=== PATIENT | male | born 1960 | race Caucasian/White ===

== ENCOUNTER 2017-10-14 20:00 | Inpatient (IN) | payer MEDICAID, SELFPAY ==
[2017-10-14 20:02] VITALS: BP 173/109; PULSE 94; RESP 18; TEMP 36.9; O2SAT 98; BMI 39.9
--- NOTE | 2017-10-14 20:57 | ED.DCSUM_ITS ---
- ER Visit Summary Date of Service: 10/14/17 Chief Complaint: Left groin abscess History of Present Illness: The patient is a 57 M history of non-insulin- dependent diabetes and hypertension. Patient states that since Wednesday about 6 days ago he developed redness in his left upper leg then moved to his groin and I believe he has an abscess. Denies fever. No prior history. Denies any bleeding or drainage. Physical Examination: Well-appearing middle-age male. Vital signs are stable. He is afebrile. He does not look septic or toxic. He is in no acute distress. HEENT exam unremarkable. Neck nontender lungs clear to auscultation bilaterally. Heart regular rate and rhythm no murmur. Abdomen obese but soft nontender nondistended no giving or masses normal bowel sounds. Moving all 4 extremities. Neurovascular intact. Neurologically is awake and alert with no focal motor deficits. In the proximal left thigh groin area is red and warm consistent with an abscess also in the lower abdomen with indurated tissue and tenderness. There is no necrotic tissue. This does not involve the external genitalia. Test Results: CBC showed a white count of 14,400. Normal H&H. No bands. Electrolytes sodium is 126. Gap is 6. Blood sugars 263. Normal creatinine. Emergency Department Course and Treatment: Patient be started on IV Zosyn. Screening labs to be obtained. Treatment Plan: Repeat exam patient is doing well. The left groin abscess spontaneously ruptured on its own. It has a very foul smell. It is openly draining pus. There is no bleeding. Patient said actually feels better now the pressures off of it. Currently there is nothing I&D since it spontaneously ruptured and is actively draining. There was a large amount of pus. I will speak to the hospitalist about admission. Disposition: Admission Impression: Acute left groin abscess with cellulitis Acute hyponatremia History of diabetes This note was generated with [email or web address] dictation software. It may contain incorrect words, spelling, and punctuation that were not noted in review of the chart prior to signing <Jorge Alvarez - Last Filed: 10/14/17 23:16> - ER Visit Summary Date of Service: 10/14/17 Chief Complaint: [] History of Present Illness: The patient is a 57 M [] Physical Examination: [] Test Results: [] Emergency Department Course and Treatment: [] Treatment Plan: [] Disposition: [] Impression: [] This note was generated with [email or web address] dictation software. It may contain incorrect words, spelling, and punctuation that were not noted in review of the chart prior to signing <Kyrie Marion - Last Filed: 10/14/17 23:55> ED Disposition <Jorge Alvarez - Last Filed: 10/14/17 23:16> <Kyrie Marion - Last Filed: 10/14/17 23:55> - Plan for ED Patient: Chief Complaint: Abscess Referrals: Onofre Augustine MD [Primary Care Provider] -
[2017-10-14] MEDS: morphine 8 MG/ML Syringe 6 MG IV (21:15)
[2017-10-14 21:21] VITALS: BP 145/87; PULSE 92; RESP 22; O2SAT 100
[2017-10-14 21:31] LABS: Bedside Glucose 251 mg/dL (70-110)
[2017-10-14 21:38] LABS: Absolute Lymphocyte Count 1.29 X10^3/ul (0.83-4.51); Basophil# 0.03 X10^3/uL; Basophil% 0.2 % (0-1); Eosinophil# 0.13 X10^3/uL; Eosinophils% 0.9 % (0-5); Hematocrit 36.6 % (40-54); Hemoglobin 12.5 g/dl (13.0-16.5); Lymphocyte # 1.29 X10^3/ul (4.0); Lymphocyte % 8.9 % (19-41); Mean Corp Hgb Conc 34.2 g/gl (32-36); Mean Corpuscular Hgb 29.6 pg (27.0-32.0); Mean Corpuscular Volume 86.7 fL (80-94); Mean Platelet Vol. 10.9 fl (6.2-12.0); Monocyte# 0.94 X10^3/uL; Monocyte% 6.5 % (0-10); Neutrophil # 11.97 X10^3/uL (2.7-7.7); Neutrophil % 83.1 % (47-70); Platelet Count 228 K/mm3 (150-450); RBC Distribution Width CV 12.9 % (11.6-14.6); RBC Distribution Width SD 40.5 fl (35.1-43.9); Red Blood Count 4.22 M/mm3 (4.6-6.2); White Blood Count 14.4 K/mm3 (4.4-11.0)
[2017-10-14 21:39] LABS: POSITIVE COUNT NO; POSITIVE DIFFERENTIAL NO; POSITIVE MORPHOLOGY NO
[2017-10-14 22:06] LABS: Anion Gap 6 (5-15); BUN 12 mg/dL (7-18); Calcium,Total 8.9 mg/dL (8.5-10.1); Chloride 97 mmol/L (98-107); Creatinine, Serum 0.92 mg/dL (0.70-1.30); EST Glomerular Filtration Rate 90 mL/min (>60); Est Glom Filt Rate - Afr Amer 109 mL/min (>60); Estimated Creatinine Clearance 90.72 ml/min; Glucose 263 mg/dL (74-106); Sodium Level 126 mmol/L (136-145)
--- NOTE | 2017-10-14 23:13 | PCM.HP.STD ---
Problem List (1) Abscess of groin, left Status: Acute (2) Cellulitis of groin, left Status: Acute (3) Hypertension Status: Chronic (4) Diabetes Status: Acute Qualifiers: Diabetes mellitus type: type 2 (5) Hyponatremia Status: Acute History of Present Illness Date of Admission: 10/14/17 Chief Complaint: swelling and pain at left groin x 5 days The patient is a 57 year old M with a significant history of tobacco abuse, diabetes mellitus type 2 and hypertension who presents with redness, swelling and pain at left groin x 5 days. Patient reports that the area under consideration started as a small rash and it progressively worsened. At emergency department the patient received Zosyn. The ED doctor was getting ready to incise the swelling at his left groin when it spontaneously ruptured. Of note the patient was noted to have significant hyponatremia on ED labs but with no baseline labs to compare with. He reports hydrating himself with a considerable amount of tea each day. He is supposed to be on Metformin and Lisinopril but because of financial difficulties he is not taking any of his medications. Past Medical History Past Medical History (Chronic Problems): Chronic Problems Hypertension (Chronic) Medical History: Medical History (Last Updated 10/15/17 @ 01:13 by Kyrie Marion MD) Diabetes type 2, uncontrolled E11.65 Allergies No Known Allergies Allergy (Verified 10/14/17 20:03) Home Medications: Ambulatory Orders Medication Instructions Recorded Ibuprofen [Motrin] 400 mg PO Q4H PRN PRN 10/15/17 Smoking Status: Current every day smoker Alcohol: None Drugs: None - *Family History Paternal History Items: Diabetes Maternal History Items: No pertinent history Review of Systems Constitutional: Denies: Chills, Fever, Weight Change Eyes: Denies: Blurred vision, Pain HEENT: Denies: Head Aches, Sinus Congestion, Sinus Drainage Cardiovascular: Denies: Chest Pain, Palpitations Respiratory: Denies: Cough, Shortness of breath at rest, Sputum production Gastrointestinal: Denies: Abdominal Pain, Nausea, Vomiting Genitourinary: Denies: Dysuria Musculoskeletal: Reports: - - Left Groin pain Skin: Reports: - - Swelling and redness of left groin Neurological: Denies: Numbness, Tingling, Focal weakness Psychiatric: Denies: Anxiety, Depression, Homicidal Ideations, Suicidal Ideations Hematologic/ Lymphatic: Denies: Easy Bruising, Easy Bleeding VTE Information - Inpt Only VTE Present on Admission: No VTE Mechan Device Prophylaxis: None VTE Pharm Prophylaxis ordered?: Yes Patient Problems: Active and Suspected Problems Abscess of groin, left (Acute) Cellulitis of groin, left (Acute) Diabetes (Acute) Hyponatremia (Acute) - Physical Exam General: Alert, Oriented x3, Cooperative HEENT: Atraumatic, PERRLA, EOMI, Normocephalic Neck: Supple, No JVD, Negative Carotid Bruits Lungs: Clear to auscultation, Normal air movement Cardiovascular: Regular rate, No murmurs Abdomen: Bowel Sounds Present, Soft, Non Tender Extremities: - - Left groin redness and induration present. Foul odor pus from left groin. Musculoskeletal: No Tenderness to Palpation of Joints or Extremities Neurological: Cranial nerves II-XII grossly intact Psych/Mental Status: Normal Affect, Appropriate Vital Signs Temp Pulse Resp BP Pulse Ox 98.4 F 92 22 H 145/87 H 100 10/14/17 20:02 10/14/17 21:21 10/14/17 21:21 10/14/17 21:21 10/14/17 21:21 Oxygen Delivery Method Room Air Weight: 122.47 kg Body Mass Index (BMI) 39.9 Finger Stick Blood Glucose 251 Laboratory Tests Past 24 Hrs 10/14/17 10/14/17 21:15 21:15 WBC 14.4 H RBC 4.22 L Hgb 12.5 L Hct 36.6 L MCV 86.7 MCH 29.6 MCHC 34.2 RDW 12.9 RDW Differential 40.5 Plt Count 228 MPV 10.9 Immature Gran % (Auto) 0.400 Neut % (Auto) 83.1 H Lymph % (Auto) 8.9 L [place] % (Auto) 6.5 Eos % (Auto) 0.9 Baso % (Auto) 0.2 Absolute Neuts (auto) 12.0 H Absolute Lymphs (auto) 1.29 Total Counted Not Reportable Sodium 126 L Potassium TNP Chloride 97 L Carbon Dioxide 23.0 Anion Gap 6 BUN 12 Creatinine 0.92 Estim Creat Clear Calc 90.72 Est GFR (MDRD) Af Amer 109 Est GFR (MDRD) Non-Af 90 BUN/Creatinine Ratio 13.0 Glucose 263 H Calcium 8.9 POC Glucose 10/14/17 21:26 POC Glucose 251 H Assessment/Plan All Active Problems Abscess of groin, left (Acute) Cellulitis of groin, left (Acute) Diabetes (Acute) Hyponatremia (Acute) The patient is a 57 year old M with a significant history of tobacco abuse; diabetes mellitus type 2; and hypertension who presents with pain, redness, swelling and foul-smelling discharge from his left groin. Left groin abscess with cellulitis White blood count of 14.4 with neutrophilic predominance. Received Zosyn on 10/14/2017 We will cover for MRSA, strep and enteric bacteria with vancomycin and Zosyn. Surgery consult for evaluation for further incision and drainage Blood cultures ordered. Hyponatremia Sodium of 126 No clear etiology at this time. Suspect ingestion of hypotonic fluids. Serum osmolality, urine osmolality and urine sodium ordered. TSH ordered. Diabetes mellitus Basal and correction scale insulin ordered Metformin not reordered Hypertension Lisinopril 20 mg ordered. Tobacco abuse Counselled Inpatient consult for tobacco cessation DVT prophylaxis Subcutaneous Lovenox Code Visit Inpatient E&M: 74345 Init Hosp L2
[2017-10-14 23:22] VITALS: BP 135/72; PULSE 95; RESP 18; O2SAT 97
--- NOTE | 2017-10-14 23:22 | ED.RN ---
pt's abscess drained on own. large amount of liquid brown drainage. cleaned up with bath wipes. MD assessed. pt feels less pressure to abscess.
[2017-10-15] VITALS (14 sets, daily range): BP systolic 96–180; BP diastolic 66–95; PULSE 78–97; RESP 16–20; TEMP 36.6–37.6; O2SAT 94–100; BMI 38.9; BMI 39.9
[2017-10-15] MEDS: Insulin Lispro 100 UNIT/ML INSULN.PEN SQ ×4 (00:45→22:07)
[2017-10-15 00:50] LABS: Bedside Glucose 321 mg/dL (70-110)
[2017-10-15 01:23] LABS: Thyroid Stim Hormone (TSH) 1.94 uIU/mL (0.358-3.74)
[2017-10-15] MEDS: oxyCODONE 5 MG Tablet PO ×3 (01:33→16:04)
[2017-10-15] MEDS: 0.9% NaCl IVPB Med Flush (250 mL) 15 ML IV (01:35)
--- NOTE | 2017-10-15 01:38 | PCM.RX.CS ---
Consult Pharmacy has been consulted to manage selected antiobiotic: Vancomycin Type of Consult: New start Suspected Infection: Skin/Soft tissue Labs: Sodium 126 mmol/L (136-145) L 10/14/17 21:15 Potassium TNP 10/14/17 21:15 Chloride 97 mmol/L (98-107) L 10/14/17 21:15 Carbon Dioxide 23.0 mmol/L (21.0-32.0) 10/14/17 21:15 Anion Gap 6 (5-15) 10/14/17 21:15 BUN 12 mg/dL (7-18) 10/14/17 21:15 Creatinine 0.92 mg/dL (0.70-1.30) 10/14/17 21:15 Est GFR (MDRD) Af Amer 109 mL/min (>60) 10/14/17 21:15 Est GFR (MDRD) Non-Af 90 mL/min (>60) 10/14/17 21:15 BUN/Creatinine Ratio 13.0 RATIO (10-20) 10/14/17 21:15 Glucose 263 mg/dL (74-106) H 10/14/17 21:15 Weight used for dosin.47 kg Estimated Creatinine Clearance: 90.72 Goal Trough: 10-15 mcg/mL Pharmacy Plan for Drug Dosing: Pharmacy Service will continue to monitor and adjust dosing as required. Medications Piperacillin Sod/Tazobactam Sod (Zosyn) 3.375 gm in 50 mls @ 12.5 mls/hr IV Q8 [facility] Vancomycin HCl 1,750 mg/ (Sodium Chloride) 535 mls @ 260 mls/hr IV X1 ONE Stop: 10/15/17 02:33 Last Admin: 10/15/17 01:31 Dose: 260 mls/hr Vancomycin HCl 1,500 mg/ (Dextrose) 280 mls @ 250 mls/hr IV RX TO DOSE ANA Follow-Up Labs: Trough Vancomycin Labs to be done on [date and time ordered]: 10/16 @ 1330
[2017-10-15 02:03] LABS: Urine Sodium 25 mmol/L (Not Establ.)
[2017-10-15 02:38] LABS: Osmolality, Urine 963 mOsm/KG
[2017-10-15] MEDS: Piperacil/Tazobactam 3.375 GM/50 ML ML IV ×3 (06:36→22:05)
[2017-10-15 07:21] LABS: Absolute Lymphocyte Count 0.81 X10^3/ul (0.83-4.51); Absolute Neutrophil Count 10.6 X10^3/uL (2.0-7.7); Basophil# 0.04 X10^3/uL; Basophil% 0.3 % (0-1); Eosinophil# 0.15 X10^3/uL; Eosinophils% 1.2 % (0-5); Hematocrit 34.8 % (40-54); Lymphocyte # 0.81 X10^3/ul (4.0); Lymphocyte % 6.5 % (19-41); Mean Corp Hgb Conc 34.5 g/gl (32-36); Mean Corpuscular Hgb 29.9 pg (27.0-32.0); Mean Corpuscular Volume 86.6 fL (80-94); Mean Platelet Vol. 10.2 fl (6.2-12.0); Monocyte# 0.88 X10^3/uL; Neutrophil # 10.56 X10^3/uL (2.7-7.7); Neutrophil % 84.1 % (47-70); Platelet Count 261 K/mm3 (150-450); RBC Distribution Width CV 12.4 % (11.6-14.6); RBC Distribution Width SD 38.8 fl (35.1-43.9); Red Blood Count 4.02 M/mm3 (4.6-6.2); White Blood Count 12.6 K/mm3 (4.4-11.0)
[2017-10-15 07:22] LABS: POSITIVE COUNT NO; POSITIVE DIFFERENTIAL NO; POSITIVE MORPHOLOGY NO
[2017-10-15 07:41] LABS: Anion Gap 10 (5-15); BUN 13 mg/dL (7-18); BUN/Creat Ratio 12.6 RATIO (10-20); Calcium,Total 8.1 mg/dL (8.5-10.1); Chloride 94 mmol/L (98-107); Creatinine, Serum 1.03 mg/dL (0.70-1.30); EST Glomerular Filtration Rate 80 mL/min (>60); Est Glom Filt Rate - Afr Amer 96 mL/min (>60); Estimated Creatinine Clearance 81.03 ml/min; Glucose 292 mg/dL (74-106); Potassium 3.8 mmol/L (3.5-5.1); Sodium Level 130 mmol/L (136-145)
[2017-10-15 07:45] LABS: Osmolality, Serum 283 mOsm/KG (275-295)
--- NOTE | 2017-10-15 08:29 | NURSING ---
Nursing and Dr Redd asked this nurse to assess the redness and drainage to the left upper medial thigh. patient states he has had redness for a little over a week and has worsened since Wednesday. patient is a diabetic. there is a very small darkened area approx the size of a pencil eraser to the upper inner thigh that is draining copious amounts of blair very malodorous drainage. there is some induration noted to the suprapubic region as well. the induration does not extend to the right side at this time. there is redness that extends to the left thigh, left flank, and around to the left posterior thigh. the scrotum is red as well. there is so firmness noted to the scrotum at this time. redness marked at this time. Discussed with Dr Redd. Dr Duran is on consult as well. pt will most likely need surgical intervention today especially if this continues to worsen. A CT scan had not been ordered yet, but Dr Redd did mention ordering one. will closely monitor. with patient being diabetic, this could rapidly progress. Emma's gangrene is not ruled out. cultures obtained and sent per RENE Sanon.
--- NOTE | 2017-10-15 08:30 | NURSING ---
cultures obtained from left groin draining area and sent to lab
[2017-10-15 09:55] LABS: Bedside Glucose 350 mg/dL (70-110)
--- NOTE | 2017-10-15 10:01 | CON.PCM_ITS ---
Problem List (1) Abscess of groin, left Status: Acute Reason for Consult Date of Consultation: 10/15/17 History of Present Illness: The patient is a 57 year old M with a significant history of tobacco abuse, diabetes mellitus type 2 and hypertension who presents with redness, swelling and pain at left groin x 5 days. Patient reports that the area under consideration started as a small rash and it progressively worsened. At emergency department the patient received Zosyn. The ED doctor was getting ready to incise the swelling at his left groin when it spontaneously ruptured. Of note the patient was noted to have significant hyponatremia on ED labs but with no baseline labs to compare with. He reports hydrating himself with a considerable amount of tea each day. He is supposed to be on Metformin and Lisinopril but because of financial difficulties he is not taking any of his medications. I was notified today about this consultation. Past Medical History Past Medical History (Chronic Problems): Chronic Problems (Last Updated 10/15/17 @ 01:13 by Kyrie Marion MD) Hypertension (Chronic) Medical History: Medical History (Last Reviewed 10/15/17 @ 09:59 by Hamilton Duran MD) Diabetes type 2, uncontrolled E11.65 Allergies No Known Allergies Allergy (Verified 10/14/17 20:03) Home Medications: Ambulatory Orders Medication Instructions Recorded Ibuprofen [Motrin] 400 mg PO Q4H PRN PRN 10/15/17 Smoking Status: Current every day smoker Alcohol: None Drugs: None - *Family History Paternal History Items: Diabetes Maternal History Items: No pertinent history Review of Systems Cardiovascular: Denies: Chest Pain, Chest Pressure, Chest Tightness, Palpitations Respiratory: Denies: Cough, Hemoptysis, Shortness of breath at rest, Shortness of breath upon exertion, Wheezing Gastrointestinal: Denies: Abdominal Pain, Constipation, Diarrhea, Hematemesis, Nausea, Melena, Vomiting Patient Problems: Active and Suspected Problems (Last Updated 10/15/17 @ 01:13 by Kyrie Marion MD) Abscess of groin, left (Acute) Cellulitis of groin, left (Acute) Diabetes (Acute) Hyponatremia (Acute) - Physical Exam General: Alert, Oriented x3 Lungs: Clear to auscultation Cardiovascular: Regular rate, Regular Rhythm, No murmurs Extremities: - Vital Signs Temp Pulse Resp BP Pulse Ox 98.6 F 90 18 159/84 H 97 10/15/17 09:43 10/15/17 09:43 10/15/17 09:43 10/15/17 09:43 10/15/17 09:43 Oxygen Delivery Method Room Air Weight: 263 lb 10.766 oz Body Mass Index (BMI) 38.9 Intake and Output for Last 24 Hours 10/13/17 10/14/17 10/15/17 23:59 23:59 23:59 Intake Total 1010 / 1010 Balance 1010 / 1010 Laboratory Tests Past 24 Hrs 10/15/17 10/15/17 10/15/17 01:30 01:30 07:08 WBC RBC Hgb Hct MCV MCH MCHC RDW RDW Differential Plt Count MPV Immature Gran % (Auto) Neut % (Auto) Lymph % (Auto) [place] % (Auto) Eos % (Auto) Baso % (Auto) Absolute Neuts (auto) Absolute Lymphs (auto) Total Counted Sodium Potassium Chloride Carbon Dioxide Anion Gap BUN Creatinine Estim Creat Clear Calc Est GFR (MDRD) Af Amer Est GFR (MDRD) Non-Af BUN/Creatinine Ratio Glucose Serum Osmolality 283 Calcium Urine Osmolality 963 Ur Random Sodium 25 S.aureus Protein A PCR MRSA (PCR) 10/15/17 10/15/17 10/15/17 07:08 07:08 08:10 WBC 12.6 H RBC 4.02 L Hgb 12.0 L Hct 34.8 L MCV 86.6 MCH 29.9 MCHC 34.5 RDW 12.4 RDW Differential 38.8 Plt Count 261 MPV 10.2 Immature Gran % (Auto) 0.900 Neut % (Auto) 84.1 H Lymph % (Auto) 6.5 L [place] % (Auto) 7.0 Eos % (Auto) 1.2 Baso % (Auto) 0.3 Absolute Neuts (auto) 10.6 H Absolute Lymphs (auto) 0.81 L Total Counted Not Reportable Sodium 130 L Potassium 3.8 Chloride 94 L Carbon Dioxide 26.0 Anion Gap 10 BUN 13 Creatinine 1.03 Estim Creat Clear Calc 81.03 Est GFR (MDRD) Af Amer 96 Est GFR (MDRD) Non-Af 80 BUN/Creatinine Ratio 12.6 Glucose 292 H Serum Osmolality Calcium 8.1 L Urine Osmolality Ur Random Sodium S.aureus Protein A PCR Pending MRSA (PCR) Pending POC Glucose 10/15/17 10/15/17 09:50 00:24 POC Glucose 350 H 321 H Assessment/Plan All Active Problems (Last Updated 10/15/17 @ 01:13 by Kyrie Marion MD) Abscess of groin, left (Acute) Cellulitis of groin, left (Acute) Diabetes (Acute) Hyponatremia (Acute) My plan is to perform an I&D of this abscess in his left groin. This may be a component of necrotizing fasciitis I have instructed him that there is a chance that he could lose his testicle on that side as well. Until I get him in the OR I really do not know how extensive my dissection is going to have to be. Risk benefits to include bleeding up to and including have been discussed with this gentleman. This is an extremely serious situation
--- NOTE | 2017-10-15 10:19 | NURSING ---
report called to Jessica Mathis in [facility]
[2017-10-15 10:34] LABS: M R Staph aureus DNA By PCR Negative (Negative); Probe Check PASS; Specimen Processing Control PASS; Staph aureus DNA By PCR NEGATIVE (Negative)
--- NOTE | 2017-10-15 10:43 | EKG12_ITS ---
Test Reason : PRE-OP Blood Pressure : / mmHG Vent. Rate : 090 BPM Atrial Rate : 090 BPM P-R Int : 152 ms QRS Dur : 086 ms QT Int : 358 ms P-R-T Axes : 025 004 032 degrees QTc Int : 437 ms Normal sinus rhythm Normal ECG No previous ECGs available Confirmed by YANNICK URIAS ([id number]), manager editorial RAMIREZ HOUSER ([id number] on 10/19/2017 2:09:44 PM Referred By: ARETHA Confirmed By:YANNICK URIAS
--- NOTE | 2017-10-15 11:25 | PCM.PN.HOSP ---
Patient Problems: Active and Suspected Problems (Last Reviewed 10/15/17 @ 09:59 by Hamilton Duran MD) Abscess of groin, left (Acute) Cellulitis of groin, left (Acute) Diabetes (Acute) Hyponatremia (Acute) Subjective: The patient is a 57 y/o M w/ PMHx: Obesity, Diabetes mellitus type II, HTN, Tobacco use who presents to the [facility] ED on 10/24/17 with history of ongoing primarily L groin pain, initially thought a rash that progressed into erythema, edema, fullness and severe pain. Acute Left Groin, Medial Thigh Cellulitis, Abscess, Concerning for Emma's Gangrene/Early Necrotizing Fascitis: Admission CBC w/ WBC 14.4 with L shift, was afebrile upon admission-->repeat CBC w/ WBC 12.6 with improving shift. Admitted to [place], treated w/ IV vanc and zosyn, obtained Wound Cx and MRSA wound this AM (negative) w/ de-escalation to Zosyn, immediately contact with Dr. Duran this AM for OR obvious needs, NPO status, IVFs, PPI, continue to monitor erythema outline with VS checks. PRN pain regimen, antiemetics. Wound RN following. Hyponatremia, Acute: Suspected secondary to hypovolemia, poor intake with acute presentation, #1, admission Na 126, continued on hydration, 10/15/17 Na 130, improving, trend. Diabetes mellitus type II w/ need to confirm home regimen, maintained on Lantus increased unit and now BID given notable hyperglycemia secondary to #1, HgBA1c requested, ADA diet once NPO status discontinued, accu checks w/ ISS. Nutrition consultation for education and teaching. Initiated on lisinopril, improved, pain also component, hold on further now until post-op and re-evaluation, if needed may increase ACEI versus additional regimen, PRN hydralazine. Patient since admission with ongoing discomfort to the groin region primarily left-sided with swelling, induration, now open draining region with purulent material. Evaluated patient and remarked that he would immediately need operative intervention and spoke with general surgeon who evaluated patient is for progression to OR. Evaluated patient with wound RN and RN with wound culture both aerobic and anaerobic as well as MRSA PCR obtained with negative MRSA PCR with discontinuation of vancomycin and continuation of Zosyn therapy. Discussed elevated blood sugar secondary to acute presentation with patient and noted intention for increase of his long-acting insulin and addition of twice daily. Patient denies nausea, emesis, abdominal pain, chest pain or dyspnea. Objective: Physical Examination: General: awake, alert, oriented x 3 and cooperative, seated upright in bed, notably uncomfortable especially given current examination of the groin region with wound cultures being obtained. Skin: normal color, turgor, no icterus, cyanosis except notable diffuse erythema to the groin region primarily left-sided extending into the suprapubic and lateral groin regions, indurated, firm, suspicious for fluctuance with abscess, open draining small abscess to the medial inner thigh region with brown foul-smelling purulent material, mild edema to the scrotal region. HEENT: AT/NC, EOMI, PERRLA, mild dry MM. Lungs: Diminished BS BL, > bases, decreased effort w/ ongoing acute pain, no rales, ronchi or wheezing. Heart: Mildly tachycardic with regular rhythm; no gallop, rub audible. Abdomen: soft, obese, NTTP, ND, decreased BS. Extremities: no cyanosis, clubbing, see skin. Neurological: patient awake, alert, oriented x 3; cognitive function intact; pupils equally reactive to light and accomodation; cranial nerves II-XII grossly normal, moving all 4 extremities, no focal deficits, strength severely globally decreased secondary to acute presentation. Psychiatric: affect appears strained, fatigued, in pain, no acute evidence of depressive or anxiety feelings. Vitals/I&O's: Vital Signs Temp Pulse Resp BP Pulse Ox 98.6 F 90 18 159/84 H 97 10/15/17 09:43 10/15/17 09:43 10/15/17 09:43 10/15/17 09:43 10/15/17 09:43 Oxygen Delivery Method Room Air Weight: 263 lb 10.766 oz Body Mass Index (BMI) 38.9 Intake and Output for Last 24 Hours 10/13/17 10/14/17 10/15/17 23:59 23:59 23:59 Intake Total 1010 / 1010 Balance 1010 / 1010 Laboratory Results 10/15/17 00:24: POC Glucose 321 H 10/15/17 01:30: Urine Osmolality 963 10/15/17 01:30: Ur Random Sodium 25 10/15/17 07:08: Serum Osmolality 283 10/15/17 07:08: WBC 12.6 H, RBC 4.02 L, Hgb 12.0 L, Hct 34.8 L, MCV 86.6, MCH 29.9, MCHC 34.5, RDW 12.4, RDW Differential 38.8, Plt Count 261, MPV 10.2, Immature Gran % (Auto) 0.900, Neut % (Auto) 84.1 H, Lymph % (Auto) 6.5 L, [place] % (Auto) 7.0, Eos % (Auto) 1.2, Baso % (Auto) 0.3, Absolute Neuts (auto) 10.6 H, Absolute Lymphs (auto) 0.81 L, Total Counted Not Reportable 10/15/17 07:08: Sodium 130 L, Potassium 3.8, Chloride 94 L, Carbon Dioxide 26.0, Anion Gap 10, BUN 13, Creatinine 1.03, Estim Creat Clear Calc 81.03, Est GFR (MDRD) Af Amer 96, Est GFR (MDRD) Non-Af 80, BUN/Creatinine Ratio 12.6, Glucose 292 H, Calcium 8.1 L 10/15/17 08:10: S.aureus Protein A PCR NEGATIVE, MRSA (PCR) Negative 10/15/17 09:50: POC Glucose 350 H Current Medications Bisacodyl (Dulcolax) 5 mg PO DAILY PRN PRN PRN Reason: Constipation Dextrose (D50w Syringe) 0 gm IV X1 PRN; Protocol PRN Reason: Hypoglycemia Enoxaparin Sodium (Lovenox) 40 mg SC DAILY@1000 ANA Last Admin: 10/15/17 08:29 Dose: Not Given Glucagon () 1 mg IM .X1 PRN PRN Reason: Hypoglycemia Piperacillin Sod/Tazobactam Sod (Zosyn) 3.375 gm in 50 mls @ 12.5 mls/hr IV Q8 ANA Last Admin: 10/15/17 06:36 Dose: 12.5 mls/hr Sodium Chloride () 250 mls @ 15 mls/hr IV .[id number] PRN PRN Reason: SALINE FLUSH Last Admin: 10/15/17 01:35 Dose: 15 mls/hr Sodium Chloride () 1,000 mls @ 100 mls/hr IV .Q10H ANA Insulin Glargine (Lantus (Bkc)) 20 units SC BID ANA Insulin Human Lispro (Humalog Kwikpen (Bkc)) 0 unit SQ ACHS ANA PRN Reason: Protocol Last Admin: 10/15/17 00:45 Dose: 5 units Lisinopril (Zestril) 20 mg PO DAILY NAA Magnesium Hydroxide (Milk Of Magnesia) 30 ml PO DAILY PRN PRN PRN Reason: Constipation Ondansetron HCl (Zofran) 4 mg IV Q8H PRN PRN PRN Reason: Nausea Oxycodone HCl (Oxyir) 5 mg PO Q4H PRN PRN PRN Reason: Moderate Pain (pain scale 4-5) Last Admin: 10/15/17 06:44 Dose: 5 mg Sodium Chloride () 5 - 30 ml IV UD PRN PRN Reason: SALINE FLUSH Zolpidem Tartrate (Ambien (Generic)) 5 mg PO QHS PRN PRN PRN Reason: INSOMNIA Medical Necessity - Tobacco Use Smoking Status: Current every day smoker Assessment/Plan All Active Problems (Last Reviewed 10/15/17 @ 09:59 by Hamilton Duran MD) Abscess of groin, left (Acute) Cellulitis of groin, left (Acute) Diabetes (Acute) Hyponatremia (Acute) The patient is a 57 y/o M w/ PMHx: Obesity, Diabetes mellitus type II, HTN, Tobacco use who presents to the [facility] ED on 10/24/17 with history of ongoing primarily L groin pain, initially thought a rash that progressed into erythema, edema, fullness and severe pain. (1) Acute Left Groin, Medial Thigh Cellulitis, Abscess, Concerning for Emma's Gangrene/Early Necrotizing Fascitis: Admission CBC w/ WBC 14.4 with L shift, was afebrile upon admission-->repeat CBC w/ WBC 12.6 with improving shift. Admitted to [place], treated w/ IV vanc and zosyn, obtained Wound Cx and MRSA wound this AM (negative) w/ de-escalation to Zosyn, immediately contact with Dr. Duran this AM for OR obvious needs, NPO status, IVFs, PPI, continue to monitor erythema outline with VS checks. PRN pain regimen, antiemetics. Wound RN following. (2) Hyponatremia, Acute: Suspected secondary to hypovolemia, poor intake with acute presentation, #1, admission Na 126, continued on hydration, 10/15/17 Na 130, improving, trend. (3) Diabetes mellitus type II: Need to confirm home regimen, maintained on Lantus increased unit and now BID given notable hyperglycemia secondary to #1, HgBA1c requested, ADA diet once NPO status discontinued, accu checks w/ ISS. Nutrition consultation for education and teaching. (4) Hypertension: Initiated on lisinopril, improved, pain also component, hold on further now until post-op and re-evaluation, if needed may increase ACEI versus additional regimen, PRN hydralazine. (5) Obesity: Weight loss and lifestyle changes encouraged, nutrition consulted for education and teaching especially given concurrent diabetes and hypertension. (6) Tobacco Abuse: Encouraged cessation, inpatient consultation per RT, NR if desired. (7) DVT prophylaxis: SCDs, lovenox w/ hold currently with deferral following OR to Surgery given operative intervention plan. Code Visit Inpatient E&M: 43699 Subs Hosp L3
--- NOTE | 2017-10-15 11:53 | PCM.OPRPT ---
Problem List (1) Abscess of groin, left Status: Acute Report of Operation Date of Procedure: 10/15/17 Pre-Operative Diagnosis: Abscess to left groin Post-Operative Diagnosis: Same with necrotizing fasciitis Surgery/Procedure Performed:: Incision and drainage of abscess to left groin and debridement Type of Anesthesia:: Spinal/Supplemental Anesthesiologist: Ta Reyez Description of Procedure: Patient was brought into the operating room and under excellent spinal anesthetic his legs were placed up in stirrups perineal and groin area on both the left and right were sterilely prepped and draped in usual fashion patient had a pinpoint hole in his lower inner thigh I opened this and then tracked a deep abscess all the way up into the groin and onto the perineal area. I lengthen this incision total of about 15-[address] down through the subcutaneous tissues using electrocautery to obtain good hemostasis. Debrided the area and irrigated the area out. Once I had the area cleaned a Betadine soaked Kerlix was placed into the wound. Sterile dressings were applied. We will have to get him to the clinical appeals specialist so that a wound VAC can be placed. - Admit VTE Documentation VTE Present on Admission: No VTE Mechan Device Prophylaxis: None VTE Pharm Prophylaxis ordered?: No Reason prophylaxis not ordered:: Treatment Not Indicated
[2017-10-15 12:36] LABS: Magnesium 1.9 mg/dL (1.6-2.6)
[2017-10-15 12:40] LABS: Hemoglobin A1c 10.4 % (4.2-6.3)
[2017-10-15] MEDS: 0.9% Normal Saline 1,000 ML 100 ML IV ×2 (13:11→15:44)
[2017-10-15 13:15] LABS: Bedside Glucose 317 mg/dL (70-110)
[2017-10-15] MEDS: Lisinopril 20 MG Tablet PO (13:40)
--- NOTE | 2017-10-15 14:47 | NURSING ---
wound photo: left groin
[2017-10-15 16:01] LABS: Bedside Glucose 282 mg/dL (70-110)
[2017-10-15] MEDS: HYDROmorphone 0.5 MG/0.5 ML SYRINGE IV ×2 (19:01→22:01)
[2017-10-15] MEDS: 0.9% NaCl Peripheral Flush Adult/Peds IV (19:01)
[2017-10-15] MEDS: Pantoprazole Sodium 20 MG Tablet PO (22:05)
[2017-10-15 22:35] LABS: Bedside Glucose 349 mg/dL (70-110)
[2017-10-16] MEDS: Ondansetron 4 MG/2 ML Vial IV (01:31)
[2017-10-16] MEDS: 0.9% Normal Saline 1,000 ML 100 ML IV ×2 (01:32→11:55)
[2017-10-16 02:00] VITALS: BP 169/83; PULSE 90; RESP 20; TEMP 36.7; O2SAT 97
[2017-10-16] MEDS: Metoclopramide 10 MG/2 ML Vial IV ×2 (04:12→10:00)
[2017-10-16] MEDS: Piperacil/Tazobactam 3.375 GM/50 ML ML IV ×3 (05:30→22:41)
[2017-10-16] MEDS: Insulin Lispro 100 UNIT/ML INSULN.PEN SQ ×4 (06:52→22:41)
[2017-10-16 07:11] LABS: Bedside Glucose 279 mg/dL (70-110)
[2017-10-16 07:36] LABS: Absolute Lymphocyte Count 0.82 X10^3/ul (0.83-4.51); Absolute Neutrophil Count 8.9 X10^3/uL (2.0-7.7); Basophil# 0.04 X10^3/uL; Basophil% 0.4 % (0-1); Eosinophil# 0.07 X10^3/uL; Eosinophils% 0.6 % (0-5); Hematocrit 34.5 % (40-54); Hemoglobin 11.8 g/dl (13.0-16.5); Lymphocyte # 0.82 X10^3/ul (4.0); Lymphocyte % 7.6 % (19-41); Mean Corp Hgb Conc 34.2 g/gl (32-36); Mean Corpuscular Hgb 29.7 pg (27.0-32.0); Mean Corpuscular Volume 86.9 fL (80-94); Mean Platelet Vol. 10.5 fl (6.2-12.0); Monocyte# 0.83 X10^3/uL; Monocyte% 7.7 % (0-10); Neutrophil # 8.93 X10^3/uL (2.7-7.7); Neutrophil % 82.4 % (47-70); Platelet Count 285 K/mm3 (150-450); RBC Distribution Width CV 12.5 % (11.6-14.6); RBC Distribution Width SD 39.1 fl (35.1-43.9); Red Blood Count 3.97 M/mm3 (4.6-6.2); White Blood Count 10.8 K/mm3 (4.4-11.0)
[2017-10-16 07:40] LABS: POSITIVE COUNT NO; POSITIVE DIFFERENTIAL NO; POSITIVE MORPHOLOGY NO
[2017-10-16 07:45] LABS: Anion Gap 10 (5-15); BUN 13 mg/dL (7-18); BUN/Creat Ratio 14.5 RATIO (10-20); Calcium,Total 8.3 mg/dL (8.5-10.1); Chloride 97 mmol/L (98-107); EST Glomerular Filtration Rate 93 mL/min (>60); Est Glom Filt Rate - Afr Amer 113 mL/min (>60); Estimated Creatinine Clearance 92.74 ml/min; Glucose 275 mg/dL (74-106); Potassium 3.9 mmol/L (3.5-5.1); Sodium Level 131 mmol/L (136-145)
--- NOTE | 2017-10-16 08:44 | CASEMGMT ---
AIDA met with patient, introduced self and role at [facility]. 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 He has access to equipment, but it is actually his mom's so it may not be appropriate size. He said he currently does not have VA benefits, but the [place] [facility] is working to see if they can get him benefits for his Tinnitus. He was having problems affording his medication, but now he is on Medicaid. AIDA told him AIDA and RENE GONZALEZ will follow and assist with any d/c planning needs. Asmita DANIEL [employer]
[2017-10-16] MEDS: HYDROmorphone 0.5 MG/0.5 ML SYRINGE IV ×4 (09:21→22:10)
[2017-10-16 09:25] VITALS: BP 141/73; PULSE 83; RESP 18; TEMP 37.3; O2SAT 100
--- NOTE | 2017-10-16 09:37 | PN_ITS ---
Patient Problems: Active and Suspected Problems (Last Reviewed 10/15/17 @ 09:59 by Hamilton Duran MD) Abscess of groin, left (Acute) Cellulitis of groin, left (Acute) Diabetes (Acute) Hyponatremia (Acute) Subjective: Patient was seen and examined. He complains of pain on movement, 8 out of 10. Pain is 2 out of 10 when no movement. Denies any fever or chills. Dressing change was yet to be done in the morning. Vitals/I&O's: Vital Signs Temp Pulse Resp BP Pulse Ox 99.1 F 83 18 141/73 H 100 10/16/17 09:25 10/16/17 09:25 10/16/17 09:25 10/16/17 09:25 10/16/17 09:25 Oxygen Delivery Method Room Air Weight: 119.6 kg Body Mass Index (BMI) 38.9 Finger Stick Blood Glucose 251 Intake and Output for Last 24 Hours 10/14/17 10/15/17 10/16/17 23:59 23:59 23:59 Intake Total 2453 / 2453 1964 / 1964 Output Total 500 / 500 1400 / 1400 Balance 1952 / 1952 565 / 565 General: Alert, Oriented x3, Cooperative, No apparent distress, - - Obese HEENT: Atraumatic, PERRLA, EOMI, Normocephalic Oral: Moist Mucosa Neck: Supple Lungs: Clear to auscultation, Normal air movement Cardiovascular: Regular rate, Regular Rhythm, Normal S1, Normal S2, No murmurs Abdomen: Bowel Sounds Present, Soft, Non Tender, Non-Distended, No Hepato- splenomegaly Extremities: No edema Skin: No rashes, No breakdown Musculoskeletal: No Tenderness to Palpation of Joints or Extremities Lymphatic: No Cervical, Supraclavicular, or Inguinal Adenopathy Neurological: Cranial nerves II-XII grossly intact, Neuro grossly intact Psych/Mental Status: Normal Affect, Appropriate Microbiology Past 72 Hours 10/15/17 08:10 Wound exudate - Groin Gram Stain - Final 10/15/17 08:10 Wound exudate - Groin Wound Culture - Preliminary Laboratory Results 10/15/17 07:08: Magnesium 1.9 10/15/17 07:08: Hemoglobin A1c 10.4 H 10/15/17 08:10: S.aureus Protein A PCR NEGATIVE, MRSA (PCR) Negative 10/15/17 09:50: POC Glucose 350 H 10/15/17 13:07: POC Glucose 317 H 10/15/17 15:56: POC Glucose 282 H 10/15/17 22:04: POC Glucose 349 H 10/16/17 06:49: POC Glucose 279 H 10/16/17 06:56: WBC 10.8, RBC 3.97 L, Hgb 11.8 L, Hct 34.5 L, MCV 86.9, MCH 29.7 , MCHC 34.2, RDW 12.5, RDW Differential 39.1, Plt Count 285, MPV 10.5, Immature Gran % (Auto) 1.300 H, Neut % (Auto) 82.4 H, Lymph % (Auto) 7.6 L, [place] % (Auto ) 7.7, Eos % (Auto) 0.6, Baso % (Auto) 0.4, Absolute Neuts (auto) 8.9 H, Absolute Lymphs (auto) 0.82 L, Total Counted Not Reportable 10/16/17 06:56: Sodium 131 L, Potassium 3.9, Chloride 97 L, Carbon Dioxide 24.0 , Anion Gap 10, BUN 13, Creatinine 0.90, Estim Creat Clear Calc 92.74, Est GFR ( MDRD) Af Amer 113, Est GFR (MDRD) Non-Af 93, BUN/Creatinine Ratio 14.5, Glucose 275 H, Calcium 8.3 L Current Medications Bisacodyl (Dulcolax) 5 mg PO DAILY PRN PRN PRN Reason: Constipation Dextrose (D50w Syringe) 0 gm IV X1 PRN; Protocol PRN Reason: Hypoglycemia Enoxaparin Sodium (Lovenox) 40 mg SC DAILY@1000 ANA Last Admin: 10/15/17 08:29 Dose: Not Given Glucagon () 1 mg IM .X1 PRN PRN Reason: Hypoglycemia Hydromorphone HCl (Dilaudid Inj) 0.5 - 1 mg IV Q3H PRN PRN PRN Reason: SEVERE PAIN (6-10/10) Last Admin: 10/16/17 09:21 Dose: 0.5 mg Piperacillin Sod/Tazobactam Sod (Zosyn) 3.375 gm in 50 mls @ 12.5 mls/hr IV Q8 ANA Last Admin: 10/16/17 05:30 Dose: 12.5 mls/hr Sodium Chloride () 250 mls @ 15 mls/hr IV .[id number] PRN PRN Reason: SALINE FLUSH Last Admin: 10/15/17 01:35 Dose: 15 mls/hr Sodium Chloride () 1,000 mls @ 100 mls/hr IV .Q10H [facility] Last Admin: 10/16/17 01:32 Dose: 100 mls/hr Insulin Glargine (Lantus (Bkc)) 20 units SC BID [facility] Last Admin: 10/15/17 22:06 Dose: 20 u Insulin Human Lispro (Humalog Kwikpen (Bkc)) 0 unit SQ ACHS [facility] PRN Reason: Protocol Last Admin: 10/16/17 06:52 Dose: 4 units Lisinopril (Zestril) 20 mg PO DAILY [facility] Last Admin: 10/15/17 13:40 Dose: 20 mg Magnesium Hydroxide (Milk Of Magnesia) 30 ml PO DAILY PRN PRN PRN Reason: Constipation Metoclopramide HCl (Reglan) 10 mg IV Q6H PRN PRN PRN Reason: NAUSEA Last Admin: 10/16/17 04:12 Dose: 10 mg Ondansetron HCl (Zofran) 4 mg IV Q8H PRN PRN PRN Reason: Nausea Last Admin: 10/16/17 01:31 Dose: 4 mg Oxycodone HCl (Oxyir) 5 - 10 mg PO Q4H PRN PRN PRN Reason: Moderate Pain (pain scale 4-5) Last Admin: 10/15/17 16:04 Dose: 5 mg Pantoprazole Sodium (Protonix) 20 mg PO BID [facility] Last Admin: 10/15/17 22:05 Dose: 20 mg Sodium Chloride () 5 - 30 ml IV UD PRN PRN Reason: SALINE FLUSH Last Admin: 10/15/17 19:01 Dose: 10 ml Zolpidem Tartrate (Ambien (Generic)) 5 mg PO QHS PRN PRN PRN Reason: INSOMNIA Medical Necessity - Tobacco Use Smoking Status: Current every day smoker Assessment/Plan All Active Problems (Last Reviewed 10/15/17 @ 09:59 by Hamilton Duran MD) Abscess of groin, left (Acute) Cellulitis of groin, left (Acute) Diabetes (Acute) Hyponatremia (Acute) 57-year-old male with past medical history of type II DM, hypertension, obesity , nicotine dependence was admitted on 10/14/17 with left groin pain which initially started as a rash progressed into erythema as well as edema and severe pain. Patient was diagnosed as left groin/medial thigh cellulitis with abscess. He underwent I& D of the left groin abscess. Postoperative findings noted. Appreciate general surgery consult. 1. Acute left groin/perineal abscess/cellulitis, status post I&D, preliminary wound cultures growing gram-positive cocci with beta-hemolytic strep No fever, leucocytosis, remains on IV Zosyn, will continue same antibiotics, follow-up on cultures, follow-up on labs, ID consult. 2. Hyponatremia, acute, remains slightly improved, will continue to monitor with repeat BMP. 3. Hyperglycemia and type II DM, blood sugars are uncontrolled because of current infection, increase Lantus to 22 units twice daily, continue with Accu- Cheks and insulin sliding scale 4. Hypertension, blood pressures are fairly controlled, continue on lisinopril 5. Obesity, BMI 38.9, diet and exercise recommended 6. Nicotine dependence, advised to quit 7. DVT prophylaxis with Lovenox subcu Code Visit Inpatient E&M: 98373 Subs Hosp L2
[2017-10-16] MEDS: Lisinopril 20 MG Tablet PO (09:40)
[2017-10-16] MEDS: Pantoprazole Sodium 20 MG Tablet PO ×2 (09:40→22:41)
[2017-10-16] MEDS: Enoxaparin 40 MG/0.4 ML Syringe SC (12:26)
[2017-10-16 12:35] LABS: Bedside Glucose 256 mg/dL (70-110)
[2017-10-16 17:20] LABS: Bedside Glucose 250 mg/dL (70-110)
[2017-10-16 18:05] VITALS: BP 157/81; PULSE 89; RESP 18; TEMP 37.4; O2SAT 97
[2017-10-16] MEDS: Bisacodyl 5 MG Tablet PO (19:34)
[2017-10-16] MEDS: 0.9% NaCl Peripheral Flush Adult/Peds IV (22:11)
[2017-10-16 22:15] VITALS: BP 168/95; PULSE 81; RESP 18; TEMP 37.2; O2SAT 97
[2017-10-16 22:50] LABS: Bedside Glucose 305 mg/dL (70-110)
[2017-10-16] MEDS: 0.9% Normal Saline 1,000 ML 75 ML IV (23:50)
[2017-10-17 03:04] VITALS: BP 162/92; PULSE 84; RESP 16; TEMP 36.9; O2SAT 98
[2017-10-17] MEDS: HYDROmorphone 0.5 MG/0.5 ML SYRINGE IV ×3 (03:06→22:42)
[2017-10-17] MEDS: 0.9% NaCl Peripheral Flush Adult/Peds IV ×3 (03:07→22:43)
[2017-10-17 06:23] LABS: Absolute Lymphocyte Count 1.48 X10^3/ul (0.83-4.51); Anion Gap 10 (5-15); BUN 12 mg/dL (7-18); BUN/Creat Ratio 13.4 RATIO (10-20); Basophil# 0.05 X10^3/uL; Basophil% 0.5 % (0-1); Calcium,Total 8.4 mg/dL (8.5-10.1); Chloride 97 mmol/L (98-107); EST Glomerular Filtration Rate 93 mL/min (>60); Eosinophil# 0.18 X10^3/uL; Eosinophils% 1.8 % (0-5); Est Glom Filt Rate - Afr Amer 113 mL/min (>60); Estimated Creatinine Clearance 92.74 ml/min; Glucose 258 mg/dL (74-106); Hematocrit 33.3 % (40-54); Hemoglobin 11.4 g/dl (13.0-16.5); Lymphocyte # 1.48 X10^3/ul (4.0); Lymphocyte % 15.1 % (19-41); Mean Corp Hgb Conc 34.2 g/gl (32-36); Mean Corpuscular Hgb 29.4 pg (27.0-32.0); Mean Corpuscular Volume 85.8 fL (80-94); Mean Platelet Vol. 10.2 fl (6.2-12.0); Monocyte# 0.92 X10^3/uL; Monocyte% 9.4 % (0-10); Neutrophil # 6.98 X10^3/uL (2.7-7.7); Neutrophil % 71.1 % (47-70); Platelet Count 287 K/mm3 (150-450); Potassium 3.7 mmol/L (3.5-5.1); RBC Distribution Width CV 12.5 % (11.6-14.6); RBC Distribution Width SD 38.7 fl (35.1-43.9); Red Blood Count 3.88 M/mm3 (4.6-6.2); Sodium Level 133 mmol/L (136-145); White Blood Count 9.8 K/mm3 (4.4-11.0)
[2017-10-17 06:27] LABS: Differential Indicated SCAN CRITERIA MET; POSITIVE COUNT YES; POSITIVE DIFFERENTIAL NO; POSITIVE MORPHOLOGY YES
[2017-10-17] MEDS: Insulin Lispro 100 UNIT/ML INSULN.PEN SQ ×6 (07:52→22:43)
[2017-10-17] MEDS: Magnesium Hydroxide 30 ML UDC PO (07:53)
[2017-10-17 08:01] LABS: Bedside Glucose 227 mg/dL (70-110)
[2017-10-17 08:10] VITALS: O2SAT 95
[2017-10-17 08:53] VITALS: BP 158/89; PULSE 83; RESP 18; TEMP 37.3; O2SAT 99
[2017-10-17] MEDS: oxyCODONE 5 MG Tablet PO ×2 (09:00→15:06)
[2017-10-17] MEDS: Piperacil/Tazobactam 3.375 GM/50 ML ML IV ×3 (09:06→22:43)
--- NOTE | 2017-10-17 10:17 | PN.SURG_ITS ---
Patient Problems: Active and Suspected Problems (Last Reviewed 10/15/17 @ 09:59 by Hamilton Duran MD) Abscess of groin, left (Acute) Cellulitis of groin, left (Acute) Diabetes (Acute) Hyponatremia (Acute) Subjective: Patient complaining of some pain in the upper groin area. Also complaining of some swelling in his scrotum. Objective: There is a fruity smell coming from the wound. Is clearly going to need to change this to a Dakin solution. The redness that was noted all around his thigh groin suprapubic area and scrotum is far less. He has dependent edema in his scrotum. There is some slight few necrotic areas in the wound but I think these are to be taken care of with just wet-to-dry dressing changes they seem all superficial. It does not appear that I need to take this patient back to surgery. - Physical Exam Vital Signs Temp Pulse Resp BP Pulse Ox 99.2 F H 83 18 158/89 H 99 10/17/17 08:53 10/17/17 08:53 10/17/17 08:53 10/17/17 08:53 10/17/17 08:53 Oxygen Delivery Method Room Air Weight: 263 lb 10.766 oz Body Mass Index (BMI) 38.9 Finger Stick Blood Glucose 251 Intake and Output for Last 24 Hours 10/15/17 10/16/17 10/17/17 23:59 23:59 23:59 Intake Total 2453 / 2453 5735 / 5735 651 / 651 Output Total 500 / 500 2650 / 2650 Balance 1953 / 1953 3085 / 3085 651 / 651 Microbiology Past 72 Hours 10/15/17 01:10 Blood Culture - Preliminary Blood Culture (Wb) - Right Hand No growth in 48 hours. 10/15/17 08:10 Gram Stain - Final Wound exudate - Groin Wound Culture - Preliminary Laboratory Tests Past 24 Hrs 10/17/17 10/17/17 05:24 05:24 WBC 9.8 RBC 3.88 L Hgb 11.4 L Hct 33.3 L MCV 85.8 MCH 29.4 MCHC 34.2 RDW 12.5 RDW Differential 38.7 Plt Count 287 MPV 10.2 Immature Gran % (Auto) 2.100 H Neut % (Auto) 71.1 H Lymph % (Auto) 15.1 L [place] % (Auto) 9.4 Eos % (Auto) 1.8 Baso % (Auto) 0.5 Absolute Neuts (auto) 7.0 Absolute Lymphs (auto) 1.48 Total Counted Not Reportable Diff Path Review May foll Sodium 133 L Potassium 3.7 Chloride 97 L Carbon Dioxide 26.0 Anion Gap 10 BUN 12 Creatinine 0.90 Estim Creat Clear Calc 92.74 Est GFR (MDRD) Af Amer 113 Est GFR (MDRD) Non-Af 93 BUN/Creatinine Ratio 13.4 Glucose 258 H Calcium 8.4 L POC Glucose 10/17/17 10/16/17 10/16/17 07:44 22:18 17:00 POC Glucose 227 H 305 H 250 H 10/16/17 12:25 POC Glucose 256 H Medical Necessity - Tobacco Use Smoking Status: Current every day smoker Assessment/Plan All Active Problems (Last Reviewed 10/15/17 @ 09:59 by Hamilton Duran MD) Abscess of groin, left (Acute) Cellulitis of groin, left (Acute) Diabetes (Acute) Hyponatremia (Acute) Slow progress need to change the dressings to Dakin's solution. Blood sugars need to be tighter controlled. Unlikely we will get the wound VAC on in the next several days.
[2017-10-17 10:45] VITALS: PULSE 84
[2017-10-17] MEDS: Lisinopril 20 MG Tablet PO (10:45)
[2017-10-17] MEDS: Pantoprazole Sodium 20 MG Tablet PO ×2 (10:45→22:56)
[2017-10-17] MEDS: Enoxaparin 40 MG/0.4 ML Syringe SC (10:45)
[2017-10-17 11:16] LABS: Bedside Glucose 297 mg/dL (70-110)
[2017-10-17 15:09] VITALS: BP 153/75; PULSE 82; RESP 18; TEMP 37.4; O2SAT 100
--- NOTE | 2017-10-17 15:22 | PCM.PN.HOSP ---
Patient Problems: Active and Suspected Problems (Last Reviewed 10/15/17 @ 09:59 by Hamilton Duran MD) Abscess of groin, left (Acute) Cellulitis of groin, left (Acute) Diabetes (Acute) Hyponatremia (Acute) Subjective: Patient was seen and examined. Denies any fever or chills. Complains of swelling around the left hip and scrotum. Objective: Physical exam: General: Alert, Oriented x3, Cooperative, No apparent distress, - - Obese HEENT: Atraumatic, PERRLA, EOMI, Normocephalic Oral: Moist Mucosa Neck: Supple Lungs: Clear to auscultation, Normal air movement Cardiovascular: Regular rate, Regular Rhythm, Normal S1, Normal S2, No murmurs Abdomen: Bowel Sounds Present, Soft, Non Tender, Non-Distended, No Hepato-splenomegaly, edema of the left hip and gluteal region with some mild erythema, +4 scrotal edema, dressing and packing, in the left groin region Extremities: No edema Skin: No rashes, No breakdown Musculoskeletal: No Tenderness to Palpation of Joints or Extremities Lymphatic: No Cervical, Supraclavicular, or Inguinal Adenopathy Neurological: Cranial nerves II-XII grossly intact, Neuro grossly intact Psych/Mental Status: Normal Affect, Appropriate Vitals/I&O's: Vital Signs Temp Pulse Resp BP Pulse Ox 99.4 F H 82 18 153/75 H 100 10/17/17 15:09 10/17/17 15:09 10/17/17 15:09 10/17/17 15:09 10/17/17 15:09 Oxygen Delivery Method Room Air Weight: 119.6 kg Body Mass Index (BMI) 38.9 Finger Stick Blood Glucose 251 Intake and Output for Last 24 Hours 10/15/17 10/16/17 10/17/17 23:59 23:59 23:59 Intake Total 2453 / 2453 5735 / 5735 1311 / 1311 Output Total 500 / 500 2650 / 2650 Balance 195 / 1952 3085 / 3085 1311 / 1311 Microbiology Past 72 Hours 10/15/17 08:10 Wound exudate - Groin Gram Stain - Final 10/15/17 08:10 Wound exudate - Groin Wound Culture - Preliminary Gram Positive Cocci Streptococcus group B Gram Positive Cocci#2 10/15/17 01:10 Blood Culture (Wb) - Right Hand Blood Culture - Preliminary No growth in 48 hours. Laboratory Results 10/16/17 17:00: POC Glucose 250 H 10/16/17 22:18: POC Glucose 305 H 10/17/17 05:24: WBC 9.8, RBC 3.88 L, Hgb 11.4 L, Hct 33.3 L, MCV 85.8, MCH 29.4, MCHC 34.2, RDW 12.5, RDW Differential 38.7, Plt Count 287, MPV 10.2, Immature Gran % (Auto) 2.100 H, Neut % (Auto) 71.1 H, Lymph % (Auto) 15.1 L, Nance % (Auto) 9.4, Eos % (Auto) 1.8, Baso % (Auto) 0.5, Absolute Neuts (auto) 7.0, Absolute Lymphs (auto) 1.48, Total Counted Not Reportable, Diff Path Review July10/17/17 05:24: Sodium 133 L, Potassium 3.7, Chloride 97 L, Carbon Dioxide 26.0, Anion Gap 10, BUN 12, Creatinine 0.90, Estim Creat Clear Calc 92.74, Est GFR (MDRD) Af Amer 113, Est GFR (MDRD) Non-Af 93, BUN/Creatinine Ratio 13.4, Glucose 258 H, Calcium 8.4 L 10/17/17 07:44: POC Glucose 227 H 10/17/17 11:07: POC Glucose 297 H Current Medications Bisacodyl (Dulcolax) 5 mg PO DAILY PRN PRN PRN Reason: Constipation Last Admin: 10/16/17 19:34 Dose: 5 mg Dextrose (D50w Syringe) 0 gm IV X1 PRN; Protocol PRN Reason: Hypoglycemia Enoxaparin Sodium (Lovenox) 40 mg SC DAILY@1000 ANA Last Admin: 10/17/17 10:45 Dose: 40 mg Glucagon () 1 mg IM .X1 PRN PRN Reason: Hypoglycemia Hydromorphone HCl (Dilaudid Inj) 0.5 - 1 mg IV Q3H PRN PRN PRN Reason: SEVERE PAIN (6-10/10) Last Admin: 10/17/17 03:06 Dose: 0.5 mg Piperacillin Sod/Tazobactam Sod (Zosyn) 3.375 gm in 50 mls @ 12.5 mls/hr IV Q8 [facility] Last Admin: 10/17/17 15:06 Dose: 12.5 mls/hr Insulin Glargine (Lantus (Bkc)) 24 units SC BID [facility] Insulin Human Lispro (Humalog Kwikpen (Bkc)) 0 unit SQ ACHS ANA PRN Reason: Protocol Last Admin: 10/17/17 11:48 Dose: 4 units Insulin Human Lispro (Humalog Kwikpen (Bkc)) 4 unit SQ BREAKFAST [facility] Insulin Human Lispro (Humalog Kwikpen (Bkc)) 4 unit SQ DINNER [facility] Insulin Human Lispro (Humalog Kwikpen (Bkc)) 4 unit SQ LUNCH [facility] Last Admin: 10/17/17 11:49 Dose: 4 u Lisinopril (Zestril) 20 mg PO DAILY [facility] Last Admin: 10/17/17 10:45 Dose: 20 mg Magnesium Hydroxide (Milk Of Magnesia) 30 ml PO DAILY PRN PRN PRN Reason: Constipation Last Admin: 10/17/17 07:53 Dose: 30 ml Metoclopramide HCl (Reglan) 10 mg IV Q6H PRN PRN PRN Reason: NAUSEA Last Admin: 10/16/17 10:00 Dose: 10 mg Ondansetron HCl (Zofran) 4 mg IV Q8H PRN PRN PRN Reason: Nausea Last Admin: 10/16/17 01:31 Dose: 4 mg Oxycodone HCl (Oxyir) 5 - 10 mg PO Q4H PRN PRN PRN Reason: Moderate Pain (pain scale 4-5) Last Admin: 10/17/17 15:06 Dose: 10 mg Pantoprazole Sodium (Protonix) 20 mg PO BID [facility] Last Admin: 10/17/17 10:45 Dose: 20 mg Sodium Chloride () 5 - 30 ml IV UD PRN PRN Reason: SALINE FLUSH Last Admin: 10/17/17 03:07 Dose: 10 ml Sodium Hypochlorite (Dakins Solution 0.25% (1/2 Strength)) 1 applic TOPICAL BID ANA PRN Reason: Protocol Last Admin: 10/17/17 10:42 Dose: 1 applicatio Zolpidem Tartrate (Ambien (Generic)) 5 mg PO QHS PRN PRN PRN Reason: INSOMNIA Medical Necessity - Tobacco Use Smoking Status: Current every day smoker Assessment/Plan All Active Problems (Last Reviewed 10/15/17 @ 09:59 by Hamilton Duran MD) Abscess of groin, left (Acute) Cellulitis of groin, left (Acute) Diabetes (Acute) Hyponatremia (Acute) 57-year-old male with past medical history of type II DM, hypertension, obesity, nicotine dependence was admitted on 10/14/17 with left groin pain which initially started as a rash progressed into erythema as well as edema and severe pain. Patient was diagnosed as left groin/medial thigh cellulitis with abscess. He underwent I& D of the left groin abscess. Postoperative findings noted. Appreciate general surgery consult. 1. Acute left groin/perineal abscess/cellulitis, status post I&D, preliminary wound cultures growing gram-positive cocci with beta-hemolytic strep No fever, leucocytosis, remains on IV Zosyn, will continue same antibiotics, follow-up on cultures, follow-up on labs, ID consult. 2. Hyponatremia, acute, on IV fluids, will continue to monitor 3. Hyperglycemia and type II DM, blood sugars remain uncontrolled because of current infection, increase Lantus to 24 units twice daily, add pre-meal insulin 4 units, continue with Accu-Cheks and insulin sliding scale 4. Hypertension, blood pressures are fairly controlled, continue on lisinopril 5. Obesity, BMI 38.9, diet and exercise recommended 6. Nicotine dependence, advised to quit 7. DVT prophylaxis with Lovenox subcu Code Visit Inpatient E&M: 25532 Subs Hosp L2
[2017-10-17 17:20] LABS: Bedside Glucose 242 mg/dL (70-110)
[2017-10-17 21:00] VITALS: BP 149/89; PULSE 81; RESP 18; TEMP 37.1; O2SAT 98
[2017-10-17] MEDS: Bisacodyl 5 MG Tablet PO (22:42)
[2017-10-17 23:05] LABS: Bedside Glucose 219 mg/dL (70-110)
[2017-10-18 03:15] VITALS: BP 151/103; PULSE 75; RESP 18; TEMP 36.8; O2SAT 99
[2017-10-18 06:22] LABS: Anion Gap 9 (5-15); BUN 9 mg/dL (7-18); BUN/Creat Ratio 11.3 RATIO (10-20); Calcium,Total 8.5 mg/dL (8.5-10.1); Chloride 98 mmol/L (98-107); EST Glomerular Filtration Rate 107 mL/min (>60); Est Glom Filt Rate - Afr Amer 129 mL/min (>60); Estimated Creatinine Clearance 104.33 ml/min; Glucose 231 mg/dL (74-106); Potassium 3.7 mmol/L (3.5-5.1); Sodium Level 134 mmol/L (136-145)
[2017-10-18] MEDS: Piperacil/Tazobactam 3.375 GM/50 ML ML IV ×3 (06:40→21:43)
[2017-10-18 06:43] LABS: Differential Indicated MANUAL DIFF; Hematocrit 34.1 % (40-54); Hemoglobin 11.7 g/dl (13.0-16.5); Mean Corp Hgb Conc 34.3 g/gl (32-36); Mean Corpuscular Hgb 29.3 pg (27.0-32.0); Mean Corpuscular Volume 85.5 fL (80-94); Mean Platelet Vol. 10.2 fl (6.2-12.0); POSITIVE COUNT YES; POSITIVE DIFFERENTIAL NO; POSITIVE MORPHOLOGY YES; Platelet Count 306 K/mm3 (150-450); RBC Distribution Width CV 12.3 % (11.6-14.6); RBC Distribution Width SD 37.7 fl (35.1-43.9); Red Blood Count 3.99 M/mm3 (4.6-6.2); White Blood Count 8.5 K/mm3 (4.4-11.0)
[2017-10-18] MEDS: oxyCODONE 5 MG Tablet PO ×3 (06:44→23:31)
[2017-10-18 06:45] LABS: Bedside Glucose 249 mg/dL (70-110)
[2017-10-18 07:28] LABS: Basophil 1 % (0-1); Eosinophil 2 % (0-5); Lymphocyte 21 % (19-41); Monocyte 8 % (0-10); Neutrophil-Band 2 % (0-5); Neutrophil-Segmented 64 % (47-70); Plasma Cell 2 %; Total Cells Counted 100 (MANUAL DIFF)
[2017-10-18 07:29] LABS: Absolute Lymphocyte Count 1.79 X10^3/ul (0.83-4.51); Absolute Neutrophil Count 5.6 X10^3/uL (2.0-7.7); Lymphocyte # 1.79 X10^3/ul (4.0); Neutrophil # 5.62 X10^3/uL (2.7-7.7)
[2017-10-18 08:40] VITALS: BP 158/94; PULSE 75; RESP 18; TEMP 36.9; O2SAT 97
[2017-10-18] MEDS: Insulin Lispro 100 UNIT/ML INSULN.PEN SQ ×5 (08:43→21:36)
[2017-10-18] MEDS: Enoxaparin 40 MG/0.4 ML Syringe SC (08:44)
[2017-10-18] MEDS: Lisinopril 20 MG Tablet PO (08:49)
[2017-10-18] MEDS: Pantoprazole Sodium 20 MG Tablet PO ×2 (08:49→21:43)
[2017-10-18] MEDS: Magnesium Hydroxide 30 ML UDC PO (08:49)
[2017-10-18 09:01] LABS: Bedside Glucose 251 mg/dL (70-110)
[2017-10-18] MEDS: HYDROmorphone 0.5 MG/0.5 ML SYRINGE IV ×2 (09:44→21:29)
[2017-10-18] MEDS: Bisacodyl 5 MG Tablet PO (09:50)
--- NOTE | 2017-10-18 10:38 | VDLE_ITS ---
Reason For Study: PAIN RIGHT LEFT GSV is normal. GSV is normal. CFV is compressible, spontaneous, phasic, FV is compressible, spontaneous, phasic, competent and demonstrates normal competent and demonstrates normal augmentation. augmentation. FV is compressible, spontaneous, phasic, POP V is compressible, spontaneous, phasic, competent and demonstrates normal competent and demonstrates normal augmentation. augmentation. POP V is compressible, spontaneous, phasic, T/P Trunk is compressible. competent and demonstrates normal PTV is compressible. augmentation. LT PerV is compressible. T/P Trunk is compressible. S/P debridement of abcess in left groin w/ PTV is compressible. dressing on wound- unable to image Left CFV RT PerV is compressible. and SFJ. Procedure Exam performed portable in patient room. A preliminary report was called and/or faxed to [facility]. Interpretation Summary Deep veins of the lower extremities are bilaterally patent and compressible segmentally. There is no evidence of deep vein thrombosis on either side. Valvular competence appears intact within the proximal deep venous systems bilaterally. The greater saphenous veins appear bilaterally patent and compressible segmentally. The left common femoral vein and left sapheno-femoral junction could not be visualized due to the presence of a surgical dressing. Ordering Physician: Jacqui Mann Referring Physician: GENE VU Performed By: Lorrie Magaña, PILY, RVT
--- NOTE | 2017-10-18 10:38 | PCM.PN.SRG ---
Patient Problems: Active and Suspected Problems (Last Reviewed 10/15/17 @ 09:59 by Hamilton Duran MD) Abscess of groin, left (Acute) Cellulitis of groin, left (Acute) Diabetes (Acute) Hyponatremia (Acute) Subjective: Patient is resting comfortably in bed. He notes minimal amount of discomfort just laying there. He notes back pain. He denies nausea, vomiting, fever. Labs reviewed. Wet to dry dressing changes with Dakins are being completed twice daily. - Physical Exam General: Alert, Oriented x3, Cooperative Skin: Ulcer/ Wound - Left groin wound with some granulation tissue and necrotic tissue also. Some yellowish material noted as well. Wound extends from the lateral left groin into the left inner thigh. Patient was seen with Yaneth. Measurements per her note. Wet to dry dressing was applied. Vital Signs Temp Pulse Resp BP Pulse Ox 98.5 F 75 18 158/94 H 97 10/18/17 08:40 10/18/17 08:40 10/18/17 08:40 10/18/17 08:40 10/18/17 08:40 Oxygen Delivery Method Room Air Weight: 263 lb 10.766 oz Body Mass Index (BMI) 38.9 Finger Stick Blood Glucose 251 Intake and Output for Last 24 Hours 10/16/17 10/17/17 10/18/17 23:59 23:59 23:59 Intake Total 5735 / 5735 1743 / 1743 1144 / 1144 Output Total 2650 / 2650 800 / 800 Balance 3085 / 3085 1743 / 1743 344 / 344 Microbiology Past 72 Hours 10/15/17 08:10 Gram Stain - Final Wound exudate - Groin Wound Culture - Preliminary Gram Positive Cocci Streptococcus agalactiae (B) Staphylococcus hominis hominis 10/15/17 01:10 Blood Culture - Preliminary Blood Culture (Wb) - Right Hand No growth in 48 hours. Laboratory Tests Past 24 Hrs 10/18/17 10/18/17 05:36 05:36 WBC 8.5 RBC 3.99 L Hgb 11.7 L Hct 34.1 L MCV 85.5 MCH 29.3 MCHC 34.3 RDW 12.3 RDW Differential 37.7 Plt Count 306 MPV 10.2 Neut % (Auto) Not Reportable Absolute Neuts (auto) 5.6 Absolute Lymphs (auto) 1.79 Total Counted 100 Neutrophils % (Manual) 64 Band Neutrophils % 2 Lymphocytes % (Manual) 21 Monocytes % (Manual) 8 Eosinophils % (Manual) 2 Basophils % (Manual) 1 Plasma Cell % (Manual) 2 Diff Path Review May foll Sodium 134 L Potassium 3.7 Chloride 98 Carbon Dioxide 27.0 Anion Gap 9 BUN 9 Creatinine 0.80 Estim Creat Clear Calc 104.33 Est GFR (MDRD) Af Amer 129 Est GFR (MDRD) Non-Af 107 BUN/Creatinine Ratio 11.3 Glucose 231 H Calcium 8.5 POC Glucose 10/18/17 10/18/17 10/17/17 08:37 06:38 22:40 POC Glucose 251 H 249 H 219 H 10/17/17 10/17/17 17:13 11:07 POC Glucose 242 H 297 H Medical Necessity - Tobacco Use Smoking Status: Current every day smoker Assessment/Plan All Active Problems (Last Reviewed 10/15/17 @ 09:59 by Hamilton Duran MD) Abscess of groin, left (Acute) Cellulitis of groin, left (Acute) Diabetes (Acute) Hyponatremia (Acute) I am following this patient in conjunction with Dr. Duran S/p Incision and debridement of left groin abscess Continue wet to dry twice daily dressing changes with Dakins today Microbiology growing out multiple bacteria Patient on Zosyn Spoke with hospitalist. Considering LTAC with IV antibiotics and wound vac placement or dressing changes We will continue to monitor this patient Code Visit Inpatient E&M: 80436 Subs Hosp L1 - Post-op; no charge
--- NOTE | 2017-10-18 10:55 | NURSING ---
wound photo: left groin
[2017-10-18] MEDS: Insulin Lispro 100 UNIT/ML INSULN.PEN 8 UNIT SQ ×2 (11:58→16:23)
--- NOTE | 2017-10-18 12:00 | CASEMGMT ---
Addendum entered by Cecilia Garza 10/18/17 12:22: AIDA faxed PT/OT Evaluations to Cat at [facility] Original Note: Social Work Note Dr. Mann updated this worker that pt may benefit from short term SNF at discharge for wound care. Yaneth, call center analyst nurse, updated this worker that pt would like to see about going to [facility] at discharge. SW in to meet with pt. AIDA introduced self and role at [facility]. Pt is alert and orientated x4. Pt confirms that he would like a referral sent to [facility] with his second choice being [facility]. AIDA explained to pt that this worker is unsure of pt's insurance is in network with [facility] but that [facility] can confirm insurance and see about a one time contract if they are not in network with pt's insurance. Pt states understanding. AIDA placed a call to Cat at [facility]. Cat states that she is unsure if they are in network with pt's insurance but will check and will see about a one time contract if they are not in network. AIDA informed Cat on referral and that PT/OT have been ordered and this worker will fax PT/OT evaluations when available. Cat states understanding. AIDA faxed clinicals to Cat at [facility]. AIDA will fax PT/OT evaluations when available. AIDA placed a call to [facility] and got the voicemail for Marcelino López, ext. [phone]. Per the voicemail for Marcelino she is on vacation this week and provided the extension for Henrik Real who is covering for Marcelino. Ext. [phone]. AIDA placed a call to Henrik Real and left her a voicemail inquiring about VA benefits for pt. Per previous notes, pt is not currently linked with any VA benefits. 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
[2017-10-18 12:06] LABS: Bedside Glucose 279 mg/dL (70-110)
--- NOTE | 2017-10-18 12:49 | CASEMGMT ---
Social Work Note SW received message from Cat at [facility] stating that [facility] not willing to provide one time contract with [facility]. Per previous conversation pt's second choice is [facility]. SW faxed referral to Mariella at [facility]. 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
[2017-10-18 13:54] LABS: Pathologist Review Reviewed
[2017-10-18 14:16] LABS: Pathologist Review Reviewed
[2017-10-18 14:26] VITALS: BP 162/92; PULSE 83; RESP 18; TEMP 36.9; O2SAT 97
--- NOTE | 2017-10-18 14:45 | PCM.PN.HOSP ---
Patient Problems: Active and Suspected Problems (Last Reviewed 10/15/17 @ 09:59 by Hamilton Duran MD) Abscess of groin, left (Acute) Cellulitis of groin, left (Acute) Diabetes (Acute) Hyponatremia (Acute) Subjective: Patient was seen and examined. Pain is fairly controlled. Denies any fever or chills. Complains of constipation ongoing for about 6 days. Examined patient's wound with general surgery next practitioner as well as wound nurse; wound looks improved, some seropurulent discharge from the inferior aspect of the wound. Objective: Physical exam: General: Alert, Oriented x3, Cooperative, No apparent distress, - - Obese HEENT: Atraumatic, PERRLA, EOMI, Normocephalic Oral: Moist Mucosa Neck: Supple Lungs: Clear to auscultation, Normal air movement Cardiovascular: Regular rate, Regular Rhythm, Normal S1, Normal S2, No murmurs Abdomen: Bowel Sounds Present, Soft, Non Tender, Non-Distended, No Hepato-splenomegaly, edema of the left hip and gluteal region with some mild erythema, +4 scrotal edema, dressing and packing, in the left groin region Extremities: No edema Skin: No rashes, No breakdown Musculoskeletal: No Tenderness to Palpation of Joints or Extremities Lymphatic: No Cervical, Supraclavicular, or Inguinal Adenopathy Neurological: Cranial nerves II-XII grossly intact, Neuro grossly intact Psych/Mental Status: Normal Affect, Appropriate Vitals/I&O's: Vital Signs Temp Pulse Resp BP Pulse Ox 98.5 F 83 18 162/92 H 97 10/18/17 14:26 10/18/17 14:26 10/18/17 14:26 10/18/17 14:26 10/18/17 14:26 Oxygen Delivery Method Room Air Weight: 119.6 kg Body Mass Index (BMI) 38.9 Finger Stick Blood Glucose 251 Intake and Output for Last 24 Hours 10/16/17 10/17/17 10/18/17 23:59 23:59 23:59 Intake Total 5735 / 5735 1743 / 1743 1566 / 1566 Output Total 2650 / 2650 800 / 800 Balance 3085 / 3085 1743 / 1743 766 / 766 Microbiology Past 72 Hours 10/15/17 08:10 Wound exudate - Groin Gram Stain - Final 10/15/17 08:10 Wound exudate - Groin Wound Culture - Preliminary Gram Positive Cocci Streptococcus agalactiae (B) Staphylococcus hominis hominis 10/15/17 08:10 Wound exudate - Groin Anaerobic Culture - Preliminary Checking for anaerobes, further studies to follow. 10/15/17 01:10 Blood Culture (Wb) - Right Hand Blood Culture - Preliminary No growth in 48 hours. Laboratory Results 10/17/17 05:24: Diff Path Review Reviewed 10/17/17 17:13: POC Glucose 242 H 10/17/17 22:40: POC Glucose 219 H 10/18/17 05:36: WBC 8.5, RBC 3.99 L, Hgb 11.7 L, Hct 34.1 L, MCV 85.5, MCH 29.3, MCHC 34.3, RDW 12.3, RDW Differential 37.7, Plt Count 306, MPV 10.2, Neut % (Auto) Not Reportable, Absolute Neuts (auto) 5.6, Absolute Lymphs (auto) 1.79, Total Counted 100, Neutrophils % (Manual) 64, Band Neutrophils % 2, Lymphocytes % (Manual) 21, Monocytes % (Manual) 8, Eosinophils % (Manual) 2, Basophils % (Manual) 1, Plasma Cell % (Manual) 2, Diff Path Review Reviewed 10/18/17 05:36: Sodium 134 L, Potassium 3.7, Chloride 98, Carbon Dioxide 27.0, Anion Gap 9, BUN 9, Creatinine 0.80, Estim Creat Clear Calc 104.33, Est GFR (MDRD) Af Amer 129, Est GFR (MDRD) Non-Af 107, BUN/Creatinine Ratio 11.3, Glucose 231 H, Calcium 8.5 10/18/17 06:38: POC Glucose 249 H 10/18/17 08:37: POC Glucose 251 H 10/18/17 11:56: POC Glucose 279 H Current Medications Bisacodyl (Dulcolax) 5 mg PO DAILY PRN PRN PRN Reason: Constipation Last Admin: 10/18/17 09:50 Dose: 5 mg Dextrose (D50w Syringe) 0 gm IV X1 PRN; Protocol PRN Reason: Hypoglycemia Enoxaparin Sodium (Lovenox) 40 mg SC DAILY@1000 ANA Last Admin: 10/18/17 08:44 Dose: 40 mg Glucagon () 1 mg IM .X1 PRN PRN Reason: Hypoglycemia Hydromorphone HCl (Dilaudid Inj) 0.5 - 1 mg IV Q3H PRN PRN PRN Reason: SEVERE PAIN (6-10/10) Last Admin: 10/18/17 09:44 Dose: 0.5 mg Piperacillin Sod/Tazobactam Sod (Zosyn) 3.375 gm in 50 mls @ 12.5 mls/hr IV Q8 ANA Last Admin: 10/18/17 06:40 Dose: 12.5 mls/hr Insulin Glargine (Lantus (Bkc)) 28 units SC BID ANA Insulin Human Lispro (Humalog Kwikpen (Bkc)) 0 unit SQ ACHS ANA PRN Reason: Protocol Last Admin: 10/18/17 11:58 Dose: 4 units Insulin Human Lispro (Humalog Kwikpen (Bkc)) 8 unit SQ BREAKFAST [facility] Insulin Human Lispro (Humalog Kwikpen (Bkc)) 8 unit SQ DINNER [facility] Insulin Human Lispro (Humalog Kwikpen (Bkc)) 8 unit SQ LUNCH [facility] Last Admin: 10/18/17 11:58 Dose: 8 u Lisinopril (Zestril) 20 mg PO DAILY [facility] Last Admin: 10/18/17 08:49 Dose: 20 mg Magnesium Hydroxide (Milk Of Magnesia) 30 ml PO DAILY PRN PRN PRN Reason: Constipation Last Admin: 10/18/17 08:49 Dose: 30 ml Metoclopramide HCl (Reglan) 10 mg IV Q6H PRN PRN PRN Reason: NAUSEA Last Admin: 10/16/17 10:00 Dose: 10 mg Ondansetron HCl (Zofran) 4 mg IV Q8H PRN PRN PRN Reason: Nausea Last Admin: 10/16/17 01:31 Dose: 4 mg Oxycodone HCl (Oxyir) 5 - 10 mg PO Q4H PRN PRN PRN Reason: Moderate Pain (pain scale 4-5) Last Admin: 10/18/17 06:44 Dose: 10 mg Pantoprazole Sodium (Protonix) 20 mg PO BID [facility] Last Admin: 10/18/17 08:49 Dose: 20 mg Sodium Chloride () 5 - 30 ml IV UD PRN PRN Reason: SALINE FLUSH Last Admin: 10/17/17 22:43 Dose: 10 ml Sodium Hypochlorite (Dakins Solution 0.25% (1/2 Strength)) 1 applic TOPICAL BID ANA PRN Reason: Protocol Last Admin: 10/18/17 08:44 Dose: 1 applicatio Zolpidem Tartrate (Ambien (Generic)) 5 mg PO QHS PRN PRN PRN Reason: INSOMNIA Medical Necessity - Tobacco Use Smoking Status: Current every day smoker Assessment/Plan All Active Problems (Last Reviewed 10/15/17 @ 09:59 by Hamilton Duran MD) Abscess of groin, left (Acute) Cellulitis of groin, left (Acute) Diabetes (Acute) Hyponatremia (Acute) 57-year-old male with past medical history of type II DM, hypertension, obesity, nicotine dependence was admitted on 10/14/17 with left groin pain which initially started as a rash progressed into erythema as well as edema and severe pain. Patient was diagnosed as left groin/medial thigh cellulitis with abscess. He underwent I& D of the left groin abscess. Postoperative findings noted. Appreciate general surgery consult. 1. Acute left groin/perineal mixed organisms(Streptococcus, Staphylococcus )abscess/cellulitis, status post I&D, No fever, leucocytosis, remains on IV Zosyn, will continue same antibiotics, follow-up on cultures, follow-up on labs, ID consulted. 2. Hyponatremia, acute, improved, continue to monitor 3. Hyperglycemia and type II DM, blood sugars remain uncontrolled because of current infection, will increase Lantus, pre-meal insulin as well as insulin sliding scale with Accu-Cheks. 4. Hypertension, blood pressures are fairly controlled, continue on lisinopril 5. Obesity, BMI 38.9, diet and exercise recommended 6. Nicotine dependence, advised to quit 7. DVT prophylaxis with Lovenox subcu Code Visit Inpatient E&M: 20131 Subs Hosp L2
--- NOTE | 2017-10-18 14:49 | PN_ITS ---
Patient Problems: Active and Suspected Problems (Last Reviewed 10/15/17 @ 09:59 by Hamilton Duran MD) Abscess of groin, left (Acute) Cellulitis of groin, left (Acute) Diabetes (Acute) Hyponatremia (Acute) Subjective: Patient was seen and examined. Pain is fairly controlled. Denies any fever or chills. Complains of constipation ongoing for about 6 days. Examined patient's wound with general surgery next practitioner as well as wound nurse; wound looks improved, some seropurulent discharge from the inferior aspect of the wound. Objective: Physical exam: General: Alert, Oriented x3, Cooperative, No apparent distress, - - Obese HEENT: Atraumatic, PERRLA, EOMI, Normocephalic Oral: Moist Mucosa Neck: Supple Lungs: Clear to auscultation, Normal air movement Cardiovascular: Regular rate, Regular Rhythm, Normal S1, Normal S2, No murmurs Abdomen: Bowel Sounds Present, Soft, Non Tender, Non-Distended, No Hepato- splenomegaly, edema of the left hip and gluteal region with some mild erythema, +4 scrotal edema, dressing and packing, in the left groin region Extremities: No edema Skin: No rashes, No breakdown Musculoskeletal: No Tenderness to Palpation of Joints or Extremities Lymphatic: No Cervical, Supraclavicular, or Inguinal Adenopathy Neurological: Cranial nerves II-XII grossly intact, Neuro grossly intact Psych/Mental Status: Normal Affect, Appropriate Vitals/I&O's: Vital Signs Temp Pulse Resp BP Pulse Ox 98.5 F 83 18 162/92 H 97 10/18/17 14:26 10/18/17 14:26 10/18/17 14:26 10/18/17 14:26 10/18/17 14:26 Oxygen Delivery Method Room Air Weight: 119.6 kg Body Mass Index (BMI) 38.9 Finger Stick Blood Glucose 251 Intake and Output for Last 24 Hours 10/16/17 10/17/17 10/18/17 23:59 23:59 23:59 Intake Total 5735 / 5735 1743 / 1743 1566 / 1566 Output Total 2650 / 2650 800 / 800 Balance 3085 / 3085 1743 / 1743 766 / 766 Microbiology Past 72 Hours 10/15/17 08:10 Wound exudate - Groin Gram Stain - Final 10/15/17 08:10 Wound exudate - Groin Wound Culture - Preliminary Gram Positive Cocci Streptococcus agalactiae (B) Staphylococcus hominis hominis 10/15/17 08:10 Wound exudate - Groin Anaerobic Culture - Preliminary Checking for anaerobes, further studies to follow. 10/15/17 01:10 Blood Culture (Wb) - Right Hand Blood Culture - Preliminary No growth in 48 hours. Laboratory Results 10/17/17 05:24: Diff Path Review Reviewed 10/17/17 17:13: POC Glucose 242 H 10/17/17 22:40: POC Glucose 219 H 10/18/17 05:36: WBC 8.5, RBC 3.99 L, Hgb 11.7 L, Hct 34.1 L, MCV 85.5, MCH 29.3 , MCHC 34.3, RDW 12.3, RDW Differential 37.7, Plt Count 306, MPV 10.2, Neut % ( Auto) Not Reportable, Absolute Neuts (auto) 5.6, Absolute Lymphs (auto) 1.79, Total Counted 100, Neutrophils % (Manual) 64, Band Neutrophils % 2, Lymphocytes % (Manual) 21, Monocytes % (Manual) 8, Eosinophils % (Manual) 2, Basophils % ( Manual) 1, Plasma Cell % (Manual) 2, Diff Path Review Reviewed 10/18/17 05:36: Sodium 134 L, Potassium 3.7, Chloride 98, Carbon Dioxide 27.0, Anion Gap 9, BUN 9, Creatinine 0.80, Estim Creat Clear Calc 104.33, Est GFR ( MDRD) Af Amer 129, Est GFR (MDRD) Non-Af 107, BUN/Creatinine Ratio 11.3, Glucose 231 H, Calcium 8.5 10/18/17 06:38: POC Glucose 249 H 10/18/17 08:37: POC Glucose 251 H 10/18/17 11:56: POC Glucose 279 H Current Medications Bisacodyl (Dulcolax) 5 mg PO DAILY PRN PRN PRN Reason: Constipation Last Admin: 10/18/17 09:50 Dose: 5 mg Dextrose (D50w Syringe) 0 gm IV X1 PRN; Protocol PRN Reason: Hypoglycemia Enoxaparin Sodium (Lovenox) 40 mg SC DAILY@1000 ANA Last Admin: 10/18/17 08:44 Dose: 40 mg Glucagon () 1 mg IM .X1 PRN PRN Reason: Hypoglycemia Hydromorphone HCl (Dilaudid Inj) 0.5 - 1 mg IV Q3H PRN PRN PRN Reason: SEVERE PAIN (6-10/10) Last Admin: 10/18/17 09:44 Dose: 0.5 mg Piperacillin Sod/Tazobactam Sod (Zosyn) 3.375 gm in 50 mls @ 12.5 mls/hr IV Q8 ANA Last Admin: 10/18/17 06:40 Dose: 12.5 mls/hr Insulin Glargine (Lantus (Bkc)) 28 units SC BID ANA Insulin Human Lispro (Humalog Kwikpen (Bkc)) 0 unit SQ ACHS ANA PRN Reason: Protocol Last Admin: 10/18/17 11:58 Dose: 4 units Insulin Human Lispro (Humalog Kwikpen (Bkc)) 8 unit SQ BREAKFAST ANA Insulin Human Lispro (Humalog Kwikpen (Bkc)) 8 unit SQ DINNER ANA Insulin Human Lispro (Humalog Kwikpen (Bkc)) 8 unit SQ LUNCH [facility] Last Admin: 10/18/17 11:58 Dose: 8 u Lisinopril (Zestril) 20 mg PO DAILY [facility] Last Admin: 10/18/17 08:49 Dose: 20 mg Magnesium Hydroxide (Milk Of Magnesia) 30 ml PO DAILY PRN PRN PRN Reason: Constipation Last Admin: 10/18/17 08:49 Dose: 30 ml Metoclopramide HCl (Reglan) 10 mg IV Q6H PRN PRN PRN Reason: NAUSEA Last Admin: 10/16/17 10:00 Dose: 10 mg Ondansetron HCl (Zofran) 4 mg IV Q8H PRN PRN PRN Reason: Nausea Last Admin: 10/16/17 01:31 Dose: 4 mg Oxycodone HCl (Oxyir) 5 - 10 mg PO Q4H PRN PRN PRN Reason: Moderate Pain (pain scale 4-5) Last Admin: 10/18/17 06:44 Dose: 10 mg Pantoprazole Sodium (Protonix) 20 mg PO BID [facility] Last Admin: 10/18/17 08:49 Dose: 20 mg Sodium Chloride () 5 - 30 ml IV UD PRN PRN Reason: SALINE FLUSH Last Admin: 10/17/17 22:43 Dose: 10 ml Sodium Hypochlorite (Dakins Solution 0.25% (1/2 Strength)) 1 applic TOPICAL BID ANA PRN Reason: Protocol Last Admin: 10/18/17 08:44 Dose: 1 applicatio Zolpidem Tartrate (Ambien (Generic)) 5 mg PO QHS PRN PRN PRN Reason: INSOMNIA Medical Necessity - Tobacco Use Smoking Status: Current every day smoker Assessment/Plan All Active Problems (Last Reviewed 10/15/17 @ 09:59 by Hamilton Duran MD) Abscess of groin, left (Acute) Cellulitis of groin, left (Acute) Diabetes (Acute) Hyponatremia (Acute) 57-year-old male with past medical history of type II DM, hypertension, obesity , nicotine dependence was admitted on 10/14/17 with left groin pain which initially started as a rash progressed into erythema as well as edema and severe pain. Patient was diagnosed as left groin/medial thigh cellulitis with abscess. He underwent I& D of the left groin abscess. Postoperative findings noted. Appreciate general surgery consult. 1. Acute left groin/perineal mixed organisms(Streptococcus, Staphylococcus ) abscess/cellulitis, status post I&D, No fever, leucocytosis, remains on IV Zosyn, will continue same antibiotics, follow-up on cultures, follow-up on labs, ID consulted. 2. Hyponatremia, acute, improved, continue to monitor 3. Hyperglycemia and type II DM, blood sugars remain uncontrolled because of current infection, will increase Lantus, pre-meal insulin as well as insulin sliding scale with Accu-Cheks. 4. Hypertension, blood pressures are fairly controlled, continue on lisinopril 5. Obesity, BMI 38.9, diet and exercise recommended 6. Nicotine dependence, advised to quit 7. DVT prophylaxis with Lovenox subcu Code Visit Inpatient E&M: 92424 Subs Hosp L2
--- NOTE | 2017-10-18 15:37 | CASEMGMT ---
Addendum entered by Cecilia Garza 10/18/17 15:40: Matilde provided direct extension [phone] Original Note: Social Work Note SW received message from Matilde Hawkins at [place] stating that she has pt's name in their system but he has never been to their facility before. SW received message from Mariella at [facility] stating that she is checking on pt's VA benefits as well and is checking to see if she is able to bill pt's secondary insurance. Mariella states that medically and clinically she is able to accept pt and will need to hear back from her administrators in regards to billing pt's secondary insurance. Plan: [facility] pending insurance confirmation Cecilia Garza MUD ANALYSIS SUPERVISOR, DOWEL MAKER
[2017-10-18] MEDS: 0.9% NaCl Peripheral Flush Adult/Peds IV (16:05)
[2017-10-18 16:36] LABS: Bedside Glucose 258 mg/dL (70-110)
--- NOTE | 2017-10-18 21:22 | PCM.HP.ID ---
Problem List (1) Abscess of groin, left Status: Acute Reason for Consult: abscess Consulted by: Dr. Mann History of Present Illness: The patient is a 57 year old M with DM who presented with 5 days of progressive L groin swelling, pain, redness. No inciting event. Pain was severe. Associated with fever and chills. No drainage until he came to ED, had bloody/purulent/brown fluid come out. Admitted, on zosyn, taken to OR by Dr. Duran for debridement. Feeling better, no further fever. No h/o MRSA or skin boils. Full ROS performed and neg except as noted above. - Medical History Past Medical History (Chronic Problems): Chronic Problems (Last Reviewed 10/15/17 @ 09:59 by Hamilton Duran MD) Hypertension (Chronic) Allergies/Adverse Reactions: Allergies No Known Allergies Allergy (Verified 10/14/17 20:03) Home Medications: Ambulatory Orders Medication Instructions Recorded Ibuprofen [Motrin] 400 mg PO Q4H PRN PRN 10/15/17 - Social History Tobacco Use: cigarettes Vital Signs Temp Pulse Resp BP Pulse Ox 98.5 F 83 18 162/92 H 97 10/18/17 14:26 10/18/17 14:26 10/18/17 14:26 10/18/17 14:26 10/18/17 14:26 Oxygen Delivery Method Room Air Weight: 119.6 kg Body Mass Index (BMI) 38.9 Finger Stick Blood Glucose 251 Microbiology Past 72 Hours 10/15/17 08:10 Gram Stain - Final Wound exudate - Groin Wound Culture - Preliminary Gram Positive Cocci Streptococcus agalactiae (B) Staphylococcus hominis hominis Anaerobic Culture - Preliminary Checking for anaerobes, further studies to follow. 10/15/17 01:10 Blood Culture - Preliminary Blood Culture (Wb) - Right Hand No growth in 48 hours. Laboratory Tests Past 24 Hrs 10/17/17 10/18/17 10/18/17 05:24 05:36 05:36 WBC 8.5 RBC 3.99 L Hgb 11.7 L Hct 34.1 L MCV 85.5 MCH 29.3 MCHC 34.3 RDW 12.3 RDW Differential 37.7 Plt Count 306 MPV 10.2 Neut % (Auto) Not Reportable Absolute Neuts (auto) 5.6 Absolute Lymphs (auto) 1.79 Total Counted 100 Neutrophils % (Manual) 64 Band Neutrophils % 2 Lymphocytes % (Manual) 21 Monocytes % (Manual) 8 Eosinophils % (Manual) 2 Basophils % (Manual) 1 Plasma Cell % (Manual) 2 Diff Path Review Reviewed Reviewed Sodium 134 L Potassium 3.7 Chloride 98 Carbon Dioxide 27.0 Anion Gap 9 BUN 9 Creatinine 0.80 Estim Creat Clear Calc 104.33 Est GFR (MDRD) Af Amer 129 Est GFR (MDRD) Non-Af 107 BUN/Creatinine Ratio 11.3 Glucose 231 H Calcium 8.5 - Other Studies Radiology: [] reviewed Other Studies: [] Route of nutrition/ use of supplements: [] Nutritional Intake: [] IV Site: [] Mayberry Catheter: [] - Physical Exam General: Alert, Oriented x3, Cooperative, No apparent distress HEENT: Atraumatic, PERRLA, EOMI Neck: Supple, No Nodes Lungs: Clear to auscultation, Normal air movement Cardiovascular: Regular rate, Regular Rhythm Abdomen: Bowel Sounds Present, Soft, Non Tender, Non-Distended Extremities: Peripheral Pulses Normal Skin: Ulcer/ Wound - Reviewed photos of L groin incision IV Site: Peripheral, without redness Musculoskeletal: No Tenderness to Palpation of Joints or Extremities Neurological: Cranial nerves II-XII grossly intact - Assessment/Plan Antibiotics: [] Assessment/Plan: [] Active and Suspected Problems (Last Reviewed 10/15/17 @ 09:59 by Hamilton Duran MD) Abscess of groin, left (Acute) Cellulitis of groin, left (Acute) Diabetes (Acute) Hyponatremia (Acute) L groin abscess s/p I&D by Dr. Duran 10/15. Surg cx with GBS, staph hominis, and GPC. On zosyn. May be candidate for po abx at discharge. Thank you, will follow, d/w rn case manager hospice.
[2017-10-18 21:50] VITALS: BP 162/96; PULSE 82; RESP 18; TEMP 37.5; O2SAT 98
[2017-10-18 22:46] LABS: Bedside Glucose 274 mg/dL (70-110)
[2017-10-19 03:00] VITALS: BP 153/88; PULSE 78; RESP 18; TEMP 37; O2SAT 99
[2017-10-19] MEDS: Piperacil/Tazobactam 3.375 GM/50 ML ML IV (06:20)
[2017-10-19 08:21] VITALS: BP 156/85; PULSE 83; RESP 20; TEMP 36.7; O2SAT 99
[2017-10-19] MEDS: Pantoprazole Sodium 20 MG Tablet PO ×2 (08:25→22:16)
[2017-10-19] MEDS: Enoxaparin 40 MG/0.4 ML Syringe SC (08:25)
[2017-10-19] MEDS: Lisinopril 20 MG Tablet PO (08:25)
[2017-10-19] MEDS: Insulin Lispro 100 UNIT/ML INSULN.PEN 8 UNIT SQ ×3 (08:26→16:43)
[2017-10-19] MEDS: Insulin Lispro 100 UNIT/ML INSULN.PEN SQ ×4 (08:26→22:19)
[2017-10-19 08:36] LABS: Bedside Glucose 202 mg/dL (70-110)
--- NOTE | 2017-10-19 09:00 | CASEMGMT ---
Addendum entered by Cecilia Garza 10/19/17 09:46: AIDA received message from Mariella at [facility] stating that pt is not currently linked with VA benefits and she will try to get pre-cert through pt's secondary insurance. AIDA faxed updated clinicals to [facility] and called Mariella and left her a message to start pre-cert. Dr. Philippe informed this worker that pt should be able to discharge on PO antibiotics at discharge. Original Note: Social Work Note AIDA placed a call to Mariella at [facility] and left her a message asking if she knew if she was able to bill pt's secondary as pt is not currently linked with VA benefits. AIDA waiting for call back from Mariella at [facility]. Plan: [facility] pending acceptance and pre-cert Cecilia Garza MOLECULAR BIOLOGY PROFESSOR, LEVEL VIAL CURVATURE GAUGER
--- NOTE | 2017-10-19 09:56 | PN.ID_ITS ---
Patient Problems: Active and Suspected Problems (Last Reviewed 10/15/17 @ 09:59 by Hamilton Duran MD) Abscess of groin, left (Acute) Cellulitis of groin, left (Acute) Diabetes (Acute) Hyponatremia (Acute) Subjective: Feeling better, no fever, no n/v/d with iv abx. - Physical Exam General: Alert, Cooperative, No apparent distress Lungs: Clear to auscultation, Normal air movement Cardiovascular: Regular rate, Regular Rhythm Abdomen: Soft, Non Tender, Non-Distended Skin: Incision - bandaged Vital Signs Temp Pulse Resp BP Pulse Ox 98.1 F 83 20 H 156/85 H 99 10/19/17 08:21 10/19/17 08:21 10/19/17 08:21 10/19/17 08:21 10/19/17 08:21 Oxygen Delivery Method Room Air Weight: 119.6 kg Body Mass Index (BMI) 38.9 Finger Stick Blood Glucose 251 Intake and Output for Last 24 Hours 10/17/17 10/18/17 10/19/17 23:59 23:59 23:59 Intake Total 1743 / 1743 1955 / 1955 1526 / 1526 Output Total 800 / 800 450 / 450 Balance 1743 / 1743 1155 / 1155 1076 / 1076 Microbiology Past 72 Hours 10/15/17 08:10 Gram Stain - Final Wound exudate - Groin Wound Culture - Preliminary Gram Positive Cocci Streptococcus agalactiae (B) Staphylococcus hominis hominis Anaerobic Culture - Preliminary Checking for anaerobes, further studies to follow. 10/15/17 01:10 Blood Culture - Preliminary Blood Culture (Wb) - Right Hand No growth in 48 hours. Laboratory Tests Past 24 Hrs 10/17/17 10/18/17 05:24 05:36 Diff Path Review Reviewed Reviewed POC Glucose 10/19/17 10/18/17 10/18/17 08:20 21:35 16:21 POC Glucose 202 H 274 H 258 H 10/18/17 11:56 POC Glucose 279 H Medical Necessity - Tobacco Use Smoking Status: Current every day smoker Route of nutrition/ use of supplements: [] Nutritional Intake: [] IV Site: [] Mayberry Catheter: [] - Assessment/Plan Antibiotics: [] Assessment/Plan: [] Active and Suspected Problems (Last Reviewed 10/15/17 @ 09:59 by Hamilton Duran MD) Abscess of groin, left (Acute) Cellulitis of groin, left (Acute) Diabetes (Acute) Hyponatremia (Acute) L groin abscess s/p I&D by Dr. Duran 10/15. Surg cx with GBS, staph hominis, and GPC. On zosyn, will narrow to unasyn. Likely candidate for po abx at discharge (augmentin). will follow, d/w case management director.
[2017-10-19 11:56] LABS: Bedside Glucose 233 mg/dL (70-110)
[2017-10-19] MEDS: HYDROmorphone 0.5 MG/0.5 ML SYRINGE IV ×2 (12:36→22:17)
--- NOTE | 2017-10-19 12:36 | PN.SURG_ITS ---
Patient Problems: Active and Suspected Problems (Last Reviewed 10/15/17 @ 09:59 by Hamilton Duran MD) Abscess of groin, left (Acute) Cellulitis of groin, left (Acute) Diabetes (Acute) Hyponatremia (Acute) Subjective: Patient evaluated resting comfortably in bed. He denies nausea, vomiting, fever. He notes minimal discomfort at rest. He was able to ambulate in the hallway with moderate amount of discomfort. - Physical Exam General: Alert, Oriented x3, Cooperative Abdomen: - - Left groin- large open wound with moderate amount of clear/ yellowish drainge. No erythema noted. Vital Signs Temp Pulse Resp BP Pulse Ox 98.1 F 83 20 H 156/85 H 99 10/19/17 08:21 10/19/17 08:21 10/19/17 08:21 10/19/17 08:21 10/19/17 08:21 Oxygen Delivery Method Room Air Weight: 263 lb 10.766 oz Body Mass Index (BMI) 38.9 Finger Stick Blood Glucose 251 Intake and Output for Last 24 Hours 10/17/17 10/18/17 10/19/17 23:59 23:59 23:59 Intake Total 1743 / 1743 1955 / 1955 1955 / 1955 Output Total 800 / 800 950 / 950 Balance 1743 / 1743 1155 / 1155 1005 / 1005 Microbiology Past 72 Hours 10/15/17 08:10 Gram Stain - Final Wound exudate - Groin Wound Culture - Preliminary Gram Positive Cocci Streptococcus agalactiae (B) Staphylococcus hominis hominis Anaerobic Culture - Preliminary Checking for anaerobes, further studies to follow. 10/15/17 01:10 Blood Culture - Preliminary Blood Culture (Wb) - Right Hand No growth in 48 hours. Laboratory Tests Past 24 Hrs 10/17/17 10/18/17 05:24 05:36 Diff Path Review Reviewed Reviewed POC Glucose 10/19/17 10/19/17 10/18/17 11:40 08:20 21:35 POC Glucose 233 H 202 H 274 H 10/18/17 16:21 POC Glucose 258 H Medical Necessity - Tobacco Use Smoking Status: Current every day smoker Assessment/Plan All Active Problems (Last Reviewed 10/15/17 @ 09:59 by Hamilton Duran MD) Abscess of groin, left (Acute) Cellulitis of groin, left (Acute) Diabetes (Acute) Hyponatremia (Acute) I am following this patient in conjunction with Dr. Duran S/p Incision and debridement of left groin abscess Continue wet to dry twice daily dressing changes with Prabha Microbiology growing out multiple bacteria Infectious disease evaluated patient. He was placed on Unasyn. Per ID may be discharged on oral Augmentin. Considering LTAC to assist with dressing changes. We will continue to monitor this patient Code Visit Inpatient E&M: 87015 Subs Hosp L1 - Post-op
[2017-10-19 14:15] VITALS: BP 157/83; PULSE 85; RESP 20; TEMP 36.6; O2SAT 98
[2017-10-19] MEDS: oxyCODONE 5 MG Tablet PO ×2 (14:28→20:53)
--- NOTE | 2017-10-19 16:46 | PCM.PN.HOSP ---
Patient Problems: Active and Suspected Problems (Last Reviewed 10/15/17 @ 09:59 by Hamilton Duran MD) Abscess of groin, left (Acute) Cellulitis of groin, left (Acute) Diabetes (Acute) Hyponatremia (Acute) Subjective: Patient seen and examined. No new complains. He denies fever or chills. Has been ambulating the hallways. Awaiting [facility]ert[facility] Objective: Physical exam: General: Alert, Oriented x3, Cooperative, No apparent distress, - - Obese HEENT: Atraumatic, PERRLA, EOMI, Normocephalic Oral: Moist Mucosa Neck: Supple Lungs: Clear to auscultation, Normal air movement Cardiovascular: Regular rate, Regular Rhythm, Normal S1, Normal S2, No murmurs Abdomen: Bowel Sounds Present, Soft, Non Tender, Non-Distended, No Hepato-splenomegaly, edema of the left hip and gluteal region with some mild erythema, +4 scrotal edema, dressing and packing, in the left groin region Extremities: No edema Skin: No rashes, No breakdown Musculoskeletal: No Tenderness to Palpation of Joints or Extremities Lymphatic: No Cervical, Supraclavicular, or Inguinal Adenopathy Neurological: Cranial nerves II-XII grossly intact, Neuro grossly intact Psych/Mental Status: Normal Affect, Appropriate Vitals/I&O's: Vital Signs Temp Pulse Resp BP Pulse Ox 97.9 F 85 20 H 157/83 H 98 10/19/17 14:15 10/19/17 14:15 10/19/17 14:15 10/19/17 14:15 10/19/17 14:15 Oxygen Delivery Method Room Air Weight: 119.6 kg Body Mass Index (BMI) 38.9 Finger Stick Blood Glucose 251 Intake and Output for Last 24 Hours 10/17/17 10/18/17 10/19/17 23:59 23:59 23:59 Intake Total 1743 / 1743 1954 Output Total 800 / 800 950 / 950 Balance 1743 / 1743 1155 / 1155 1005 / 1005 Microbiology Past 72 Hours 10/15/17 08:10 Wound exudate - Groin Gram Stain - Final 10/15/17 08:10 Wound exudate - Groin Wound Culture - Preliminary Gram Positive Cocci Streptococcus agalactiae (B) Staphylococcus hominis hominis 10/15/17 08:10 Wound exudate - Groin Anaerobic Culture - Preliminary Checking for anaerobes, further studies to follow. 10/15/17 01:10 Blood Culture (Wb) - Right Hand Blood Culture - Preliminary No growth in 48 hours. Laboratory Results 10/18/17 21:35: POC Glucose 274 H 10/19/17 08:20: POC Glucose 202 H 10/19/17 11:40: POC Glucose 233 H Current Medications Bisacodyl (Dulcolax) 5 mg PO DAILY PRN PRN PRN Reason: Constipation Last Admin: 10/18/17 09:50 Dose: 5 mg Dextrose (D50w Syringe) 0 gm IV X1 PRN; Protocol PRN Reason: Hypoglycemia Enoxaparin Sodium (Lovenox) 40 mg SC DAILY@1000 ANA Last Admin: 10/19/17 08:25 Dose: 40 mg Glucagon () 1 mg IM .X1 PRN PRN Reason: Hypoglycemia Hydromorphone HCl (Dilaudid Inj) 0.5 - 1 mg IV Q3H PRN PRN PRN Reason: SEVERE PAIN (6-10/10) Last Admin: 10/19/17 12:36 Dose: 0.5 mg Ampicillin Sodium/Sulbactam (Sodium 3 gm/ Sodium Chloride) 112 mls @ 150 mls/hr IV Q8 [facility] Last Admin: 10/19/17 13:08 Dose: 150 mls/hr Insulin Glargine (Lantus (Bkc)) 28 units SC BID [facility] Last Admin: 10/19/17 08:26 Dose: 28 units Insulin Human Lispro (Humalog Kwikpen (Bkc)) 0 unit SQ ACHS [facility] PRN Reason: Protocol Last Admin: 10/19/17 16:43 Dose: 2 units Insulin Human Lispro (Humalog Kwikpen (Bkc)) 8 unit SQ BREAKFAST [facility] Last Admin: 10/19/17 08:26 Dose: 8 u Insulin Human Lispro (Humalog Kwikpen (Bkc)) 8 unit SQ DINNER [facility] Last Admin: 10/19/17 16:43 Dose: 8 units Insulin Human Lispro (Humalog Kwikpen (Bkc)) 8 unit SQ LUNCH [facility] Last Admin: 10/19/17 11:42 Dose: 8 u Lisinopril (Zestril) 20 mg PO DAILY [facility] Last Admin: 10/19/17 08:25 Dose: 20 mg Magnesium Hydroxide (Milk Of Magnesia) 30 ml PO DAILY PRN PRN PRN Reason: Constipation Last Admin: 10/18/17 08:49 Dose: 30 ml Metoclopramide HCl (Reglan) 10 mg IV Q6H PRN PRN PRN Reason: NAUSEA Last Admin: 10/16/17 10:00 Dose: 10 mg Ondansetron HCl (Zofran) 4 mg IV Q8H PRN PRN PRN Reason: Nausea Last Admin: 10/16/17 01:31 Dose: 4 mg Oxycodone HCl (Oxyir) 5 - 10 mg PO Q4H PRN PRN PRN Reason: Moderate Pain (pain scale 4-5) Last Admin: 10/19/17 14:28 Dose: 10 mg Pantoprazole Sodium (Protonix) 20 mg PO BID ANA Last Admin: 10/19/17 08:25 Dose: 20 mg Sodium Chloride () 5 - 30 ml IV UD PRN PRN Reason: SALINE FLUSH Last Admin: 10/18/17 16:05 Dose: 10 ml Sodium Hypochlorite (Dakins Solution 0.25% (1/2 Strength)) 1 applic TOPICAL BID ANA PRN Reason: Protocol Last Admin: 10/19/17 08:27 Dose: 1 applicatio Zolpidem Tartrate (Ambien (Generic)) 5 mg PO QHS PRN PRN PRN Reason: INSOMNIA Medical Necessity - Tobacco Use Smoking Status: Current every day smoker Assessment/Plan All Active Problems (Last Reviewed 10/15/17 @ 09:59 by Hamilton Duran MD) Abscess of groin, left (Acute) Cellulitis of groin, left (Acute) Diabetes (Acute) Hyponatremia (Acute) 57-year-old male with past medical history of type II DM, hypertension, obesity, nicotine dependence was admitted on 10/14/17 with left groin pain which initially started as a rash progressed into erythema as well as edema and severe pain. Patient was diagnosed as left groin/medial thigh cellulitis with abscess. He underwent I& D of the left groin abscess. Postoperative findings noted. Appreciate general surgery consult. 1. Acute left groin/perineal mixed organisms(Streptococcus, Staphylococcus )abscess/cellulitis, status post I&D, D consulted, antibiotics switched to Unasyn, will continue to monitor 2. Hyponatremia, acute, improved, continue to monitor 3. Hyperglycemia and type II DM, blood sugars remain uncontrolled because of current infection, will increase Lantus, pre-meal insulin as well as insulin sliding scale with Accu-Cheks. 4. Hypertension, blood pressures are fairly controlled, continue on lisinopril 5. Obesity, BMI 38.9, diet and exercise recommended 6. Nicotine dependence, advised to quit 7. DVT prophylaxis with Lovenox subcu Code Visit Inpatient E&M: 67058 Subs Hosp L2
--- NOTE | 2017-10-19 16:50 | PN_ITS ---
Patient Problems: Active and Suspected Problems (Last Reviewed 10/15/17 @ 09:59 by Hamilton Duran MD) Abscess of groin, left (Acute) Cellulitis of groin, left (Acute) Diabetes (Acute) Hyponatremia (Acute) Subjective: Patient seen and examined. No new complains. He denies fever or chills. Has been ambulating the hallways. Awaiting insurance precertification for discharge to half-way facility. Objective: Physical exam: General: Alert, Oriented x3, Cooperative, No apparent distress, - - Obese HEENT: Atraumatic, PERRLA, EOMI, Normocephalic Oral: Moist Mucosa Neck: Supple Lungs: Clear to auscultation, Normal air movement Cardiovascular: Regular rate, Regular Rhythm, Normal S1, Normal S2, No murmurs Abdomen: Bowel Sounds Present, Soft, Non Tender, Non-Distended, No Hepato- splenomegaly, edema of the left hip and gluteal region with some mild erythema, +4 scrotal edema, dressing and packing, in the left groin region Extremities: No edema Skin: No rashes, No breakdown Musculoskeletal: No Tenderness to Palpation of Joints or Extremities Lymphatic: No Cervical, Supraclavicular, or Inguinal Adenopathy Neurological: Cranial nerves II-XII grossly intact, Neuro grossly intact Psych/Mental Status: Normal Affect, Appropriate Vitals/I&O's: Vital Signs Temp Pulse Resp BP Pulse Ox 97.9 F 85 20 H 157/83 H 98 10/19/17 14:15 10/19/17 14:15 10/19/17 14:15 10/19/17 14:15 10/19/17 14:15 Oxygen Delivery Method Room Air Weight: 119.6 kg Body Mass Index (BMI) 38.9 Finger Stick Blood Glucose 251 Intake and Output for Last 24 Hours 10/17/17 10/18/17 10/19/17 23:59 23:59 23:59 Intake Total 1743 / 1743 1954 Output Total 800 / 800 950 / 950 Balance 1743 / 1743 1155 / 1155 1005 / 1005 Microbiology Past 72 Hours 10/15/17 08:10 Wound exudate - Groin Gram Stain - Final 10/15/17 08:10 Wound exudate - Groin Wound Culture - Preliminary Gram Positive Cocci Streptococcus agalactiae (B) Staphylococcus hominis hominis 10/15/17 08:10 Wound exudate - Groin Anaerobic Culture - Preliminary Checking for anaerobes, further studies to follow. 10/15/17 01:10 Blood Culture (Wb) - Right Hand Blood Culture - Preliminary No growth in 48 hours. Laboratory Results 10/18/17 21:35: POC Glucose 274 H 10/19/17 08:20: POC Glucose 202 H 10/19/17 11:40: POC Glucose 233 H Current Medications Bisacodyl (Dulcolax) 5 mg PO DAILY PRN PRN PRN Reason: Constipation Last Admin: 10/18/17 09:50 Dose: 5 mg Dextrose (D50w Syringe) 0 gm IV X1 PRN; Protocol PRN Reason: Hypoglycemia Enoxaparin Sodium (Lovenox) 40 mg SC DAILY@1000 ANA Last Admin: 10/19/17 08:25 Dose: 40 mg Glucagon () 1 mg IM .X1 PRN PRN Reason: Hypoglycemia Hydromorphone HCl (Dilaudid Inj) 0.5 - 1 mg IV Q3H PRN PRN PRN Reason: SEVERE PAIN (6-10/10) Last Admin: 10/19/17 12:36 Dose: 0.5 mg Ampicillin Sodium/Sulbactam (Sodium 3 gm/ Sodium Chloride) 112 mls @ 150 mls/ hr IV Q8 [facility] Last Admin: 10/19/17 13:08 Dose: 150 mls/hr Insulin Glargine (Lantus (Bkc)) 28 units SC BID [facility] Last Admin: 10/19/17 08:26 Dose: 28 units Insulin Human Lispro (Humalog Kwikpen (Bkc)) 0 unit SQ ACHS [facility] PRN Reason: Protocol Last Admin: 10/19/17 16:43 Dose: 2 units Insulin Human Lispro (Humalog Kwikpen (Bkc)) 8 unit SQ BREAKFAST [facility] Last Admin: 10/19/17 08:26 Dose: 8 u Insulin Human Lispro (Humalog Kwikpen (Bkc)) 8 unit SQ DINNER [facility] Last Admin: 10/19/17 16:43 Dose: 8 units Insulin Human Lispro (Humalog Kwikpen (Bkc)) 8 unit SQ LUNCH [facility] Last Admin: 10/19/17 11:42 Dose: 8 u Lisinopril (Zestril) 20 mg PO DAILY [facility] Last Admin: 10/19/17 08:25 Dose: 20 mg Magnesium Hydroxide (Milk Of Magnesia) 30 ml PO DAILY PRN PRN PRN Reason: Constipation Last Admin: 10/18/17 08:49 Dose: 30 ml Metoclopramide HCl (Reglan) 10 mg IV Q6H PRN PRN PRN Reason: NAUSEA Last Admin: 10/16/17 10:00 Dose: 10 mg Ondansetron HCl (Zofran) 4 mg IV Q8H PRN PRN PRN Reason: Nausea Last Admin: 10/16/17 01:31 Dose: 4 mg Oxycodone HCl (Oxyir) 5 - 10 mg PO Q4H PRN PRN PRN Reason: Moderate Pain (pain scale 4-5) Last Admin: 10/19/17 14:28 Dose: 10 mg Pantoprazole Sodium (Protonix) 20 mg PO BID ANA Last Admin: 10/19/17 08:25 Dose: 20 mg Sodium Chloride () 5 - 30 ml IV UD PRN PRN Reason: SALINE FLUSH Last Admin: 10/18/17 16:05 Dose: 10 ml Sodium Hypochlorite (Dakins Solution 0.25% (1/2 Strength)) 1 applic TOPICAL BID ANA PRN Reason: Protocol Last Admin: 10/19/17 08:27 Dose: 1 applicatio Zolpidem Tartrate (Ambien (Generic)) 5 mg PO QHS PRN PRN PRN Reason: INSOMNIA Medical Necessity - Tobacco Use Smoking Status: Current every day smoker Assessment/Plan All Active Problems (Last Reviewed 10/15/17 @ 09:59 by Hamilton Duran MD) Abscess of groin, left (Acute) Cellulitis of groin, left (Acute) Diabetes (Acute) Hyponatremia (Acute) 57-year-old male with past medical history of type II DM, hypertension, obesity , nicotine dependence was admitted on 10/14/17 with left groin pain which initially started as a rash progressed into erythema as well as edema and severe pain. Patient was diagnosed as left groin/medial thigh cellulitis with abscess. He underwent I& D of the left groin abscess. Postoperative findings noted. Appreciate general surgery consult. 1. Acute left groin/perineal mixed organisms(Streptococcus, Staphylococcus ) abscess/cellulitis, status post I&D, D consulted, antibiotics switched to Unasyn , will continue to monitor 2. Hyponatremia, acute, improved, continue to monitor 3. Hyperglycemia and type II DM, blood sugars remain uncontrolled because of current infection, will increase Lantus, pre-meal insulin as well as insulin sliding scale with Accu-Cheks. 4. Hypertension, blood pressures are fairly controlled, continue on lisinopril 5. Obesity, BMI 38.9, diet and exercise recommended 6. Nicotine dependence, advised to quit 7. DVT prophylaxis with Lovenox subcu Code Visit Inpatient E&M: 52324 Subs Hosp L2
[2017-10-19 16:51] LABS: Bedside Glucose 211 mg/dL (70-110)
[2017-10-19 20:35] VITALS: BP 167/81; PULSE 86; RESP 18; TEMP 37; O2SAT 99
[2017-10-19] MEDS: Bisacodyl 5 MG Tablet PO (20:53)
[2017-10-19 22:51] LABS: Bedside Glucose 278 mg/dL (70-110)
[2017-10-20 02:35] VITALS: BP 168/82; PULSE 77; RESP 18; TEMP 36.9; O2SAT 100
[2017-10-20 02:40] VITALS: BP 156/85
--- NOTE | 2017-10-20 08:11 | PN_ITS ---
Patient Problems: Active and Suspected Problems (Last Reviewed 10/15/17 @ 09:59 by Hamilton Duran MD) Abscess of groin, left (Acute) Cellulitis of groin, left (Acute) Diabetes (Acute) Hyponatremia (Acute) Subjective: Patient was seen and examined. He feels much better. Denies fever or chills or chest pain. Objective: Physical exam: General: Alert, Oriented x3, Cooperative, No apparent distress, - - Obese HEENT: Atraumatic, PERRLA, EOMI, Normocephalic Oral: Moist Mucosa Neck: Supple Lungs: Clear to auscultation, Normal air movement Cardiovascular: Regular rate, Regular Rhythm, Normal S1, Normal S2, No murmurs Abdomen: Bowel Sounds Present, Soft, Non Tender, Non-Distended, No Hepato- splenomegaly, edema of the left hip and gluteal region with some mild erythema, +4 scrotal edema, dressing and packing, in the left groin region Extremities: No edema Skin: No rashes, No breakdown Musculoskeletal: No Tenderness to Palpation of Joints or Extremities Lymphatic: No Cervical, Supraclavicular, or Inguinal Adenopathy Neurological: Cranial nerves II-XII grossly intact, Neuro grossly intact Psych/Mental Status: Normal Affect, Appropriate Vitals/I&O's: Vital Signs Temp Pulse Resp BP Pulse Ox 98.4 F 77 18 156/85 H 100 10/20/17 02:35 10/20/17 02:35 10/20/17 02:35 10/20/17 02:40 10/20/17 02:35 Oxygen Delivery Method Room Air Weight: 119.6 kg Body Mass Index (BMI) 38.9 Finger Stick Blood Glucose 251 Intake and Output for Last 24 Hours 10/18/17 10/19/17 10/20/17 23:59 23:59 23:59 Intake Total 1955 / 5 2532 / 2532 788 / 788 Output Total 800 / 800 1500 / 1500 1325 / 1325 Balance 1155 / 1155 1032 / 1032 -537 / -537 Microbiology Past 72 Hours 10/15/17 08:10 Wound exudate - Groin Gram Stain - Final 10/15/17 08:10 Wound exudate - Groin Wound Culture - Final Strep anginosus Streptococcus agalactiae (B) Staphylococcus hominis hominis 10/15/17 08:10 Wound exudate - Groin Anaerobic Culture - Preliminary Checking for anaerobes, further studies to follow. 10/15/17 01:10 Blood Culture (Wb) - Right Hand Blood Culture - Final No growth in 5 days. Laboratory Results 10/19/17 08:20: POC Glucose 202 H 10/19/17 11:40: POC Glucose 233 H 10/19/17 16:41: POC Glucose 211 H 10/19/17 22:16: POC Glucose 278 H Current Medications Bisacodyl (Dulcolax) 5 mg PO DAILY PRN PRN PRN Reason: Constipation Last Admin: 10/19/17 20:53 Dose: 5 mg Dextrose (D50w Syringe) 0 gm IV X1 PRN; Protocol PRN Reason: Hypoglycemia Enoxaparin Sodium (Lovenox) 40 mg SC DAILY@1000 ANA Last Admin: 10/19/17 08:25 Dose: 40 mg Glucagon () 1 mg IM .X1 PRN PRN Reason: Hypoglycemia Hydromorphone HCl (Dilaudid Inj) 0.5 - 1 mg IV Q3H PRN PRN PRN Reason: SEVERE PAIN (6-1010) Last Admin: 10/19/17 22:17 Dose: 0.5 mg Ampicillin Sodium/Sulbactam (Sodium 3 gm/ Sodium Chloride) 112 mls @ 150 mls/ hr IV Q8 [facility] Last Admin: 10/20/17 05:41 Dose: 150 mls/hr Insulin Glargine (Lantus (Bkc)) 28 units SC BID [facility] Last Admin: 10/19/17 22:18 Dose: 28 units Insulin Human Lispro (Humalog Kwikpen (Bkc)) 0 unit SQ ACHS ANA PRN Reason: Protocol Last Admin: 10/19/17 22:19 Dose: 4 units Insulin Human Lispro (Humalog Kwikpen (Bkc)) 10 unit SQ BREAKFAST ANA Insulin Human Lispro (Humalog Kwikpen (Bkc)) 10 unit SQ DINNER ANA Insulin Human Lispro (Humalog Kwikpen (Bkc)) 10 unit SQ LUNCH ANA Lisinopril (Zestril) 20 mg PO DAILY [facility] Last Admin: 10/19/17 08:25 Dose: 20 mg Magnesium Hydroxide (Milk Of Magnesia) 30 ml PO DAILY PRN PRN PRN Reason: Constipation Last Admin: 10/18/17 08:49 Dose: 30 ml Metoclopramide HCl (Reglan) 10 mg IV Q6H PRN PRN PRN Reason: NAUSEA Last Admin: 10/16/17 10:00 Dose: 10 mg Ondansetron HCl (Zofran) 4 mg IV Q8H PRN PRN PRN Reason: Nausea Last Admin: 10/16/17 01:31 Dose: 4 mg Oxycodone HCl (Oxyir) 5 - 10 mg PO Q4H PRN PRN PRN Reason: Moderate Pain (pain scale 4-5) Last Admin: 10/19/17 20:53 Dose: 10 mg Pantoprazole Sodium (Protonix) 20 mg PO BID ANA Last Admin: 10/19/17 22:16 Dose: 20 mg Sodium Chloride () 5 - 30 ml IV UD PRN PRN Reason: SALINE FLUSH Last Admin: 10/18/17 16:05 Dose: 10 ml Sodium Hypochlorite (Dakins Solution 0.25% (1/2 Strength)) 1 applic TOPICAL BID ANA PRN Reason: Protocol Last Admin: 10/19/17 22:17 Dose: 1 applicatio Zolpidem Tartrate (Ambien (Generic)) 5 mg PO QHS PRN PRN PRN Reason: INSOMNIA Medical Necessity - Tobacco Use Smoking Status: Current every day smoker Assessment/Plan All Active Problems (Last Reviewed 10/15/17 @ 09:59 by Hamilton Duran MD) Abscess of groin, left (Acute) Cellulitis of groin, left (Acute) Diabetes (Acute) Hyponatremia (Acute) 57-year-old male with past medical history of type II DM, hypertension, obesity , nicotine dependence was admitted on 10/14/17 with left groin pain which initially started as a rash progressed into erythema as well as edema and severe pain. Patient was diagnosed as left groin/medial thigh cellulitis with abscess. He underwent I& D of the left groin abscess. Postoperative findings noted. Appreciate general surgery consult. 1. Acute left groin/perineal mixed organisms(Streptococcus, Staphylococcus) abscess/cellulitis, status post I&D, D consulted, antibiotics switched to Unasyn , will continue to monitor. 2. Hyponatremia, acute, improved, continue to monitor 3. Hyperglycemia and type II DM, blood sugars remain uncontrolled because of current infection, will make changes to Lantus, 30mg BID, pre-meal insulin as well as insulin sliding scale with Accu-Cheks. 4. Hypertension, blood pressures are fairly controlled, continue on lisinopril 5. Obesity, BMI 38.9, diet and exercise recommended 6. Nicotine dependence, advised to quit 7. DVT prophylaxis with Lovenox subcu Code Visit Inpatient E&M: 65375 Subs Hosp L2
[2017-10-20 08:15] VITALS: BP 151/78; PULSE 83; RESP 18; TEMP 37.6; O2SAT 98
[2017-10-20] MEDS: HYDROmorphone 0.5 MG/0.5 ML SYRINGE IV (08:27)
[2017-10-20] MEDS: Insulin Lispro 100 UNIT/ML INSULN.PEN SQ ×4 (09:26→22:11)
[2017-10-20] MEDS: Insulin Lispro 100 UNIT/ML INSULN.PEN 10 UNIT SQ ×3 (09:27→18:12)
[2017-10-20] MEDS: Lisinopril 20 MG Tablet PO (09:28)
[2017-10-20] MEDS: Enoxaparin 40 MG/0.4 ML Syringe SC (09:28)
[2017-10-20] MEDS: Pantoprazole Sodium 20 MG Tablet PO ×2 (09:28→22:11)
[2017-10-20] MEDS: HYDROCHLOROTHIAZIDE 12.5 MG CAPSULE PO (10:17)
--- NOTE | 2017-10-20 10:41 | PCM.PN.SRG ---
Patient Problems: Active and Suspected Problems (Last Reviewed 10/15/17 @ 09:59 by Hamilton Duran MD) Abscess of groin, left (Acute) Cellulitis of groin, left (Acute) Diabetes (Acute) Hyponatremia (Acute) Subjective: Patient evaluated resting comfortably in bed. He notes minimal amount of left groin discomfort. He denies fever, nausea. - Physical Exam General: Alert, Oriented x3, Cooperative Abdomen: Bowel Sounds Present, Soft, Non Tender, - - Left groin wound- large open wound with minimal granulation tissue. Still purulent fluid noted. Wound was repacked with wet to dry dressing with Dakin's solution. Vital Signs Temp Pulse Resp BP Pulse Ox 99.6 F H 83 18 151/78 H 98 10/20/17 08:15 10/20/17 08:15 10/20/17 08:15 10/20/17 08:15 10/20/17 08:15 Oxygen Delivery Method Room Air Weight: 263 lb 10.766 oz Body Mass Index (BMI) 38.9 Finger Stick Blood Glucose 251 Intake and Output for Last 24 Hours 10/18/17 10/19/17 10/20/17 23:59 23:59 23:59 Intake Total 1955 / 1955 2532 / 2532 788 / 788 Output Total 800 / 800 1500 / 1500 1325 / 1325 Balance 1155 / 1155 1032 / 1032 -537 / -537 Microbiology Past 72 Hours 10/15/17 08:10 Gram Stain - Final Wound exudate - Groin Wound Culture - Final Strep anginosus Streptococcus agalactiae (B) Staphylococcus hominis hominis Anaerobic Culture - Preliminary Checking for anaerobes, further studies to follow. 10/15/17 01:10 Blood Culture - Final Blood Culture (Wb) - Right Hand No growth in 5 days. POC Glucose 10/19/17 10/19/17 10/19/17 22:16 16:41 11:40 POC Glucose 278 H 211 H 233 H Medical Necessity - Tobacco Use Smoking Status: Current every day smoker Assessment/Plan All Active Problems (Last Reviewed 10/15/17 @ 09:59 by Hamilton Duran MD) Abscess of groin, left (Acute) Cellulitis of groin, left (Acute) Diabetes (Acute) Hyponatremia (Acute) I am following this patient in conjunction with Dr. Duran S/p Incision and debridement of left groin abscess Continue wet to dry twice daily dressing changes with Dakins Microbiology growing out multiple bacteria Infectious disease evaluated patient. He was placed on Unasyn. Per ID, may be discharged on oral Augmentin. Considering LTAC to assist with dressing changes. We will continue to monitor this patient Code Visit Inpatient E&M: 11446 Subs Hosp L1 - No charge; post-op
--- NOTE | 2017-10-20 10:46 | CASEMGMT ---
Addendum entered by Cecilia Garza 10/20/17 11:29: AIDA attempted to update pt. Pt not currently in room. SW will update pt as time allows. Original Note: Social Work Note AIDA faxed updated clinicals to Mariella at [facility]. Plan: [facility] pending pre-cert Cecilia Garza HOSPICE COORDINATOR, HAMMER DRIVER
[2017-10-20 12:16] LABS: Bedside Glucose 300 mg/dL (70-110)
--- NOTE | 2017-10-20 13:34 | PN.ID_ITS ---
Patient Problems: Active and Suspected Problems (Last Reviewed 10/15/17 @ 09:59 by Hamilton Duran MD) Abscess of groin, left (Acute) Cellulitis of groin, left (Acute) Diabetes (Acute) Hyponatremia (Acute) Subjective: Feeling better, no fever, no n/v/d. - Physical Exam General: Alert, Cooperative, No apparent distress Lungs: Clear to auscultation, Normal air movement Cardiovascular: Regular rate, Regular Rhythm Abdomen: Soft, Non Tender, Non-Distended Skin: Incision - bandaged over L groin Vital Signs Temp Pulse Resp BP Pulse Ox 99.6 F H 83 18 151/78 H 98 10/20/17 08:15 10/20/17 08:15 10/20/17 08:15 10/20/17 08:15 10/20/17 08:15 Oxygen Delivery Method Room Air Weight: 119.6 kg Body Mass Index (BMI) 38.9 Finger Stick Blood Glucose 251 Intake and Output for Last 24 Hours 10/18/17 10/19/17 10/20/17 23:59 23:59 23:59 Intake Total 1955 / 1955 2532 / 2532 788 / 788 Output Total 800 / 800 1500 / 1500 1325 / 1325 Balance 1155 / 1155 1032 / 1032 -537 / -537 Microbiology Past 72 Hours 10/15/17 08:10 Gram Stain - Final Wound exudate - Groin Wound Culture - Final Strep anginosus Streptococcus agalactiae (B) Staphylococcus hominis hominis Anaerobic Culture - Preliminary Checking for anaerobes, further studies to follow. 10/15/17 01:10 Blood Culture - Final Blood Culture (Wb) - Right Hand No growth in 5 days. POC Glucose 10/20/17 10/19/17 10/19/17 11:49 22:16 16:41 POC Glucose 300 H 278 H 211 H Medical Necessity - Tobacco Use Smoking Status: Current every day smoker Route of nutrition/ use of supplements: [] Nutritional Intake: [] IV Site: [] [place] Catheter: [] - Assessment/Plan Antibiotics: [] Assessment/Plan: [] Active and Suspected Problems (Last Reviewed 10/15/17 @ 09:59 by Hamilton Duran MD) Abscess of groin, left (Acute) Cellulitis of groin, left (Acute) Diabetes (Acute) Hyponatremia (Acute) L groin abscess s/p I&D by Dr. Duran 10/15. Surg cx with GBS, staph hominis, and strep anginosus. On unasyn. Likely candidate for po abx at discharge ( augmentin). will follow
[2017-10-20 14:40] VITALS: BP 142/77; PULSE 82; RESP 18; TEMP 37.1; O2SAT 99
--- NOTE | 2017-10-20 14:56 | CASEMGMT ---
Addendum entered by Cecilia Garza 10/20/17 15:08: SW received message from Mariella at [facility] stating that she hasn't heard anything from pt's insurance and will let this worker know as soon as she does. Original Note: Addendum entered by Cecilia Garza 10/20/17 15:03: SW updated pt that [facility] are not in network and they were unable to get one time contract. SW informed pt that [facility] has accepted pt and this worker is waiting for pre-cert from pt's insurance. Pt states understanding. Original Note: Social Work Note SW placed a call to Mariella at [facility] asking if she has any updates from pt's insurance. SW waiting for call back. Plan: [facility] pending pre-cert Cecilia Garza GRAPHOTYPE OPERATOR, [employer]CHARD [employer]
[2017-10-20] MEDS: oxyCODONE 5 MG Tablet PO ×2 (15:45→22:13)
[2017-10-20 16:01] LABS: Bedside Glucose 239 mg/dL (70-110)
--- NOTE | 2017-10-20 16:19 | PCA ---
Ambulated pt. around unit. Pt. tolerated well, x1 with walker.
[2017-10-20 22:00] VITALS: BP 157/87; PULSE 78; RESP 18; TEMP 37.1; O2SAT 100
[2017-10-20 22:41] LABS: Bedside Glucose 198 mg/dL (70-110)
[2017-10-21] MEDS: oxyCODONE 5 MG Tablet PO ×2 (03:08→08:28)
[2017-10-21 03:10] VITALS: BP 167/94; PULSE 77; RESP 18; TEMP 36.7; O2SAT 99
[2017-10-21 06:08] LABS: Hematocrit 35.5 % (40-54); Hemoglobin 12.1 g/dl (13.0-16.5); Mean Corp Hgb Conc 34.1 g/gl (32-36); Mean Corpuscular Hgb 29.2 pg (27.0-32.0); Mean Corpuscular Volume 85.7 fL (80-94); Mean Platelet Vol. 9.6 fl (6.2-12.0); Platelet Count 353 K/mm3 (150-450); RBC Distribution Width CV 12.9 % (11.6-14.6); RBC Distribution Width SD 39.5 fl (35.1-43.9); Red Blood Count 4.14 M/mm3 (4.6-6.2); White Blood Count 9.9 K/mm3 (4.4-11.0)
[2017-10-21 06:11] LABS: Differential Indicated MANUAL DIFF; POSITIVE COUNT YES; POSITIVE DIFFERENTIAL NO; POSITIVE MORPHOLOGY YES
[2017-10-21 06:12] LABS: Anion Gap 7 (5-15); BUN 12 mg/dL (7-18); BUN/Creat Ratio 12.1 RATIO (10-20); Calcium,Total 8.7 mg/dL (8.5-10.1); Chloride 97 mmol/L (98-107); Creatinine, Serum 0.99 mg/dL (0.70-1.30); EST Glomerular Filtration Rate 83 mL/min (>60); Est Glom Filt Rate - Afr Amer 100 mL/min (>60); Estimated Creatinine Clearance 84.31 ml/min; Glucose 168 mg/dL (74-106); Potassium 4.1 mmol/L (3.5-5.1); Sodium Level 135 mmol/L (136-145)
[2017-10-21 06:40] LABS: Basophil 1 % (0-1); Lymphocyte 11 % (19-41); Metamyelocyte 2 % (0-1); Monocyte 4 % (0-10); Neutrophil-Band 5 % (0-5); Neutrophil-Segmented 77 % (47-70); Nucleated Red Bld Cells,Manual 1 % (0-5); Total Cells Counted 100 (MANUAL DIFF)
[2017-10-21 06:41] LABS: Absolute Lymphocyte Count 1.09 X10^3/ul (0.83-4.51); Absolute Neutrophil Count 8.1 X10^3/uL (2.0-7.7); Lymphocyte # 1.09 X10^3/ul (4.0)
[2017-10-21 08:05] LABS: Bedside Glucose 162 mg/dL (70-110)
[2017-10-21] MEDS: Insulin Lispro 100 UNIT/ML INSULN.PEN 10 UNIT SQ ×2 (08:12→11:53)
[2017-10-21] MEDS: HYDROCHLOROTHIAZIDE 12.5 MG CAPSULE PO ×2 (08:12→08:52)
[2017-10-21] MEDS: Insulin Lispro 100 UNIT/ML INSULN.PEN SQ ×2 (08:12→11:54)
[2017-10-21] MEDS: Enoxaparin 40 MG/0.4 ML Syringe SC (08:12)
[2017-10-21] MEDS: Lisinopril 20 MG Tablet PO (08:13)
[2017-10-21] MEDS: Pantoprazole Sodium 20 MG Tablet PO (08:13)
[2017-10-21 09:15] VITALS: BP 160/91; PULSE 79; RESP 18; TEMP 36.9; O2SAT 100
--- NOTE | 2017-10-21 10:25 | NURSING ---
wound photo: left groin
--- NOTE | 2017-10-21 10:31 | PCM.PN.SRG ---
Patient Problems: Active and Suspected Problems (Last Reviewed 10/15/17 @ 09:59 by Hamilton Duran MD) Abscess of groin, left (Acute) Cellulitis of groin, left (Acute) Diabetes (Acute) Hyponatremia (Acute) Subjective: Patient evaluated resting comfortably in bed. He denies new concerns or complaints. He denies fever. - Physical Exam General: Alert, Oriented x3, Cooperative Skin: - - left groin- large open wound. Continued purulent drainage. Vital Signs Temp Pulse Resp BP Pulse Ox 98.0 F 77 18 167/94 H 99 10/21/17 03:10 10/21/17 03:10 10/21/17 03:10 10/21/17 03:10 10/21/17 03:10 Oxygen Delivery Method Room Air Weight: 263 lb 10.766 oz Body Mass Index (BMI) 38.9 Finger Stick Blood Glucose 251 Intake and Output for Last 24 Hours 10/19/17 10/20/17 10/21/17 23:59 23:59 23:59 Intake Total 2532 / 2532 788 / 788 892 / 892 Output Total 1500 / 1500 1325 / 1325 1675 / 1675 Balance 1032 / 1032 -537 / -537 -783 / -783 Microbiology Past 72 Hours 10/15/17 08:10 Gram Stain - Final Wound exudate - Groin Wound Culture - Final Strep anginosus Streptococcus agalactiae (B) Staphylococcus hominis hominis Anaerobic Culture - Final Prevotella melaninogenica Anaerobic cocci 10/15/17 01:10 Blood Culture - Final Blood Culture (Wb) - Right Hand No growth in 5 days. Laboratory Tests Past 24 Hrs 10/21/17 10/21/17 05:35 05:35 WBC 9.9 RBC 4.14 L Hgb 12.1 L Hct 35.5 L MCV 85.7 MCH 29.2 MCHC 34.1 RDW 12.9 RDW Differential 39.5 Plt Count 353 MPV 9.6 Neut % (Auto) Not Reportable Absolute Neuts (auto) 8.1 H Absolute Lymphs (auto) 1.09 Total Counted 100 Neutrophils % (Manual) 77 H Band Neutrophils % 5 Lymphocytes % (Manual) 11 L Monocytes % (Manual) 4 Basophils % (Manual) 1 Metamyelocytes % 2 H Nucleated RBCs/100 WBC 1 Diff Path Review May foll Sodium 135 L Potassium 4.1 Chloride 97 L Carbon Dioxide 31.0 Anion Gap 7 BUN 12 Creatinine 0.99 Estim Creat Clear Calc 84.31 Est GFR (MDRD) Af Amer 100 Est GFR (MDRD) Non-Af 83 BUN/Creatinine Ratio 12.1 Glucose 168 H Calcium 8.7 POC Glucose 10/21/17 10/20/17 10/20/17 07:57 22:03 15:51 POC Glucose 162 H 198 H 239 H 10/20/17 11:49 POC Glucose 300 H Medical Necessity - Tobacco Use Smoking Status: Current every day smoker Assessment/Plan All Active Problems (Last Reviewed 10/15/17 @ 09:59 by Hamilton Duran MD) Abscess of groin, left (Acute) Cellulitis of groin, left (Acute) Diabetes (Acute) Hyponatremia (Acute) I am following this patient in conjunction with Dr. Duran S/p Incision and debridement of left groin abscess Continue wet to dry twice daily dressing changes with Dakins Microbiology growing out multiple bacteria Infectious disease evaluated patient. He was placed on Unasyn. Per ID, may be discharged on oral Augmentin. Considering LTAC to assist with dressing changes. We will continue to monitor this patient Ready for discharge from surgical standpoint Code Visit Inpatient E&M: 40253 Subs Hosp L1 - Post-op; No charge
[2017-10-21 11:46] LABS: Bedside Glucose 183 mg/dL (70-110)
--- NOTE | 2017-10-21 12:12 | CASEMGMT ---
Social Work Note SW faxed updated clinicals to Mariella at [facility]. Plan: [facility] pending pre-cert Cecilia Garza BUSINESS OPERATIONS MANAGER, FAMILY RESOURCE SPECIALIST
[2017-10-21 14:35] VITALS: BP 159/83; PULSE 85; RESP 18; TEMP 37.2; O2SAT 98
--- NOTE | 2017-10-21 15:07 | PCM.TXEXTCAR ---
- Diet 10/15/17 16:22 ADA [Diet: Calorie Controlled] Type of Dietary Supplement:: Glucerna 1.5 jaylene Is pt able to select menu?: Yes Diet Comments: WOUND HEALING-NCS How many daily calories?: 1800 calorie - Routine Orders/Code Status Routine Lab Work: CBC - within 1 week, BMP - within 1 week - Wound(s) GROIN Wound Type: Surgical Incision Dressing Change: packed with betadine soacked kerlexx1 left groin Wound Type: open surgical wound s/p I&D abscess Dressing Change: Dakins moistened gauze - Therapies Extremity Affected:: Left Lower Physical Therapy: Eval and Treat Occupational Therapy: Eval and Treat - Allergies/Procedures Done in Hospital Allergies/Adverse Reactions: Allergies No Known Allergies Allergy (Verified 10/14/17 20:03) Procedures: - - s/p I & D left groin abscess 10/15/17 - Type of Care/Length of Stay Estimated LOS: Convalescent Care Less Than 30 days Type of Care Needed: Inpt Hospice Facility Rehab Potential: Good Prognosis: Good - Additional Orders/Day of Discharge Day of Discharge: 10/21/17 - Dietary and Speech Recommendations Dietitian Recommendations/Changes: Suggest diet change to 2200 Calorie Controlled/Cardiac diet. Consider Vitor 1 packet BID for wound healing. - Follow Up Care Primary Care Physician: Onofre Augustine MD [Primary Care Provider] - Please follow up with your Primary Care Physician in: within 2 weeks of discharge Please Follow Up With: Hamilton Duran MD When: within 1-2 weeks
--- NOTE | 2017-10-21 15:10 | PCM.DC.SUM ---
Discharge Date and Diagnosis - Problem List Patient Problems: Active and Suspected Problems (Last Reviewed 10/15/17 @ 09:59 by Hamilton Duran MD) Abscess of groin, left (Acute) Cellulitis of groin, left (Acute) Diabetes (Acute) Hyponatremia (Acute) Date of Admission: 10/14/17 Date of Discharge: 10/21/17 - Primary Discharge Diagnosis Active and Suspected Problems (Last Reviewed 10/15/17 @ 09:59 by Hamilton Duran MD) Abscess of groin, left (Acute) Cellulitis of groin, left (Acute) Hyperglycemia Hyponatremia (Acute) Nicotine dependence - Secondary Discharge Diagnosis Chronic Problems (Last Reviewed 10/15/17 @ 09:59 by Hamilton Duran MD) Hypertension (Chronic) Hospital Course and Treatment Consultations 10/15/17 13:47 Consult: Onc/Wound/cfd engineer Routine Comment: Reason for Consult:: abscess left groin/inner thigh Dr. Duran Operations: - - Status post I&D of the left groin Procedures: - - status post I&D of the left groin abscess Summary of Care Provided: 57-year-old male with past medical history of type II DM, off metformin for more than 6 months because of financial difficulties, hypertension, obesity, nicotine dependence who was admitted on 10/14/17 with left groin pain which initially started as a rash progressed into erythema as well as edema and severe pain. Patient was diagnosed as left groin/medial thigh cellulitis with abscess. He underwent I& D of the left groin abscess, 10/15/17 by general surgery with a total incision of about 15-[address] down to the subcutaneous tissue with drainage of abscess. 1. Acute left groin/perineal mixed organisms(Streptococcus, Staphylococcus) abscess/cellulitis, status post I&D. He was initially on vancomycin and Zosyn, switched to IV Unasyn. General surgery and ID with following in this admission. Will follow up with general surgery, discharged on twice daily Dakin's dressing. 2. Hyponatremia, acute, sodium remained about the same,135, likely secondary to hyperglycemia, will be repeated in the outpatient 3. Type II DM, HbA1c 10.4, off metformin because of financial difficulties, patient's blood sugars were uncontrolled throughout his stay, started on Lantus, pre-meal insulin as well as insulin sliding scale with adjustments made with Accu-Cheks. 4. Hypertension -Blood pressures were also uncontrolled during this stay, managed on lisinopril and started on hydrochlorothiazide 5. Obesity, BMI 38.9, diet and exercise recommended 6. Nicotine dependence, advised to quit Discharge Diet: Low fat/ Low Cholesterol, 2000 mg Sodium Diet, Carb Control Diet Discharge Activity: Return to Normal Activity Home Medications: Medications to take at Discharge Amoxicillin/Potassium Clav [Augmentin 875-125 Tablet] 1 each PO BID #14 tablet 10/21/17 Insulin Glargine [Lantus SoloStar Pen] 30 units SC BID pen 10/21/17 Insulin Lispro [Humalog KwikPen] 10 unit SQ BREAKFAST insuln.pen 10/21/17 Insulin Lispro [Humalog KwikPen] 10 unit SQ DINNER insuln.pen 10/21/17 Insulin Lispro [Humalog KwikPen] 10 unit SQ LUNCH insuln.pen 10/21/17 Insulin Lispro [Humalog KwikPen] See Protocol SQ ACHS insuln.pen 10/21/17 Lisinopril [Zestril] 20 mg PO DAILY tablet 10/21/17 Oxycodone [Oxyir] 5 - 10 mg PO Q4H PRN PRN 5 Days #20 tab 10/21/17 Pantoprazole Sodium [Protonix] 20 mg PO BID tablet 10/21/17 Sodium Hypochlorite [Dakins Solution 0.25% (1/2 Strength)] 1 applic TOPICAL BID bottle 10/21/17 Following Prescrptions Were Given to Patient: Oxycodone [Oxyir] 5 - 10 mg PO Q4H PRN PRN 5 Days #20 tab PRN Reason: Moderate Pain (pain scale 4-5) Amoxicillin/Potassium Clav [Augmentin 875-125 Tablet] 1 each PO BID #14 tablet Primary Care Physician: Onofre Augustine MD [Primary Care Provider] - Please follow up with your Primary Care Physician in: within 2 weeks of discharge Please Follow Up With: Hamilton Duran MD When: within 1-2 weeks Disposition: Detention facility Minutes spent on discharge:: 40 Patient Condition:: Stable Medical Necessity - Tobacco Use Smoking Status: Current every day smoker Meaningful Use Info Meaningful Use Diagnoses (Choose all that apply): None applicable Code Visit Inpatient E&M: 05044 Disch Hosp
[2017-10-21 15:17] LABS: Pathologist Review Reviewed
--- NOTE | 2017-10-21 16:33 | CASEMGMT ---
Social Work Note SW received message from Mariella at [facility] stating pre-cert has been obtained. SW updated Dr. Mann of this. AIDA faxed completed discharge paperwork to [facility] including transfer to extended care facility, signed medication list and scripts. Originals in SNF folder and copy on pt's chart. SW completed convalescent 7000 in [facility]. Originals in SNF and copy on pt's chart. SW in to update pt that pre-cert has been obtained. Pt states that he would like transportation to be set up. SW placed a call to [facility] and set up transportation via cot for 4:15pm. Transportation form on SNF folder and copy on pt's chart. AIDA updated national secretary Tres, Mariella Romero at [facility] and pt of transportation time. Pt denied additional needs or concerns at this time. Plan: Pt to discharge to [facility] today under skilled at 4:15pm through [facility] via cot Cecilia Garza ROOFING SALES REPRESENTATIVE, PATENT LITIGATION ASSOCIATE
== END 2017-10-21 16:26 | disposition skilled nursing facility (03) | DRG 571 ==
LOC: ED 20:57 → MS3 23:58
PROVIDERS: Family Medicine; Surgery; Admitting Provider Hospitalist; Emergency Provider Emergency Medicine; Family Provider Family Medicine; PCP Family Medicine; Visit Provider Internal Medicine
PROC: 0JBB0ZZ Excision of Perineum Subcutaneous Tissue and Fascia, Open Approach (ICD-10-PCS; principal; 2017-10-15 09:40)
DX: L02.214 Cutaneous abscess of groin (principal); E87.1 Hypo-osmolality and hyponatremia; L03.116 Cellulitis of left lower limb; L03.314 Cellulitis of groin; L02.215 Cutaneous abscess of perineum; B95.5 Unspecified streptococcus as the cause of diseases classified elsewhere; B95.8 Unspecified staphylococcus as the cause of diseases classified elsewhere; E11.65 Type 2 diabetes mellitus with hyperglycemia; E86.1 Hypovolemia; I10 Essential (primary) hypertension; K59.00 Constipation, unspecified; F32.9 Major depressive disorder, single episode, unspecified; F17.210 Nicotine dependence, cigarettes, uncomplicated; E66.9 Obesity, unspecified; Z68.38 Body mass index [BMI] 38.0-38.9, adult; Z91.120 Patient's intentional underdosing of medication regimen due to financial hardship; Z79.4 Long term (current) use of insulin; Z79.899 Other long term (current) drug therapy
CPT/HCPCS: 36415; 80048; 82962; 83036; 83735; 83930; 83935; 84300; 84443; 85025; 87040; 87070; 87075; 87077; 87186; 87205; 87640; 93005; 93970; 97116; 97162; 97166; 97530; 97535; 99282; 99406; J7030; J7040; J7050; A4216; J0295; J2405

== ENCOUNTER → 2019-04-05 11:10 | Outpatient (CLI) | payer MEDICAID, SELFPAY ==
--- NOTE | 2019-04-05 11:17 | VDLE_ITS ---
Reason For Study: Edema RIGHT GSV is normal. FV is compressible, spontaneous, phasic, competent and demonstrates normal augmentation. POP V is compressible, spontaneous, phasic, competent and demonstrates normal augmentation. T/P Trunk is compressible. PTV is compressible. RT PerV is compressible. Pt unableto tolerate compression in groin. CFV and SFJ appear patent with color doppler and normal flow noted with augmentation. Procedure Exam performed in department. A preliminary report was called and/or faxed to [facility]. Interpretation Summary Deep veins of the right lower extremity are patent and compressible segmentally. There is no evidence of right lower extremity deep vein thrombosis. Valvular competence appears intact within the proximal deep venous system on the right . The right great saphenous vein appears patent and compressible segmentally. Ordering Physician: Onofre Augustine Referring Physician: Onofre Augustine Performed By: Cecilia Crenshaw RVT
== END ==
PROVIDERS: Family Provider Family Medicine; PCP Family Medicine; Referring Provider Family Medicine; Visit Provider Family Medicine
DX: R60.9 Edema, unspecified (principal)
CPT/HCPCS: 93971

== ENCOUNTER 2019-04-07 13:38 | Inpatient (IN) | payer MEDICAID, SELFPAY ==
[2019-04-07 13:39] VITALS: BP 147/83; PULSE 98; RESP 20; TEMP 37.1; O2SAT 98; BMI 41.3
--- NOTE | 2019-04-07 15:06 | RAD_ITS ---
STUDY: X-RAY - RIGHT FOOT CLINICAL: Male, 59 years old. Redness and swelling. Question infection. No known injury. TECHNIQUE: 3 view(s) of the foot. COMPARISON: None. FINDINGS: There are enthesophytes at the insertions of the Achilles tendon and plantar aponeurosis upon an otherwise normal calcaneus. The talus and tarsal bones are unremarkable. Normal visualized subtalar, talonavicular, calcaneocuboid, tarsal and tarsometatarsal articulations. Normal metatarsi. Normal metatarsophalangeal joint of the great toe. Normal tibial and fibular sesamoid bones. Normal interphalangeal joint of the great toe. Normal phalanges of the great toe. Normal second through fifth metatarsophalangeal joints. Normal interphalangeal joints and phalanges of the lesser toes. There is soft tissue swelling about the ankle and hindfoot. RAD/Foot min 3 Views IMPRESSION: No acute fracture, dislocation or destructive osseous pathology. Electronically Signed: Yvan Russell DO at 16:58 EST Tel [phone], Service support ,
[2019-04-07 15:53] LABS: Absolute Lymphocyte Count 1.31 X10^3/uL (0.83-4.51); Absolute Neutrophil Count 10.5 X10^3/uL (2.0-7.7); Basophil# 0.05 X10^3/uL; Basophil% 0.4 % (0-1); Eosinophil# 0.14 X10^3/uL; Eosinophils% 1.1 % (0-5); Hemoglobin 12.9 g/dL (13.0-16.5); Lymphocyte # 1.31 X10^3/ul (4.0); Lymphocyte % 10.1 % (19-41); Mean Corp Hgb Conc 33.9 g/dL (32-36); Mean Corpuscular Hgb 30.1 pg (27.0-32.0); Mean Corpuscular Volume 88.8 fL (80-94); Mean Platelet Vol. 10.3 fl (6.2-12.0); Monocyte# 0.96 X10^3/uL; Monocyte% 7.4 % (0-10); NRBC Flagged by Analyzer 0 % (0-5); Neutrophil # 10.47 X10^3/uL (2.7-7.7); Neutrophil % 80.3 % (47-70); Platelet Count 248 K/mm3 (150-450); RBC Distribution Width CV 12.5 % (11.6-14.6); RBC Distribution Width SD 40.3 fl (35.1-43.9); Red Blood Count 4.28 M/mm3 (4.6-6.2)
[2019-04-07] MEDS: 0.9% Normal Saline 1,000 ML 1000 ML IV (16:02)
[2019-04-07] MEDS: Morphine 4 MG/ML Syringe IV (16:02)
[2019-04-07] MEDS: Ondansetron 4 MG/2 ML Vial IV (16:02)
[2019-04-07 16:10] LABS: ALB/GLOB Ratio 0.8 RATIO (0.9-2.4); AST(SGOT) 6 U/L (15-37); Alanine Aminotransfer ALT/SGPT 20 U/L (16-61); Albumin, Serum 3.5 g/dL (3.2-5.0); Alkaline Phosphatase 89 U/L (45-117); Anion Gap 7 (5-15); BUN 16 mg/dL (7-18); BUN/Creat Ratio 14.2 RATIO (10-20); Calcium,Total 9.3 mg/dL (8.5-10.1); Chloride 101 mmol/L (98-107); Creatinine, Serum 1.13 mg/dL (0.70-1.30); EST Glomerular Filtration Rate 71 mL/min (>60); Est Glom Filt Rate - Afr Amer 86 mL/min (>60); Estimated Creatinine Clearance 72.13 ml/min; Globulin 4.3 g/dL (2.2-4.2); Glucose 191 mg/dL (74-106); Protein, Total 7.8 g/dL (6.4-8.2); Sodium Level 134 mmol/L (136-145)
[2019-04-07 16:14] LABS: Erythrocyte Sedimentation Rate 53 mm/hr (0-20)
[2019-04-07 16:22] LABS: Lactic Acid 2.4 mmol/L (0.4-1.9)
[2019-04-07 16:33] VITALS: BMI 41.3
[2019-04-07 16:45] VITALS: BP 148/76; PULSE 89; RESP 18; O2SAT 99
--- NOTE | 2019-04-07 16:45 | ED.DCSUM_ITS ---
- ER Visit Summary Date of Service: 04/07/19 Chief Complaint: Right foot pain History of Present Illness: The patient is a [address] Augustine. He reports that 5 days ago he noted a sharp pain on the bottom of his right foot. Reports it was 9 out of 10 at worst and is 4-10 currently. Is worsened by nothing relieved by nothing. He denies any known injury to this. Patient reports that he has redness and swelling that began 2 days ago. He was seen by Dr. Augustine and had a negative lower extremity Doppler. He was placed on clindamycin which has been taken 3 times a day for the past 2 days without improvement. Patient denies any constitutional symptoms. No fever, chills, nausea, or vomiting. Physical Examination: Vitals: Stable. Afebrile. General: Well-nourished and well-developed. Head: Normocephalic atraumatic. Neck: Supple, no lymphadenopathy. No JVD. Nontender. Cardiovascular: Regular rate and rhythm. No murmurs. Respiratory: No respiratory distress. Clear to auscultation bilaterally. Abdominal: Soft, nontender, nondistended, normal bowel sounds. No guarding, rebound, or peritoneal signs. Back: Nontender. Extremities: There is a triangular ulcer that is approximately 1 cm on each side to the distal portion of his first metatarsal on the plantar surface. There is surrounding erythema and swelling. Is also got erythema over the top of his foot. Is got erythema over the anterior mid leg on the right as well. There is no crepitus or fluctuance. Skin: Normal color, no rash. Neurologic: Alert and oriented ?3. Cranial nerves II through XII are intact. Normal strength and sensation. Psych: Normal affect. Test Results: CBC shows a white count of 13.0 with an H&H of 12.9 and 38.0, segmented neutrophils 80, lymphocytes of 10. Chem-7 shows a sodium of 134 glucose 191. LFTs show a globulin of 4.3. Sed rate 53. CRP is 117. Lactic acid is 2.4. Right foot x-ray on my read shows no acute disease. Emergency Department Course and Treatment: Patient was given Zosyn and vancomycin IV. He is given morphine and Zofran IV. He is resting more comfortably. Treatment Plan: Patient was discussed Dr. Aguirre. He will be admitted the hospital for further evaluation and treatment. Disposition: Admitted in improved condition. Impression: 1. Diabetic foot ulcer on right with failed outpatient treatment. 2. Severe sepsis. 3. Critical care time 33 minutes. This note was generated with [employer] dictation software. It may contain incorrect words, spelling, and punctuation that were not noted in review of the chart prior to signing ED Disposition - Plan for ED Patient: Referrals: Onofre Augustine MD [Primary Care Provider] -
[2019-04-07] MEDS: 0.9% Normal Saline 1,000 ML 150 ML IV ×2 (16:51→20:17)
--- NOTE | 2019-04-07 17:09 | NURSING ---
[facility]
--- NOTE | 2019-04-07 17:20 | CHAPLAIN ---
Type of Pastoral Visit _x__ Initial Visit ___ Follow-up Visit ___ On-call Visit ___ General Patient Visit ___ Spiritual Assessment ___ Family Conference ___ Bereavement ___ Rapid Response ___ Code Blue ___ Other (describe below) Pastoral Care Referral From _x__ Patient ___ Family ___ Nurse ___ Physician ___ Strip Machine Operator ___ Ornamental Plasterer Helper ___ Other (describe below) Sacrament/Intervention _x__ Active listening ___ Anointing ___ Gnosticism ___ Bereavement ___ Communion ___ Venecia exploration ___ _x__ Life review ___ Prayer ___ Reconciliation ___ Sacrament of Sick _x__ Supportive presence ___ Wedding ___ Other (describe below) Pastoral Comments
--- NOTE | 2019-04-07 17:21 | HP.PCM_ITS ---
History of Present Illness Date of Admission: 04/07/19 Chief Complaint: foot wound The patient is a 59 year old M who noticed some pain on his foot several days ago. Started noticing worsening redness from his foot up to his leg. Saw his primary care doctor who ordered duplex because of swelling and was negative. Started on clindamycin for the past 2 days but leg progressively got worse. Presented to the emergency room where he had a wound on his right MTP and erythema. Concern was for diabetic foot wound and cellulitis. Patient received Pipracil and/tazobactam and vancomycin. Patient denies ever having had a foot wound before. Patient is a diabetic with neuropathy and states that he does check his feet but does not check the plantar aspect of his foot for any wounds. [] Past Medical History Past Medical History (Chronic Problems): Chronic Problems (Last Reviewed 12/23/17 @ 09:01 by Lakshmi Apple) Hypertension (Chronic) Medical History: Medical History (Last Updated 04/07/19 @ 17:23 by Ta Aguirre DO) Abscess of groin, left (Acute) L02.214 Cellulitis of groin, left (Acute) L03.314 Hypertension (Chronic) I10 Diabetes (Acute) E11.9 Hyponatremia (Acute) E87.1 Diabetic neuropathy E11.40 Diabetes type 2, uncontrolled E11.65 Allergies No Known Allergies Allergy (Verified 04/07/19 13:39) Home Medications: Ambulatory Orders Medication Instructions Recorded Clindamycin HCl 150 mg PO 4X/DAY 04/07/19 Glyburide 10 mg PO DAILY 04/07/19 Hydrochlorothiazide 12.5 mg PO DAILY 04/07/19 Lisinopril/Hydrochlorothiazide 2 tab PO DAILY 04/07/19 [Lisinopril-Hctz 20-25 mg Tab] Metformin HCl 1,000 mg PO BID 04/07/19 Mupirocin 1 applicatio TP TID 04/07/19 buPROPion XL [Wellbutrin Xl] 150 mg PO DAILY 04/07/19 Surgical History: Surgical History (Last Reviewed 04/07/19 @ 17:23 by Ta Aguirre DO) History of incision and drainage Z98.890 Smoking Status: Current every day smoker Tobacco Use: Cigarettes - *Family History Paternal History Items: Diabetes Maternal History Items: No pertinent history Review of Systems Constitutional: Denies: Anorexia, Chills, Fever Eyes: Denies: Blurred vision, Double vision HEENT: Denies: Head Aches, Sinus Congestion, Sinus Drainage Cardiovascular: Denies: Chest Pain, Palpitations Respiratory: Denies: Cough, Shortness of breath at rest, Sputum production Gastrointestinal: Denies: Abdominal Pain, Nausea, Vomiting Genitourinary: Denies: Dysuria Musculoskeletal: Denies: Joint Pain, Joint Tenderness Skin: Reports: Rash, Wounds Neurological: Reports: Numbness Psychiatric: Denies: Anxiety, Depression Endocrine: Denies: Change in Body Habitus, Heat/ Cold Intolerance Hematologic/ Lymphatic: Denies: Easy Bruising, Easy Bleeding, Hx of blood clot Comment: All review systems are otherwise negative except for as mentioned above and in the HPI. VTE Information - Inpt Only VTE Present on Admission: No VTE Mechan Device Prophylaxis: None VTE Pharm Prophylaxis ordered?: Yes - Physical Exam Vitals/I&O's: Vital Signs Temp Pulse Resp BP Pulse Ox 37.1 C 89 18 148/76 H 99 04/07/19 13:39 04/07/19 16:45 04/07/19 16:45 04/07/19 16:45 04/07/19 16:45 Oxygen Delivery Method Room Air Weight: 127.006 kg Body Mass Index (BMI) 41.3 Finger Stick Blood Glucose 251 Intake and Output for Last 24 Hours 04/05/19 04/06/19 04/07/19 23:59 23:59 23:59 Intake Total 1100 / 1100 Balance 1100 / 1100 General: Alert, Cooperative, No apparent distress HEENT: Atraumatic, Normocephalic Oral: Moist Mucosa, No Gingival or Mucosal Lesions/ Ulcerations Neck: No Nodes, Trachea Midline Lungs: Clear to auscultation, Normal air movement, No rhonchi, No wheeze, No rales Cardiovascular: Regular rate, Regular Rhythm, Normal S1, Normal S2, No murmurs Abdomen: Bowel Sounds Present, Soft, Non Tender, Non-Distended, No Hepato- splenomegaly Extremities: No edema, No Calf Tenderness Skin: - - Erythema from his right great toe up to medial calf and albright. Patient has a purulent lesion adjacent to the right MTP. Per the wound is slightly unroofed but still some purulence can be seen under the skin. Left foot looked fine no ulcers no interdigit lesion. Musculoskeletal: No Tenderness to Palpation of Joints or Extremities, No Muscle Wasting Neurological: Muscle tone normal, - - Diminished sensation in his foot. Did not feel me pressing on his foot at all. Psych/Mental Status: Normal Affect, Appropriate Laboratory Results 04/07/19 15:30: WBC 13.0 H, RBC 4.28 L, Hgb 12.9 L, Hct 38.0 L, MCV 88.8, MCH 30.1, MCHC 33.9, RDW Std Deviation 40.3, RDW Coeff of Hodan 12.5, Plt Count 248, MPV 10.3, Immature Gran % (Auto) 0.700, Neut % (Auto) 80.3 H, Lymph % (Auto) 10.1 L, Hettinger % (Auto) 7.4, Eos % (Auto) 1.1, Baso % (Auto) 0.4, Absolute Neuts (auto) 10.5 H, Absolute Lymphs (auto) 1.31, Nucleated RBC % 0, ESR 53 H 04/07/19 15:30: Sodium 134 L, Potassium 4.0, Chloride 101, Carbon Dioxide 26.0, Anion Gap 7, BUN 16, Creatinine 1.13, Estim Creat Clear Calc 72.13, Est GFR (MDRD) Af Amer 86, Est GFR (MDRD) Non-Af 71, BUN/Creatinine Ratio 14.2, Glucose 191 H, Calcium 9.3, Total Bilirubin 0.40, AST 6 L, ALT 20, Alkaline Phosphatase 89, C-React Prot Ext Range 117.00 H, Total Protein 7.8, Albumin 3.5, Globulin 4.3 H, Albumin/Globulin Ratio 0.8 L 04/07/19 15:30: Lactic Acid 2.4 H* Clinical Impression(s) from Imaging Studies Foot X-Ray 04/07/19 15:06 IMPRESSION: No acute fracture, dislocation or destructive osseous pathology. Electronically Signed: Yvan Russell DO at 16:58 EST Tel [phone], Service support , Current Medications Sodium Chloride () 1,000 mls @ 150 mls/hr IV .Q6H40M ANA Last Admin: 04/07/19 16:51 Dose: 150 mls/hr Documented by: Vancomycin HCl 2,000 mg/ (Sodium Chloride) 540 mls @ 250 mls/hr IV X1 ONE Stop: 04/07/19 17:39 Sodium Chloride () 10 - 40 ml IV UD PRN PRN Reason: SALINE FLUSH Assessment/Plan All Active Problems (Last Reviewed 12/23/17 @ 09:01 by Lakshmi Apple) Abscess of groin, left (Acute) Cellulitis of groin, left (Acute) Diabetes (Acute) Hyponatremia (Acute) 1. Sepsis * Patient needs 3-4 Sirs criteria * Lactic acid is up slightly but this is going to be complicated but because the patient is on metformin so given the patient's clinical appearance it would not qualify this patient has severe sepsis * Secondary to the right diabetic foot wound and cellulitis 2. Right diabetic foot wound and cellulitis * Complicated by the patient's underlying neuropathy * Foot x-ray was unremarkable for any osteomyelitis, will check an MRI. * Will continue with Pipracil and/tazobactam and vancomycin. Adjust antibiotics accordingly based on culture results. * Discussed with Dr. phillips, who will see the patient in consultation. * Discussed potential scenarios. If no osteomyelitis patient may just need further cleanout of the process in his right foot, however if osteomyelitis is noted he could require an amputation. 3. Diabetes mellitus type 2 * Unknown if controlled or not * Patient only on glyburide and metformin at home. Given the lactic acidosis the metformin will be held * Check an A1c * Sliding scale insulin 4. Hypertension * Fair control at this time * Continue with HCTZ, lisinopril. 5. VTE prophylaxis: Moderate risk. Enoxaparin. Code Visit Inpatient E&M: 81651 Init Hosp L3
--- NOTE | 2019-04-07 17:40 | MRI_ITS ---
STUDY: MRI RIGHT FOREFOOT WITHOUT CONTRAST REASON FOR EXAM: Male, 59 years old. Redness and warmth of the first metatarsophalangeal joint with wound along the plantar aspect. History of diabetes. TECHNIQUE: Standardized fat and water weighted pulse sequences were obtained in all 3 orthogonal planes. COMPARISON: Right foot, April 07, 2019. FINDINGS: There is degenerative arthrosis of the metatarsophalangeal joint of the hallux. Normal tibial and fibular sesamoids, with normal sesamoids-first metatarsal articulations. Normal interphalangeal joint of the hallux. Normal proximal and distal phalanges of the great toe. No evidence of marrow signal abnormality. Normal medial and lateral heads of the flexor hallucis brevis tendons. Normal flexor and extensor hallucis longus tendons. Normal second through fifth metatarsophalangeal (MTP) joints. Normal interphalangeal joints of the second through fifth toes. Normal proximal, middle and distal phalanges of the second through fifth toes. Normal first through fourth intermetatarsal spaces. Normal flexor and extensor tendons of the second through fifth toes. Normal visualized metatarsi. Normal intrinsic muscles of the forefoot. There is no demonstrated soft tissue abnormality. MRI/Lower Ext/No Jt/w/o IMPRESSION: Normal unenhanced MRI of the forefoot. There is no evidence of fracture dislocation or osteomyelitis. Electronically Signed: Yvan Russell DO at 20:07 EST Tel [phone], Service support ,
[2019-04-07 18:17] VITALS: BP 142/85; PULSE 93; RESP 16; TEMP 37.1; O2SAT 98; BMI 39.9
--- NOTE | 2019-04-07 18:19 | ART_ITS ---
Reason For Study: Diabetic ulcer Procedure A bilateral lower extremity continuous wave Doppler with analog waveform analysis,segmental pressures,and ankle brachial indexes without exercise. Left Segmental Pressures Left brachial= 162mmHg. Left posterior tibial artery = 201mmHg. Left dorsalis pedis artery = 190mmHg. Left digit = 103 mmHg. The left dorsalis pedis waveforms are triphasic. The left posterior tibial artery waveforms are triphasic. Right Segmental Pressures Right brachial= 157mmHg. Right posterior tibial artery = 207mmHg. Right dorsalis pedis artery = 182mmHg. The right dorsalis pedis waveforms are triphasic. The right posterior tibial artery waveforms are triphasic. Indices The right ankle brachial index by the dorsalis pedis is 1.12. The right ankle brachial index by the posterior tibial artery is 1.28. The left ankle brachial index by the dorsalis pedis is 1.17. The left ankle brachial index by the posterior tibial artery is 1.24. The left digital-brachial index is 0.64. Interpretation Summary Normal bilateral lower extremity ankle-brachial indices and triphasic Doppler waveforms. Unable to obtain right digital brachial indices because of dressings Abnormal left digital brachial indices--possible distal small vessel disease or temperature affect Ordering Physician: Jorge Gayle Referring Physician: Onofre Augustine Performed By: Cecilia Crenshaw RVT
--- NOTE | 2019-04-07 18:23 | PCM.CONS.GEN ---
Reason for Consult Date of Consultation: 04/07/19 Reason for Consultation: Right foot ulcer infection History of Present Illness: The patient is a 59 year old with diabetes presented to ER for right foot ulcer and worsening infection. He relates he is not sure how long the wound has been present. Patient was on oral Clindamycin for past [address] Augustine, however symptoms were worsening and he presented to ER for further evaluation. He has been admitted for further evaluation and management. He relates to some pain to the site, but not much. There is drainage from the wound. Xrays were obtained and no gas and no clear evidence of osteomyelitis. WBC, ESR and CRP are all elevated. Patient has been started on IV antibiotics - zosyn and vancomycin. He relates he smokes tobacco, denies alcohol use. He relates last ha1c was 7.2 recently. No complaints of fever, chills, nausea or vomiting. Venous doppler negative for DVT. Past Medical History Past Medical History (Chronic Problems): Chronic Problems (Last Updated 04/07/19 @ 17:23 by aT Aguirre DO) Hypertension (Chronic) Medical History: Medical History (Last Updated 04/07/19 @ 17:23 by Ta Aguirre DO) Abscess of groin, left (Acute) L02.214 Cellulitis of groin, left (Acute) L03.314 Hypertension (Chronic) I10 Diabetes (Acute) E11.9 Hyponatremia (Acute) E87.1 Diabetic neuropathy E11.40 Diabetes type 2, uncontrolled E11.65 Allergies No Known Allergies Allergy (Verified 04/07/19 13:39) Home Medications: Ambulatory Orders Medication Instructions Recorded Clindamycin HCl 150 mg PO 4X/DAY 04/07/19 Glyburide 10 mg PO DAILY 04/07/19 Hydrochlorothiazide 12.5 mg PO DAILY 04/07/19 Lisinopril/Hydrochlorothiazide 2 tab PO DAILY 04/07/19 [Lisinopril-Hctz 20-25 mg Tab] Metformin HCl 1,000 mg PO BID 04/07/19 Mupirocin 1 applicatio TP TID 04/07/19 buPROPion XL [Wellbutrin Xl] 150 mg PO DAILY 04/07/19 Surgical History: Surgical History (Last Reviewed 04/07/19 @ 17:23 by Ta Aguirre DO) History of incision and drainage Z98.890 Smoking Status: Current every day smoker Tobacco Use: Cigarettes - *Family History Paternal History Items: Diabetes Maternal History Items: No pertinent history Review of Systems Constitutional: Denies: Chills, Fever Gastrointestinal: Denies: Nausea, Vomiting Skin: Reports: Wounds - Physical Exam Vitals/I&O's: Vital Signs Temp Pulse Resp BP Pulse Ox 98.8 F 93 16 142/85 H 98 04/07/19 18:17 04/07/19 18:17 04/07/19 18:17 04/07/19 18:17 04/07/19 18:17 Oxygen Delivery Method Room Air Weight: 122.5 kg Body Mass Index (BMI) 39.9 Finger Stick Blood Glucose 251 Intake and Output for Last 24 Hours 04/05/19 04/06/19 04/07/19 23:59 23:59 23:59 Intake Total 1100 / 1100 Balance 1100 / 1100 General: Alert, Oriented x3, Cooperative, No apparent distress Extremities: Capillary Refill Less than 3 Seconds, Peripheral Pulses Normal, - - Deep ulceration plantar 1st metatarsal head which probes to 1st MTPJ capsule fasica layer, there is purulence draining from site with significant cellulitis, there is some maloder present, cellulitis extends through foot to leg. There are no other open ulcerations to the right foot/ankle or leg or to the left foot/ankle or leg. No evidence of cellulitis left foot/ankle leg. Sensation significantly diminished to the foot c/w diabetic neuropathy bilateral. Motor function intact to the foot/ankle bilateral. No POP or pain on ROM to the foot/ankle bilateral. Right foot xrays, 3 views from 04/07/19 - no gas and no clear evidence of bone destruction to suggest osteomyelitis. Musculoskeletal: No Tenderness to Palpation of Joints or Extremities Psych/Mental Status: Normal Affect, Alert and oriented to time, place, person, mood and affect Laboratory Results 04/07/19 15:30: WBC 13.0 H, RBC 4.28 L, Hgb 12.9 L, Hct 38.0 L, MCV 88.8, MCH 30.1, MCHC 33.9, RDW Std Deviation 40.3, RDW Coeff of Hodan 12.5, Plt Count 248, MPV 10.3, Immature Gran % (Auto) 0.700, Neut % (Auto) 80.3 H, Lymph % (Auto) 10.1 L, [place] % (Auto) 7.4, Eos % (Auto) 1.1, Baso % (Auto) 0.4, Absolute Neuts (auto) 10.5 H, Absolute Lymphs (auto) 1.31, Nucleated RBC % 0, ESR 53 H 04/07/19 15:30: Sodium 134 L, Potassium 4.0, Chloride 101, Carbon Dioxide 26.0, Anion Gap 7, BUN 16, Creatinine 1.13, Estim Creat Clear Calc 72.13, Est GFR (MDRD) Af Amer 86, Est GFR (MDRD) Non-Af 71, BUN/Creatinine Ratio 14.2, Glucose 191 H, Calcium 9.3, Total Bilirubin 0.40, AST 6 L, ALT 20, Alkaline Phosphatase 89, C-React Prot Ext Range 117.00 H, Total Protein 7.8, Albumin 3.5, Globulin 4.3 H, Albumin/Globulin Ratio 0.8 L 04/07/19 15:30: Lactic Acid 2.4 H* 04/07/19 15:30: Hemoglobin A1c Pending 04/07/19 18:00: S.aureus Protein A PCR Pending, MRSA (PCR) Pending Current Medications Acetaminophen (Tylenol) 650 mg PO Q6H PRN PRN PRN Reason: Pain Score 1-3/Temp > 100.7 F Bupropion HCl (Wellbutrin Xl) 150 mg PO DAILY [facility] Dextrose (D50w Syringe) 0 gm IV X1 PRN; Protocol PRN Reason: Hypoglycemia Enoxaparin Sodium (Lovenox) 40 mg SC DAILY ANA Glucagon () 1 mg IM .X1 PRN PRN Reason: Hypoglycemia [facility] Hydrochlorothiazide () 12.5 mg PO DAILY [facility] Hydrochlorothiazide (Hctz) 50 mg PO DAILY [facility] Sodium Chloride () 1,000 mls @ 150 mls/hr IV .Q6H40M [facility] Stop: 04/08/19 00:19 Piperacillin Sod/Tazobactam (Sod 3.375 gm/ Sodium Chloride) 50 mls @ 12.5 mls/hr IV Q8 [facility] Vancomycin IV Pharmacy to Dose (1 ea/ Sodium Chloride) 500 mls @ 250 mls/hr IV X1 PRN; Protocol PRN Reason: Rx to Dose Insulin Human Lispro (Humalog Kwikpen (Bkc)) 0 unit SC TIDAC ANA; Protocol Lisinopril (Zestril) 40 mg PO DAILY ANA Ondansetron HCl (Zofran) 4 mg IV Q8H PRN PRN PRN Reason: NAUSEA/VOMITING Sodium Chloride () 10 - 40 ml IV UD PRN PRN Reason: SALINE FLUSH Assessment/Plan All Active Problems (Last Updated 04/07/19 @ 17:23 by Ta Aguirre DO) Abscess of groin, left (Acute) Cellulitis of groin, left (Acute) Diabetes (Acute) Hyponatremia (Acute) Ulceration to fascia/capsule right 1st metatarsal phalangeal joint with abscess and cellulitis Diabetic neuropathy Tobacco Use Reviewed diagnostic data. Given the findings we discussed incision, drainage and debridement of right foot. We will plan to proceed with this tomorrow morning. MRI has been ordered which will be completed this evening and will be reviewed proper to procedure tomorrow. Cultures have been obtained, and patient is on IV antibiotics at this time. Noninvasive lower extremity arterial studies were ordered. Reviewed importance of proper blood sugar control and recommended smoking/tobacco cessation clarence to help optimize healing. Nonweightbearing right foot, keep foot elevated. Advised patient he will need to remain nonweightbearing until this will heal and estimate this will be prolonged healing time given extent of wound and infection along with diabetes and tobacco use. Reviewed risks of possible limb loss. Discussed with Dr. Aguirre.
[2019-04-07 18:36] LABS: Bedside Glucose 163 mg/dL (70-110)
[2019-04-07 19:26] LABS: Hemoglobin A1c 7.3 % (4.2-6.3)
[2019-04-07 19:40] LABS: Reflex Lactate? Y
[2019-04-07] MEDS: 0.9% Saline Lock 10 ML Syringe IV ×2 (20:17→22:48)
[2019-04-07 20:22] LABS: M R Staph aureus DNA By PCR Negative (Negative); Probe Check PASS; Staph aureus DNA By PCR POSITIVE (Negative)
--- NOTE | 2019-04-07 20:34 | PCM.RX.CS ---
Consult Pharmacy has been consulted to manage selected antiobiotic: Vancomycin Type of Consult: New start Prior Doses of Antibiotics Received/Current Regimen: Medications Discontinued Medications Vancomycin HCl 2,000 mg/ (Sodium Chloride) 540 mls @ 250 mls/hr IV X1 ONE Stop: 04/07/19 17:39 Last Admin: 04/07/19 20:17 Dose: 250 mls/hr Documented by: Labs: Sodium 134 mmol/L (136-145) L 04/07/19 15:30 Potassium 4.0 mmol/L (3.5-5.1) 04/07/19 15:30 Chloride 101 mmol/L (98-107) 04/07/19 15:30 Carbon Dioxide 26.0 mmol/L (21.0-32.0) 04/07/19 15:30 Anion Gap 7 (5-15) 04/07/19 15:30 BUN 16 mg/dL (7-18) 04/07/19 15:30 Creatinine 1.13 mg/dL (0.70-1.30) 04/07/19 15:30 Est GFR (MDRD) Af Amer 86 mL/min (>60) 04/07/19 15:30 Est GFR (MDRD) Non-Af 71 mL/min (>60) 04/07/19 15:30 BUN/Creatinine Ratio 14.2 RATIO (-) 04/07/19 15:30 Glucose 191 mg/dL (74-106) H 04/07/19 15:30 Weight used for dosin kg Estimated Creatinine Clearance: 72 mL/min Goal Trough: 15-20 mcg/mL Pharmacy Plan for Drug Dosing: Initial vanc dose 2000mg IV x1, 1750mg IV q12h per policy with trough prior to 4th dose. Pharmacy Service will continue to monitor and adjust dosing as required. Follow-Up Labs: Trough Vancomycin - 04/09 @ 0730
[2019-04-07 22:03] VITALS: BP 151/71; PULSE 88; RESP 18; TEMP 36.9; O2SAT 98
[2019-04-07 22:10] LABS: Bedside Glucose 248 mg/dL (70-110)
[2019-04-07] MEDS: Morphine 2 MG/ML Syringe 1 MG IV (22:47)
[2019-04-08] VITALS (9 sets, daily range): BP systolic 136–171; BP diastolic 65–90; PULSE 74–85; RESP 16–18; TEMP 36.2–36.8; O2SAT 97–100; BMI 39.9
--- NOTE | 2019-04-08 05:00 | EKG12_ITS ---
Test Reason : AM EKG Blood Pressure : / mmHG Vent. Rate : 081 BPM Atrial Rate : 081 BPM P-R Int : 170 ms QRS Dur : 080 ms QT Int : 370 ms P-R-T Axes : 000 007 051 degrees QTc Int : 429 ms Normal sinus rhythm Low voltage QRS Borderline ECG When compared with ECG of 15-OCT-2017 10:47, No significant change was found Confirmed by PRACHI SCHNEIDER, MILLER ([id number]), market editor AUBREY MCCARTHY ([id number]) on 04/11/2019 10:30:52 AM Referred By: Ta Aguirre Confirmed By:MILLER VELARDE MD
[2019-04-08] MEDS: Lisinopril 20 MG Tablet 40 MG PO (06:55)
--- NOTE | 2019-04-08 06:55 | NURSING ---
Report given to OR. Lab in room drawing labs. Sanjay, CHAVEZ at bedside ready to take pt to OR after labs obtained.
--- NOTE | 2019-04-08 07:30 | UL_PTH ---
PATIENT: DAISHA ARTEAGA LOC: [facility] U#:[id number] AGE/SX: 59/M ROOM: WI323 RE04/07/[address]: Dr. Jaylan Coffman MD : [id number] BED: 1 DIS: 04/12/2019 SPEC #: [id number] RECD: 04/10/19 07:27 STATUS: MAVIS REDavid #: [id number] SHAHIDA: 04/08/19 07:[address]: Jorge Gayle DEPT: SURGICAL PATHOLOGY RECD BY: Flex Acosta ENTERED: 04/10/19 08:59 SP TYPE: ULCER OTHR DR: MD Dr. Ta Will DO Dr. William Lago, MD Tissues: Foot, NOS Procedures: Surgery Specimen Level IV HEADER OPERATION: Incision and drainage of diabetic ulcer PRE-OP DIAGNOSIS: Right diabetic foot wound and cellulitis TISSUE SUBMITTED: Right foot ulcer MICROSCOPIC DIAGNOSIS Soft tissue of right foot, biopsy: Acute and chronic inflammation, abscesses and granulation. AM:nicanor 04/11/19 MICROSCOPIC DESCRIPTION Slides are reviewed. GROSS DESCRIPTION Received in fixative is one container labeled with the patient's name and designated right foot ulcer. The specimen consists of multiple pieces of soft tissue that in aggregate measure 2.5 x 2 x 0.5 cm. The entire specimen is submitted in one cassette. / SJ:nicanor 04/10/19 TC:2 CPT: 71912
[2019-04-08 07:34] LABS: Absolute Lymphocyte Count 1.27 X10^3/uL (0.83-4.51); Absolute Neutrophil Count 5.8 X10^3/uL (2.0-7.7); Basophil# 0.06 X10^3/uL; Basophil% 0.7 % (0-1); Eosinophil# 0.16 X10^3/uL; Hematocrit 36.2 % (40-54); Hemoglobin 11.9 g/dL (13.0-16.5); Lymphocyte # 1.27 X10^3/ul (4.0); Lymphocyte % 15.9 % (19-41); Mean Corp Hgb Conc 32.9 g/dL (32-36); Mean Corpuscular Hgb 29.5 pg (27.0-32.0); Mean Corpuscular Volume 89.8 fL (80-94); Mean Platelet Vol. 10.3 fl (6.2-12.0); Monocyte# 0.72 X10^3/uL; NRBC Flagged by Analyzer 0 % (0-5); Neutrophil # 5.76 X10^3/uL (2.7-7.7); Neutrophil % 71.9 % (47-70); Platelet Count 234 K/mm3 (150-450); RBC Distribution Width CV 12.5 % (11.6-14.6); RBC Distribution Width SD 41.1 fl (35.1-43.9); Red Blood Count 4.03 M/mm3 (4.6-6.2)
[2019-04-08] MEDS: Bupivacaine Mpf 0.5% 30 ML VIAL (07:36)
[2019-04-08 08:00] LABS: Anion Gap 4 (5-15); BUN 13 mg/dL (7-18); BUN/Creat Ratio 12.9 RATIO (10-20); Calcium,Total 8.5 mg/dL (8.5-10.1); Chloride 102 mmol/L (98-107); Creatinine, Serum 1.01 mg/dL (0.70-1.30); EST Glomerular Filtration Rate 81 mL/min (>60); Est Glom Filt Rate - Afr Amer 98 mL/min (>60); Estimated Creatinine Clearance 78.07 ml/min; Glucose 175 mg/dL (74-106); Potassium 4.3 mmol/L (3.5-5.1); Sodium Level 133 mmol/L (136-145)
--- NOTE | 2019-04-08 08:04 | OP.PCM_ITS ---
Report of Operation Date of Procedure: 04/08/19 Pre-Operative Diagnosis: Ulceration down to capsule/fascia with abscess and cellulitis right foot Post-Operative Diagnosis: Same Surgery/Procedure Performed:: Debridement of right foot ulceration and nonviable, necrotic, infected soft tissue down to fascia layer with incision and drainage right foot administrative nursing supervisor: None Type of Anesthesia:: Local MAC Specimen's removed: Debrided subcutaneous and fascia tissue, right foot, sent to microbiology and pathology for further evaluation Estimated Blood Loss (mL): 1mL Description of Procedure: Indications: This is a 59 year old gentleman with diabetes and diabetic neuropathy who developed an ulceration and significant infection to the right foot. Ulceration is at level of the 1st metatarsal phalangeal joint, there is purulence, cellulitis and clinically abscess formation. Xrays and MRI were negative for osteomyelitis. Ulceration did probe deep to subcutaneous and fascia/capsule tissue. WBC, ESR and CRP are elevated all consistent with infection. Due to the findings we discussed debridement of all nonviable, infected, necrotic tissue from right foot with incision and drainage and possible bone biopsy. Reviewed procedure, possible benefits vs risks, goals, expectations and estimated healing time. He understands due to diabetes, neuropathy and tobacco use he is at risk for nonhealing and loss of limb/life. Other risks such as chronic pain, swelling, transfer lesions, need for further surgery, worsening infection, bleeding, scar tissue, blood clots, deformity, disability also discussed and reviewed. Patient expressed understanding and agreement and was able to repeat back. The consent form were reviewed with him and he freely signed it. No guarantees were given nor implied. Operative Procedure: The patient was brought back to the operating room and was placed on the operating room table in the supine position. Patient was carefully secured to the operating room table with a safety belt around his waist. A well padded pneumatic tourniquet was applied around the right ankle. A time out was performed and the patient was properly identified and the surgical plan confirmed. The patient received MAC anesthesia per the anesthesia team, then after the skin was cleansed with 70% Isopropyl alcohol a local nerve block was completed around the 1st ray of the right foot using a total of 10mL of 0.5% Bupivacaine plain. The right foot was scrubbed, prepped, and draped in the usual aseptic fashion. Further attention was directed to the right foot. There was an ulceration down to subcutaneous and fascia/1st MTPJ capsule layer with purulent drainage, with localized necrosis and nonviable tissue, with some maloder and significant cellulitis and edema around the site. The cellulitis extended to the dorsal and plantar foot. There was visible abscess localized to the ulcer site as well. The right foot was elevated and the right ankle pneumatic tourniquet was inflated to 250mmHg. All nonviable, necrotic, and infected subcutaneous and fascia tissue was debrided from the site using a 15 blade, this was debrided down to healthy v iable subcutaneous and fascia/capsule tissue. The abscess was incised, there was purulence present, the site was completely drained and abscess removed using a 15 blade. There was also significant cellulitis and tension to the dorsal 1st toe so an incision was made dorsal hallux using a 15 blade, this was made down to subcutaneous tissue, there was drainage consistent with infection and site was decompressed. The debrided tissue was sent to microbiology and pathology for further evaluation. There was no exposed bone or joint and does not appear the bone or joint were involved or infected at this time, so a bone biopsy was not completed. The site was flushed out with copious amounts of normal saline solution. The remaining tissues appeared healthy and viable at this time. The sites were packed with 1/4in Iodoform gauze packing. A dressing was applied which consisted of 4x4 gauze, kerlix, abd pads and maru banding. The pneumatic tourniquet was deflated prior to complete dressing application and there was noted to be normal return of perfusion to the toes and foot. Total tourniquet time was 16 minutes. The patient tolerated the above procedure and anesthesia well with no complication. Post operative orders were placed. No weightbearing right foot, and keep foot elevated at all times. Patient will go back to the floor and followed as inpatient. Grafts/Implants Used: None - Complications None
--- NOTE | 2019-04-08 10:09 | CM.UR ---
spoke with RENE Ramos. Patient went to OR for debridement. ordered to be NWB on that leg. ID consult --not anticipating they will see til Wednesday. Lives alone anticipating home IVAB. Determined possible SNF needed for IVAB and d/t NWB. Will alert SW. Ana Flores RN, CCM.
[2019-04-08] MEDS: buPROPion (XL) 150 MG TABLET.XL PO (10:13)
[2019-04-08] MEDS: Enoxaparin 40 MG/0.4 ML Syringe SC (10:13)
[2019-04-08] MEDS: hydroCHLOROthiazide 25 MG Tablet 50 MG PO (10:13)
[2019-04-08 11:30] LABS: Bedside Glucose 185 mg/dL (70-110)
[2019-04-08] MEDS: Insulin Lispro 100 UNIT/ML INSULN.PEN SC ×2 (11:53→17:14)
[2019-04-08 12:00] LABS: Bedside Glucose 234 mg/dL (70-110)
--- NOTE | 2019-04-08 12:34 | PN_ITS ---
Subjective: Feels better, does not have any significant pain in his right foot since he has no sensation, it is very minimal Vitals/I&O's: Vital Signs Temp Pulse Resp BP Pulse Ox 97.6 F L 74 18 145/77 H 100 04/08/19 09:07 04/08/19 09:07 04/08/19 09:07 04/08/19 09:07 04/08/19 09:07 Oxygen Delivery Method Room Air Weight: 270 lb 1.06 oz Body Mass Index (BMI) 39.9 Finger Stick Blood Glucose 251 Intake and Output for Last 24 Hours 04/06/19 04/07/19 04/08/19 23:59 23:59 23:59 Intake Total 1887.5 / 2387.5 1730.83 / 1730.83 Balance 1887.5 / 2387.5 1730.83 / 1730.83 General: Alert, Oriented x3, Cooperative, No apparent distress HEENT: Atraumatic, PERRLA, EOMI, Normocephalic Oral: Moist Mucosa Neck: Supple, No JVD Lungs: Clear to auscultation, Normal air movement, No rhonchi, No wheeze, No rales Cardiovascular: Regular rate, Regular Rhythm, Normal S1, Normal S2, No murmurs Abdomen: Soft, Non Tender, Non-Distended, No Hepato-splenomegaly Extremities: No edema, Capillary Refill Less than 3 Seconds Skin: Incision - Right foot dressing is intact Neurological: Neuro grossly intact, Sensory exam intact to light touch and pain - He has lost sensation in his distal foot bilaterally which is chronic Psych/Mental Status: Normal Affect, Appropriate Laboratory Results 04/07/19 15:30: WBC 13.0 H, RBC 4.28 L, Hgb 12.9 L, Hct 38.0 L, MCV 88.8, MCH 30.1, MCHC 33.9, RDW Std Deviation 40.3, RDW Coeff of Hodan 12.5, Plt Count 248, MPV 10.3, Immature Gran % (Auto) 0.700, Neut % (Auto) 80.3 H, Lymph % (Auto) 10.1 L, [place] % (Auto) 7.4, Eos % (Auto) 1.1, Baso % (Auto) 0.4, Absolute Neuts (auto) 10.5 H, Absolute Lymphs (auto) 1.31, Nucleated RBC % 0, ESR 53 H 04/07/19 15:30: Sodium 134 L, Potassium 4.0, Chloride 101, Carbon Dioxide 26.0, Anion Gap 7, BUN 16, Creatinine 1.13, Estim Creat Clear Calc 72.13, Est GFR (MDRD) Af Amer 86, Est GFR (MDRD) Non-Af 71, BUN/Creatinine Ratio 14.2, Glucose 191 H, Calcium 9.3, Total Bilirubin 0.40, AST 6 L, ALT 20, Alkaline Phosphatase 89, C-React Prot Ext Range 117.00 H, Total Protein 7.8, Albumin 3.5, Globulin 4.3 H, Albumin/Globulin Ratio 0.8 L 04/07/19 15:30: Lactic Acid 2.4 H* 04/07/19 15:30: Hemoglobin A1c 7.3 H 04/07/19 18:00: S.aureus Protein A PCR POSITIVE H, MRSA (PCR) Negative 04/07/19 18:06: POC Glucose 163 H 04/07/19 19:58: Lactic Acid 2.0 04/07/19 22:01: POC Glucose 248 H 04/08/19 06:36: POC Glucose 185 H 04/08/19 07:12: WBC 8.0, RBC 4.03 L, Hgb 11.9 L, Hct 36.2 L, MCV 89.8, MCH 29.5, MCHC 32.9, RDW Std Deviation 41.1, RDW Coeff of Hodan 12.5, Plt Count 234, MPV 10.3, Immature Gran % (Auto) 0.500, Neut % (Auto) 71.9 H, Lymph % (Auto) 15.9 L, [place] % (Auto) 9.0, Eos % (Auto) 2.0, Baso % (Auto) 0.7, Absolute Neuts (auto) 5.8, Absolute Lymphs (auto) 1.27, Nucleated RBC % 0 04/08/19 07:12: Sodium 133 L, Potassium 4.3, Chloride 102, Carbon Dioxide 27.0, Anion Gap 4 L, BUN 13, Creatinine 1.01, Estim Creat Clear Calc 78.07, Est GFR (MDRD) Af Amer 98, Est GFR (MDRD) Non-Af 81, BUN/Creatinine Ratio 12.9, Glucose 175 H, Calcium 8.5 04/08/19 11:47: POC Glucose 234 H Current Medications Acetaminophen (Tylenol) 650 mg PO Q6H PRN PRN PRN Reason: Pain Score 1-5/Temp > 100.7 F Bupropion HCl (Wellbutrin Xl) 150 mg PO DAILY [facility] Last Admin: 04/08/19 10:13 Dose: 150 mg Documented by: Dextrose (D50w Syringe) 0 gm IV X1 PRN; Protocol PRN Reason: Hypoglycemia Enoxaparin Sodium (Lovenox) 40 mg SC DAILY [facility] Last Admin: 04/08/19 10:13 Dose: 40 mg Documented by: Glucagon () 1 mg IM .X1 PRN PRN Reason: Hypoglycemia Glyburide (Micronase) 10 mg PO DAILYCM [facility] Last Admin: 04/08/19 10:12 Dose: 10 mg Documented by: Hydrochlorothiazide (Hctz) 50 mg PO DAILY [facility] Last Admin: 04/08/19 10:13 Dose: 50 mg Documented by: Piperacillin Sod/Tazobactam (Sod 3.375 gm/ Sodium Chloride) 50 mls @ 12.5 mls/hr IV Q8 [facility] Last Infusion: 04/08/19 08:42 Dose: Infused Documented by: Sodium Chloride () 250 mls @ 15 mls/hr IV .[id number] PRN PRN Reason: Saline Flush Sodium Chloride () 250 mls @ 15 mls/hr IV .[id number] PRN PRN Reason: Additional IVPB Infusion Insulin Human Lispro (Humalog Kwikpen (Bkc)) 0 unit SC TIDAC [facility]; Protocol Last Admin: 04/08/19 11:53 Dose: 3 units Documented by: Lisinopril (Zestril) 40 mg PO DAILY [facility] Last Admin: 04/08/19 06:55 Dose: 40 mg Documented by: Morphine Sulfate () 1 mg IV Q4H PRN PRN PRN Reason: Pain Score 6-10/10 Last Admin: 04/07/19 22:47 Dose: 1 mg Documented by: Ondansetron HCl (Zofran) 4 mg IV Q8H PRN PRN PRN Reason: NAUSEA/VOMITING Sodium Chloride () 10 - 40 ml IV UD PRN PRN Reason: SALINE FLUSH Last Admin: 04/07/19 22:48 Dose: 10 ml Documented by: STROKE Vital Signs/Narrative: Vital Signs Temp Pulse Resp BP Pulse Ox 04/08/19 09:07 97.6 F L 74 18 145/77 H 100 Medical Necessity - Tobacco Use Smoking Status: Current every day smoker Tobacco Use: Cigarettes Assessment/Plan All Active Problems (Last Updated 04/07/19 @ 17:23 by Ta Aguirre DO) Abscess of groin, left (Acute) Cellulitis of groin, left (Acute) Diabetes (Acute) Hyponatremia (Acute) 1. Sepsis secondary to a right diabetic foot ulcer with cellulitis -Sepsis has resolved -MRSA PCR is negative, continue with Zosyn -Awaiting culture results, will consult infectious disease -Was seen after operation this morning, by podiatry -MRI was negative for osteomyelitis 2. DM 2 with neuropathy/morbid obesity -We will hold his metformin -Continue with sliding scale insulin and adjust as necessary -BMI is 40, discussed lifestyle modifications 3. HTN -Stable -Continue with his home blood pressure medications 4. Anxiety/depression -Stable -Continue with Wellbutrin DVT: Lovenox
[2019-04-08] MEDS: 0.9% Saline Lock 10 ML Syringe IV ×2 (14:28→17:13)
[2019-04-08] MEDS: Acetaminophen 325 MG Tablet 650 MG PO (14:34)
[2019-04-08] MEDS: Morphine 2 MG/ML Syringe 1 MG IV ×2 (17:12→22:36)
[2019-04-08 17:21] LABS: Bedside Glucose 159 mg/dL (70-110)
[2019-04-08 22:46] LABS: Bedside Glucose 219 mg/dL (70-110)
[2019-04-09 02:22] VITALS: BP 151/82; PULSE 76; RESP 18; TEMP 36.6; O2SAT 97
[2019-04-09] MEDS: Morphine 2 MG/ML Syringe 1 MG IV ×2 (05:17→11:15)
[2019-04-09] MEDS: Insulin Lispro 100 UNIT/ML INSULN.PEN SC ×3 (06:42→17:25)
[2019-04-09 07:10] LABS: Bedside Glucose 194 mg/dL (70-110)
[2019-04-09 07:13] LABS: Magnesium 2.1 mg/dL (1.6-2.6)
[2019-04-09 08:09] VITALS: BP 159/89; PULSE 78; RESP 18; TEMP 36.8; O2SAT 100
[2019-04-09] MEDS: hydroCHLOROthiazide 25 MG Tablet 50 MG PO (08:11)
[2019-04-09] MEDS: Lisinopril 20 MG Tablet 40 MG PO (08:12)
[2019-04-09] MEDS: buPROPion (XL) 150 MG TABLET.XL PO (08:12)
--- NOTE | 2019-04-09 09:54 | PCM.PN.HOSP ---
Subjective: No issues overnight doing well, has a little bit of pain from surgery Vitals/I&O's: Vital Signs Temp Pulse Resp BP Pulse Ox 98.2 F 78 18 159/89 H 100 04/09/19 08:09 04/09/19 08:09 04/09/19 08:09 04/09/19 08:09 04/09/19 08:09 Oxygen Delivery Method Room Air Weight: 270 lb 1.06 oz Body Mass Index (BMI) 39.9 Finger Stick Blood Glucose 251 Intake and Output for Last 24 Hours 04/07/19 04/08/19 04/09/19 23:59 23:59 23:59 Intake Total 1887.5 / 2387.5 2500.83 / 2800.83 550 / 550 Output Total 400 / 400 Balance 1887.5 / 2387.5 2500.83 / 2400.83 150 / 150 General: Alert, Oriented x3, Cooperative, No apparent distress HEENT: Atraumatic, PERRLA, EOMI, Normocephalic Oral: Moist Mucosa Neck: Supple, No JVD Lungs: Clear to auscultation, Normal air movement, No rhonchi, No wheeze, No rales Cardiovascular: Regular rate, Regular Rhythm, Normal S1, Normal S2, No murmurs Abdomen: Soft, Non Tender, Non-Distended, No Hepato-splenomegaly Extremities: No edema, Capillary Refill Less than 3 Seconds Skin: Incision - Right foot dressing is intact Neurological: Neuro grossly intact, Sensory exam intact to light touch and pain - He has lost sensation in his distal foot bilaterally which is chronic Psych/Mental Status: Normal Affect, Appropriate Microbiology Past 72 Hours 04/07/19 18:00 Wound Drainage - Toe Gram Stain - Final 04/07/19 18:00 Wound Drainage - Toe Wound Culture - Final Staphylococcus aureus 04/07/19 16:09 Wound - Toe Gram Stain - Final 04/07/19 16:09 Wound - Toe Wound Culture - Final Staphylococcus aureus 04/08/19 08:26 Biopsy - Other Gram Stain - Final Laboratory Results 04/08/19 06:36: POC Glucose 185 H 04/08/19 07:12: Magnesium 2.1 04/08/19 11:47: POC Glucose 234 H 04/08/19 17:10: POC Glucose 159 H 04/08/19 22:39: POC Glucose 219 H 04/09/19 06:41: POC Glucose 194 H Current Medications Acetaminophen (Tylenol) 650 mg PO Q6H PRN PRN PRN Reason: Pain Score 1-5/Temp > 100.7 F Last Admin: 04/08/19 14:34 Dose: 650 mg Documented by: Bupropion HCl (Wellbutrin Xl) 150 mg PO DAILY [facility] Last Admin: 04/09/19 08:12 Dose: 150 mg Documented by: Dextrose (D50w Syringe) 0 gm IV X1 PRN; Protocol PRN Reason: Hypoglycemia Enoxaparin Sodium (Lovenox) 40 mg SC DAILY [facility] Last Admin: 04/08/19 10:13 Dose: 40 mg Documented by: Glucagon () 1 mg IM .X1 PRN PRN Reason: Hypoglycemia Glyburide (Micronase) 10 mg PO DAILYCM [facility] Last Admin: 04/09/19 08:11 Dose: 10 mg Documented by: Hydrochlorothiazide (Hctz) 50 mg PO DAILY [facility] Last Admin: 04/09/19 08:11 Dose: 50 mg Documented by: Piperacillin Sod/Tazobactam (Sod 3.375 gm/ Sodium Chloride) 50 mls @ 12.5 mls/hr IV Q8 [facility] Last Admin: 04/09/19 05:11 Dose: 12.5 mls/hr Documented by: Sodium Chloride () 250 mls @ 15 mls/hr IV .[id number] PRN PRN Reason: Saline Flush Sodium Chloride () 250 mls @ 15 mls/hr IV .[id number] PRN PRN Reason: Additional IVPB Infusion Insulin Human Lispro (Humalog Kwmayankpen (Bkc)) 0 unit SC TIDAC [facility]; Protocol Last Admin: 04/09/19 06:42 Dose: 2 units Documented by: Lisinopril (Zestril) 40 mg PO DAILY [facility] Last Admin: 04/09/19 08:12 Dose: 40 mg Documented by: Morphine Sulfate () 1 mg IV Q4H PRN PRN PRN Reason: Pain Score 6-10/10 Last Admin: 04/09/19 05:17 Dose: 1 mg Documented by: Ondansetron HCl (Zofran) 4 mg IV Q8H PRN PRN PRN Reason: NAUSEA/VOMITING Sodium Chloride () 10 - 40 ml IV UD PRN PRN Reason: SALINE FLUSH Last Admin: 04/08/19 17:13 Dose: 10 ml Documented by: STROKE Vital Signs/Narrative: Vital Signs Temp Pulse Resp BP Pulse Ox 04/09/19 08:09 98.2 F 78 18 159/89 H 100 Medical Necessity - Tobacco Use Smoking Status: Current every day smoker Tobacco Use: Cigarettes Assessment/Plan All Active Problems (Last Updated 04/07/19 @ 17:23 by Ta Aguirre, ) Abscess of groin, left (Acute) Cellulitis of groin, left (Acute) Diabetes (Acute) Hyponatremia (Acute) 1. Sepsis secondary to a right diabetic foot ulcer with cellulitis -Sepsis has resolved -MRSA PCR is negative, continue with Zosyn -Awaiting culture results, will consult infectious disease -MRI was negative for osteomyelitis 2. DM 2 with neuropathy/morbid obesity -We will hold his metformin -Continue with sliding scale insulin and adjust as necessary -BMI is 40, discussed lifestyle modifications 3. HTN -Stable -Continue with his home blood pressure medications 4. Anxiety/depression -Stable -Continue with Wellbutrin DVT: Lovenox Code Visit Inpatient E&M: 76289 Subs Hosp L2
--- NOTE | 2019-04-09 10:20 | RAD_ITS ---
STUDY: X-RAY - RIGHT TIBIA AND FIBULA REASON FOR EXAM: Male, 59 years old. infection TECHNIQUE: Frontal and lateral view(s) of the tibia and fibula were obtained. COMPARISON: None. FINDINGS: Normal visualized tibia. Normal visualized fibula. There is no demonstrated acute fracture. The soft tissue structures are unremarkable. RAD/Tibia & Fibula 2 Views IMPRESSION: Normal x-ray examination of the tibia and fibula. Electronically Signed: Elijah Kat MD at 14:41 EST , Service support ,
--- NOTE | 2019-04-09 10:20 | RAD_ITS ---
STUDY: X-RAY - RIGHT ANKLE REASON FOR EXAM: Male, 59 years old. infection TECHNIQUE: 3 view(s) of the ankle. COMPARISON: None. FINDINGS: Normal visualized distal tibia and fibula. Normal medial and lateral malleoli. Normal tibiotalar articulation and ankle mortise. Normal visualized talus . Plantar and dorsal spurs of the calcaneus. The visualized subtalar, talonavicular, calcaneocuboid and tarsal articulations are normal. There is no demonstrated fracture. The soft tissue structures are unremarkable. RAD/Ankle min 3 Views IMPRESSION: Heel spurs. No erosions. Electronically Signed: Elijah Kat MD at 14:41 EST , Service support ,
--- NOTE | 2019-04-09 10:21 | PN_ITS ---
Subjective: Patient was seen today for follow up on right foot, s/p I+D debridement on 04/08/19. He does not have much pain to foot, but relates pain to the ankle and albright are the same. Otherwise he is resting comfortably in bed with no complaints of fever, chills, nausea or vomiting, or any other complaints at this time. - Physical Exam Vitals/I&O's: Vital Signs Temp Pulse Resp BP Pulse Ox 98.2 F 78 18 159/89 H 100 04/09/19 08:09 04/09/19 08:09 04/09/19 08:09 04/09/19 08:09 04/09/19 08:09 Oxygen Delivery Method Room Air Weight: 122.5 kg Body Mass Index (BMI) 39.9 Finger Stick Blood Glucose 251 Intake and Output for Last 24 Hours 04/07/19 04/08/19 04/09/19 23:59 23:59 23:59 Intake Total 1887.5 / 2387.5 2500.83 / 2800.83 600 / 600 Output Total 400 / 400 Balance 1887.5 / 2387.5 2500.83 / 2400.83 200 / 200 General: Alert, Oriented x3, Cooperative, No apparent distress Extremities: Capillary Refill Less than 3 Seconds, - - Right foot: s/p debridement I+D to the 1st MTPJ and dorsal 1st toe sites - cellulitis much improved and resolving, tissues to wound sites healthy and viable, no purulence, no maloder, no fluctuance, no visible abscess, no crepitus to the right foot/ankle or leg. There is no POP or pain on ROM to the right foot but he relates to some pain along the anterior medial mid/distal albright. There is some residual edema to the right foot. There is some residual cellulitis and edema to the mid right leg but definitely improved. No evidence of ischemia to the right foot/lower extremity. Psych/Mental Status: Normal Affect, Alert and oriented to time, place, person, mood and affect Microbiology Past 72 Hours 04/07/19 15:30 Blood Culture (Wb) - Anticubital Right Blood Culture - Preliminary No growth in 48 hours. 04/07/19 18:00 Wound Drainage - Toe Gram Stain - Final 04/07/19 18:00 Wound Drainage - Toe Wound Culture - Final Staphylococcus aureus 04/07/19 16:09 Wound - Toe Gram Stain - Final 04/07/19 16:09 Wound - Toe Wound Culture - Final Staphylococcus aureus 04/08/19 08:26 Biopsy - Other Gram Stain - Final Laboratory Results 04/08/19 06:36: POC Glucose 185 H 04/08/19 07:12: Magnesium 2.1 04/08/19 11:47: POC Glucose 234 H 04/08/19 17:10: POC Glucose 159 H 04/08/19 22:39: POC Glucose 219 H 04/09/19 06:41: POC Glucose 194 H Current Medications Acetaminophen (Tylenol) 650 mg PO Q6H PRN PRN PRN Reason: Pain Score 1-5/Temp > 100.7 F Last Admin: 04/08/19 14:34 Dose: 650 mg Documented by: Bupropion HCl (Wellbutrin Xl) 150 mg PO DAILY [facility] Last Admin: 04/09/19 08:12 Dose: 150 mg Documented by: Dextrose (D50w Syringe) 0 gm IV X1 PRN; Protocol PRN Reason: Hypoglycemia Enoxaparin Sodium (Lovenox) 40 mg SC DAILY [facility] Last Admin: 04/08/19 10:13 Dose: 40 mg Documented by: Glucagon () 1 mg IM .X1 PRN PRN Reason: [facility]oglycemia [facility] Admin: 04/09/19 08:11 Dose: 10 mg Documented by: Hydrochlorothiazide (Hctz) 50 mg PO DAILY [facility] Last Admin: 04/09/19 08:11 Dose: 50 mg Documented by: Piperacillin Sod/Tazobactam (Sod 3.375 gm/ Sodium Chloride) 50 mls @ 12.5 mls/hr IV Q8 [facility] Last Infusion: 04/09/19 09:11 Dose: Infused Documented by: Sodium Chloride () 250 mls @ 15 mls/hr IV .[id number] PRN PRN Reason: Saline Flush Sodium Chloride () 250 mls @ 15 mls/hr IV .[id number] PRN PRN Reason: Additional IVPB Infusion Insulin Human Lispro (Humalog Kwikpen (Bkc)) 0 unit SC TIDAC [facility]; Protocol Last Admin: 04/09/19 06:42 Dose: 2 units Documented by: Lisinopril (Zestril) 40 mg PO DAILY [facility] Last Admin: 04/09/19 08:12 Dose: 40 mg Documented by: Morphine Sulfate () 1 mg IV Q4H PRN PRN PRN Reason: Pain Score 6-/10 Last Admin: 04/09/19 05:17 Dose: 1 mg Documented by: Ondansetron HCl (Zofran) 4 mg IV Q8H PRN PRN PRN Reason: NAUSEA/VOMITING Sodium Chloride () 10 - 40 ml IV UD PRN PRN Reason: SALINE FLUSH Last Admin: 04/08/19 17:13 Dose: 10 ml Documented by: Medical Necessity - Tobacco Use Smoking Status: Current every day smoker Tobacco Use: Cigarettes Assessment/Plan All Active Problems (Last Updated 04/07/19 @ 17:23 by Ta Aguirre DO) Abscess of groin, left (Acute) Cellulitis of groin, left (Acute) Diabetes (Acute) Hyponatremia (Acute) Ulceration to fascia/capsule right 1st metatarsal phalangeal joint with abscess and cellulitis s/p I+D debridement 04/08/19 Diabetic neuropathy Tobacco Use Reviewed diagnostic data. Last WBC normal, patient afebrile. There has been significant clinical improvement to the right foot, and also less erythema and edema to the right albright - but patient relates to continued pain to albright - ordered ankle and tib/fib xrays. I+D debridement sites right foot flushed with normal saline solution. Packed with 1/4in Iodoform gauze packing and applied gauze, emma and maru dressing. Patient on IV antibiotics, ID will be consulted, continue to follow cultures. Nonweightbearing right foot, keep foot elevated. Continue with medial management per medicine team. Podiatry will continue to follow. Discussed with Dr. Garzon.
[2019-04-09] MEDS: 0.9% Saline Lock 10 ML Syringe IV ×2 (11:15→14:21)
[2019-04-09] MEDS: Enoxaparin 40 MG/0.4 ML Syringe SC (11:16)
[2019-04-09 11:31] LABS: Bedside Glucose 200 mg/dL (70-110)
[2019-04-09 14:00] VITALS: BP 151/82; PULSE 84; RESP 18; TEMP 36.6; O2SAT 99
[2019-04-09] MEDS: oxyCODONE 5 MG Tablet PO ×3 (14:19→22:35)
[2019-04-09 16:36] LABS: Bedside Glucose 154 mg/dL (70-110)
[2019-04-09 22:31] VITALS: BP 165/83; PULSE 75; RESP 18; TEMP 36.4; O2SAT 98
[2019-04-09 23:06] LABS: Bedside Glucose 184 mg/dL (70-110)
[2019-04-10 04:28] VITALS: BP 154/96; PULSE 73; RESP 16; TEMP 36.4; O2SAT 100
[2019-04-10] MEDS: hydroCHLOROthiazide 25 MG Tablet 50 MG PO (05:02)
[2019-04-10] MEDS: Lisinopril 20 MG Tablet 40 MG PO (05:03)
[2019-04-10] MEDS: Insulin Lispro 100 UNIT/ML INSULN.PEN SC ×3 (06:48→15:59)
[2019-04-10 06:56] LABS: Bedside Glucose 194 mg/dL (70-110)
[2019-04-10 08:04] VITALS: BP 162/90; PULSE 80; RESP 16; TEMP 36.4; O2SAT 99
[2019-04-10] MEDS: buPROPion (XL) 150 MG TABLET.XL PO (08:16)
[2019-04-10] MEDS: Enoxaparin 40 MG/0.4 ML Syringe SC (10:07)
--- NOTE | 2019-04-10 10:30 | PCM.PROGNOTE ---
Subjective: Patient was seen this morning for follow up on right foot. Culture positive for MRSA. Otherwise infection improving, no new complaints. Overall pain less. No complaints of fever, chills, nausea or vomiting. - Physical Exam Vitals/I&O's: Vital Signs Temp Pulse Resp BP Pulse Ox 97.6 F L 80 16 162/90 H 99 04/10/19 08:04 04/10/19 08:04 04/10/19 08:04 04/10/19 08:04 04/10/19 08:04 Oxygen Delivery Method Room Air Weight: 122.5 kg Body Mass Index (BMI) 39.9 Finger Stick Blood Glucose 251 Intake and Output for Last 24 Hours 04/08/19 04/09/19 04/10/19 23:59 23:59 23:59 Intake Total 2500.83 / 2800.83 1790 / 2240 700 / 700 Output Total 400 / 400 Balance 2500.83 / 2400.83 1390 / 1840 700 / 700 General: Alert, Oriented x3, Cooperative, No apparent distress Extremities: Capillary Refill Less than 3 Seconds, - - Right foot: s/p debridement I+D to the 1st MTPJ and dorsal 1st toe sites - cellulitis much improved and almost completely resoved clinically, tissues to wound sites healthy and viable, no purulence, no maloder, no fluctuance, no visible abscess, no crepitus to the right foot/ankle or leg. There is no POP or pain on ROM to the right foot but he relates to some pain along the anterior medial mid/distal albright. There is some residual edema to the right foot but much improved. There is some residual cellulitis and edema to the mid right leg but continueds to improve. No evidence of ischemia to the right foot/lower extremity. Microbiology Past 72 Hours 04/07/19 18:00 Wound Drainage - Toe Gram Stain - Final 04/07/19 18:00 Wound Drainage - Toe Wound Culture - Final Staphylococcus aureus 04/07/19 18:00 Wound Drainage - Toe Anaerobic Culture - Preliminary Checking for anaerobes, further studies to follow. 04/08/19 08:26 Biopsy - Other Gram Stain - Final 04/08/19 08:26 Biopsy - Other Wound Culture - Final Meth. resistant Staph. aureus 04/07/19 16:37 Blood Culture (Wb) - Anticubital Left Blood Culture - Preliminary No growth in 48 hours. 04/07/19 15:30 Blood Culture (Wb) - Anticubital Right Blood Culture - Preliminary No growth in 48 hours. 04/07/19 16:09 Wound - Toe Gram Stain - Final 04/07/19 16:09 Wound - Toe Wound Culture - Final Staphylococcus aureus Laboratory Results 04/09/19 11:20: POC Glucose 200 H 04/09/19 16:29: POC Glucose 154 H 04/09/19 22:34: POC Glucose 184 H 04/10/19 06:47: POC Glucose 194 H Current Medications Acetaminophen (Tylenol) 650 mg PO Q6H PRN PRN PRN Reason: Pain Score 1-5/Temp > 100.7 F Last Admin: 04/08/19 14:34 Dose: 650 mg Documented by: Bupropion HCl (Wellbutrin Xl) 150 mg PO DAILY [facility] Last Admin: 04/10/19 08:16 Dose: 150 mg Documented by: Dextrose (D50w Syringe) 0 gm IV X1 PRN; Protocol PRN Reason: Hypoglycemia Enoxaparin Sodium (Lovenox) 40 mg SC DAILY [facility] Last Admin: 04/10/19 10:07 Dose: 40 mg Documented by: Glucagon () 1 mg IM .X1 PRN PRN Reason: Hypoglycemia [facility] Last Admin: 04/10/19 08:16 Dose: 10 mg Documented by: Hydrochlorothiazide (Hctz) 50 mg PO DAILY [facility] Last Admin: 04/10/19 05:02 Dose: 50 mg Documented by: Piperacillin Sod/Tazobactam (Sod 3.375 gm/ Sodium Chloride) 50 mls @ 12.5 mls/hr IV Q8 [facility] Last Infusion: 04/10/19 10:06 Dose: Infused Documented by: Sodium Chloride () 250 mls @ 15 mls/hr IV .[id number] PRN PRN Reason: Saline Flush Sodium Chloride () 250 mls @ 15 mls/hr IV .[id number] PRN PRN Reason: Additional IVPB Infusion Insulin Human Lispro (Humalog Kwikpen (Bkc)) 0 unit SC TIDAC [facility]; Protocol Last Admin: 04/10/19 06:48 Dose: 2 units Documented by: Lisinopril (Zestril) 40 mg PO DAILY [facility] Last Admin: 04/10/19 05:03 Dose: 40 mg Documented by: Morphine Sulfate () 1 mg IV Q4H PRN PRN PRN Reason: Pain Score 6-10 Last Admin: 04/09/19 11:15 Dose: 1 mg Documented by: Ondansetron HCl (Zofran) 4 mg IV Q8H PRN PRN PRN Reason: NAUSEA/VOMITING Oxycodone HCl (Oxyir) 5 - 10 mg PO Q6H PRN PRN PRN Reason: Pain Score 6-10 Last Admin: 04/09/19 22:35 Dose: 5 mg Documented by: Sodium Chloride () 10 - 40 ml IV UD PRN PRN Reason: SALINE FLUSH Last Admin: 04/09/19 14:21 Dose: 10 ml Documented by: Medical Necessity - Tobacco Use Smoking Status: Current every day smoker Tobacco Use: Cigarettes Assessment/Plan All Active Problems (Last Updated 04/07/19 @ 17:23 by Ta Aguirre DO) Abscess of groin, left (Acute) Cellulitis of groin, left (Acute) Diabetes (Acute) Hyponatremia (Acute) Ulceration to fascia/capsule right 1st metatarsal phalangeal joint with abscess and cellulitis s/p I+D debridement 04/08/19 Diabetic neuropathy Tobacco Use Ulceration to fascia/capsule right 1st metatarsal phalangeal joint with abscess and cellulitis s/p I+D debridement 04/08/19 Diabetic neuropathy Tobacco Use Reviewed diagnostic data. There has been continued improvement to the right foot, much less erythema and edema to the right lower extremity - reviewed right ankle and tib/fib view - heels spurs noted otherwise within normal limits. Ordered wound vac for wounds right foot. Reviewed cultures, patient on IV antibiotics, Vancomycin has been added for MRSA and ID consulted. Nonweightbearing right foot, keep foot elevated. Continue with medial management per medicine team. Podiatry will continue to follow. Discussed with Dr. Coffman. Patient to follow up in 1 week at [facility] upon discharge.
--- NOTE | 2019-04-10 10:48 | PN_ITS ---
Reason for Visit: Diabetic foot ulcer Subjective: Patient is a 59-year-old gentleman with past medical history significant for diabetes mellitus type 2 complications including diabetic neuropathy admitted with diabetic foot ulcer Objective: GENERAL: cooperative HEENT: Atraumatic; EYES; Anicteric, Normal Conjunctiva NECK; supple, normal thyroid, RESPIRATORY: Diminished to auscultation CARDIOVASCULAR: Regular S1 S2, GI: soft, normoactive bowel sounds, : No Renal angle tenderness; EXTREMITIES: Left foot in surgical dressing MUSCULOSKELETAL: no muscle waisting NEURO: Awake; no lateralizing signs. SKIN: No Rash PSYCH; Flat affect Vitals/I&O's: Vital Signs Temp Pulse Resp BP Pulse Ox 97.6 F L 80 16 162/90 H 99 04/10/19 08:04 04/10/19 08:04 04/10/19 08:04 04/10/19 08:04 04/10/19 08:04 Oxygen Delivery Method Room Air Weight: 122.5 kg Body Mass Index (BMI) 39.9 Finger Stick Blood Glucose 251 Intake and Output for Last 24 Hours 04/08/19 04/09/19 04/10/19 23:59 23:59 23:59 Intake Total 2500.83 / 2800.83 1790 / 2240 700 / 700 Output Total 400 / 400 Balance 2500.83 / 2400.83 1390 / 1840 700 / 700 Microbiology Past 72 Hours 04/08/19 08:26 Biopsy - Other Gram Stain - Final 04/08/19 08:26 Biopsy - Other Wound Culture - Final Meth. resistant Staph. aureus 04/08/19 08:26 Biopsy - Other Anaerobic Culture - Preliminary Checking for anaerobes, further studies to follow. 04/07/19 18:00 Wound Drainage - Toe Gram Stain - Final 04/07/19 18:00 Wound Drainage - Toe Wound Culture - Final Staphylococcus aureus 04/07/19 18:00 Wound Drainage - Toe Anaerobic Culture - Preliminary Checking for anaerobes, further studies to follow. 04/07/19 16:37 Blood Culture (Wb) - Anticubital Left Blood Culture - Preliminary No growth in 48 hours. 04/07/19 15:30 Blood Culture (Wb) - Anticubital Right Blood Culture - Preliminary No growth in 48 hours. 04/07/19 16:09 Wound - Toe Gram Stain - Final 04/07/19 16:09 Wound - Toe Wound Culture - Final Staphylococcus aureus Laboratory Results 04/09/19 11:20: POC Glucose 200 H 04/09/19 16:29: POC Glucose 154 H 04/09/19 22:34: POC Glucose 184 H 04/10/19 06:47: POC Glucose 194 H Current Medications Acetaminophen (Tylenol) 650 mg PO Q6H PRN PRN PRN Reason: Pain Score 1-5/Temp > 100.7 F Last Admin: 04/08/19 14:34 Dose: 650 mg Documented by: Bupropion HCl (Wellbutrin Xl) 150 mg PO DAILY [facility] Last Admin: 04/10/19 08:16 Dose: 150 mg Documented by: Dextrose (D50w Syringe) 0 gm IV X1 PRN; Protocol PRN Reason: Hypoglycemia Enoxaparin Sodium (Lovenox) 40 mg SC DAILY [facility] Last Admin: 04/10/19 10:07 Dose: 40 mg Documented by: Glucagon () 1 mg IM .X1 PRN PRN Reason: Hypoglycemia [facility] Last Admin: 04/10/19 08:16 Dose: 10 mg Documented by: Hydrochlorothiazide (Hctz) 50 mg PO DAILY [facility] Last Admin: 04/10/19 05:02 Dose: 50 mg Documented by: Piperacillin Sod/Tazobactam (Sod 3.375 gm/ Sodium Chloride) 50 mls @ 12.5 mls/hr IV Q8 [facility] Last Infusion: 04/10/19 10:06 Dose: Infused Documented by: Sodium Chloride () 250 mls @ 15 mls/hr IV .[id number] PRN PRN Reason: Saline Flush Sodium Chloride () 250 mls @ 15 mls/hr IV .[id number] PRN PRN Reason: Additional IVPB Infusion Insulin Human Lispro (Humalog Kwikpen (Bkc)) 0 unit SC TIDAC [facility]; Protocol Last Admin: 04/10/19 06:48 Dose: 2 units Documented by: Lisinopril (Zestril) 40 mg PO DAILY [facility] Last Admin: 04/10/19 05:03 Dose: 40 mg Documented by: Morphine Sulfate () 1 mg IV Q4H PRN PRN PRN Reason: Pain Score 6-10/10 Last Admin: 04/09/19 11:15 Dose: 1 mg Documented by: Ondansetron HCl (Zofran) 4 mg IV Q8H PRN PRN PRN Reason: NAUSEA/VOMITING Oxycodone HCl (Oxyir) 5 - 10 mg PO Q6H PRN PRN PRN Reason: Pain Score 6-10/10 Last Admin: 04/09/19 22:35 Dose: 5 mg Documented by: Sodium Chloride () 10 - 40 ml IV UD PRN PRN Reason: SALINE FLUSH Last Admin: 04/09/19 14:21 Dose: 10 ml Documented by: STROKE Vital Signs/Narrative: Vital Signs Temp Pulse Resp BP Pulse Ox 04/10/19 08:04 97.6 F L 80 16 162/90 H 99 Medical Necessity - Tobacco Use Smoking Status: Current every day smoker Tobacco Use: Cigarettes Assessment/Plan All Active Problems (Last Updated 04/07/19 @ 17:23 by Ta Aguirre DO) Abscess of groin, left (Acute) Cellulitis of groin, left (Acute) Diabetes (Acute) Hyponatremia (Acute) Patient is a 59-year-old gentleman with past medical history significant for diabetes mellitus type 2 complications including diabetic neuropathy admitted with diabetic foot ulcer. Sepsis secondary to diabetic foot ulcer ?Patient admitted to regular nursing floor started on broad-spectrum antibiotic therapy consult placed to podiatry. Patient underwent Debridement of right foot ulceration and nonviable, necrotic, infected soft tissue down to fascia layer with incision and drainage right foot on 04/08/[address] Gayle. Patient cultures sent came back positive for MRSA patient was on Zosyn added vancomycin consult also placed to infectious disease 2. Diabetes mellitus type 2 with complications including diabetic neuropathy ?Held patient oral antidiabetic medications placed on Accu-Cheks before meals and at bedtime with sliding scale coverage 3. Essential hypertension ?Blood pressure stable did continue with home meds 4. Obesity with BMI of 39.9 ?Weight loss advised 6. Depression with anxiety ?Patient is on Wellbutrin did continue 7. DVT prophylaxis ?Lovenox Active Medications Acetaminophen (Tylenol) 650 mg PO Q6H PRN PRN PRN Reason: Pain Score 1-5/Temp > 100.7 F Last Admin: 04/08/19 14:34 Dose: 650 mg Documented by: Bupropion HCl (Wellbutrin Xl) 150 mg PO DAILY [facility] Last Admin: 04/10/19 08:16 Dose: 150 mg Documented by: Dextrose (D50w Syringe) 0 gm IV X1 PRN; Protocol PRN Reason: Hypoglycemia Enoxaparin Sodium (Lovenox) 40 mg SC DAILY [facility] Last Admin: 04/10/19 10:07 Dose: 40 mg Documented by: Glucagon () 1 mg IM .X1 PRN PRN Reason: Hypoglycemia Glyburide (Micronase) 10 mg PO DAILYCM [facility] Last Admin: 04/10/19 08:16 Dose: 10 mg Documented by: Hydrochlorothiazide (Hctz) 50 mg PO DAILY [facility] Last Admin: 04/10/19 05:02 Dose: 50 mg Documented by: Piperacillin Sod/Tazobactam (Sod 3.375 gm/ Sodium Chloride) 50 mls @ 12.5 mls/hr IV Q8 [facility] Last Infusion: 04/10/19 10:06 Dose: Infused Documented by: Sodium Chloride () 250 mls @ 15 mls/hr IV .[id number] PRN PRN Reason: Saline Flush Sodium Chloride () 250 mls @ 15 mls/hr IV .[id number] PRN PRN Reason: Additional IVPB Infusion Vancomycin HCl 1,500 mg/ (Dextrose) 530 mls @ 250 mls/hr IV X1 THEN RX TO DOSE ONE Stop: 04/10/19 12:57 Insulin Human Lispro (Humalog Kwmayankpen (Bkc)) 0 unit SC TIDAC [facility]; Protocol Last Admin: 04/10/19 06:48 Dose: 2 units Documented by: Lisinopril (Zestril) 40 mg PO DAILY [facility] Last Admin: 04/10/19 05:03 Dose: 40 mg Documented by: Morphine Sulfate () 1 mg IV Q4H PRN PRN PRN Reason: Pain Score 6-10/10 Last Admin: 04/09/19 11:15 Dose: 1 mg Documented by: Ondansetron HCl (Zofran) 4 mg IV Q8H PRN PRN PRN Reason: NAUSEA/VOMITING Oxycodone HCl (Oxyir) 5 - 10 mg PO Q6H PRN PRN PRN Reason: Pain Score 6-10/10 Last Admin: 04/09/19 22:35 Dose: 5 mg Documented by: Sodium Chloride () 10 - 40 ml IV UD PRN PRN Reason: SALINE FLUSH Last Admin: 04/09/19 14:21 Dose: 10 ml Documented by: Microbiology 04/08/19 08:26 Biopsy - Other Gram Stain - Final 04/08/19 08:26 Biopsy - Other Wound Culture - Final Meth. resistant Staph. aureus 04/08/19 08:26 Biopsy - Other Anaerobic Culture - Preliminary Checking for anaerobes, further studies to follow. 04/07/19 18:00 Wound Drainage - Toe Gram Stain - Final 04/07/19 18:00 Wound Drainage - Toe Wound Culture - Final Staphylococcus aureus 04/07/19 18:00 Wound Drainage - Toe Anaerobic Culture - Preliminary Checking for anaerobes, further studies to follow. 04/07/19 16:37 Blood Culture (Wb) - Anticubital Left Blood Culture - Preliminary No growth in 48 hours. 04/07/19 15:30 Blood Culture (Wb) - Anticubital Right Blood Culture - Preliminary No growth in 48 hours. 04/07/19 16:09 Wound - Toe Gram Stain - Final 04/07/19 16:09 Wound - Toe Wound Culture - Final Staphylococcus aureus Clinical Impression(s) from Imaging Studies Foot X-Ray 04/07/19 15:06 IMPRESSION: No acute fracture, dislocation or destructive osseous pathology. Electronically Signed: Yvan Russell DO at 16:58 EST Tel [phone], Service support , Lower Extremity MRI 04/07/19 17:40 IMPRESSION: Normal unenhanced MRI of the forefoot. There is no evidence of fracture dislocation or osteomyelitis. Electronically Signed: Yvan Russell DO at 20:07 EST Tel [phone], Service support , Ankle X-Ray 04/09/19 10:20 IMPRESSION: Heel spurs. No erosions. Electronically Signed: Elijah Kat MD at 14:41 EST , Service support , Tibia/Fibula X-Ray 04/09/19 10:20 IMPRESSION: Normal x-ray examination of the tibia and fibula. Electronically Signed: Elijah Kat MD at 14:41 EST , Service support , Code Visit Inpatient E&M: 96800 Subs Hosp L2
[2019-04-10] MEDS: oxyCODONE 5 MG Tablet PO ×2 (11:32→19:41)
--- NOTE | 2019-04-10 11:42 | PCM.RX.CS ---
Consult Pharmacy has been consulted to manage selected antiobiotic: Vancomycin Type of Consult: New start Suspected Infection: Skin/Soft tissue Prior Doses of Antibiotics Received/Current Regimen: NONE Labs: Sodium 133 mmol/L (136-145) L 04/08/19 07:12 Potassium 4.3 mmol/L (3.5-5.1) 04/08/19 07:12 Chloride 102 mmol/L (98-107) 04/08/19 07:12 Carbon Dioxide 27.0 mmol/L (21.0-32.0) 04/08/19 07:12 Anion Gap 4 (5-15) L 04/08/19 07:12 BUN 13 mg/dL (7-18) 04/08/19 07:12 Creatinine 1.01 mg/dL (0.70-1.30) 04/08/19 07:12 Est GFR (MDRD) Af Amer 98 mL/min (>60) 04/08/19 07:12 Est GFR (MDRD) Non-Af 81 mL/min (>60) 04/08/19 07:12 BUN/Creatinine Ratio 12.9 RATIO (-20) 04/08/19 07:12 Glucose 175 mg/dL (74-106) H 04/08/19 07:12 Microbiology: Microbiology 04/08/19 08:26 Biopsy - Other Gram Stain - Final 04/08/19 08:26 Biopsy - Other Wound Culture - Final Meth. resistant Staph. aureus 04/08/19 08:26 Biopsy - Other Anaerobic Culture - Preliminary Checking for anaerobes, further studies to follow. 04/07/19 18:00 Wound Drainage - Toe Gram Stain - Final 04/07/19 18:00 Wound Drainage - Toe Wound Culture - Final Staphylococcus aureus 04/07/19 18:00 Wound Drainage - Toe Anaerobic Culture - Preliminary Checking for anaerobes, further studies to follow. 04/07/19 16:37 Blood Culture (Wb) - Anticubital Left Blood Culture - Preliminary No growth in 48 hours. 04/07/19 15:30 Blood Culture (Wb) - Anticubital Right Blood Culture - Preliminary No growth in 48 hours. 04/07/19 16:09 Wound - Toe Gram Stain - Final 04/07/19 16:09 Wound - Toe Wound Culture - Final Staphylococcus aureus Estimated Creatinine Clearance: 78 Goal Trough: 10-15 mcg/mL Pharmacy Plan for Drug Dosing: PLAN/RECOMMENDATIONS 1. Vancomycin loading dose 2000mg IV x1 04/10/19 @1200 2. Vancomycin 1250mg IV Q12hr to start 04/11/19 @0000 3. Trough prior to 4th total dose per protocol 04/11/19 @2330 4. Pharmacy Service will continue to monitor and adjust dosing as required.
[2019-04-10 11:46] LABS: Bedside Glucose 223 mg/dL (70-110)
--- NOTE | 2019-04-10 13:31 | NURSING ---
wound photo: right foot
--- NOTE | 2019-04-10 13:32 | NURSING ---
wound photo: right great toe
--- NOTE | 2019-04-10 15:23 | CON.PCM_ITS ---
Reason for Consult: Foot abscess Consulted by: Dr. Coffman History of Present Illness: The patient is a 59 year old M with DM neuropathy, presented to ED 04/07 with worsening R foot redness, swelling, purulent drainage. Sx progressive for past 2 weeks, no inciting trauma. No feeling in foot. Redness was going up albright. No fever or chills, no prior h/o MRSA. Given clinda as outpt without improvement. Came to ED, admitted on vanc/zosyn, mri done, taken to OR 04/08 for debridement of abscess by Dr. Gayle. Feeling much better. Full ROS performed and neg except as noted above. - Medical History Past Medical History (Chronic Problems): Chronic Problems (Last Updated 04/07/19 @ 17:23 by Ta Aguirre DO) Hypertension (Chronic) Allergies/Adverse Reactions: Allergies No Known Allergies Allergy (Verified 04/07/19 13:39) Home Medications: Ambulatory Orders Medication Instructions Recorded Clindamycin HCl 150 mg PO 4X/DAY 04/07/19 Glyburide 10 mg PO DAILY 04/07/19 Hydrochlorothiazide 12.5 mg PO DAILY 04/07/19 Lisinopril/Hydrochlorothiazide 2 tab PO DAILY 04/07/19 [Lisinopril-Hctz 20-25 mg Tab] Metformin HCl 1,000 mg PO BID 04/07/19 Mupirocin 1 applicatio TP TID 04/07/19 buPROPion XL [Wellbutrin Xl] 150 mg PO DAILY 04/07/19 - Social History Tobacco Use: cigarettes Vital Signs Temp Pulse Resp BP Pulse Ox 97.6 F L 80 16 162/90 H 99 04/10/19 08:04 04/10/19 08:04 04/10/19 08:04 04/10/19 08:04 04/10/19 08:04 Oxygen Delivery Method Room Air Weight: 122.5 kg Body Mass Index (BMI) 39.9 Finger Stick Blood Glucose 251 Microbiology Past 72 Hours 04/08/19 08:26 Gram Stain - Final Biopsy - Other Wound Culture - Final Meth. resistant Staph. aureus Anaerobic Culture - Preliminary Checking for anaerobes, further studies to follow. 04/07/19 18:00 Gram Stain - Final Wound Drainage - Toe Wound Culture - Final Staphylococcus aureus Anaerobic Culture - Preliminary Checking for anaerobes, further studies to follow. 04/07/19 16:37 Blood Culture - Preliminary Blood Culture (Wb) - Anticubital Left No growth in 48 hours. 04/07/19 15:30 Blood Culture - Preliminary Blood Culture (Wb) - Anticubital Right No growth in 48 hours. 04/07/19 16:09 Gram Stain - Final Wound - Toe Wound Culture - Final Staphylococcus aureus - Other Studies Radiology: [] reviewed Other Studies: [] Route of nutrition/ use of supplements: [] Nutritional Intake: [] IV Site: [] [place] Catheter: [] - Physical Exam General: Alert, Oriented x3, Cooperative, No apparent distress HEENT: Atraumatic, PERRLA, EOMI Neck: Supple, No Nodes Lungs: Clear to auscultation, Normal air movement Cardiovascular: Regular rate, Regular Rhythm Abdomen: Soft, Non Tender, Non-Distended Extremities: No edema Skin: Incision - foot wrapped, reviewed photo IV Site: Peripheral, without redness Musculoskeletal: No Tenderness to Palpation of Joints or Extremities Neurological: Cranial nerves II-XII grossly intact - Assessment/Plan Antibiotics: [] Assessment/Plan: [] R foot MRSA abscess - now s/p I&D by Dr. Gayle 04/08/19. Surg cx with mrsa and wound cxs with mssa. On vanc/zosyn, will narrow to vanc/unasyn. With good source control and no bone involvement seen on MRI or the OR, plan will be for home with po abx. Will follow, thank you, d/w correctional case records supervisor.
[2019-04-10 15:47] VITALS: BP 140/81; PULSE 82; RESP 20; TEMP 36.8; O2SAT 97
[2019-04-10 16:51] LABS: Bedside Glucose 174 mg/dL (70-110)
[2019-04-10 20:00] VITALS: BP 155/90; PULSE 81; RESP 16; TEMP 36.6; O2SAT 99
[2019-04-10] MEDS: 0.9% Saline Lock 10 ML Syringe IV (21:41)
[2019-04-10 22:30] LABS: Bedside Glucose 204 mg/dL (70-110)
[2019-04-11 02:49] VITALS: BP 150/92; PULSE 68; RESP 18; TEMP 36.7; O2SAT 100
[2019-04-11] MEDS: 0.9% Saline Lock 10 ML Syringe IV (05:56)
[2019-04-11 06:18] LABS: Absolute Lymphocyte Count 1.14 X10^3/uL (0.83-4.51); Absolute Neutrophil Count 5.2 X10^3/uL (2.0-7.7); Basophil# 0.06 X10^3/uL; Basophil% 0.8 % (0-1); Eosinophil# 0.16 X10^3/uL; Eosinophils% 2.2 % (0-5); Hemoglobin 13.1 g/dL (13.0-16.5); Lymphocyte # 1.14 X10^3/ul (4.0); Lymphocyte % 15.8 % (19-41); Mean Corp Hgb Conc 33.6 g/dL (32-36); Mean Corpuscular Hgb 29.6 pg (27.0-32.0); Mean Platelet Vol. 9.8 fl (6.2-12.0); Monocyte# 0.55 X10^3/uL; Monocyte% 7.6 % (0-10); NRBC Flagged by Analyzer 0 % (0-5); Neutrophil # 5.18 X10^3/uL (2.7-7.7); Neutrophil % 72.1 % (47-70); Platelet Count 273 K/mm3 (150-450); RBC Distribution Width CV 12.5 % (11.6-14.6); RBC Distribution Width SD 40.5 fl (35.1-43.9); Red Blood Count 4.43 M/mm3 (4.6-6.2); White Blood Count 7.2 K/mm3 (4.4-11.0)
[2019-04-11] MEDS: Insulin Lispro 100 UNIT/ML INSULN.PEN SC ×2 (06:37→11:02)
[2019-04-11 06:46] LABS: Bedside Glucose 199 mg/dL (70-110)
[2019-04-11 06:51] LABS: Anion Gap 5 (5-15); BUN 15 mg/dL (7-18); Calcium,Total 9.2 mg/dL (8.5-10.1); Chloride 99 mmol/L (98-107); Creatinine, Serum 1.15 mg/dL (0.70-1.30); EST Glomerular Filtration Rate 70 mL/min (>60); Est Glom Filt Rate - Afr Amer 84 mL/min (>60); Estimated Creatinine Clearance 70.87 ml/min; Glucose 226 mg/dL (74-106); Potassium 4.6 mmol/L (3.5-5.1); Sodium Level 131 mmol/L (136-145)
--- NOTE | 2019-04-11 07:15 | PCM.PROGNOTE ---
Subjective: This 59-year-old male with multiple comorbidities was seen bedside status post incision and drainage of right foot. He is doing well. He denies fever, chill, nausea, vomiting, pain, or diarrhea. He relates he is unable to change his dressing on his own at home and requests fpc facility placement. He has been on antibiotics. - Physical Exam Vitals/I&O's: Vital Signs Temp Pulse Resp BP Pulse Ox 98.1 F 68 18 150/92 H 100 04/11/19 02:49 04/11/19 02:49 04/11/19 02:49 04/11/19 02:49 04/11/19 02:49 Oxygen Delivery Method Room Air Weight: 122.5 kg Body Mass Index (BMI) 39.9 Finger Stick Blood Glucose 251 Intake and Output for Last 24 Hours 04/09/19 04/10/19 04/11/19 23:59 23:59 23:59 Intake Total 1790 / 2240 2950.5 / 2950.5 673.5 / 673.5 Output Total 400 / 400 Balance 1390 / 1840 2950.5 / 2950.5 673.5 / 673.5 General: Alert, Oriented x3, Cooperative Extremities: No cyanosis, Capillary Refill Less than 3 Seconds, No Calf Tenderness, Diminished Peripheral Pulses, Edema Skin: Ulcer/ Wound - No purulence, erythema, streaking, odor, infection. His adjacent skin is hairless and atrophic. There is no exposed bone or necrosis. There is serosanguineous drainage on inner dressing only. His peripheral skin is friable Musculoskeletal: No Tenderness to Palpation of Joints or Extremities, Muscle Wasting, - - No bogginess or fluctuance on palpation. Compartments are soft and right lower extremity Neurological: - - Lack of normal sensation via light touch Psych/Mental Status: Normal Affect, Appropriate Microbiology Past 72 Hours 04/08/19 08:26 Biopsy - Other Gram Stain - Final 04/08/19 08:26 Biopsy - Other Wound Culture - Final Meth. resistant Staph. aureus 04/08/19 08:26 Biopsy - Other Anaerobic Culture - Preliminary Checking for anaerobes, further studies to follow. 04/07/19 18:00 Wound Drainage - Toe Gram Stain - Final 04/07/19 18:00 Wound Drainage - Toe Wound Culture - Final Staphylococcus aureus 04/07/19 18:00 Wound Drainage - Toe Anaerobic Culture - Preliminary Checking for anaerobes, further studies to follow. 04/07/19 16:37 Blood Culture (Wb) - Anticubital Left Blood Culture - Preliminary No growth in 48 hours. 04/07/19 15:30 Blood Culture (Wb) - Anticubital Right Blood Culture - Preliminary No growth in 48 hours. 04/07/19 16:09 Wound - Toe Gram Stain - Final 04/07/19 16:09 Wound - Toe Wound Culture - Final Staphylococcus aureus Laboratory Results 04/10/19 11:32: POC Glucose 223 H 04/10/19 15:59: POC Glucose 174 H 04/10/19 22:26: POC Glucose 204 H 04/11/19 06:00: WBC 7.2, RBC 4.43 L, Hgb 13.1, Hct 39.0 L, MCV 88.0, MCH 29.6, MCHC 33.6, RDW Std Deviation 40.5, RDW Coeff of Hodan 12.5, Plt Count 273, MPV 9.8, Immature Gran % (Auto) 1.500 H, Neut % (Auto) 72.1 H, Lymph % (Auto) 15.8 L, Park % (Auto) 7.6, Eos % (Auto) 2.2, Baso % (Auto) 0.8, Absolute Neuts (auto) 5.2, Absolute Lymphs (auto) 1.14, Nucleated RBC % 0 04/11/19 06:00: Sodium 131 L, Potassium 4.6, Chloride 99, Carbon Dioxide 27.0, Anion Gap 5, BUN 15, Creatinine 1.15, Estim Creat Clear Calc 70.87, Est GFR (MDRD) Af Amer 84, Est GFR (MDRD) Non-Af 70, BUN/Creatinine Ratio 13.0, Glucose 226 H, Calcium 9.2, Magnesium 2.0 04/11/19 06:36: POC Glucose 199 H Current Medications Acetaminophen (Tylenol) 650 mg PO Q6H PRN PRN PRN Reason: Pain Score 1-5/Temp > 100.7 F Last Admin: 04/08/19 14:34 Dose: 650 mg Documented by: Bupropion HCl (Wellbutrin Xl) 150 mg PO DAILY [facility] Last Admin: 04/10/19 08:16 Dose: 150 mg Documented by: Dextrose (D50w Syringe) 0 gm IV X1 PRN; Protocol PRN Reason: Hypoglycemia Enoxaparin Sodium (Lovenox) 40 mg SC DAILY [facility] Last Admin: 04/10/19 10:07 Dose: 40 mg Documented by: Glucagon () 1 mg IM .X1 PRN PRN Reason: Hypoglycemia [facility]) [facility] Last Admin: 04/10/19 08:16 Dose: 10 mg Documented by: Hydrochlorothiazide (Hctz) 50 mg PO DAILY [facility] Last Admin: 04/10/19 05:02 Dose: 50 mg Documented by: Sodium Chloride () 250 mls @ 15 mls/hr IV .[id number] PRN PRN Reason: Saline Flush Last Infusion: 04/11/19 06:43 Dose: 15 mls/hr Documented by: Sodium Chloride () 250 mls @ 15 mls/hr IV .[id number] PRN PRN Reason: Additional IVPB Infusion Vancomycin HCl 1,250 mg/ (Sodium Chloride) 275 mls @ 167 mls/hr IV Q12H [facility] Last Infusion: 04/11/19 01:46 Dose: Infused Documented by: Vancomycin IV Pharmacy to Dose (1 ea/ Sodium Chloride) 500 mls @ 250 mls/hr IV PRN PRN; Protocol PRN Reason: Rx to Dose Ampicillin Sodium/Sulbactam (Sodium 3 gm/ Sodium Chloride) 112 mls @ 150 mls/hr IV Q8 [facility] Last Infusion: 04/11/19 06:42 Dose: Infused Documented by: Insulin Human Lispro (Humalog Kwikpen (Bkc)) 0 unit SC TIDAC [facility]; Protocol Last Admin: 04/11/19 06:37 Dose: 2 units Documented by: Lisinopril (Zestril) 40 mg PO DAILY [facility] Last Admin: 04/10/19 05:03 Dose: 40 mg Documented by: Morphine Sulfate () 1 mg IV Q4H PRN PRN PRN Reason: Pain Score 6-10/10 Last Admin: 04/09/19 11:15 Dose: 1 mg Documented by: Ondansetron HCl (Zofran) 4 mg IV Q8H PRN PRN PRN Reason: NAUSEA/VOMITING Oxycodone HCl (Oxyir) 5 - 10 mg PO Q6H PRN PRN PRN Reason: Pain Score 6-10/10 Last Admin: 04/10/19 19:41 Dose: 10 mg Documented by: Sodium Chloride () 10 - 40 ml IV UD PRN PRN Reason: SALINE FLUSH Last Admin: 04/11/19 05:56 Dose: 10 ml Documented by: Medical Necessity - Tobacco Use Smoking Status: Current every day smoker Tobacco Use: Cigarettes Assessment/Plan All Active Problems (Last Updated 04/07/19 @ 17:23 by Ta Aguirre DO) Abscess of groin, left (Acute) Cellulitis of groin, left (Acute) Diabetes (Acute) Hyponatremia (Acute) Ulceration to fascia/capsule right 1st metatarsal phalangeal joint with abscess and cellulitis s/p I+D debridement 04/08/[address] Gayle Diabetic neuropathy Tobacco Use Reviewed diagnostic data. Sterile gauze packing was changed today. I recommend he continues with this dressing plan at time of discharge. Reviewed cultures, patient on IV antibiotics (vancomycin and unasyn) has been added for MRSA and ID consulted. The plan is for oral antibiotics (doxy BID) at discharge. ID recs are appreciated. Nonweightbearing right foot, keep foot elevated. To continue with Danial wrap compression. Continue with medial management per medicine team. Discharge planning pending. The patient is requesting home health or skilled facility placement, and he does not feel he can change his dressings on his own. Podiatry will continue to follow. Ok to d/c from a podiatry standpoint. Patient to follow up in 1 week at [facility] upon discharge with Dr. Gayle. I answered his questions. Chantell Eisenberg DPM, FACFAS [facility] [phone]
[2019-04-11 08:45] VITALS: BP 157/79; PULSE 86; RESP 18; TEMP 37; O2SAT 98
--- NOTE | 2019-04-11 08:49 | PN_ITS ---
Reason for Visit: Diabetic foot ulcer Subjective: . Patient was seen in consultation by Dr. Philippe with infectious disease the day prior his antibiotic therapy adjusted from Zosyn and vancomycin to Unasyn and vancomycin. Patient also requested possible transfer to a longterm facility social services counselor subsequently consulted to assist with discharge planning Objective: GENERAL: cooperative HEENT: Atraumatic; EYES; Anicteric, Normal Conjunctiva NECK; supple, normal thyroid, RESPIRATORY: Diminished to auscultation CARDIOVASCULAR: Regular S1 S2, GI: soft, normoactive bowel sounds, : No Renal angle tenderness; EXTREMITIES: Left foot in surgical dressing MUSCULOSKELETAL: no muscle waisting NEURO: Awake; no lateralizing signs. SKIN: No Rash PSYCH; Flat affect Vitals/I&O's: Vital Signs Temp Pulse Resp BP Pulse Ox 98.1 F 68 18 150/92 H 100 04/11/19 02:49 04/11/19 02:49 04/11/19 02:49 04/11/19 02:49 04/11/19 02:49 Oxygen Delivery Method Room Air Weight: 122.5 kg Body Mass Index (BMI) 39.9 Finger Stick Blood Glucose 251 Intake and Output for Last 24 Hours 04/09/19 04/10/19 04/11/19 23:59 23:59 23:59 Intake Total 1790 / 2240 2950.5 / 2950.5 673.5 / 673.5 Output Total 400 / 400 Balance 1390 / 1840 2950.5 / 2950.5 673.5 / 673.5 Microbiology Past 72 Hours 04/08/19 08:26 Biopsy - Other Gram Stain - Final 04/08/19 08:26 Biopsy - Other Wound Culture - Final Meth. resistant Staph. aureus 04/08/19 08:26 Biopsy - Other Anaerobic Culture - Final No anaerobic bacteria isolated. 04/07/19 18:00 Wound Drainage - Toe Gram Stain - Final 04/07/19 18:00 Wound Drainage - Toe Wound Culture - Final Staphylococcus aureus 04/07/19 18:00 Wound Drainage - Toe Anaerobic Culture - Preliminary Checking for anaerobes, further studies to follow. 04/07/19 16:37 Blood Culture (Wb) - Anticubital Left Blood Culture - Preliminary No growth in 48 hours. 04/07/19 15:30 Blood Culture (Wb) - Anticubital Right Blood Culture - Preliminary No growth in 48 hours. 04/07/19 16:09 Wound - Toe Gram Stain - Final 04/07/19 16:09 Wound - Toe Wound Culture - Final Staphylococcus aureus Laboratory Results 04/10/19 11:32: POC Glucose 223 H 04/10/19 15:59: POC Glucose 174 H 04/10/19 22:26: POC Glucose 204 H 04/11/19 06:00: WBC 7.2, RBC 4.43 L, Hgb 13.1, Hct 39.0 L, MCV 88.0, MCH 29.6, MCHC 33.6, RDW Std Deviation 40.5, RDW Coeff of Hodan 12.5, Plt Count 273, MPV 9.8, Immature Gran % (Auto) 1.500 H, Neut % (Auto) 72.1 H, Lymph % (Auto) 15.8 L , [place] % (Auto) 7.6, Eos % (Auto) 2.2, Baso % (Auto) 0.8, Absolute Neuts (auto) 5.2, Absolute Lymphs (auto) 1.14, Nucleated RBC % 0 04/11/19 06:00: Sodium 131 L, Potassium 4.6, Chloride 99, Carbon Dioxide 27.0, Anion Gap 5, BUN 15, Creatinine 1.15, Estim Creat Clear Calc 70.87, Est GFR (MDRD) Af Amer 84, Est GFR (MDRD) Non-Af 70, BUN/Creatinine Ratio 13.0, Glucose 226 H, Calcium 9.2, Magnesium 2.0 04/11/19 06:36: POC Glucose 199 H Current Medications Acetaminophen (Tylenol) 650 mg PO Q6H PRN PRN PRN Reason: Pain Score 1-5/Temp > 100.7 F Last Admin: 04/08/19 14:34 Dose: 650 mg Documented by: Bupropion HCl (Wellbutrin Xl) 150 mg PO DAILY [facility] Last Admin: 04/10/19 08:16 Dose: 150 mg Documented by: Dextrose (D50w Syringe) 0 gm IV X1 PRN; Protocol PRN Reason: Hypoglycemia Enoxaparin Sodium (Lovenox) 40 mg SC DAILY [facility] Last Admin: 04/10/19 10:07 Dose: 40 mg Documented by: Glucagon () 1 mg IM .X1 PRN PRN Reason: Hypoglycemia [facility] Admin: 04/10/19 08:16 Dose: 10 mg Documented by: Hydrochlorothiazide (Hctz) 50 mg PO DAILY [facility] Last Admin: 04/10/19 05:02 Dose: 50 mg Documented by: Sodium Chloride () 250 mls @ 15 mls/hr IV .[id number] PRN PRN Reason: Saline Flush Last Infusion: 04/11/19 06:43 Dose: 15 mls/hr Documented by: Sodium Chloride () 250 mls @ 15 mls/hr IV .[id number] PRN PRN Reason: Additional IVPB Infusion Vancomycin HCl 1,250 mg/ (Sodium Chloride) 275 mls @ 167 mls/hr IV Q12H [facility] Last Infusion: 04/11/19 01:46 Dose: Infused Documented by: Vancomycin IV Pharmacy to Dose (1 ea/ Sodium Chloride) 500 mls @ 250 mls/hr IV PRN PRN; Protocol PRN Reason: Rx to Dose Ampicillin Sodium/Sulbactam (Sodium 3 gm/ Sodium Chloride) 112 mls @ 150 mls/hr IV Q8 [facility] Last Infusion: 04/11/19 06:42 Dose: Infused Documented by: Insulin Human Lispro (Humalog Kwikpen (Bkc)) 0 unit SC TIDAC [facility]; Protocol Last Admin: 04/11/19 06:37 Dose: 2 units Documented by: Lisinopril (Zestril) 40 mg PO DAILY [facility] Last Admin: 04/10/19 05:03 Dose: 40 mg Documented by: Morphine Sulfate () 1 mg IV Q4H PRN PRN PRN Reason: Pain Score 6-10/10 Last Admin: 04/09/19 11:15 Dose: 1 mg Documented by: Ondansetron HCl (Zofran) 4 mg IV Q8H PRN PRN PRN Reason: NAUSEA/VOMITING Oxycodone HCl (Oxyir) 5 - 10 mg PO Q6H PRN PRN PRN Reason: Pain Score 6-10/10 Last Admin: 04/10/19 19:41 Dose: 10 mg Documented by: Sodium Chloride () 10 - 40 ml IV UD PRN PRN Reason: SALINE FLUSH Last Admin: 04/11/19 05:56 Dose: 10 ml Documented by: Medical Necessity - Tobacco Use Smoking Status: Current every day smoker Tobacco Use: Cigarettes Assessment/Plan All Active Problems (Last Updated 04/07/19 @ 17:23 by Ta Aguirre DO) Abscess of groin, left (Acute) Cellulitis of groin, left (Acute) Diabetes (Acute) Hyponatremia (Acute) Patient is a 59-year-old gentleman with past medical history significant for diabetes mellitus type 2 complications including diabetic neuropathy admitted with diabetic foot ulcer. 1. Sepsis secondary to diabetic foot ulcer ?Patient admitted to regular nursing floor started on broad-spectrum antibiotic therapy consult placed to podiatry. Patient underwent Debridement of right foot ulceration and nonviable, necrotic, infected soft tissue down to fascia layer with incision and drainage right foot on 04/08/[address] Gayle. Patient cultures sent came back positive for MRSA patient was on Zosyn added vancomycin consult also placed to infectious disease ?04/11/2019: Patient was seen in consultation by Dr. Philippe with infectious disease the day prior his antibiotic therapy adjusted from Zosyn and vancomycin to Unasyn and vancomycin. Patient also requested possible transfer to a longterm facility social services counselor subsequently consulted to assist with discharge planning 2. Diabetes mellitus type 2 with complications including diabetic neuropathy ?Held patient oral antidiabetic medications placed on Accu-Cheks before meals and at bedtime with sliding scale coverage 3. Essential hypertension ?Blood pressure stable did continue with home meds 4. Obesity with BMI of 39.9 ?Weight loss advised 6. Depression with anxiety ?Patient is on Wellbutrin did continue 7. DVT prophylaxis ?Lovenox Code Visit Inpatient E&M: 77850 Subs Hosp L2
--- NOTE | 2019-04-11 09:49 | PCM.PN.ID ---
Subjective: Feeling well, minimal pain, no fever, no n/v/d. - Physical Exam Vitals/I&O's: Vital Signs Temp Pulse Resp BP Pulse Ox 98.1 F 68 18 150/92 H 100 04/11/19 02:49 04/11/19 02:49 04/11/19 02:49 04/11/19 02:49 04/11/19 02:49 Oxygen Delivery Method Room Air Weight: 122.5 kg Body Mass Index (BMI) 39.9 Finger Stick Blood Glucose 251 Intake and Output for Last 24 Hours 04/09/19 04/10/19 04/11/19 23:59 23:59 23:59 Intake Total 1790 / 2240 2950.5 / 2950.5 673.5 / 673.5 Output Total 400 / 400 Balance 1390 / 1840 2950.5 / 2950.5 673.5 / 673.5 General: Alert, Cooperative, No apparent distress Lungs: Clear to auscultation, Normal air movement Cardiovascular: Regular rate, Regular Rhythm Abdomen: Soft, Non Tender, Non-Distended Skin: Ulcer/ Wound - R foot wrapped Microbiology Past 72 Hours 04/07/19 18:00 Wound Drainage - Toe Gram Stain - Final 04/07/19 18:00 Wound Drainage - Toe Wound Culture - Final Staphylococcus aureus 04/07/19 18:00 Wound Drainage - Toe Anaerobic Culture - Final No anaerobic bacteria isolated. 04/08/19 08:26 Biopsy - Other Gram Stain - Final 04/08/19 08:26 Biopsy - Other Wound Culture - Final Meth. resistant Staph. aureus 04/08/19 08:26 Biopsy - Other Anaerobic Culture - Final No anaerobic bacteria isolated. 04/07/19 16:37 Blood Culture (Wb) - Anticubital Left Blood Culture - Preliminary No growth in 48 hours. 04/07/19 15:30 Blood Culture (Wb) - Anticubital Right Blood Culture - Preliminary No growth in 48 hours. 04/07/19 16:09 Wound - Toe Gram Stain - Final 04/07/19 16:09 Wound - Toe Wound Culture - Final Staphylococcus aureus Laboratory Results 04/10/19 11:32: POC Glucose 223 H 04/10/19 15:59: POC Glucose 174 H 04/10/19 22:26: POC Glucose 204 H 04/11/19 06:00: WBC 7.2, RBC 4.43 L, Hgb 13.1, Hct 39.0 L, MCV 88.0, MCH 29.6, MCHC 33.6, RDW Std Deviation 40.5, RDW Coeff of Hodan 12.5, Plt Count 273, MPV 9.8, Immature Gran % (Auto) 1.500 H, Neut % (Auto) 72.1 H, Lymph % (Auto) 15.8 L, [place] % (Auto) 7.6, Eos % (Auto) 2.2, Baso % (Auto) 0.8, Absolute Neuts (auto) 5.2, Absolute Lymphs (auto) 1.14, Nucleated RBC % 0 04/11/19 06:00: Sodium 131 L, Potassium 4.6, Chloride 99, Carbon Dioxide 27.0, Anion Gap 5, BUN 15, Creatinine 1.15, Estim Creat Clear Calc 70.87, Est GFR (MDRD) Af Amer 84, Est GFR (MDRD) Non-Af 70, BUN/Creatinine Ratio 13.0, Glucose 226 H, Calcium 9.2, Magnesium 2.0 04/11/19 06:36: POC Glucose 199 H Current Medications Acetaminophen (Tylenol) 650 mg PO Q6H PRN PRN PRN Reason: Pain Score 1-5/Temp > 100.7 F Last Admin: 04/08/19 14:34 Dose: 650 mg Documented by: Bupropion HCl (Wellbutrin Xl) 150 mg PO DAILY [facility] Last Admin: 04/10/19 08:16 Dose: 150 mg Documented by: Dextrose (D50w Syringe) 0 gm IV X1 PRN; Protocol PRN Reason: Hypoglycemia Doxycycline Monohydrate (Doxycycline) 100 mg PO BID [facility] Enoxaparin Sodium (Lovenox) 40 mg SC DAILY [facility] Last Admin: 04/10/19 10:07 Dose: 40 mg Documented by: Glucagon () 1 mg IM .X1 PRN PRN Reason: Hypoglycemia [facility] Last Admin: 04/10/19 08:16 Dose: 10 mg Documented by: Hydrochlorothiazide (Hctz) 50 mg PO DAILY [facility] Last Admin: 04/10/19 05:02 Dose: 50 mg Documented by: Sodium Chloride () 250 mls @ 15 mls/hr IV .[id number] PRN PRN Reason: Saline Flush Last Infusion: 04/11/19 06:43 Dose: 15 mls/hr Documented by: Sodium Chloride () 250 mls @ 15 mls/hr IV .[id number] PRN PRN Reason: Additional IVPB Infusion Vancomycin HCl 1,250 mg/ (Sodium Chloride) 275 mls @ 167 mls/hr IV Q12H [facility] Last Infusion: 04/11/19 01:46 Dose: Infused Documented by: Vancomycin IV Pharmacy to Dose (1 ea/ Sodium Chloride) 500 mls @ 250 mls/hr IV PRN PRN; Protocol PRN Reason: Rx to Dose Insulin Human Lispro (Humalog Kwikpen (Bkc)) 0 unit SC TIDAC [facility]; Protocol Last Admin: 04/11/19 06:37 Dose: 2 units Documented by: Lisinopril (Zestril) 40 mg PO DAILY [facility] Last Admin: 04/10/19 05:03 Dose: 40 mg Documented by: Morphine Sulfate () 1 mg IV Q4H PRN PRN PRN Reason: Pain Score 6-10/10 Last Admin: 04/09/19 11:15 Dose: 1 mg Documented by: Ondansetron HCl (Zofran) 4 mg IV Q8H PRN PRN PRN Reason: NAUSEA/VOMITING Oxycodone HCl (Oxyir) 5 - 10 mg PO Q6H PRN PRN PRN Reason: Pain Score 6-10/10 Last Admin: 04/10/19 19:41 Dose: 10 mg Documented by: Sodium Chloride () 10 - 40 ml IV UD PRN PRN Reason: SALINE FLUSH Last Admin: 04/11/19 05:56 Dose: 10 ml Documented by: Medical Necessity - Tobacco Use Smoking Status: Current every day smoker Tobacco Use: Cigarettes Route of nutrition/ use of supplements: [] Nutritional Intake: [] IV Site: [] [place] Catheter: [] - Assessment/Plan Antibiotics: [] Assessment/Plan: [] R foot MRSA abscess - now s/p I&D by Dr. Gayle 04/08/19. Surg cx with mrsa and wound cxs with mssa. On vanc/unasyn. With good source control and no bone involvement seen on MRI or the OR, plan will be for discharge with po doxy 100mg bid for one week. Will follow, d/w immigration case manager.
[2019-04-11] MEDS: oxyCODONE 5 MG Tablet PO ×2 (09:56→21:33)
[2019-04-11] MEDS: Lisinopril 20 MG Tablet 40 MG PO (10:08)
[2019-04-11] MEDS: buPROPion (XL) 150 MG TABLET.XL PO (10:08)
[2019-04-11] MEDS: hydroCHLOROthiazide 25 MG Tablet 50 MG PO (10:08)
[2019-04-11] MEDS: Doxycycline 100 MG CAPSULE PO ×2 (10:08→21:33)
[2019-04-11] MEDS: Enoxaparin 40 MG/0.4 ML Syringe SC (10:08)
--- NOTE | 2019-04-11 10:27 | DCINST_ITS ---
Weight Bearing Status: Partial weight bearing - heel weightbear surgical shoe right Keep extremity elevated above heart level: Right Leg Call your doctor if your incision/area has: Continuous Slow Oozing, Sudden Increased Bleeding, Increased Pain/ Swelling, Increased Redness, Foul Smelling Discharge, Swelling at the incision site Call your doctor if you observe: Fever of 101 or Higher, Calf discomfort, Uncontrolled pain Cleanse incision/area with: - - Change dressing daily with iodoform gauze packing and gently cleanse with saline. Cover with gauze and Danial wrap from foot to leg Instructions: Enoxaparin Sodium (Porcine) Solution for injection, Piperacillin Sodium, Tazobactam Sodium Solution for injection, Methicillin-Resistant Staphylococcus aureus (MRSA) Infection Allergies/Adverse Reactions: Allergies No Known Allergies Allergy (Verified 04/07/19 13:39) Medications to take at Discharge Glyburide 10 mg PO DAILY 04/07/19 Hydrochlorothiazide 12.5 mg PO DAILY 04/07/19 Lisinopril/Hydrochlorothiazide [Lisinopril-Hctz 20-25 mg Tab] 2 tab PO DAILY 04/07/19 Metformin HCl 1,000 mg PO BID 04/07/19 Mupirocin 1 applicatio TP TID 04/07/19 buPROPion XL [Wellbutrin Xl] 150 mg PO DAILY 04/07/19 Doxycycline 100 mg PO BID #14 cap 04/11/19 The following prescriptions were given: Doxycycline 100 mg PO BID #14 cap Prescription Printed Primary Care Physician: Onofre Augustine MD [Primary Care Provider] - Test Results: Test results from this visit will be discussed in further detail at your follow- up appointment, if applicable. Please Follow Up With: Jorge Gayle DPM When: 1 week at [facility]; call [phone] sooner if questions. Proposed Discharge Date: 04/11/19
[2019-04-11 11:11] LABS: Bedside Glucose 218 mg/dL (70-110)
--- NOTE | 2019-04-11 11:34 | CASEMGMT ---
RENE GONZALEZ updated by therapy that patient would benefit from SNF at discharge as patient is unsteady. RENE GONZALEZ in to discuss with patient. Patient states that he lives alone and has no reliable assistance at home. Patient has daily dressing change at this time to two wounds on his foot, possible wound vac at discharge. Patient states he is not able to change his dressing daily on his own and his brother is not reliable to assist with dressing changes. RENE GONZALEZ updated patient that he would need someone to assist with dressing changes if he would go home with [facility]. Patient mentioned that day care teacher wrote for knee walker. RENE GONZALEZ updated patient that knee walkers are not normally covered by insurance. Patient states he would like to go to SNF. RENE GONZALEZ provided list of SNF in-network with his insurance. Patient's first choice for SNF is [facility], 2nd is [facility]. RENE GONZALEZ called [facility] to inquire if they carry knee walkers and if they are covered by insurance. [facility] do not carry knee walkers. [facility] has knee walker to rent for $75 per month or purchase ramos over $400. RENE GONZALEZ looked on [employer] and [employer] website and knee walkers average around $100-120. RENE GONZALEZ updated patient regarding knee walker pricing. Patient is not sure if he will be able to afford knee walker. RENE GONZALEZ updates SW regarding request for [facility]
--- NOTE | 2019-04-11 12:32 | CASEMGMT ---
Addendum entered by Cecilia Garza 04/11/19 14:50: SW received message from Cat at [facility] stating clinically they are able to accept pt but noted that pt is current everyday smoker and pt will not be able to smoke at [facility]. SW in to speak with pt. SW introduced self and role at [facility]. SW informed pt that [facility] is able to accept pt pending pre-cert as long as pt knows he is not going to be able to smoke there. Pt states he wasn't allowed to smoke at [facility] so he figured he wouldn't be allowed to smoke at [facility]. Pt states he is agreeable to not smoking. AIDA placed a call back to Cat at [facility] and left her a message informing her that pt is aware he will not be able to smoke and to submit for pre-cert. Plan: [facility] pending pre-cert. Original Note: Social Work Note SW received referral for SNF. Pt's first choice is [facility] and second choice is [facility]. AIDA placed a call to Cat at [facility] and provided referral. SW faxed referral. Plan: SNF pending acceptance and pre-cert Cecilia Garza SOURCING COORDINATOR, [employer]ERTICA ARCHITECT
[2019-04-11 14:17] VITALS: BP 142/74; PULSE 78; RESP 16; TEMP 36.6; O2SAT 98
[2019-04-11 17:01] LABS: Bedside Glucose 118 mg/dL (70-110)
[2019-04-11 21:36] VITALS: BP 146/83; PULSE 81; RESP 18; TEMP 36.6; O2SAT 100
[2019-04-11 23:35] LABS: Bedside Glucose 234 mg/dL (70-110)
[2019-04-12 00:18] LABS: Vancomycin, Trough Level 10.6 ug/mL (5.0-15.0)
--- NOTE | 2019-04-12 00:50 | PCM.RX.CS ---
Consult Pharmacy has been consulted to manage selected antiobiotic: Vancomycin Type of Consult: Follow-up Suspected Infection: Skin/Soft tissue Prior Doses of Antibiotics Received/Current Regimen: Medications Vancomycin HCl 1,250 mg/ (Sodium Chloride) 275 mls @ 167 mls/hr IV Q12H [facility] Last Admin: 04/12/19 00:00 Dose: 167 mls/hr Labs: Sodium 131 mmol/L (136-145) L 04/11/19 06:00 Potassium 4.6 mmol/L (3.5-5.1) 04/11/19 06:00 Chloride 99 mmol/L (98-107) 04/11/19 06:00 Carbon Dioxide 27.0 mmol/L (21.0-32.0) 04/11/19 06:00 Anion Gap 5 (5-15) 04/11/19 06:00 BUN 15 mg/dL (7-18) 04/11/19 06:00 Creatinine 1.15 mg/dL (0.70-1.30) 04/11/19 06:00 Est GFR (MDRD) Af Amer 84 mL/min (>60) 04/11/19 06:00 Est GFR (MDRD) Non-Af 70 mL/min (>60) 04/11/19 06:00 BUN/Creatinine Ratio 13.0 RATIO (10-20) 04/11/19 06:00 Glucose 226 mg/dL (74-106) H 04/11/19 06:00 Vancomycin Trough 10.6 ug/mL (5.0-15.0) 04/11/19 23:35 Microbiology: Microbiology 04/07/19 18:00 Wound Drainage - Toe Gram Stain - Final 04/07/19 18:00 Wound Drainage - Toe Wound Culture - Final Staphylococcus aureus 04/07/19 18:00 Wound Drainage - Toe Anaerobic Culture - Final No anaerobic bacteria isolated. 04/08/19 08:26 Biopsy - Other Gram Stain - Final 04/08/19 08:26 Biopsy - Other Wound Culture - Final Meth. resistant Staph. aureus 04/08/19 08:26 Biopsy - Other Anaerobic Culture - Final No anaerobic bacteria isolated. 04/07/19 16:37 Blood Culture (Wb) - Anticubital Left Blood Culture - Preliminary No growth in 48 hours. 04/07/19 15:30 Blood Culture (Wb) - Anticubital Right Blood Culture - Preliminary No growth in 48 hours. 04/07/19 16:09 Wound - Toe Gram Stain - Final 04/07/19 16:09 Wound - Toe Wound Culture - Final Staphylococcus aureus Weight used for dosin.5 kg Estimated Creatinine Clearance: 71 Goal Trough: 10-15 mcg/mL Pharmacy Plan for Drug Dosing: Trough value of 10.6 is within target range of 10/15. Will continue current dosing and re-draw trough 04/15/19 @1130. Pharmacy Service will continue to monitor and adjust dosing as required. Follow-Up Labs: Trough Vancomycin Labs to be done on [date and time ordered]: 04/15/19 @1130
[2019-04-12 03:10] VITALS: BP 158/92; PULSE 74; RESP 18; TEMP 36.6; O2SAT 98
[2019-04-12] MEDS: oxyCODONE 5 MG Tablet PO (06:44)
[2019-04-12] MEDS: Insulin Lispro 100 UNIT/ML INSULN.PEN SC ×2 (06:45→11:37)
[2019-04-12 06:55] LABS: Bedside Glucose 230 mg/dL (70-110)
[2019-04-12 07:10] LABS: Absolute Lymphocyte Count 1.19 X10^3/uL (0.83-4.51); Absolute Neutrophil Count 5.8 X10^3/uL (2.0-7.7); Basophil# 0.07 X10^3/uL; Basophil% 0.9 % (0-1); Eosinophil# 0.17 X10^3/uL; Eosinophils% 2.1 % (0-5); Hematocrit 39.6 % (40-54); Hemoglobin 13.4 g/dL (13.0-16.5); Lymphocyte # 1.19 X10^3/ul (4.0); Lymphocyte % 14.8 % (19-41); Mean Corp Hgb Conc 33.8 g/dL (32-36); Mean Corpuscular Hgb 29.3 pg (27.0-32.0); Mean Corpuscular Volume 86.5 fL (80-94); Monocyte% 7.5 % (0-10); NRBC Flagged by Analyzer 0 % (0-5); Neutrophil # 5.83 X10^3/uL (2.7-7.7); Neutrophil % 72.7 % (47-70); Platelet Count 292 K/mm3 (150-450); RBC Distribution Width CV 12.5 % (11.6-14.6); RBC Distribution Width SD 39.7 fl (35.1-43.9); Red Blood Count 4.58 M/mm3 (4.6-6.2)
[2019-04-12 07:34] LABS: Anion Gap 7 (5-15); BUN 17 mg/dL (7-18); BUN/Creat Ratio 15.5 RATIO (10-20); Calcium,Total 9.8 mg/dL (8.5-10.1); Chloride 101 mmol/L (98-107); EST Glomerular Filtration Rate 73 mL/min (>60); Est Glom Filt Rate - Afr Amer 89 mL/min (>60); Estimated Creatinine Clearance 74.09 ml/min; Glucose 222 mg/dL (74-106); Potassium 4.4 mmol/L (3.5-5.1); Sodium Level 132 mmol/L (136-145)
[2019-04-12 07:38] VITALS: BP 158/86; PULSE 75; RESP 16; TEMP 36.6; O2SAT 96
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
[2019-04-12] MEDS: hydroCHLOROthiazide 25 MG Tablet 50 MG PO (10:50)
[2019-04-12] MEDS: Enoxaparin 40 MG/0.4 ML Syringe SC (10:51)
[2019-04-12] MEDS: buPROPion (XL) 150 MG TABLET.XL PO (10:51)
[2019-04-12] MEDS: Lisinopril 20 MG Tablet 40 MG PO (10:51)
[2019-04-12] MEDS: Doxycycline 100 MG CAPSULE PO (10:51)
--- NOTE | 2019-04-12 11:37 | CASEMGMT ---
Social Work Note AIDA received call from Cat at [facility] [place] stating pre-cert has been obtained and pt is able to discharge today. AIDA updated Cat that pt is medically cleared for discharge today. AIDA updated RN who states he will update pt. Physician updated. Plan: [facility] skilled today Cecilia Garza CLINICAL DATA RESEARCH, UNIVERSITY MANAGER
[2019-04-12] MEDS: 0.9% Saline Lock 10 ML Syringe IV ×2 (11:42)
--- NOTE | 2019-04-12 11:44 | PCM.TXEXTCAR ---
- Diet 04/08/19 08:14 Diet: Calorie Controlled Type of Dietary Supplement:: Glucerna 1.5 jaylene Is pt able to select menu?: Yes How many daily calories?: 1800 calorie - Wound(s) R GREAT TOE Wound Type: Surgical Incision right great toe (dorsal surface) Wound Type: open surgical wound s/p I&D Dressing Change: Packed with Iodoform right great toe (medial/plantar surface) Wound Type: Open Surgical Wound Dressing Change: Packed with Iodoform right medial/plantar foot Wound Type: open surgical wound s/p I&D Dressing Change: Packed with Iodoform - Therapies Weight Bearing: Non weight bearing Physical Therapy: Eval and Treat Occupational Therapy: Eval and Treat - Allergies/Procedures Done in Hospital Allergies/Adverse Reactions: Allergies No Known Allergies Allergy (Verified 04/07/19 13:39) - Type of Care/Length of Stay Estimated LOS: Convalescent Care Less Than 30 days Type of Care Needed: Skilled Rehab Potential: Good Prognosis: Good - Additional Orders/Day of Discharge Day of Discharge: 04/12/19 - Dietary and Speech Recommendations Dietitian Recommendations/Changes: Suggest diet change to 2000 calorie; cardiac/low sodium. Suggest Vitor 1 packet BID for wound healing--order from pharmacy. Suggest d/c glucerna shake with meals since PO good & BMI 40. - Follow Up Care Primary Care Physician: Onofre Augustine MD [Primary Care Provider] - Please follow up with your Primary Care Physician in: in 2 weeks Please Follow Up With: Jorge Gayle DPM When: 1 week at [facility]; call [phone] sooner if questions.
[2019-04-12 11:46] LABS: Bedside Glucose 224 mg/dL (70-110)
--- NOTE | 2019-04-12 11:46 | PCM.DC.SUM ---
Discharge Date and Diagnosis Date of Admission: 04/07/19 Date of Discharge: 04/12/19 - Primary Discharge Diagnosis Sepsis secondary to diabetic foot ulcer - Secondary Discharge Diagnosis Chronic Problems (Last Updated 04/07/19 @ 17:23 by Ta Aguirre DO) Hypertension (Chronic) Hospital Course and Treatment Imaging Results: Clinical Impression(s) from Imaging Studies Foot X-Ray 04/07/19 15:06 IMPRESSION: No acute fracture, dislocation or destructive osseous pathology. Electronically Signed: Yvan Russell DO at 16:58 EST Tel [phone], Service support , Lower Extremity MRI 04/07/19 17:40 IMPRESSION: Normal unenhanced MRI of the forefoot. There is no evidence of fracture dislocation or osteomyelitis. Electronically Signed: Yvan Russell DO at 20:07 EST Tel [phone], Service support , Ankle X-Ray 04/09/19 10:20 IMPRESSION: Heel spurs. No erosions. Electronically Signed: Elijah aKt MD at 14:41 EST , Service support , Tibia/Fibula X-Ray 04/09/19 10:20 IMPRESSION: Normal x-ray examination of the tibia and fibula. Electronically Signed: Elijah Kat MD at 14:41 EST , Service support , Microbiology 04/07/19 18:00 Wound Drainage - Toe Gram Stain - Final 04/07/19 18:00 Wound Drainage - Toe Wound Culture - Final Staphylococcus aureus 04/07/19 18:00 Wound Drainage - Toe Anaerobic Culture - Final No anaerobic bacteria isolated. 04/08/19 08:26 Biopsy - Other Gram Stain - Final 04/08/19 08:26 Biopsy - Other Wound Culture - Final Meth. resistant Staph. aureus 04/08/19 08:26 Biopsy - Other Anaerobic Culture - Final No anaerobic bacteria isolated. 04/07/19 16:37 Blood Culture (Wb) - Anticubital Left Blood Culture - Preliminary No growth in 48 hours. 04/07/19 15:30 Blood Culture (Wb) - Anticubital Right Blood Culture - Preliminary No growth in 48 hours. 04/07/19 16:09 Wound - Toe Gram Stain - Final 04/07/19 16:09 Wound - Toe Wound Culture - Final Staphylococcus aureus Consultations 04/07/19 17:40 Consult: Onc/Wound/vacuum cleaner operator Routine Comment: Operations: - - Status post I&D of the left groin Summary of Care Provided: Patient is a 59-year-old gentleman with past medical history significant for diabetes mellitus type 2 complications including diabetic neuropathy admitted with diabetic foot ulcer. 1. Sepsis secondary to diabetic foot ulcer ?Patient admitted to regular nursing floor started on broad-spectrum antibiotic therapy consult placed to podiatry. Patient underwent Debridement of right foot ulceration and nonviable, necrotic, infected soft tissue down to fascia layer with incision and drainage right foot on 04/08/[address] Gayle. Patient cultures sent came back positive for MRSA patient was on Zosyn added vancomycin consult also placed to infectious disease ?04/11/2019: Patient was seen in consultation by Dr. Philippe with infectious disease the day prior his antibiotic therapy adjusted from Zosyn and vancomycin to Unasyn and vancomycin. Patient also requested possible transfer to a nursing home facility social media assistant subsequently consulted to assist with discharge planning ?04/12/2019; patient was discharged to nursing home facility on doxycycline for 1 week following receipt of insurance precertification. 2. Diabetes mellitus type 2 with complications including diabetic neuropathy ?Held patient oral antidiabetic medications placed on Accu-Cheks before meals and at bedtime with sliding scale coverage 3. Essential hypertension ?Blood pressure stable did continue with home meds 4. Obesity with BMI of 39.9 ?Weight loss advised 6. Depression with anxiety ?Patient is on Wellbutrin did continue 7. DVT prophylaxis ?Lovenox 8. Physical deconditioning ?Discharged to a nursing home facility Objective: GENERAL: cooperative HEENT: Atraumatic; EYES; Anicteric, Normal Conjunctiva NECK; supple, normal thyroid, RESPIRATORY: Diminished to auscultation CARDIOVASCULAR: Regular S1 S2, GI: soft, normoactive bowel sounds, : No Renal angle tenderness; EXTREMITIES: Left foot in surgical dressing MUSCULOSKELETAL: no muscle waisting NEURO: Awake; no lateralizing signs. SKIN: No Rash PSYCH; Flat affect - Physical Exam Vitals/I&O's: Vital Signs Temp Pulse Resp BP Pulse Ox 97.8 F 75 16 158/86 H 96 04/12/19 07:38 04/12/19 07:38 04/12/19 07:38 04/12/19 07:38 04/12/19 07:38 Oxygen Delivery Method Room Air Weight: 122.5 kg Body Mass Index (BMI) 39.9 Finger Stick Blood Glucose 251 Intake and Output for Last 24 Hours 04/10/19 04/11/19 04/12/19 23:59 23:59 23:59 Intake Total 2950.5 / 2950.5 2863.25 / 2863.25 401.75 / 401.75 Balance 2950.5 / 2950.5 2863.25 / 2863.25 401.75 / 401.75 Microbiology Past 72 Hours 04/07/19 18:00 Wound Drainage - Toe Gram Stain - Final 04/07/19 18:00 Wound Drainage - Toe Wound Culture - Final Staphylococcus aureus 04/07/19 18:00 Wound Drainage - Toe Anaerobic Culture - Final No anaerobic bacteria isolated. 04/08/19 08:26 Biopsy - Other Gram Stain - Final 04/08/19 08:26 Biopsy - Other Wound Culture - Final Meth. resistant Staph. aureus 04/08/19 08:26 Biopsy - Other Anaerobic Culture - Final No anaerobic bacteria isolated. 04/07/19 16:37 Blood Culture (Wb) - Anticubital Left Blood Culture - Preliminary No growth in 48 hours. 04/07/19 15:30 Blood Culture (Wb) - Anticubital Right Blood Culture - Preliminary No growth in 48 hours. 04/07/19 16:09 Wound - Toe Gram Stain - Final 04/07/19 16:09 Wound - Toe Wound Culture - Final Staphylococcus aureus Laboratory Results 04/11/19 16:52: POC Glucose 118 H 04/11/19 21:35: POC Glucose 234 H 04/11/19 23:35: Vancomycin Trough 10.6 04/12/19 06:24: WBC 8.0, RBC 4.58 L, Hgb 13.4, Hct 39.6 L, MCV 86.5, MCH 29.3, MCHC 33.8, RDW Std Deviation 39.7, RDW Coeff of Hodan 12.5, Plt Count 292, MPV 10.0, Immature Gran % (Auto) 2.000 H, Neut % (Auto) 72.7 H, Lymph % (Auto) 14.8 L, [place] % (Auto) 7.5, Eos % (Auto) 2.1, Baso % (Auto) 0.9, Absolute Neuts (auto) 5.8, Absolute Lymphs (auto) 1.19, Nucleated RBC % 0 04/12/19 06:24: Sodium 132 L, Potassium 4.4, Chloride 101, Carbon Dioxide 24.0, Anion Gap 7, BUN 17, Creatinine 1.10, Estim Creat Clear Calc 74.09, Est GFR (MDRD) Af Amer 89, Est GFR (MDRD) Non-Af 73, BUN/Creatinine Ratio 15.5, Glucose 222 H, Calcium 9.8 04/12/19 06:43: POC Glucose 230 H 04/12/19 11:35: POC Glucose 224 H Current Medications Acetaminophen (Tylenol) 650 mg PO Q6H PRN PRN PRN Reason: Pain Score 1-5/Temp > 100.7 F Last Admin: 04/08/19 14:34 Dose: 650 mg Documented by: Bupropion HCl (Wellbutrin Xl) 150 mg PO DAILY [facility] Last Admin: 04/12/19 10:51 Dose: 150 mg Documented by: Dextrose (D50w Syringe) 0 gm IV X1 PRN; Protocol PRN Reason: Hypoglycemia Doxycycline Monohydrate (Doxycycline) 100 mg PO BID [facility] Last Admin: 04/12/19 10:51 Dose: 100 mg Documented by: Enoxaparin Sodium (Lovenox) 40 mg SC DAILY [facility] Last Admin: 04/12/19 10:51 Dose: 40 mg Documented by: Glucagon () 1 mg IM .X1 PRN PRN Reason: Hypoglycemia Glyburide (Micronase) 10 mg PO DAILYCM [facility] Last Admin: 04/12/19 07:48 Dose: 10 mg Documented by: Hydrochlorothiazide (Hctz) 50 mg PO DAILY [facility] Last Admin: 04/12/19 10:50 Dose: 50 mg Documented by: Sodium Chloride () 250 mls @ 15 mls/hr IV .[id number] PRN PRN Reason: Saline Flush Last Infusion: 04/12/19 03:26 Dose: 0 mls/hr Documented by: Sodium Chloride () 250 mls @ 15 mls/hr IV .[id number] PRN PRN Reason: Additional IVPB Infusion Vancomycin HCl 1,250 mg/ (Sodium Chloride) 275 mls @ 167 mls/hr IV Q12H [facility] Last Admin: 04/12/19 11:42 Dose: 167 mls/hr Documented by: Vancomycin IV Pharmacy to Dose (1 ea/ Sodium Chloride) 500 mls @ 250 mls/hr IV PRN PRN; Protocol PRN Reason: Rx to Dose Insulin Human Lispro (Humalog Kwikpen (Bkc)) 0 unit SC TIDAC [facility]; Protocol Last Admin: 04/12/19 11:37 Dose: 2 units Documented by: Lisinopril (Zestril) 40 mg PO DAILY [facility] Last Admin: 04/12/19 10:51 Dose: 40 mg Documented by: Morphine Sulfate () 1 mg IV Q4H PRN PRN PRN Reason: Pain Score 6-10/10 Last Admin: 04/09/19 11:15 Dose: 1 mg Documented by: Ondansetron HCl (Zofran) 4 mg IV Q8H PRN PRN PRN Reason: NAUSEA/VOMITING Oxycodone HCl (Oxyir) 5 - 10 mg PO Q6H PRN PRN PRN Reason: Pain Score 6-10/10 Last Admin: 04/12/19 06:44 Dose: 10 mg Documented by: Sodium Chloride () 10 - 40 ml IV UD PRN PRN Reason: SALINE FLUSH Last Admin: 04/12/19 11:42 Dose: 10 ml Documented by: Discharge Diet: 1800 Calorie Control Diet Weight Bearing Status: Partial weight bearing - heel weightbear surgical shoe right Keep extremity elevated above heart level: Right Leg Call your doctor if your incision/area has: Continuous Slow Oozing, Sudden Increased Bleeding, Increased Pain/ Swelling, Increased Redness, Foul Smelling Discharge, Swelling at the incision site Call your doctor if you observe: Fever of 101 or Higher, Calf discomfort, Uncontrolled pain Cleanse incision/area with: - - Change dressing daily with iodoform gauze packing and gently cleanse with saline. Cover with gauze and Danial wrap from foot to leg Home Medications: Medications to take at Discharge Glyburide 10 mg PO DAILY 04/07/19 Hydrochlorothiazide 12.5 mg PO DAILY 04/07/19 Lisinopril/Hydrochlorothiazide [Lisinopril-Hctz 20-25 mg Tab] 2 tab PO DAILY 04/07/19 Metformin HCl 1,000 mg PO BID 04/07/19 Mupirocin 1 applicatio TP TID 04/07/19 buPROPion XL [Wellbutrin Xl] 150 mg PO DAILY 04/07/19 Doxycycline 100 mg PO BID #14 cap 04/11/19 Acetaminophen [Tylenol Tablet] 650 mg PO Q6H PRN PRN tab 04/12/19 Following Prescrptions Were Given to Patient: Doxycycline 100 mg PO BID #14 cap Prescription Printed Primary Care Physician: Onofre Augustine MD [Primary Care Provider] - Please follow up with your Primary Care Physician in: in 2 weeks Please Follow Up With: Jorge Gayle DPM When: [facility] week at [facility]; call [phone] sooner if questions. Patient Instructions: Enoxaparin Sodium (Porcine) Solution for injection, Piperacillin Sodium, Tazobactam Sodium Solution for injection, Methicillin-Resistant Staphylococcus aureus (MRSA) Infection Disposition: [facility] facility Minutes spent on discharge:: 40 Patient Condition:: Stable Medical Necessity - Tobacco Use Smoking Status: Current every day smoker Tobacco Use: Cigarettes Meaningful Use Info Meaningful Use Diagnoses (Choose all that apply): None applicable Code Visit Inpatient E&M: 51796 Disch Hosp
--- NOTE | 2019-04-12 12:15 | CASEMGMT ---
Social Work Note AIDA faxed completed discharge paperwork to [facility] [place] including transfer to extended care facility, signed medication list and any scripts. Original in SNF folder and copy on pt's chart. AIDA completed convalescent [facility] in [facility]. Original in SNF folder and copy on pt's chart. AIDA spoke with RN who states pt has medication running but medication will be done by 2:00 and to arrange transportation for around 2:00pm. AIDA placed a call to [facility] and per dispatcher pt needs to be transported via cot. AIDA arranged transportation via cot (as dispatcher informed this worker pt needed cot) for 2:00pm. Transportation form on SNF folder and copy on pt's chart. AIDA updated RN on transportation time who will update pt. AIDA placed a call to Cat at [facility] and left her a message updating her on transportation time. Plan: Discharge to [facility] skilled today with [facility] transporting via cot at 2:00pm Cecilia Garza MSW, INSURANCE ADVISOR
== END 2019-04-12 13:55 | disposition skilled nursing facility (03) | DRG 364 ==
LOC: ED 15:11 → MS3 17:39
PROVIDERS: Family Medicine; Podiatrist; Emergency Provider Emergency Medicine; Family Provider Family Medicine; PCP Family Medicine; Visit Provider Internal Medicine
PROC: 0J9Q0ZZ Drainage of Right Foot Subcutaneous Tissue and Fascia, Open Approach (ICD-10-PCS; principal; 2019-04-08 07:30)
DX: L03.115 Cellulitis of right lower limb (principal); E11.40 Type 2 diabetes mellitus with diabetic neuropathy, unspecified; I10 Essential (primary) hypertension; F17.210 Nicotine dependence, cigarettes, uncomplicated; E11.621 Type 2 diabetes mellitus with foot ulcer; L97.519 Non-pressure chronic ulcer of other part of right foot with unspecified severity; E66.01 Morbid (severe) obesity due to excess calories; L02.611 Cutaneous abscess of right foot; B95.62 Methicillin resistant Staphylococcus aureus infection as the cause of diseases classified elsewhere; R60.9 Edema, unspecified; F41.8 Other specified anxiety disorders; Z79.84 Long term (current) use of oral hypoglycemic drugs; Z68.39 Body mass index [BMI] 39.0-39.9, adult
CPT/HCPCS: 36415; 73590; 73610; 73630; 73718; 80048; 80053; 80202; 82962; 83036; 83605; 83735; 85025; 85652; 86140; 87015; 87040; 87070; 87075; 87077; 87102; 87116; 87176; 87186; 87205; 87206; 87640; 88304; 88305; 93005; 93923; 93971; 97116; 97162; 97166; 97530; 97535; 97802; 99284; J7030; J7040; J7050; A4216; J0295; J2405

== ENCOUNTER 2019-04-26 14:28 | Outpatient (RCR) | payer MEDICAID, SELFPAY ==
[2019-04-08 06:58] VITALS: BMI 39.9
[2019-04-26 14:40] VITALS: BP 154/86; PULSE 90; RESP 16; TEMP 36.9; BMI 85.9
--- NOTE | 2019-04-26 14:59 | WC ---
[facility] DID NOT SEND MED LIST W/ PT. HE WILL BRING TO NEXT VISIT.
--- NOTE | 2019-04-26 15:25 | PCM.WC.PN ---
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 Code(s): L97.513 - Non-pressure chronic ulcer of other part of right foot with necrosis of muscle Comment: grade 3 (2) Type 2 diabetes mellitus with diabetic polyneuropathy Status: Chronic Code(s): E11.42 - Type 2 diabetes mellitus with diabetic polyneuropathy (3) Right foot infection Status: Acute Code(s): L08.9 - Local infection of the skin and subcutaneous tissue, unspecified (4) Edema of right lower extremity Status: Chronic Code(s): R60.0 - Localized edema (5) Malnutrition Status: Chronic Code(s): E46 - Unspecified protein-calorie malnutrition (6) Delayed wound healing Status: Chronic Code(s): T14.8XXD - Other injury of unspecified body region, subsequent encounter Type of Wound Date of Service: 04/26/19 Chief Complaint: Right foot ulcers History of Wound: This 59-year-old male was treated earlier this month at [facility] for infected right foot. He underwent surgical incision and drainage with Dr. Gayle on April 08, 2019. He was treated with IV antibiotics for MRSA and MSSA growth. He has since stabilized and has been discharged home on an additional week of oral doxycycline under the management of infectious disease. He wears a surgical shoe to keep pressure off the site. He denies pain. He has been changing the dressing with sterile gauze packing with assistance. He denies fever, chill, nausea, vomiting, redness or odor to the foot. Medications: Reviewed and reconciled. Allergies: Reviewed and reconciled; none. Surgical history: Incision and drainage right foot. Family history: Nonpertinent. Social history: Lives at home, former smoker, denies alcohol or drug use at this time Progress of Wound: Stable - Physical Exam Vital Signs Temp Pulse Resp BP 98.4 F 90 16 154/86 H 04/26/19 14:40 04/26/19 14:40 04/26/19 14:40 04/26/19 14:40 General: Alert, Oriented x3, Cooperative, No apparent distress HEENT: Atraumatic Extremities: No cyanosis, Capillary Refill Less than 3 Seconds, No Calf Tenderness - Negative Ricky and Miller sign bilateral, Diminished Peripheral Pulses Skin: Ulcer/ Wound - There is no redness, streaking, purulence, odor, deep necrosis. He does have a wound noted to the plantar medial first metatarsal head area and also the dorsal aspect which does involve exposed muscle and fascial tissue. There is some granulation and fibrous tissue noted. There is no exposed bone today. The adjacent skin is hairless and atrophic. There is no interdigital maceration. Wound Measurements and Assessment WC - Nurse 1 - General Ulcer Measurement Start: 04/26/19 14:36 Freq: Status: Active Protocol: Activity Type Activity Date Activity User E-Sign Co-Sign Detail Recorded Client Recorded Date Recorded By Document 04/26/19 14:40 [facility] [id number] 04/26/19 14:58 [facility] 04/26/19 14:40 Wound Center Nurse 1 [Ulcer Assessment] #2- R 1ST METATARSAL JOINT -Combined with other wound No -Current Size (cm) - Length 4.5 -Current Size (cm) - Width 0.8 -Current Size (cm) - Depth 0.7 -Total Square Cm 3.60 -Date of Last Picture (Recall this 04/26/19 field) -Photo Taken Yes -Epithelialization None Present -Tunneling No -Undermining/Tunneling No -Circular Undermining No -Wound Margin Thickened -Granulation Amt Small (1-33%) -Granulation Quality Red -Slough/Fibrin Yes -Necrosis Amt Large (67-100%) -Necrotic Tissue Type Adherent Slough -Texture (Barbara-wound Skin Appearance) Assessed,Callus ,Localized Edema,Scarring -Moisture (Barbara-wound Skin Appearance Assessed,Dry/ ) Scaly -Color (Barbara-wound Skin Appearance) Assessed, Erythema -Temperature (Barbara-wound Skin No Abnormality Appearance) (Pt Warm) -Tenderness on Palpation (Barbara-wound No Skin Appearance) -Ulcer Cleansing SOAPY WATER -Foul Odor after Cleansing No -Anesthetic Used 5% Lidocaine Gel #1- R GR TOE DORSAL -Combined with other wound No -Current Size (cm) - Length 1.9 -Current Size (cm) - Width 0.5 -Current Size (cm) - Depth 0.3 -Total Square Cm 0.95 -Date of Last Picture (Recall this 04/26/19 field) -Photo Taken Yes -Epithelialization None Present -Tunneling No -Undermining/Tunneling No -Circular Undermining No -Exudate Amt Small -Exudate Type Serosanguineous -Wound Margin Distinct, Outline Attached -Granulation Amt Large (67-100%) -Granulation Quality Red -Slough/Fibrin Yes -Necrosis Amt None Present (0 %) -Necrotic Tissue Type Adherent Slough -Texture (Barbara-wound Skin Appearance) Assessed, Localized Edema -Moisture (Barbara-wound Skin Appearance Assessed ) -Color (Barbara-wound Skin Appearance) Assessed, Erythema -Temperature (Barbara-wound Skin No Abnormality Appearance) (Pt Warm) -Tenderness on Palpation (Barbara-wound No Skin Appearance) -Ulcer Cleansing SOAPY WATER -Foul Odor after Cleansing No -Anesthetic Used 5% Lidocaine Gel [Edema Assessment] -Lower Limb Edema Present Yes -Right Calf (cm) 42.8 -Right Ankle (cm) 24.5 -Left Calf (cm) 42.8 -Left Ankle (cm) 24.6 WC - Nurse 2 - General Ulcer CM Notes Start: 04/26/19 14:36 Freq: Status: Active Protocol: Activity Type Activity Date Activity User E-Sign Co-Sign Detail Recorded Client Recorded Date Recorded By Document 04/26/19 15:18 [id number] 04/26/19 15:21 04/26/19 15:18 Wound Center Nurse 2 [Procedure/Treatment] #2- R 1ST METATARSAL JOINT -Time 15:18 -Correct Patient Yes -Correct Side, Site, Position Yes -Correct Procedure Yes -Procedure Performed Yes -Type of Procedure Debridement -Clinical Debridement Subcutaneous -Post Debridement Size (cm) - Length 4.5 -Post Debridement Size (cm) - Width 0.9 -Post Debridement Size (cm) - Depth 0.7 -Total Square Cm 4.05 -Wound/Ulcer Outcome Not Healed -Ulcer Cleansing Rinsed/ Irrigated with Saline -Foul Odor after Cleansing No -Bioengineered Tissue No -Bleeding Controlled with Pressure -Offloading No -Treatment Response Procedure Tolerated Well #1- R GR TOE DORSAL -Time 15:19 -Correct Patient Yes -Correct Side, Site, Position Yes -Correct Procedure Yes -Procedure Performed Yes -Type of Procedure Debridement -Clinical Debridement Subcutaneous -Post Debridement Size (cm) - Length 2 -Post Debridement Size (cm) - Width 0.5 -Post Debridement Size (cm) - Depth 0.3 -Total Square Cm 1.0 -Wound/Ulcer Outcome Not Healed -Ulcer Cleansing Rinsed/ Irrigated with Saline -Foul Odor after Cleansing No -Bioengineered Tissue No -Bleeding Controlled with Pressure -Offloading No -Treatment Response Procedure Tolerated Well [See Physician Procedure note for Specifics] Pain Scale: 0-10 Numeric [Pain] -Is Patient Pain Free? Yes Musculoskeletal: No Tenderness to Palpation of Joints or Extremities, Muscle Wasting Neurological: - - Lack of normal epicritic sensation light touch is consistent with neuropathy status Psych/Mental Status: Normal Affect, Appropriate Debridement Note Post-Debridement Measurements/Treatment WC - Nurse 2 - General Ulcer CM Notes Start: 04/26/19 14:36 Freq: Status: Active Protocol: Activity Type Activity Date Activity User E-Sign Co-Sign Detail Recorded Client Recorded Date Recorded By Document 04/26/19 15:18 [id number] 04/26/19 15:21 [id number] 04/26/19 15:18 Wound Center Nurse 2 #2- R 1ST METATARSAL JOINT -Time 15:18 -Correct Patient Yes -Correct Side, Site, Position Yes -Correct Procedure Yes -Procedure Performed Yes -Type of Procedure Debridement -Clinical Debridement Subcutaneous -Post Debridement Size (cm) - Length 4.5 -Post Debridement Size (cm) - Width 0.9 -Post Debridement Size (cm) - Depth 0.7 -Total Square Cm 4.05 -Wound/Ulcer Outcome Not Healed -Ulcer Cleansing Rinsed/ Irrigated with Saline -Foul Odor after Cleansing No -Bioengineered Tissue No -Bleeding Controlled with Pressure -Offloading No -Treatment Response Procedure Tolerated Well #1- R GR TOE DORSAL -Time 15:19 -Correct Patient Yes -Correct Side, Site, Position Yes -Correct Procedure Yes -Procedure Performed Yes -Type of Procedure Debridement -Clinical Debridement Subcutaneous -Post Debridement Size (cm) - Length 2 -Post Debridement Size (cm) - Width 0.5 -Post Debridement Size (cm) - Depth 0.3 -Total Square Cm 1.0 -Wound/Ulcer Outcome Not Healed -Ulcer Cleansing Rinsed/ Irrigated with Saline -Foul Odor after Cleansing No -Bioengineered Tissue No -Bleeding Controlled with Pressure -Offloading No -Treatment Response Procedure Tolerated Well Pain Scale: 0-10 Numeric Is Patient Pain Free? Yes Wound debrided: dorsal foot, medial foot Laterality: Right Wound Grade/Stage: grade 3 Type of Debridement: Excisional debridement Anesthesia Used: 5% Lidocaine Gel Depth: in the subcutaneous layer Percentage of wound debrided: 100 Instrument Used: #15 blade Tissue Removed: fibrous, devitalized subcutaneous, biofilm, slough Severity: Fat Layer Exposed Amount of bleeding with debridement: Mild Bleeding Controlled with: Pressure Patient tolerated procedure well Assessment/Plan Assessment: Right foot ulcer with prior necrosis of capsule and muscle; grade valerio 3. Diabetes with neuropathy. Delayed healing. Malnutrition suspected. Edema lower extremity Plan: I reviewed and discussed his case. His medical records from [facility] reviewed from earlier this month. It is noted he is completed his course of doxycycline as recommended by infectious disease which covered his prior growth of MRSA and MSSA. To change dressing daily with Aquacel Ag and gauze. He will monitor closely for return of local or systemic signs of infection. It is noted he does have a grade 3 ulcer and he may be a candidate for hyperbaric oxygen therapy. The indications and anticipated healing time management will be discussed to see if he is amendable to proceed forward with this. To keep pressure off of this healing ulcer site by wearing a surgical shoe and avoiding excessive activity. His diagnostic data from his last hospitalization were reviewed including CBC, CMP, and hemoglobin A1c of 7.3%. His noninvasive vascular studies were also reviewed from last month on April 10, 2019 with triphasic bilateral waveforms and adequate flow noted. The right ABIs were 1.28 and 1.12 in the left was 1.24 and 1.17. I recommend proper glycemic control and nutritional supplementation to optimize healing. We discussed his comprehensive wound healing plan and I recommend he follows up next week. I answered all his questions.
== END 2019-04-28 23:59 ==
LOC: WC 14:28
PROVIDERS: PCP Family Medicine; Visit Provider Podiatrist
DX: E11.621 Type 2 diabetes mellitus with foot ulcer (principal); E11.42 Type 2 diabetes mellitus with diabetic polyneuropathy; R60.0 Localized edema; L08.9 Local infection of the skin and subcutaneous tissue, unspecified; L97.512 Non-pressure chronic ulcer of other part of right foot with fat layer exposed; Z86.14 Personal history of Methicillin resistant Staphylococcus aureus infection
CPT/HCPCS: 11042; 99213; G0463

== ENCOUNTER 2019-05-24 14:45 | Outpatient (RCR) | payer MEDICAID, SELFPAY ==
[2019-04-29 01:17] VITALS: BP 154/86; PULSE 90; RESP 16; TEMP 36.9
[2019-05-03 15:07] VITALS: BP 139/85; PULSE 106; RESP 18; TEMP 36.6; BMI 85.9
--- NOTE | 2019-05-03 16:14 | PCM.WC.PN ---
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 Current Visit: Yes Code(s): L97.513 - Non-pressure chronic ulcer of other part of right foot with necrosis of muscle Comment: grade 3 (2) Edema of right lower extremity Status: Chronic Current Visit: Yes Code(s): R60.0 - Localized edema (3) Malnutrition Status: Chronic Current Visit: Yes Code(s): E46 - Unspecified protein-calorie malnutrition (4) Delayed wound healing Status: Chronic Current Visit: Yes Code(s): T14.8XXD - Other injury of unspecified body region, subsequent encounter (5) Type 2 diabetes mellitus with diabetic polyneuropathy Status: Chronic Current Visit: Yes Code(s): E11.42 - Type 2 diabetes mellitus with diabetic polyneuropathy Type of Wound Date of Service: 05/03/19 Chief Complaint: Right foot ulcers History of Wound: This 59-year-old male was treated earlier this month at [facility] for infected right foot. He underwent surgical incision and drainage with Dr. Gayle on April 08, 2019. He was treated with IV antibiotics for MRSA and MSSA growth. He has since stabilized and has been discharged home on an additional week of oral doxycycline under the management of infectious disease. He wears a surgical shoe to keep pressure off the site. He brought this with him today to see if any modifications are possible to take additional pressure off the ulcer sites. He denies pain. He has been changing the dressing with sterile gauze packing with assistance. He denies fever, chill, nausea, vomiting, redness or odor to the foot. He was also discharged home yesterday and is scheduled to have [facility] home health start helping with dressing changes. Progress of Wound: Stable - Physical Exam Vital Signs Temp Pulse Resp BP 97.8 F 106 H 18 139/85 H 05/03/19 15:07 05/03/19 15:07 05/03/19 15:07 05/03/19 15:07 General: Alert, Oriented x3, Cooperative, No apparent distress Extremities: No cyanosis, Capillary Refill Less than 3 Seconds, No Calf Tenderness, Diminished Peripheral Pulses, Edema Skin: Ulcer/ Wound - No purulence, erythema, streaking, odor, infection. There is some hyperpigmentation at the medial forefoot site. There is no bogginess or fluctuance to palpation. There is still exposed tendon noted at the extensor tendon site and the plantar ulcer does communicate with the sesamoid apparatus area. There is no visualized bone. Wound Measurements and Assessment WC - Nurse 1 - General Ulcer Measurement Start: 05/03/19 15:07 Freq: Status: Active Protocol: Activity Type Activity Date Activity User E-Sign Co-Sign Detail Recorded Client Recorded Date Recorded By Document 05/03/19 15:07 MW [id number] 05/03/19 15:19 MW 05/03/19 15:07 Wound Center Nurse 1 [Ulcer Assessment] #2- R 1ST METATARSAL JOINT -Combined with other wound No -Current Size (cm) - Length 4.0 -Current Size (cm) - Width 0.5 -Current Size (cm) - Depth 0.8 -Total Square Cm 2.00 -Photo Taken No -Epithelialization None Present -Tunneling No -Undermining/Tunneling No -Circular Undermining No -Exudate Amt Medium -Exudate Type Serosanguineous -Wound Margin Distinct, Outline Attached -Granulation Amt Small (1-33%) -Granulation Quality [place] -Slough/Fibrin Yes -Necrosis Amt Large (67-100%) -Necrotic Tissue Type Adherent Slough -Structure Exposed N/A -Texture (Barbara-wound Skin Appearance) Assessed,Callus ,Localized Edema -Moisture (Barbara-wound Skin Appearance Assessed,Dry/ ) Scaly -Color (Barbara-wound Skin Appearance) Assessed,Rubor -Temperature (Barbara-wound Skin No Abnormality Appearance) (Pt Warm) -Tenderness on Palpation (Barbara-wound No Skin Appearance) -Ulcer Cleansing soap and water -Foul Odor after Cleansing No -Anesthetic Used 5% Lidocaine Gel #1- R GR TOE DORSAL -Combined with other wound No -Current Size (cm) - Length 1.7 -Current Size (cm) - Width 0.3 -Current Size (cm) - Depth 0.1 -Total Square Cm 0.51 -Photo Taken No -Epithelialization None Present -Tunneling No -Undermining/Tunneling No -Circular Undermining No -Exudate Amt None Present -Wound Margin Flat & Intact -Granulation Amt None Present (0 %) -Granulation Quality N/A -Slough/Fibrin Yes -Necrosis Amt Large (67-100%) -Necrotic Tissue Type Adherent Slough -Structure Exposed N/A -Texture (Barbara-wound Skin Appearance) Assessed, Localized Edema -Moisture (Barbara-wound Skin Appearance Assessed,Dry/ ) Scaly -Color (Barbara-wound Skin Appearance) Assessed,Rubor -Temperature (Barbara-wound Skin No Abnormality Appearance) (Pt Warm) -Tenderness on Palpation (Barbara-wound No Skin Appearance) -Ulcer Cleansing soap and water -Foul Odor after Cleansing No -Anesthetic Used 5% Lidocaine Gel [Edema Assessment] -Lower Limb Edema Present Yes -Right Calf (cm) 43.0 -Right Ankle (cm) 23.7 WC - Nurse 2 - General Ulcer CM Notes Start: 05/03/19 15:07 Freq: Status: Active Protocol: Activity Type Activity Date Activity User E-Sign Co-Sign Detail Recorded Client Recorded Date Recorded By Document 05/03/19 15:31 JF [id number] 05/03/19 15:33 JF 05/03/19 15:31 Wound Center Nurse 2 [Procedure/Treatment] #2- R 1ST METATARSAL JOINT -Time 15:32 -Correct Patient Yes -Correct Side, Site, Position Yes -Correct Procedure Yes -Procedure Performed Yes -Type of Procedure Debridement -Clinical Debridement Subcutaneous -Post Debridement Size (cm) - Length 4.1 -Post Debridement Size (cm) - Width 0.5 -Post Debridement Size (cm) - Depth 0.7 -Total Square Cm 2.05 -Wound/Ulcer Outcome Not Healed -Ulcer Cleansing Rinsed/ Irrigated with Saline -Foul Odor after Cleansing No -Bioengineered Tissue No -Bleeding Controlled with Pressure -Offloading Yes -Type of Offloading Surgical Shoe -Treatment Response Procedure Tolerated Well #1- R GR TOE DORSAL -Time 15:32 -Correct Patient Yes -Correct Side, Site, Position Yes -Correct Procedure Yes -Procedure Performed Yes -Type of Procedure Debridement -Clinical Debridement Subcutaneous -Post Debridement Size (cm) - Length 1.8 -Post Debridement Size (cm) - Width 0.3 -Post Debridement Size (cm) - Depth 0.1 -Total Square Cm 0.54 -Wound/Ulcer Outcome Not Healed -Ulcer Cleansing Rinsed/ Irrigated with Saline -Foul Odor after Cleansing No -Bioengineered Tissue No -Bleeding Controlled with Pressure -Offloading Yes -Type of Offloading Surgical Shoe -Treatment Response Procedure Tolerated Well [See Physician Procedure note for Specifics] Pain Scale: 0-10 Numeric [Pain] -Is Patient Pain Free? Yes Musculoskeletal: No Tenderness to Palpation of Joints or Extremities, Muscle Wasting, - - Reduced flow to the first metatarsophalangeal joint range of motion. Neurological: - - Lack of normal epicritic sensation light touch is consistent with neuropathy status Psych/Mental Status: Normal Affect, Appropriate Debridement Note Post-Debridement Measurements/Treatment WC - Nurse 2 - General Ulcer CM Notes Start: 05/03/19 15:07 Freq: Status: Active Protocol: Activity Type Activity Date Activity User E-Sign Co-Sign Detail Recorded Client Recorded Date Recorded By Document 05/03/19 15:31 JF [id number] 05/03/19 15:33 JF 05/03/19 15:31 Wound Center Nurse 2 #2- R 1ST METATARSAL JOINT -Time 15:32 -Correct Patient Yes -Correct Side, Site, Position Yes -Correct Procedure Yes -Procedure Performed Yes -Type of Procedure Debridement -Clinical Debridement Subcutaneous -Post Debridement Size (cm) - Length 4.1 -Post Debridement Size (cm) - Width 0.5 -Post Debridement Size (cm) - Depth 0.7 -Total Square Cm 2.05 -Wound/Ulcer Outcome Not Healed -Ulcer Cleansing Rinsed/ Irrigated with Saline -Foul Odor after Cleansing No -Bioengineered Tissue No -Bleeding Controlled with Pressure -Offloading Yes -Type of Offloading Surgical Shoe -Treatment Response Procedure Tolerated Well #1- R GR TOE DORSAL -Time 15:32 -Correct Patient Yes -Correct Side, Site, Position Yes -Correct Procedure Yes -Procedure Performed Yes -Type of Procedure Debridement -Clinical Debridement Subcutaneous -Post Debridement Size (cm) - Length 1.8 -Post Debridement Size (cm) - Width 0.3 -Post Debridement Size (cm) - Depth 0.1 -Total Square Cm 0.54 -Wound/Ulcer Outcome Not Healed -Ulcer Cleansing Rinsed/ Irrigated with Saline -Foul Odor after Cleansing No -Bioengineered Tissue No -Bleeding Controlled with Pressure -Offloading Yes -Type of Offloading Surgical Shoe -Treatment Response Procedure Tolerated Well Pain Scale: 0-10 Numeric Is Patient Pain Free? Yes Wound debrided: dorsal hallux and plantar forefoot Laterality: Right Wound Grade/Stage: grade 3 Type of Debridement: Excisional debridement Anesthesia Used: 5% Lidocaine Gel Depth: in the subcutaneous layer Percentage of wound debrided: 100 Instrument Used: #15 blade Tissue Removed: fibrous, devitalized subcutaneous, biofilm, slough Severity: Fat Layer Exposed Amount of bleeding with debridement: Mild Bleeding Controlled with: Pressure Patient tolerated procedure well Assessment/Plan Active Problems (Last Updated 04/07/19 @ 17:23 by Ta Aguirre DO) Edema of right lower extremity (Chronic) Malnutrition (Chronic) Delayed wound healing (Chronic) Type 2 diabetes mellitus with diabetic polyneuropathy (Chronic) 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 Diabetes with neuropathy. Delayed healing. Malnutrition suspected. Edema lower extremity Plan: I reviewed and discussed his case. His medical records from [facility] reviewed from earlier this month. It is noted he is completed his course of doxycycline as recommended by infectious disease which covered his prior growth of MRSA and MSSA. To change dressing daily with Aquacel Ag and gauze. He will monitor closely for return of local or systemic signs of infection. It is noted he does have a grade 3 ulcer and he may be a candidate for hyperbaric oxygen therapy. The indications and anticipated healing time management will be discussed to see if he is amendable to proceed forward with this. To keep pressure off of this healing ulcer site by wearing a surgical shoe and avoiding excessive activity. [place] offloading pads were applied to the plantar aspect of the shoe as well as the fabric strap to take pressure off of both ulcer sites. His diagnostic data from his last hospitalization were reviewed including CBC, CMP, and hemoglobin A1c of 7.3%. His noninvasive vascular studies were also reviewed from last month on April 10, 2019 with triphasic bilateral waveforms and adequate flow noted. The right ABIs were 1.28 and 1.12 in the left was 1.24 and 1.17. I recommend proper glycemic control and nutritional supplementation to optimize healing. We discussed his comprehensive wound healing plan and I recommend he follows up next week. He does have a [place] grade 3 ulcer and he is currently discharged from the long term facility. He may be a candidate for hyperbaric oxygen therapy. This will be reviewed with him at his upcoming visit to see if he is able to proceed with this safely. I answered all his questions.
[2019-05-10 14:31] VITALS: BP 170/90; PULSE 93; RESP 18; TEMP 36.6; BMI 85.9
--- NOTE | 2019-05-10 15:21 | PCM.WC.PN ---
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 Current Visit: Yes Code(s): L97.513 - Non-pressure chronic ulcer of other part of right foot with necrosis of muscle Comment: grade 3 (3) Edema of right lower extremity Status: Chronic Current Visit: Yes Code(s): R60.0 - Localized edema (4) Malnutrition Status: Chronic Current Visit: Yes Code(s): E46 - Unspecified protein-calorie malnutrition (5) Delayed wound healing Status: Chronic Current Visit: Yes Code(s): T14.8XXD - Other injury of unspecified body region, subsequent encounter (6) Type 2 diabetes mellitus with diabetic polyneuropathy Status: Chronic Current Visit: Yes Code(s): E11.42 - Type 2 diabetes mellitus with diabetic polyneuropathy (7) Smoker Status: Chronic Current Visit: Yes Code(s): F17.200 - Nicotine dependence, unspecified, uncomplicated Type of Wound Date of Service: 05/10/19 Chief Complaint: Right foot ulcers History of Wound: This 59-year-old male was treated earlier this month at [facility] for infected right foot. He underwent surgical incision and drainage with Dr. Gayle on April 08, 2019. He was treated with IV antibiotics for MRSA and MSSA growth. He has since stabilized and has been discharged home on an additional week of oral doxycycline under the management of infectious disease. He is completed this course. Nursing staff does notice some odor while removing the dressing today. He wears a surgical shoe to keep pressure off the site. He brought this with him today to see if any modifications are possible to take additional pressure off the ulcer sites. He denies pain. He has been changing the dressing with 140Fire ag. He denies fever, chill, nausea, vomiting, redness or odor to the foot. He continues to smoke 1-1/2 packs of cigarettes daily. He also reports he is not been checking his blood sugar since he has been released from the senior living facility and he does not have an explanation for not doing so. Progress of Wound: Stable with delayed healing - Physical Exam Vital Signs Temp Pulse Resp BP 98 F 93 18 170/90 H 05/10/19 14:31 05/10/19 14:31 05/10/19 14:31 05/10/19 14:31 General: Alert, Oriented x3, Cooperative, No apparent distress Extremities: No cyanosis, Capillary Refill Less than 3 Seconds, No Calf Tenderness, Diminished Peripheral Pulses, Edema Skin: Ulcer/ Wound - No purulence, streaking, vikash necrosis or exposed bone joint. There is a slight odor and there is some diffuse rubour versus erythema to this site. The adjacent skin is hairless and atrophic. Wound Measurements and Assessment WC - Nurse 1 - General Ulcer Measurement Start: 05/03/19 15:07 Freq: Status: Active Protocol: Activity Type Activity Date Activity User E-Sign Co-Sign Detail Recorded Client Recorded Date Recorded By Document 05/10/19 14:31 RB [id number] 05/10/19 14:36 RB 05/10/19 14:31 Wound Center Nurse 1 [Ulcer Assessment] #2- R 1ST METATARSAL JOINT -Combined with other wound No -Current Size (cm) - Length 2.6 -Current Size (cm) - Width 0.2 -Current Size (cm) - Depth 0.8 -Total Square Cm 0.52 -Tunneling No -Undermining/Tunneling No -Circular Undermining No -Exudate Amt Medium -Exudate Type Serosanguineous -Wound Margin Thickened & Rolled Under -Granulation Amt Medium (34-66%) -Granulation Quality [place] -Slough/Fibrin Yes -Necrosis Amt Medium (34-66%) -Necrotic Tissue Type Adherent Slough -Structure Exposed N/A -Texture (Barbara-wound Skin Appearance) Assessed -Moisture (Barbara-wound Skin Appearance Maceration ) -Color (Barbara-wound Skin Appearance) Erythema -Temperature (Barbara-wound Skin No Abnormality Appearance) (Pt Warm) -Tenderness on Palpation (Barbara-wound No Skin Appearance) -Ulcer Cleansing Wound Cleanser -Foul Odor after Cleansing Yes -Anesthetic Used 4% Lidocaine Solution #1- R GR TOE DORSAL -Combined with other wound No -Current Size (cm) - Length 1.3 -Current Size (cm) - Width 0.2 -Current Size (cm) - Depth 0.1 -Total Square Cm 0.26 -Tunneling No -Undermining/Tunneling No -Circular Undermining No -Exudate Amt None Present -Wound Margin Flat & Intact -Granulation Amt None Present (0 %) -Slough/Fibrin Yes -Necrosis Amt Large (67-100%) -Necrotic Tissue Type Adherent Slough -Structure Exposed N/A -Texture (Barbara-wound Skin Appearance) Assessed,Callus -Moisture (Barbara-wound Skin Appearance Assessed ) -Color (Barbara-wound Skin Appearance) Assessed -Temperature (Barbara-wound Skin No Abnormality Appearance) (Pt Warm) -Tenderness on Palpation (Barbara-wound No Skin Appearance) -Ulcer Cleansing Wound Cleanser -Foul Odor after Cleansing No -Anesthetic Used 4% Lidocaine Solution WC - Nurse 2 - General Ulcer CM Notes Start: 05/03/19 15:07 Freq: Status: Active Protocol: Activity Type Activity Date Activity User E-Sign Co-Sign Detail Recorded Client Recorded Date Recorded By Document 05/10/19 14:48 [email or web address] [id number] 05/10/19 14:50 [email or web address] 05/10/19 14:48 Wound Center Nurse 2 [Procedure/Treatment] #2- R 1ST METATARSAL JOINT -Time 14:49 -Correct Patient Yes -Correct Side, Site, Position Yes -Correct Procedure Yes -Procedure Performed Yes -Type of Procedure Debridement -Clinical Debridement Subcutaneous -Post Debridement Size (cm) - Length 4.9 -Post Debridement Size (cm) - Width 0.6 -Post Debridement Size (cm) - Depth 0.6 -Total Square Cm 2.94 -Wound/Ulcer Outcome Not Healed -Ulcer Cleansing Rinsed/ Irrigated with Saline -Foul Odor after Cleansing No -Bioengineered Tissue No -Bleeding Controlled with Pressure -Offloading Yes -Type of Offloading Surgical Shoe -Treatment Response Procedure Tolerated Well #1- R GR TOE DORSAL -Time 14:49 -Correct Patient Yes -Correct Side, Site, Position Yes -Correct Procedure Yes -Procedure Performed Yes -Type of Procedure Debridement -Clinical Debridement Subcutaneous -Post Debridement Size (cm) - Length 1.0 -Post Debridement Size (cm) - Width 0.2 -Post Debridement Size (cm) - Depth 0.3 -Total Square Cm 0.20 -Wound/Ulcer Outcome Not Healed -Ulcer Cleansing Rinsed/ Irrigated with Saline -Foul Odor after Cleansing No -Bioengineered Tissue No -Bleeding Controlled with Pressure -Offloading Yes -Type of Offloading Surgical Shoe -Treatment Response Procedure Tolerated Well [See Physician Procedure note for Specifics] Pain Scale: 0-10 Numeric [Pain] -Is Patient Pain Free? Yes Musculoskeletal: No Tenderness to Palpation of Joints or Extremities, Muscle Wasting Neurological: - - Lack of normal epicritic sensation light touch consistent with neuropathy status Psych/Mental Status: Normal Affect, Appropriate Debridement Note Post-Debridement Measurements/Treatment WC - Nurse 2 - General Ulcer CM Notes Start: 05/03/19 15:07 Freq: Status: Active Protocol: Activity Type Activity Date Activity User E-Sign Co-Sign Detail Recorded Client Recorded Date Recorded By Document 05/03/19 15:31 [id number] 05/03/19 15:33 Document 05/10/19 14:48 [id number] 05/10/19 14:50 05/03/19 05/10/19 15:31 14:48 Wound Center Nurse 2 #2- R 1ST METATARSAL JOINT -Time 15:32 14:49 -Correct Patient Yes Yes -Correct Side, Site, Position Yes Yes -Correct Procedure Yes Yes -Procedure Performed Yes Yes -Type of Procedure Debridement Debridement -Clinical Debridement Subcutaneous Subcutaneous -Post Debridement Size (cm) - Length 4.1 4.9 -Post Debridement Size (cm) - Width 0.5 0.6 -Post Debridement Size (cm) - Depth 0.7 0.6 -Total Square Cm 2.05 2.94 -Wound/Ulcer Outcome Not Healed Not Healed -Ulcer Cleansing Rinsed/ Rinsed/ Irrigated with Irrigated with Saline Saline -Foul Odor after Cleansing No No -Bioengineered Tissue No No -Bleeding Controlled with Pressure Pressure -Offloading Yes Yes -Type of Offloading Surgical Shoe Surgical Shoe -Treatment Response Procedure Procedure Tolerated Well Tolerated Well #1- R GR TOE DORSAL -Time 15:32 14:49 -Correct Patient Yes Yes -Correct Side, Site, Position Yes Yes -Correct Procedure Yes Yes -Procedure Performed Yes Yes -Type of Procedure Debridement Debridement -Clinical Debridement Subcutaneous Subcutaneous -Post Debridement Size (cm) - Length 1.8 1.0 -Post Debridement Size (cm) - Width 0.3 0.2 -Post Debridement Size (cm) - Depth 0.1 0.3 -Total Square Cm 0.54 0.20 -Wound/Ulcer Outcome Not Healed Not Healed -Ulcer Cleansing Rinsed/ Rinsed/ Irrigated with Irrigated with Saline Saline -Foul Odor after Cleansing No No -Bioengineered Tissue No No -Bleeding Controlled with Pressure Pressure -Offloading Yes Yes -Type of Offloading Surgical Shoe Surgical Shoe -Treatment Response Procedure Procedure Tolerated Well Tolerated Well Pain Scale: 0-10 Numeric Is Patient Pain Free? Yes Yes Wound debrided: dorsal hallux, plantar medial first metatarsal head Laterality: Right Wound Grade/Stage: grade 3 Type of Debridement: Excisional debridement Anesthesia Used: 5% Lidocaine Gel Depth: in the subcutaneous layer Percentage of wound debrided: 100 Instrument Used: #15 blade Tissue Removed: Fibrous, devitalized subcutaneous, biofilm, slough Severity: Fat Layer Exposed Amount of bleeding with debridement: Mild Bleeding Controlled with: Pressure Patient tolerated procedure well Assessment/Plan Active Problems (Last Updated 04/07/19 @ 17:23 by Ta Aguirre DO) Edema of right lower extremity (Chronic) Malnutrition (Chronic) Delayed wound healing (Chronic) Smoker (Chronic) Type 2 diabetes mellitus with diabetic polyneuropathy (Chronic) Right foot infection (Acute) 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 Return infection right foot. Diabetes with neuropathy. Delayed healing. Malnutrition suspected. Edema lower extremity Plan: I reviewed and discussed his case. His medical records from [facility] reviewed. It is noted he is completed his course of doxycycline as recommended by infectious disease which covered his prior growth of MRSA and MSSA. There is a return odor today and I provided a refill of doxycycline and advised on proper use. New cultures were obtained today including aerobic, anaerobic, and acid-fast. To change dressing daily with Aquacel Ag and gauze. He will monitor closely for return of local or systemic signs of infection. After his colonization versus infection status resolved I would consider delayed primary closure in the clinical setting. It is noted he does have a grade 3 ulcer and he may be a candidate for hyperbaric oxygen therapy. The indications and anticipated healing time management will be discussed to see if he is amendable to proceed forward with this. To keep pressure off of this healing ulcer site by wearing a surgical shoe and avoiding excessive activity. [place] offloading pads were applied to the plantar aspect of the shoe as well as the fabric strap to take pressure off of both ulcer sites. His diagnostic data from his last hospitalization were reviewed including CBC, CMP, and hemoglobin A1c of 7.3%. His noninvasive vascular studies were also reviewed from last month on April 10, 2019 with triphasic bilateral waveforms and adequate flow noted. The right ABIs were 1.28 and 1.12 in the left was 1.24 and 1.17. I recommend proper glycemic control and nutritional supplementation to optimize healing. It is imperative he monitors his blood glucose levels at home and he will try to resume this. We discussed his comprehensive wound healing plan and I recommend he follows up next week. He does have a Catalan grade 3 ulcer and he is currently discharged from the longterm facility. He may be a candidate for hyperbaric oxygen therapy. I answered all his questions. I also recommended smoking cessation and discussed the risks and complications associated with this including delayed healing, limb loss, and other systemic issues.
[2019-05-11 14:02] LABS: M R Staph aureus DNA By PCR Negative (Negative); Probe Check PASS; Staph aureus DNA By PCR POSITIVE (Negative)
[2019-05-17 15:27] VITALS: BP 154/88; PULSE 100; RESP 16; TEMP 37; BMI 85.9
--- NOTE | 2019-05-17 16:23 | PN.PCM_ITS ---
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 Current Visit: Yes Code(s): L97.513 - Non-pressure chronic ulcer of other part of right foot with necrosis of muscle Comment: grade 3 (3) Edema of right lower extremity Status: Chronic Current Visit: Yes Code(s): R60.0 - Localized edema (4) Malnutrition Status: Chronic Current Visit: Yes Code(s): E46 - Unspecified protein- calorie malnutrition (5) Delayed wound healing Status: Chronic Current Visit: Yes Code(s): T14.8XXD - Other injury of unspecified body region, subsequent encounter (6) Type 2 diabetes mellitus with diabetic polyneuropathy Status: Chronic Current Visit: Yes Code(s): E11.42 - Type 2 diabetes mellitus with diabetic polyneuropathy (7) Smoker Status: Chronic Current Visit: Yes Code(s): F17.200 - Nicotine dependence, unspecified, uncomplicated Type of Wound Date of Service: 05/17/19 Chief Complaint: Right foot ulcers History of Wound: This 59-year-old male was treated earlier this month at [facility] for infected right foot. He underwent surgical inc ision and drainage with Dr. Gayle on April 08, 2019. He was treated with IV antibiotics for MRSA and MSSA growth. He has since stabilized and has been discharged home on an additional week of oral doxycycline under the management of infectious disease. He had recent cultures repeated last week and would like to discuss results. He relates he does not have a home health visiting the last half week and he was unable to change his dressing. He denies odor or redness. Last week, he did get fitted with an offloading CAM Walker boot with pocket to take pressure off the ulcer site at the foot [facility] ankle center. He brought this with him today to see if any modifications are possible to take additional pressure off the ulcer sites. He denies pain. He has been changing the dressing with turboBOTZ ag. He denies fever, chill, nausea, vomiting, redness or odor to the foot. He continues to smoke 1-1/2 packs of cigarettes daily. He has been trying to reduce this. Progress of Wound: Stable with delayed healing - Physical Exam Vital Signs Temp Pulse Resp BP 98.6 F 100 16 154/88 H 05/17/19 15:27 05/17/19 15:27 05/17/19 15:27 05/17/19 15:27 General: Alert, Oriented x3, Cooperative, No apparent distress Extremities: No cyanosis, Capillary Refill Less than 3 Seconds, No Calf Tenderness, Diminished Peripheral Pulses, Edema Skin: Ulcer/ Wound - Purulence or proximal streaking or necrosis or exposed bone. There is some rubor and erythema immediately adjacent to the plantar medial ulcer site. The ulcer bed is granular and devitalized and fibrous also. There are delays in healing. The adjacent skin is hairless and atrophic. Wound Measurements and Assessment WC - Nurse 1 - General Ulcer Measurement Start: 05/03/19 15:07 Freq: Status: Active Protocol: Activity Type Activity Date Activity User E-Sign Co-Sign Detail Recorded Client Recorded Date Recorded By Document 05/17/19 15:27 [facility] [id number] 05/17/19 15:30 [facility] 05/17/19 15:27 Wound Center Nurse 1 [Ulcer Assessment] #2- R 1ST METATARSAL JOINT -Combined with other wound No -Current Size (cm) - Length 1.9 -Current Size (cm) - Width 0.4 -Current Size (cm) - Depth 0.6 -Total Square Cm 0.76 -Photo Taken No -Epithelialization None Present -Tunneling No -Undermining/Tunneling No -Circular Undermining No -Exudate Amt Medium -Exudate Type Serosanguineous -Wound Margin Distinct, Outline Attached -Granulation Amt Small (1-33%) -Granulation Quality [place] -Slough/Fibrin Yes -Necrosis Amt Large (67-100%) -Necrotic Tissue Type Adherent Slough -Texture (Barbara-wound Skin Appearance) Assessed, Scarring -Moisture (Barbara-wound Skin Appearance Assessed, ) Maceration -Color (Barbara-wound Skin Appearance) Assessed,Palor -Temperature (Barbara-wound Skin No Abnormality Appearance) (Pt Warm) -Tenderness on Palpation (Barbara-wound No Skin Appearance) -Ulcer Cleansing Rinsed/ Irrigated with Saline -Foul Odor after Cleansing No -Anesthetic Used 5% Lidocaine Gel #1- R GR TOE DORSAL -Combined with other wound No -Current Size (cm) - Length 0.1 -Current Size (cm) - Width 0.1 -Current Size (cm) - Depth 0.1 -Total Square Cm 0.01 -Photo Taken No -Epithelialization None Present -Tunneling No -Undermining/Tunneling No -Circular Undermining No -Exudate Amt None Present -Granulation Amt None Present (0 %) -Slough/Fibrin Yes -Necrosis Amt Large (67-100%) -Necrotic Tissue Type Eschar -Texture (Barbara-wound Skin Appearance) Assessed, Scarring -Moisture (Barbara-wound Skin Appearance Assessed,Dry/ ) Scaly -Color (Barbara-wound Skin Appearance) Assessed -Temperature (Barbara-wound Skin No Abnormality Appearance) (Pt Warm) -Tenderness on Palpation (Barbara-wound No Skin Appearance) -Ulcer Cleansing Rinsed/ Irrigated with Saline -Foul Odor after Cleansing No -Anesthetic Used 5% Lidocaine Gel WC - Nurse 2 - General Ulcer CM Notes Start: 05/03/19 15:07 Freq: Status: Active Protocol: Activity Type Activity Date Activity User E-Sign Co-Sign Detail Recorded Client Recorded Date Recorded By Document 05/17/19 15:41 [id number] 05/17/19 15:44 [email or web address] 05/17/19 15:41 Wound Center Nurse 2 [Procedure/Treatment] #2- R 1ST METATARSAL JOINT -Time 15:41 -Correct Patient Yes -Correct Side, Site, Position Yes -Correct Procedure Yes -Procedure Performed Yes -Type of Procedure Debridement -Clinical Debridement Subcutaneous -Post Debridement Size (cm) - Length 2.6 -Post Debridement Size (cm) - Width 0.5 -Post Debridement Size (cm) - Depth 0.3 -Total Square Cm 1.30 -Wound/Ulcer Outcome Not Healed -Ulcer Cleansing Rinsed/ Irrigated with Saline -Foul Odor after Cleansing No -Bioengineered Tissue No -Bleeding Controlled with Pressure -Offloading Yes -Type of Offloading Camwalker -Treatment Response Procedure Tolerated Well #1- R GR TOE DORSAL -Time 15:42 -Correct Patient Yes -Correct Side, Site, Position Yes -Correct Procedure Yes -Procedure Performed Yes -Type of Procedure Debridement -Clinical Debridement Subcutaneous -Post Debridement Size (cm) - Length 0.7 -Post Debridement Size (cm) - Width 0.1 -Post Debridement Size (cm) - Depth 0.2 -Total Square Cm 0.07 -Wound/Ulcer Outcome Not Healed -Ulcer Cleansing Rinsed/ Irrigated with Saline -Foul Odor after Cleansing No -Bioengineered Tissue No -Bleeding Controlled with Pressure -Offloading Yes -Type of Offloading Camwalker -Treatment Response Procedure Tolerated Well [See Physician Procedure note for Specifics] Pain Scale: 0-10 Numeric [Pain] -Is Patient Pain Free? Yes Musculoskeletal: No Tenderness to Palpation of Joints or Extremities, Muscle Wasting, - - Decreased out of first metatarsal phalangeal joint range of motion Neurological: - - Abnormal sensation light touch Psych/Mental Status: Normal Affect, Appropriate Debridement Note Post-Debridement Measurements/Treatment WC - Nurse 2 - General Ulcer CM Notes Start: 05/03/19 15:07 Freq: Status: Active Protocol: Activity Type Activity Date Activity User E-Sign Co-Sign Detail Recorded Client Recorded Date Recorded By Document 05/03/19 15:31 [id number] 05/03/19 15:33 Document 05/10/19 14:48 [id number] 05/10/19 14:50 Document 05/17/19 15:41 [id number] 05/17/19 15:44 05/03/19 05/10/19 05/17/19 15:31 14:48 15:41 Wound Center Nurse 2 #2- R 1ST METATARSAL JOINT -Time 15:32 14:49 15:41 -Correct Patient Yes Yes Yes -Correct Side, Site, Position Yes Yes Yes -Correct Procedure Yes Yes Yes -Procedure Performed Yes Yes Yes -Type of Procedure Debridement Debridement Debridement -Clinical Debridement Subcutaneous Subcutaneous Subcutaneous -Post Debridement Size (cm) - Length 4.1 4.9 2.6 -Post Debridement Size (cm) - Width 0.5 0.6 0.5 -Post Debridement Size (cm) - Depth 0.7 0.6 0.3 -Total Square Cm 2.05 2.94 1.30 -Wound/Ulcer Outcome Not Healed Not Healed Not Healed -Ulcer Cleansing Rinsed/ Rinsed/ Rinsed/ Irrigated with Irrigated with Irrigated with Saline Saline Saline -Foul Odor after Cleansing No No No -Bioengineered Tissue No No No -Bleeding Controlled with Pressure Pressure Pressure -Offloading Yes Yes Yes -Type of Offloading Surgical Shoe Surgical Shoe Camwalker -Treatment Response Procedure Procedure Procedure Tolerated Well Tolerated Well Tolerated Well #1- R GR TOE DORSAL -Time 15:32 14:49 15:42 -Correct Patient Yes Yes Yes -Correct Side, Site, Position Yes Yes Yes -Correct Procedure Yes Yes Yes -Procedure Performed Yes Yes Yes -Type of Procedure Debridement Debridement Debridement -Clinical Debridement Subcutaneous Subcutaneous Subcutaneous -Post Debridement Size (cm) - Length 1.8 1.0 0.7 -Post Debridement Size (cm) - Width 0.3 0.2 0.1 -Post Debridement Size (cm) - Depth 0.1 0.3 0.2 -Total Square Cm 0.54 0.20 0.07 -Wound/Ulcer Outcome Not Healed Not Healed Not Healed -Ulcer Cleansing Rinsed/ Rinsed/ Rinsed/ Irrigated with Irrigated with Irrigated with Saline Saline Saline -Foul Odor after Cleansing No No No -Bioengineered Tissue No No No -Bleeding Controlled with Pressure Pressure Pressure -Offloading Yes Yes Yes -Type of Offloading Surgical Shoe Surgical Shoe Camwalker -Treatment Response Procedure Procedure Procedure Tolerated Well Tolerated Well Tolerated Well Pain Scale: 0-10 Numeric Is Patient Pain Free? Yes Yes Yes Wound debrided: DORsal hallux, plantar medial first metatarsal head Laterality: Right Wound Grade/Stage: grade 3 Type of Debridement: Excisional debridement Anesthesia Used: 5% Lidocaine Gel Depth: in the subcutaneous layer Percentage of wound debrided: 100 Instrument Used: #15 blade Tissue Removed: fibrous, devitalized subcutaneous, biofilm, slough Severity: Fat Layer Exposed Amount of bleeding with debridement: Mild Bleeding Controlled with: Pressure Patient tolerated procedure well Assessment/Plan Active Problems (Last Updated 04/07/19 @ 17:23 by Ta Aguirre DO) Edema of right lower extremity (Chronic) Malnutrition (Chronic) Delayed wound healing (Chronic) Smoker (Chronic) Type 2 diabetes mellitus with diabetic polyneuropathy (Chronic) Right foot infection (Chronic) 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 Return infection right foot. Diabetes with neuropathy. Delayed healing. Malnutrition suspected. Edema lower extremity Plan: I reviewed and discussed his case. There is a return odor last week and I provided a refill of doxycycline and advised on proper use. New cultures were obtained and there is Staphylococcus aureus and Enterococcus faecalis growth. Oral ciprofloxacin was added to his treatment plan and he was advised on proper use. To change dressing daily with Aquacel Ag and gauze. He will monitor closely for return of local or systemic signs of infection. After his colonization versus infection status resolved I would consider delayed primary closure in the clinical setting. To wash the ulcer daily with antimicrobial medical. He declines for Ramya-Hex soap. It is noted he does have a grade 3 ulcer and the indications and anticipated healing time management will be discussed to see if he is amendable to proceed forward with this. He would need to stop smoking in order to proceed with this therapy. To keep pressure off of this healing ulcer site by wearing a surgical shoe and avoiding excessive activity. [place] offloading pads were applied to the plantar aspect of the shoe as well as the fabric strap to take pressure off of both ulcer sites. His diagnostic data from his last hospitalization were reviewed including CBC, CMP, and hemoglobin A1c of 7.3%. His noninvasive vascular studies were also reviewed from last month on April 10, 2019 with triphasic bilateral waveforms and adequate flow noted. The right ABIs were 1.28 and 1.12 in the left was 1.24 and 1.17. I recommend proper glycemic control and nutritional supplementation to optimize healing. It is imperative he monitors his blood glucose levels at home and he will try to resume this. We discussed his comprehensive wound healing plan and I recommend he follows up next week. He does have a Catalan grade 3 ulcer and he is currently discharged from the long term facility. I answered all his questions. I also recommended smoking cessation and discussed the risks and complications associated with this including delayed healing, limb loss, and other systemic issues.
[2019-05-24 15:17] VITALS: BP 172/70; PULSE 104; RESP 18; TEMP 36.8; BMI 85.9
--- NOTE | 2019-05-24 23:50 | PN.PCM_ITS ---
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 Current Visit: Yes Code(s): L97.513 - Non-pressure chronic ulcer of other part of right foot with necrosis of muscle Comment: grade 3 (3) Edema of right lower extremity Status: Chronic Current Visit: Yes Code(s): R60.0 - Localized edema (4) Malnutrition Status: Chronic Current Visit: Yes Code(s): E46 - Unspecified protein- calorie malnutrition (5) Delayed wound healing Status: Chronic Current Visit: Yes Code(s): T14.8XXD - Other injury of unspecified body region, subsequent encounter (6) Type 2 diabetes mellitus with diabetic polyneuropathy Status: Chronic Current Visit: Yes Code(s): E11.42 - Type 2 diabetes mellitus with diabetic polyneuropathy (7) Smoker Status: Chronic Current Visit: Yes Code(s): F17.200 - Nicotine dependence, unspecified, uncomplicated Type of Wound Date of Service: 05/24/19 Chief Complaint: Right foot ulcers History of Wound: This 59-year-old male was treated earlier this month at [facility] for infected right foot. He underwent surgical in cision and drainage with Dr. Gayle on April 08, 2019. He was treated with IV antibiotics for MRSA and MSSA growth. He has since stabilized and has been discharged home on an additional week of oral doxycycline under the management of infectious disease. He had recent cultures repeated last week and there was colonization of pathological bacteria noted. He has been diligently washing this with antimicrobial medical grade Hibiclens soap with resolution of erythema and odor; the quality of the ulcer also improved. He denies drainage from the ulcer to the top of the toe and thinks the site is healed. He denies odor or redness. He did get fitted with an offloading CAM Walker boot with pocket to take pressure off the ulcer site at the foot and ankle center. He denies pain. He has been changing the dressing with Aviate ag. He denies fever, chill, nausea, vomiting, redness or odor to the foot. He continues to smoke 1-1/2 packs of cigarettes daily. He has been trying to reduce this. Progress of Wound: Stable with delayed healing. Healed dorsal hallux ulcer - Physical Exam Vital Signs Temp Pulse Resp BP 98.2 F 104 H 18 172/70 H 05/24/19 15:17 05/24/19 15:17 05/24/19 15:17 05/24/19 15:17 General: Alert, Oriented x3, Cooperative, No apparent distress Extremities: No cyanosis, Capillary Refill Less than 3 Seconds, No Calf Tenderness, Diminished Peripheral Pulses, Edema Skin: Ulcer/ Wound - Full epithelialization noted to the dorsal hallux ulcer site. The plantar medial first metatarsal head ulcer site is granular with reduced fibrous tissue. There is reduced erythema and edema noted. There is no odor, purulence, or exposed bone. This looks appropriate to proceed for delayed primary closure today. The skin is adjacently atrophic and hairless and thin Wound Measurements and Assessment WC - Nurse 1 - General Ulcer Measurement Start: 05/03/19 15:07 Freq: Status: Active Protocol: Activity Type Activity Date Activity User E-Sign Co-Sign Detail Recorded Client Recorded Date Recorded By Document 05/24/19 15:17 [facility] [id number] 05/24/19 15:21 [facility] 05/24/19 15:17 Wound Center Nurse 1 [Ulcer Assessment] #2- R 1ST METATARSAL JOINT -Combined with other wound No -Current Size (cm) - Length 1.1 -Current Size (cm) - Width 0.2 -Current Size (cm) - Depth 0.4 -Total Square Cm 0.22 -Photo Taken No -Epithelialization None Present -Tunneling No -Undermining/Tunneling No -Circular Undermining No -Exudate Amt Small -Exudate Type Serosanguineous -Wound Margin Distinct, Outline Attached -Granulation Amt Medium (34-66%) -Granulation Quality Pale,Red -Slough/Fibrin Yes -Necrosis Amt Medium (34-66%) -Necrotic Tissue Type Adherent Slough -Texture (Micaela-wound Skin Appearance) Assessed,Callus ,Scarring -Moisture (Micaela-wound Skin Appearance Assessed,Dry/ ) Scaly -Color (Micaela-wound Skin Appearance) Assessed -Temperature (Micaela-wound Skin No Abnormality Appearance) (Pt Warm) -Tenderness on Palpation (Micaela-wound No Skin Appearance) -Ulcer Cleansing Rinsed/ Irrigated with Saline -Foul Odor after Cleansing No -Anesthetic Used 5% Lidocaine Gel #1- R GR TOE DORSAL -Combined with other wound No -Current Size (cm) - Length 0.1 -Current Size (cm) - Width 0.1 -Current Size (cm) - Depth 0.1 -Total Square Cm 0.01 -Photo Taken No -Epithelialization None Present -Tunneling No -Undermining/Tunneling No -Circular Undermining No -Exudate Amt None Present -Wound Margin Distinct, Outline Attached -Granulation Amt None Present (0 %) -Slough/Fibrin Yes -Necrosis Amt Small (1-33%) -Necrotic Tissue Type Eschar -Texture (Micaela-wound Skin Appearance) Assessed, Scarring -Moisture (Micaela-wound Skin Appearance Assessed,Dry/ ) Scaly -Color (Micaela-wound Skin Appearance) Assessed -Temperature (Micaela-wound Skin No Abnormality Appearance) (Pt Warm) -Tenderness on Palpation (Micaela-wound No Skin Appearance) -Ulcer Cleansing Rinsed/ Irrigated with Saline -Foul Odor after Cleansing No -Anesthetic Used 5% Lidocaine Gel WC - Nurse 2 - General Ulcer CM Notes Start: 05/03/19 15:07 Freq: Status: Active Protocol: Activity Type Activity Date Activity User E-Sign Co-Sign Detail Recorded Client Recorded Date Recorded By Document 05/24/19 15:41 [id number] 05/24/19 15:44 05/24/19 15:41 Wound Center Nurse 2 [Procedure/Treatment] #2- R 1ST METATARSAL JOINT -Time 15:42 -Correct Patient Yes -Correct Side, Site, Position Yes -Correct Procedure Yes -Procedure Performed Yes -Type of Procedure Debridement -Clinical Debridement Subcutaneous -Post Debridement Size (cm) - Length 1.2 -Post Debridement Size (cm) - Width 0.3 -Post Debridement Size (cm) - Depth 0.5 -Total Square Cm 0.36 -Wound/Ulcer Outcome Not Healed -Ulcer Cleansing Rinsed/ Irrigated with Saline -Foul Odor after Cleansing No -Bioengineered Tissue No -Bleeding Controlled with Pressure -Offloading Yes -Type of Offloading Camwalker -Treatment Response Procedure Tolerated Well #1- R GR TOE DORSAL -Correct Patient No -Correct Side, Site, Position No -Correct Procedure No -Procedure Performed No -Post Debridement Size (cm) - Length 0 -Post Debridement Size (cm) - Width 0 -Post Debridement Size (cm) - Depth 0 -Total Square Cm 0 -Wound/Ulcer Outcome Healed- Epithelialized [See Physician Procedure note for Specifics] Pain Scale: 0-10 Numeric [Pain] -Is Patient Pain Free? Yes Musculoskeletal: No Tenderness to Palpation of Joints or Extremities, Muscle Wasting Neurological: - - Lack of normal operating sensation light touch is consistent with his neuropathy Psych/Mental Status: Normal Affect, Appropriate Debridement Note Post-Debridement Measurements/Treatment WC - Nurse 2 - General Ulcer CM Notes Start: 05/03/19 15:07 Freq: Status: Active Protocol: Activity Type Activity Date Activity User E-Sign Co-Sign Detail Recorded Client Recorded Date Recorded By Document 05/03/19 15:31 [id number] 05/03/19 15:33 Document 05/10/19 14:48 [id number] 05/10/19 14:50 Document 05/17/19 15:41 [id number] 05/17/19 15:44 Document 05/24/19 15:41 [id number] 05/24/19 15:44 05/03/19 05/10/19 05/17/19 15:31 14:48 15:41 Wound Center Nurse 2 #2- R 1ST METATARSAL JOINT -Time 15:32 14:49 15:41 -Correct Patient Yes Yes Yes -Correct Side, Site, Position Yes Yes Yes -Correct Procedure Yes Yes Yes -Procedure Performed Yes Yes Yes -Type of Procedure Debridement Debridement Debridement -Clinical Debridement Subcutaneous Subcutaneous Subcutaneous -Post Debridement Size (cm) - Length 4.1 4.9 2.6 -Post Debridement Size (cm) - Width 0.5 0.6 0.5 -Post Debridement Size (cm) - Depth 0.7 0.6 0.3 -Total Square Cm 2.05 2.94 1.30 -Wound/Ulcer Outcome Not Healed Not Healed Not Healed -Ulcer Cleansing Rinsed/ Rinsed/ Rinsed/ Irrigated with Irrigated with Irrigated with Saline Saline Saline -Foul Odor after Cleansing No No No -Bioengineered Tissue No No No -Bleeding Controlled with Pressure Pressure Pressure -Offloading Yes Yes Yes -Type of Offloading Surgical Shoe Surgical Shoe Camwalker -Treatment Response Procedure Procedure Procedure Tolerated Well Tolerated Well Tolerated Well #1- R GR TOE DORSAL -Time 15:32 14:49 15:42 -Correct Patient Yes Yes Yes -Correct Side, Site, Position Yes Yes Yes -Correct Procedure Yes Yes Yes -Procedure Performed Yes Yes Yes -Type of Procedure Debridement Debridement Debridement -Clinical Debridement Subcutaneous Subcutaneous Subcutaneous -Post Debridement Size (cm) - Length 1.8 1.0 0.7 -Post Debridement Size (cm) - Width 0.3 0.2 0.1 -Post Debridement Size (cm) - Depth 0.1 0.3 0.2 -Total Square Cm 0.54 0.20 0.07 -Wound/Ulcer Outcome Not Healed Not Healed Not Healed -Ulcer Cleansing Rinsed/ Rinsed/ Rinsed/ Irrigated with Irrigated with Irrigated with Saline Saline Saline -Foul Odor after Cleansing No No No -Bioengineered Tissue No No No -Bleeding Controlled with Pressure Pressure Pressure -Offloading Yes Yes Yes -Type of Offloading Surgical Shoe Surgical Shoe Camwalker -Treatment Response Procedure Procedure Procedure Tolerated Well Tolerated Well Tolerated Well Pain Scale: 0-10 Numeric Is Patient Pain Free? Yes Yes Yes 05/24/19 15:41 Wound Center Nurse 2 #2- R 1ST METATARSAL JOINT -Time 15:42 -Correct Patient Yes -Correct Side, Site, Position Yes -Correct Procedure Yes -Procedure Performed Yes -Type of Procedure Debridement -Clinical Debridement Subcutaneous -Post Debridement Size (cm) - Length 1.2 -Post Debridement Size (cm) - Width 0.3 -Post Debridement Size (cm) - Depth 0.5 -Total Square Cm 0.36 -Wound/Ulcer Outcome Not Healed -Ulcer Cleansing Rinsed/ Irrigated with Saline -Foul Odor after Cleansing No -Bioengineered Tissue No -Bleeding Controlled with Pressure -Offloading Yes -Type of Offloading Camwalker -Treatment Response Procedure Tolerated Well #1- R GR TOE DORSAL -Time -Correct Patient No -Correct Side, Site, Position No -Correct Procedure No -Procedure Performed No -Type of Procedure -Clinical Debridement -Post Debridement Size (cm) - Length 0 -Post Debridement Size (cm) - Width 0 -Post Debridement Size (cm) - Depth 0 -Total Square Cm 0 -Wound/Ulcer Outcome Healed- Epithelialized -Ulcer Cleansing -Foul Odor after Cleansing -Bioengineered Tissue -Bleeding Controlled with -Offloading -Type of Offloading -Treatment Response Pain Scale: 0-10 Numeric Is Patient Pain Free? Yes Wound debrided: plantar medial forefoot Laterality: Right Wound Grade/Stage: grade 3 Type of Debridement: Excisional debridement Anesthesia Used: 5% Lidocaine Gel Depth: in the subcutaneous layer Percentage of wound debrided: 100 Instrument Used: #15 blade Tissue Removed: fibrous, devitalized subcutaneous, biofilm, slough Severity: Fat Layer Exposed Amount of bleeding with debridement: Mild Bleeding Controlled with: Pressure Patient tolerated procedure well delayed primary closure performed with 3-0 prolene Assessment/Plan Active Problems (Last Updated 04/07/19 @ 17:[address] 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 Return infection right foot. Diabetes with neuropathy. Delayed healing. Malnutrition suspected. Edema lower extremity Plan: I reviewed and discussed his case. The odor and micaela-ulcer site inflammation has resolved since he has been washing with antimicrobial medical grade soap. His most recent cultures were obtained and there is Staphylococcus aureus and Enterococcus faecalis growth. Previously, oral antibiotics were added to his treatment plan and he was advised on proper use. He was advised to complete the course. He will monitor closely for return of local or systemic signs of infection. It is noted the dorsal hallux ulcer is healed. The plantar medial foot ulcer was debrided with a 15 blade scalpel and saline irrigation was performed. Delayed primary closure was performed utilizing simple and vertical mattress technique to reapproximate the skin edges. This was performed with no touch technique and non-tensile manner. He did not require local anesthetic due to his lack of sensation. This was performed after Betadine cleanse. This was covered with dry gauze and he was advised to keep this clean and intact until follow-up next week. It is noted he does have a grade 3 ulcer and the indications and anticipated healing time management will be discussed to see if he is amendable to proceed forward with this. He would need to stop smoking in order to proceed with this therapy. To keep pressure off of this healing ulcer site by wearing a surgical shoe and avoiding excessive activity. Delta offloading pads were applied to the plantar aspect of the shoe as well as the fabric strap to take pressure off of both ulcer sites. His diagnostic data from his last hospitalization were reviewed including CBC, CMP, and hemoglobin A1c of 7.3%. His noninvasive vascular studies were also reviewed from last month on April 10, 2019 with triphasic bilateral waveforms and adequate flow noted. The right ABIs were 1.28 and 1.12 in the left was 1.24 and 1.17. I recommend proper glycemic control and nutritional supplementation to optimize healing. It is imperative he monitors his blood glucose levels at home and he will try to resume this. We discussed his comprehensive wound healing plan and I recommend he follows up next week. He does have a Catalan grade 3 ulcer and he is currently discharged from the skilled nursing facility. I answered all his questions. I also recommended smoking cessation and discussed the risks and complications associated with this including delayed healing, limb loss, and other systemic issues. He relates he has been working on this.
== END 2019-05-27 23:59 ==
LOC: WC 14:45
PROVIDERS: PCP Family Medicine; Visit Provider Podiatrist
DX: E11.621 Type 2 diabetes mellitus with foot ulcer (principal); E11.42 Type 2 diabetes mellitus with diabetic polyneuropathy; R60.0 Localized edema; L97.512 Non-pressure chronic ulcer of other part of right foot with fat layer exposed; F17.200 Nicotine dependence, unspecified, uncomplicated; Z86.14 Personal history of Methicillin resistant Staphylococcus aureus infection
CPT/HCPCS: 11042; 87070; 87075; 87077; 87186; 87205; 87640

== ENCOUNTER 2019-06-21 14:30 | Outpatient (RCR) | payer MEDICAID, SELFPAY ==
[2019-05-28 00:58] VITALS: BP 172/70; PULSE 104; RESP 18; TEMP 36.8
[2019-05-31 15:19] VITALS: BP 182/93; PULSE 98; RESP 18; TEMP 36.1; BMI 85.9
--- NOTE | 2019-05-31 15:26 | WC ---
sutures intact incision well approximated on R foot first metatarsel
--- NOTE | 2019-05-31 21:44 | PN.PCM_ITS ---
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 He underwent surgical incision and drainage with Dr. Gayle on April 08, 2019. He was treated with IV antibiotics for MRSA and MSSA growth. He has since stabilized and has been discharged home on an additional week of oral doxycycline under the management of infectious disease. He has been previously diligently washing this with antimicrobial medical grade Hibiclens soap with resolution of erythema and odor; the quality of the ulcer also improved. He denies drainage from the ulcer to the top of the toe and thinks the site is healed. He denies odor or redness. He did get fitted with an offloading CAM Walker boot with pocket to take pressure off the ulcer site at the foot and ankle center. He denies pain. He has been changing the dressing with [employer]. He denies fever, chill, nausea, vomiting, redness or odor to the foot. He continues to smoke 1-1/2 packs of cigarettes daily. He has been trying to reduce this. He has 1 week ago. Progress of Wound: Stable with delayed healing plantar medial foot. Healed dorsal hallux ulcer - Physical Exam Vital Signs Temp Pulse Resp BP 97 F L 98 18 182/93 H 05/31/19 15:19 05/31/19 15:19 05/31/19 15:19 05/31/19 15:19 General: Alert, Oriented x3, Cooperative Extremities: No cyanosis, Capillary Refill Less than 3 Seconds, No Calf Tenderness, Diminished Peripheral Pulses, Edema Skin: Ulcer/ Wound - No purulence, erythema, streaking odor, infection.. Ulcer site has reduced inflammation. The delayed primary closure site is well aligned with nylon suture intact without vikash gapping necrosis or digitalization. Atrophic. Wound Measurements and Assessment WC - Nurse 1 - General Ulcer Measurement Start: 05/31/19 15:18 Freq: Status: Active Protocol: Activity Type Activity Date Activity User E-Sign Co-Sign Detail Recorded Client Recorded Date Recorded By Document 05/31/19 15:19 RB [id number] 05/31/19 15:27 RB 05/31/19 15:19 Wound Center Nurse 1 [Ulcer Assessment] #2- R 1ST METATARSAL JOINT -Combined with other wound No -Current Size (cm) - Length 0.1 -Current Size (cm) - Width 0.1 -Current Size (cm) - Depth 0.1 -Total Square Cm 0.01 -Tunneling No -Undermining/Tunneling No -Circular Undermining No -Exudate Amt None Present -Wound Margin Flat & Intact -Granulation Amt Large (67-100%) -Granulation Quality Selmer -Slough/Fibrin Yes -Necrosis Amt Small (1-33%) -Necrotic Tissue Type Adherent Slough -Structure Exposed N/A -Texture (Barbara-wound Skin Appearance) Assessed -Moisture (Barbara-wound Skin Appearance Assessed ) -Color (Barbara-wound Skin Appearance) Assessed -Temperature (Barbara-wound Skin No Abnormality Appearance) (Pt Warm) -Tenderness on Palpation (Barbara-wound No Skin Appearance) -Ulcer Cleansing Wound Cleanser -Foul Odor after Cleansing No [Edema Assessment] -Lower Limb Edema Present Yes -Right Calf (cm) 45 -Right Ankle (cm) 24.5 05/31/19 15:26 Wound Center by Loli Aguilar sutures intact incision well approximated on R foot first metatarsel Initialized on 05/31/19 15:26 - END OF NOTE WC - Nurse 2 - General Ulcer CM Notes Start: 05/31/19 15:18 Freq: Status: Active Protocol: Activity Type Activity Date Activity User E-Sign Co-Sign Detail Recorded Client Recorded Date Recorded By Document 05/31/19 16:03 [id number] [id number] 05/31/19 16:04 05/31/19 16:03 Wound Center Nurse 2 [Procedure/Treatment] #2- R 1ST METATARSAL JOINT -Correct Patient No -Correct Side, Site, Position No -Correct Procedure No -Procedure Performed No -Wound/Ulcer Outcome Not Healed [See Physician Procedure note for Specifics] Pain Scale: 0-10 Numeric [Pain] -Is Patient Pain Free? Yes Musculoskeletal: No Tenderness to Palpation of Joints or Extremities, Muscle Wasting, - - No fluctuance or bogginess on palpation Neurological: - - Lack of normal epicritic sensation light touch is consistent with neuropathy status Psych/Mental Status: Normal Affect, Appropriate Debridement Note Post-Debridement Measurements/Treatment WC - Nurse 2 - General Ulcer CM Notes Start: 05/31/19 15:18 Freq: Status: Active Protocol: Activity Type Activity Date Activity User E-Sign Co-Sign Detail Recorded Client Recorded Date Recorded By Document 05/31/19 16:03 [id number] 05/31/19 16:04 05/31/19 16:03 Wound Center Nurse 2 #2- R 1ST METATARSAL JOINT -Correct Patient No -Correct Side, Site, Position No -Correct Procedure No -Procedure Performed No -Wound/Ulcer Outcome Not Healed Pain Scale: 0-10 Numeric Is Patient Pain Free? Yes No debridement was completed today - delayed primary closure site is intact and suture removal will be considered within the next 1-2 weeks Assessment/Plan Assessment: Delayed primary closure site right foot ulcer with prior necrosis of capsule and muscle; grade catalan 3. Return infection right foot. Diabetes with neuropathy. Delayed healing. Malnutrition suspected. Edema lower extremity Plan: I reviewed and discussed his case. The odor and barbara-ulcer site inflammation has resolved since he has been washing with antimicrobial medical grade soap. His most recent cultures were obtained and there is Staphylococcus aureus and Enterococcus faecalis growth. Previously, oral antibiotics were added to his treatment plan and he was advised on proper use. He was advised to complete the course. He will monitor closely for return of local or systemic signs of infection. It is noted the dorsal hallux ulcer is healed. The plantar medial foot ulcer has delayed primary closure site and this looks intact. Suture removal will be considered within the next 1 to 2 weeks. She is advised to cover this daily with a gauze and to avoid soaking activities. It is noted he does have a grade 3 ulcer and the indications and anticipated healing time management will be discussed to see if he is amendable to proceed forward with this and if lack of progress is noted. He would need to stop smoking in order to proceed with this therapy. To keep pressure off of this healing ulcer site by wearing a surgical shoe and avoiding excessive activity. Marion offloading pads were applied to the plantar aspect of the shoe as well as the fabric strap to take pressure off of both ulcer sites. His diagnostic data from his last hospitalization were reviewed including CBC, CMP, and hemoglobin A1c of 7.3%. His noninvasive vascular studies were also reviewed from last month on April 10, 2019 with triphasic bilateral waveforms and adequate flow noted. The right ABIs were 1.28 and 1.12 in the left was 1.24 and 1.17. I recommend proper glycemic control and nutritional supplementation to optimize healing. It is imperative he monitors his blood glucose levels at home and he will try to resume this. We discussed his comprehensive wound healing plan and I recommend he follows up next week. He does have a Catalan grade 3 ulcer and [facility]. I answered all his questions. I also recommended smoking cessation and discussed the risks and complications associated with this including delayed healing, limb loss, and other systemic issues. He relates he has been working on this.
[2019-06-07 15:21] VITALS: BP 189/94; PULSE 85; RESP 18; TEMP 36.6; BMI 85.9
--- NOTE | 2019-06-07 16:16 | PCM.WC.PN ---
(1) Edema of right lower extremity Status: Chronic Current Visit: Yes Code(s): R60.0 - Localized edema (2) Malnutrition Status: Chronic Current Visit: Yes Code(s): E46 - Unspecified protein-calorie malnutrition (3) Delayed wound healing Status: Chronic Current Visit: Yes Code(s): T14.8XXD - Other injury of unspecified body region, subsequent encounter (4) Type 2 diabetes mellitus with diabetic polyneuropathy Status: Chronic Current Visit: Yes Code(s): E11.42 - Type 2 diabetes mellitus with diabetic polyneuropathy (5) Right foot infection Status: Resolved Current Visit: Yes Code(s): L08.9 - Local infection of the skin and subcutaneous tissue, unspecified (6) Ulcer of right foot with necrosis of muscle Status: Chronic Current Visit: Yes Code(s): L97.513 - Non-pressure chronic ulcer of other part of right foot with necrosis of muscle Comment: grade 3 Type of Wound Date of Service: 06/07/19 Chief Complaint: Right foot ulcers History of Wound: This 59-year-old male was treated previously at [facility] for infected right foot. He underwent surgical incision and drainage with Dr. Gayle on April 08, 2019. He was treated with IV antibiotics for MRSA and MSSA growth. He has since stabilized and has been discharged home on an additional week of oral doxycycline under the management of infectious disease. He has been previously diligently washing this with antimicrobial medical grade Hibiclens soap with resolution of erythema and odor; the quality of the ulcer also improved. He denies drainage from the ulcer to the top of the toe and thinks the site is healed. He denies odor or redness. He did get fitted with an offloading CAM Walker boot with pocket to take pressure off the ulcer site at the foot and ankle center. He denies pain. He has been changing the dressing with [employer]. He denies fever, chill, nausea, vomiting, redness or odor to the foot. He continues to smoke 1-1/2 packs of cigarettes daily. He has been trying to reduce this. He has 1 week ago. Progress of Wound: Stable - Physical Exam Vital Signs Temp Pulse Resp BP 97.9 F 85 18 189/94 H 06/07/19 15:21 06/07/19 15:21 06/07/19 15:21 06/07/19 15:21 General: Alert, Oriented x3, Cooperative, No apparent distress Extremities: No cyanosis, Capillary Refill Less than 3 Seconds, No Calf Tenderness, Diminished Peripheral Pulses, Edema Skin: Ulcer/ Wound - The reapproximated site is partially coapted at the delayed primary closure site with some serosanguineous drainage. Upon suture removal, there is some drainage with a mild odor however there is no vikash purulence, redness, or streaking. The skin is very close and atrophic Wound Measurements and Assessment - Nurse 1 - General Ulcer Measurement Start: 05/31/19 15:18 Freq: Status: Active Protocol: Activity Type Activity Date Activity User E-Sign Co-Sign Detail Recorded Client Recorded Date Recorded By Document 06/07/19 15:21 AMNA [id number] 06/07/19 15:27 DV 06/07/19 15:21 Wound Center Nurse 1 [Ulcer Assessment] #2- R 1ST METATARSAL JOINT -Combined with other wound No -Current Size (cm) - Length 0.1 -Current Size (cm) - Width 0.1 -Current Size (cm) - Depth 0.1 -Total Square Cm 0.01 -Photo Taken No -Epithelialization None Present -Tunneling No -Undermining/Tunneling No -Circular Undermining No -Classification - Thickness Full Thickness without Exposed Support Structure -Temperature (Barbara-wound Skin No Abnormality Appearance) (Pt Warm) -Tenderness on Palpation (Barbara-wound No Skin Appearance) -Foul Odor after Cleansing No -Anesthetic Used 4% Lidocaine Solution [Edema Assessment] -Lower Limb Edema Present No -Right Calf (cm) 43.5 -Right Ankle (cm) 24.6 - Nurse 2 - General Ulcer CM Notes Start: 05/31/19 15:18 Freq: Status: Active Protocol: Activity Type Activity Date Activity User E-Sign Co-Sign Detail Recorded Client Recorded Date Recorded By Document 06/07/19 15:39 [email or web address] [id number] 06/07/19 15:41 [email or web address] 06/07/19 15:39 Wound Center Nurse 2 [Procedure/Treatment] #2- R 1ST METATARSAL JOINT -Time 15:39 -Correct Patient Yes -Correct Side, Site, Position Yes -Correct Procedure Yes -Procedure Performed Yes -Type of Procedure Debridement -Clinical Debridement Subcutaneous -Post Debridement Size (cm) - Length 2.5 -Post Debridement Size (cm) - Width 0.6 -Post Debridement Size (cm) - Depth 0.6 -Total Square Cm 1.50 -Wound/Ulcer Outcome Not Healed -Ulcer Cleansing Rinsed/ Irrigated with Saline -Foul Odor after Cleansing No -Bioengineered Tissue No -Bleeding Controlled with Pressure -Offloading Yes -Type of Offloading Camwalker -Treatment Response Procedure Tolerated Well [See Physician Procedure note for Specifics] Pain Scale: 0-10 Numeric [Pain] -Is Patient Pain Free? Yes Musculoskeletal: No Tenderness to Palpation of Joints or Extremities, Muscle Wasting Neurological: - - Lack of normal epicritic sensation light touch Psych/Mental Status: Normal Affect, Appropriate Debridement Note Post-Debridement Measurements/Treatment WC - Nurse 2 - General Ulcer CM Notes Start: 05/31/19 15:18 Freq: Status: Active Protocol: Activity Type Activity Date Activity User E-Sign Co-Sign Detail Recorded Client Recorded Date Recorded By Document 05/31/19 16:03 [id number] 05/31/19 16:04 Document 06/07/19 15:39 [id number] 06/07/19 15:41 05/31/19 06/07/19 16:03 15:39 Wound Center Nurse 2 #2- R 1ST METATARSAL JOINT -Time 15:39 -Correct Patient No Yes -Correct Side, Site, Position No Yes -Correct Procedure No Yes -Procedure Performed No Yes -Type of Procedure Debridement -Clinical Debridement Subcutaneous -Post Debridement Size (cm) - Length 2.5 -Post Debridement Size (cm) - Width 0.6 -Post Debridement Size (cm) - Depth 0.6 -Total Square Cm 1.50 -Wound/Ulcer Outcome Not Healed Not Healed -Ulcer Cleansing Rinsed/ Irrigated with Saline -Foul Odor after Cleansing No -Bioengineered Tissue No -Bleeding Controlled with Pressure -Offloading Yes -Type of Offloading Camwalker -Treatment Response Procedure Tolerated Well Pain Scale: 0-10 Numeric Is Patient Pain Free? Yes Yes Wound debrided: plantar medial foot Laterality: Right Wound Grade/Stage: grade 3 Type of Debridement: Excisional debridement Anesthesia Used: 5% Lidocaine Gel Depth: in the subcutaneous layer Percentage of wound debrided: 100 Instrument Used: #15 blade Tissue Removed: fibrous, devitalized subcutaneous, biofilm, slough Severity: Fat Layer Exposed Amount of bleeding with debridement: Mild Bleeding Controlled with: Pressure Patient tolerated procedure well Assessment/Plan Active Problems (Last Updated 04/07/19 @ 17:[address] 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 Return infection right foot. Diabetes with neuropathy. Delayed healing. Malnutrition suspected. Edema lower extremity Plan: I reviewed and discussed his case. The odor and barbara-ulcer site inflammation has resolved since he has been washing with antimicrobial medical grade soap. His most recent cultures were obtained and there is Staphylococcus aureus and Enterococcus faecalis growth. Previously, oral antibiotics were added to his treatment plan and he was advised on proper use. He was advised to complete the course. He will monitor closely for return of local or systemic signs of infection. It is noted the dorsal hallux ulcer is healed. The plantar medial foot ulcer has delayed primary closure site and this looks intact. Suture removal and debridement was performed today. He was advised to changes daily with [employer]. I also recommended washing it with he declines antimicrobial soap wash. To monitor for redness or streaking. And not think this is frankly overtly infected today however he has continued delays in healing. It is noted he does have a grade 3 ulcer and the indications and anticipated healing time management will be discussed to see if he is amendable to proceed forward with this and if lack of progress is noted. He would need to stop smoking in order to proceed with this therapy. To keep pressure off of this healing ulcer site by wearing a surgical shoe and avoiding excessive activity. [place] offloading pads were applied to the plantar aspect of the shoe as well as the fabric strap to take pressure off of both ulcer sites. His diagnostic data from his last hospitalization were reviewed including CBC, CMP, and hemoglobin A1c of 7.3%. His noninvasive vascular studies were also reviewed from last month on April 10, 2019 with triphasic bilateral waveforms and adequate flow noted. The right ABIs were 1.28 and 1.12 in the left was 1.24 and 1.17. I recommend proper glycemic control and nutritional supplementation to optimize healing. It is imperative he monitors his blood glucose levels at home and he will try to resume this. We discussed his comprehensive wound healing plan and I recommend he follows up next week. He does have a Catalan grade 3 ulcer and he is currently discharged from the [facility] facility. I answered all his questions. I also recommended smoking cessation and discussed the risks and complications associated with this including delayed healing, limb loss, and other systemic issues. He relates he has been working on this.
[2019-06-14 15:04] VITALS: BP 167/86; PULSE 89; RESP 18; TEMP 36.9; BMI 85.9
--- NOTE | 2019-06-14 15:37 | PCM.WC.PN ---
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 Current Visit: Yes Code(s): L97.513 - Non-pressure chronic ulcer of other part of right foot with necrosis of muscle Comment: grade 3 (2) Edema of right lower extremity Status: Chronic Current Visit: Yes Code(s): R60.0 - Localized edema (3) Malnutrition Status: Chronic Current Visit: Yes Code(s): E46 - Unspecified protein-calorie malnutrition (4) Delayed wound healing Status: Chronic Current Visit: Yes Code(s): T14.8XXD - Other injury of unspecified body region, subsequent encounter (5) Type 2 diabetes mellitus with diabetic polyneuropathy Status: Chronic Current Visit: Yes Code(s): E11.42 - Type 2 diabetes mellitus with diabetic polyneuropathy (6) Right foot infection Status: Resolved Current Visit: Yes Code(s): L08.9 - Local infection of the skin and subcutaneous tissue, unspecified Type of Wound Date of Service: 06/14/19 Chief Complaint: Right foot ulcers History of Wound: This 59-year-old male was treated previously at [facility] for infected right foot. He underwent surgical incision and drainage with Dr. Gayle on April 08, 2019. He was treated with IV antibiotics for MRSA and MSSA growth. He has since stabilized and completed oral antibiotics. He has been diligently washing with antimicrobial medical grade Hibiclens soap with resolution of erythema and odor; the quality of the ulcer have also continued to improved. He denies odor or redness. He did get fitted with an offloading CAM Walker boot with pocket to take pressure off the ulcer site at the foot and ankle center. He denies pain. He has been changing the dressing with [employer]. He denies fever, chill, nausea, vomiting, redness or odor to the foot. He stopped smoking this past Wednesday. Progress of Wound: improving - Physical Exam Vital Signs Temp Pulse Resp BP 98.4 F 89 18 167/86 H 06/14/19 15:04 06/14/19 15:04 06/14/19 15:04 06/14/19 15:04 General: Alert, Oriented x3, Cooperative, No apparent distress Extremities: No cyanosis, Capillary Refill Less than 3 Seconds, No Calf Tenderness, Diminished Peripheral Pulses, Edema Skin: Ulcer/ Wound - no purulent, no erythema,no odor, no exposed bone or tissue today. granular base noted. adjacent skin is hairless and atrophic Wound Measurements and Assessment WC - Nurse 1 - General Ulcer Measurement Start: 05/31/19 15:18 Freq: Status: Active Protocol: Activity Type Activity Date Activity User E-Sign Co-Sign Detail Recorded Client Recorded Date Recorded By Document 06/14/19 15:04 DL [id number] 06/14/19 15:12 DL 06/14/19 15:04 Wound Center Nurse 1 [Ulcer Assessment] #2- R 1ST METATARSAL JOINT -Current Size (cm) - Length 1.1 -Current Size (cm) - Width 0.2 -Current Size (cm) - Depth 0.3 -Total Square Cm 0.22 -Photo Taken No -Maximum Distance #2 (cm) 0.3 -Circular Undermining Yes -Exudate Amt Small -Exudate Type Serosanguineous -Wound Margin Thickened -Granulation Amt Small (1-33%) -Granulation Quality [place] -Necrosis Amt Small (1-33%) -Necrotic Tissue Type Adherent Slough -Structure Exposed N/A -Texture (Micaela-wound Skin Appearance) Callus -Moisture (Micaela-wound Skin Appearance No Abnormality ) -Color (Micaela-wound Skin Appearance) No Abnormality -Temperature (Micaela-wound Skin No Abnormality Appearance) (Pt Warm) -Tenderness on Palpation (Micaela-wound No Skin Appearance) -Ulcer Cleansing Wound Cleanser -Foul Odor after Cleansing No -Anesthetic Used 4% Lidocaine Solution [Edema Assessment] -Right Calf (cm) 44 -Right Ankle (cm) 24 WC - Nurse 2 - General Ulcer CM Notes Start: 05/31/19 15:18 Freq: Status: Active Protocol: Activity Type Activity Date Activity User E-Sign Co-Sign Detail Recorded Client Recorded Date Recorded By Document 06/14/19 15:22 DL [id number] 06/14/19 15:24 DL 06/14/19 15:22 Wound Center Nurse 2 [Procedure/Treatment] #2- R 1ST METATARSAL JOINT -Time 15:23 -Correct Patient Yes -Correct Side, Site, Position Yes -Correct Procedure Yes -Procedure Performed Yes -Type of Procedure Debridement -Clinical Debridement Subcutaneous -Post Debridement Size (cm) - Length 0.3 -Post Debridement Size (cm) - Width 1.9 -Post Debridement Size (cm) - Depth 0.5 -Total Square Cm 0.57 -Wound/Ulcer Outcome Not Healed -Ulcer Cleansing Rinsed/ Irrigated with Saline -Foul Odor after Cleansing No -Bioengineered Tissue No -Bleeding Controlled with Pressure -Offloading Yes -Type of Offloading Surgical Shoe -Treatment Response Procedure Tolerated Well [See Physician Procedure note for Specifics] Pain Scale: 0-10 Numeric [Pain] -Is Patient Pain Free? Yes Musculoskeletal: No Tenderness to Palpation of Joints or Extremities, Muscle Wasting, - - no bogginess or fluctuance on palpation noted Neurological: - - lack of epicritic sensation via light touch Psych/Mental Status: Normal Affect, Appropriate Debridement Note Post-Debridement Measurements/Treatment WC - Nurse 2 - General Ulcer CM Notes Start: 05/31/19 15:18 Freq: Status: Active Protocol: Activity Type Activity Date Activity User E-Sign Co-Sign Detail Recorded Client Recorded Date Recorded By Document 05/31/19 16:03 [id number] 05/31/19 16:04 Document 06/07/19 15:39 JF [id number] 06/07/19 15:41 JF Document 06/14/19 15:22 DL [id number] 06/14/19 15:24 DL 05/31/19 06/07/19 06/14/19 16:03 15:39 15:22 Wound Center Nurse 2 #2- R 1ST METATARSAL JOINT -Time 15:39 15:23 -Correct Patient No Yes Yes -Correct Side, Site, Position No Yes Yes -Correct Procedure No Yes Yes -Procedure Performed No Yes Yes -Type of Procedure Debridement Debridement -Clinical Debridement Subcutaneous Subcutaneous -Post Debridement Size (cm) - Length 2.5 0.3 -Post Debridement Size (cm) - Width 0.6 1.9 -Post Debridement Size (cm) - Depth 0.6 0.5 -Total Square Cm 1.50 0.57 -Wound/Ulcer Outcome Not Healed Not Healed Not Healed -Ulcer Cleansing Rinsed/ Rinsed/ Irrigated with Irrigated with Saline Saline -Foul Odor after Cleansing No No -Bioengineered Tissue No No -Bleeding Controlled with Pressure Pressure -Offloading Yes Yes -Type of Offloading Camwalker Surgical Shoe -Treatment Response Procedure Procedure Tolerated Well Tolerated Well Pain Scale: 0-10 Numeric Is Patient Pain Free? Yes Yes Yes Wound debrided: medial forefoot Laterality: Right Wound Grade/Stage: grade 3 Type of Debridement: Excisional debridement Anesthesia Used: 5% Lidocaine Gel Depth: in the subcutaneous layer Percentage of wound debrided: 100 Instrument Used: #15 blade Tissue Removed: fibrous, devitalized subcutaneous, biofilm, slough Severity: Fat Layer Exposed Amount of bleeding with debridement: Mild Bleeding Controlled with: Pressure Patient tolerated procedure well Assessment/Plan Active Problems (Last Updated 04/07/19 @ 17:[address] 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 Infection right foot resolving. Diabetes with neuropathy. Delayed healing. Malnutrition suspected. Edema lower extremity Plan: I reviewed and discussed his case. The odor and micaela-ulcer site inflammation has resolved since he has been washing with antimicrobial medical grade soap. His most recent cultures were obtained and there is Staphylococcus aureus and Enterococcus faecalis growth. Previously, oral antibiotics were added to his treatment plan and he was advised on proper use. He has completed the course. He will monitor closely for return of local or systemic signs of infection. The plantar medial foot ulcer was debrided and closed in a delayed manner again and the sutures were removed with a remaining smaller and healthier wound remaining. He was advised to changes daily with [employer]. It is noted he does have a grade 3 ulcer and the indications and anticipated healing time management will be discussed to see if he is amendable to proceed forward with this and if lack of progress is noted. He would need to stop smoking in order to proceed with this therapy. To keep pressure off of this healing ulcer site by wearing a surgical shoe and avoiding excessive activity. [place] offloading pads were applied to the plantar aspect of the shoe as well as the fabric strap to take pressure off of both ulcer sites. His diagnostic data from his last hospitalization were reviewed including CBC, CMP, and hemoglobin A1c of 7.3%. His noninvasive vascular studies were also reviewed from last month on April 10, 2019 with triphasic bilateral waveforms and adequate flow noted. The right ABIs were 1.28 and 1.12 in the left was 1.24 and 1.17. I recommend proper glycemic control and nutritional supplementation to optimize healing. It is imperative he monitors his blood glucose levels at home and he will try to resume this. We discussed his comprehensive wound healing plan and I recommend he follows up next week. He does have a Catalan grade 3 ulcer and [facility] I answered all his questions. I also recommended smoking cessation and discussed the risks and complications associated with this including delayed healing, limb loss, and other systemic issues. He relates he has not had any tobacco products for the past 4 days. To return to clinic in 1 week or call sooner if he has any questions or concerns.
[2019-06-21 14:34] VITALS: BP 174/96; PULSE 84; RESP 20; TEMP 37.1; BMI 85.9
--- NOTE | 2019-06-21 16:06 | PN.PCM_ITS ---
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 Current Visit: Yes Code(s): L97.513 - Non-pressure chronic ulcer of other part of right foot with necrosis of muscle Comment: grade 3 (2) Edema of right lower extremity Status: Chronic Current Visit: Yes Code(s): R60.0 - Localized edema (3) Malnutrition Status: Chronic Current Visit: Yes Code(s): E46 - Unspecified protein- calorie malnutrition (4) Delayed wound healing Status: Chronic Current Visit: Yes Code(s): T14.8XXD - Other injury of unspecified body region, subsequent encounter (5) Type 2 diabetes mellitus with diabetic polyneuropathy Status: Chronic Current Visit: Yes Code(s): E11.42 - Type 2 diabetes nighat rosario with diabetic polyneuropathy Type of Wound Date of Service: 06/21/19 Chief Complaint: Right foot ulcers History of Wound: This 59-year-old male was treated previously at [facility] for infected right foot. He underwent surgical incision and drainage with Dr. Gayle on April 08, 2019. He was treated with IV antibiotics for MRSA and MSSA growth. He has since stabilized and completed oral antibiotics. He has been diligently washing with antimicrobial medical grade Hibiclens soap with resolution of erythema and odor; the quality of the ulcer have also continued to improved. He denies odor or redness. He did get fitted with an offloading CAM Walker boot with pocket to take pressure off the ulcer site at the foot and ankle center. He denies pain. He has been changing the dressing with [employer]. He denies fever, chill, nausea, vomiting, redness or odor to the foot. He stopped smoking 3 weeks ago and has been very diligent with this. He expresses interest in returning to work soon and asked that this is possible. Progress of Wound: improving - Physical Exam Vital Signs Temp Pulse Resp BP 98.8 F 84 20 H 174/96 H 06/21/19 14:34 06/21/19 14:34 06/21/19 14:34 06/21/19 14:34 General: Alert, Oriented x3, Cooperative, No apparent distress Extremities: No cyanosis, Capillary Refill Less than 3 Seconds, No Calf Tenderness, Diminished Peripheral Pulses, Edema Skin: Ulcer/ Wound - No purulence, erythema, streaking, odor, infection. The adjacent skin is hairless and atrophic with some hyperpigmentation. There is some improvement capillary fill time since he has stopped smoking from several weeks ago in comparison Wound Measurements and Assessment WC - Nurse 1 - General Ulcer Measurement Start: 05/31/19 15:18 Freq: Status: Active Protocol: Activity Type Activity Date Activity User E-Sign Co-Sign Detail Recorded Client Recorded Date Recorded By Document 06/21/19 14:34 CS [id number] 06/21/19 14:43 CS 06/21/19 14:34 Wound Center Nurse 1 [Ulcer Assessment] #2- R 1ST METATARSAL JOINT -Combined with other wound No -Current Size (cm) - Length 3 -Current Size (cm) - Width 0.1 -Current Size (cm) - Depth 0.6 -Total Square Cm 0.3 -Date of Last Picture (Recall this 06/21/19 field) -Photo Taken Yes -Epithelialization None Present -Tunneling No -Undermining/Tunneling No -Circular Undermining No -Exudate Amt Medium -Exudate Type Serosanguineous -Wound Margin Distinct, Outline Attached -Granulation Amt Medium (34-66%) -Granulation Quality Red -Slough/Fibrin Yes -Necrosis Amt Small (1-33%) -Texture (Barbara-wound Skin Appearance) Callus -Moisture (Barbara-wound Skin Appearance Assessed,Dry/ ) Scaly -Color (Barbara-wound Skin Appearance) No Abnormality, Assessed -Temperature (Barbara-wound Skin No Abnormality Appearance) (Pt Warm) -Tenderness on Palpation (Barbara-wound No Skin Appearance) -Ulcer Cleansing Rinsed/ Irrigated with Saline -Foul Odor after Cleansing No -Anesthetic Used 4% Lidocaine Solution [Edema Assessment] -Lower Limb Edema Present Yes -Right Calf (cm) 44.5 -Right Ankle (cm) 24.5 WC - Nurse 2 - General Ulcer CM Notes Start: 05/31/19 15:18 Freq: Status: Active Protocol: Activity Type Activity Date Activity User E-Sign Co-Sign Detail Recorded Client Recorded Date Recorded By Document 06/21/19 14:50 MW [id number] 06/21/19 14:57 MW 06/21/19 14:50 Wound Center Nurse 2 [Procedure/Treatment] #2- R 1ST METATARSAL JOINT -Time 14:51 -Correct Patient Yes -Correct Side, Site, Position Yes -Correct Procedure Yes -Procedure Performed Yes -Type of Procedure Debridement -Clinical Debridement Subcutaneous -Post Debridement Size (cm) - Length 1.6 -Post Debridement Size (cm) - Width 0.2 -Post Debridement Size (cm) - Depth 0.3 -Total Square Cm 0.32 -Wound/Ulcer Outcome Not Healed -Ulcer Cleansing Rinsed/ Irrigated with Saline -Foul Odor after Cleansing No -Bioengineered Tissue No -Bleeding Controlled with Pressure -Offloading No -Treatment Response Procedure Tolerated Well [See Physician Procedure note for Specifics] Pain Scale: 0-10 Numeric [Pain] -Is Patient Pain Free? Yes Musculoskeletal: No Tenderness to Palpation of Joints or Extremities, Muscle Wasting Neurological: - - Lack of normal epicritic sensation light touch consistent with neuropathy status Psych/Mental Status: Normal Affect, Appropriate Debridement Note Post-Debridement Measurements/Treatment WC - Nurse 2 - General Ulcer CM Notes Start: 05/31/19 15:18 Freq: Status: Active Protocol: Activity Type Activity Date Activity User E-Sign Co-Sign Detail Recorded Client Recorded Date Recorded By Document 05/31/19 16:03 [id number] 05/31/19 16:04 JF Document 06/07/19 15:39 JF [id number] 06/07/19 15:41 JF Document 06/14/19 15:22 DL [id number] 06/14/19 15:24 DL Document 06/21/19 14:50 MW [id number] 06/21/19 14:57 MW 05/31/19 06/07/19 06/14/19 16:03 15:39 15:22 Wound Center Nurse 2 #2- R 1ST METATARSAL JOINT -Time 15:39 15:23 -Correct Patient No Yes Yes -Correct Side, Site, Position No Yes Yes -Correct Procedure No Yes Yes -Procedure Performed No Yes Yes -Type of Procedure Debridement Debridement -Clinical Debridement Subcutaneous Subcutaneous -Post Debridement Size (cm) - Length 2.5 0.3 -Post Debridement Size (cm) - Width 0.6 1.9 -Post Debridement Size (cm) - Depth 0.6 0.5 -Total Square Cm 1.50 0.57 -Wound/Ulcer Outcome Not Healed Not Healed Not Healed -Ulcer Cleansing Rinsed/ Rinsed/ Irrigated with Irrigated with Saline Saline -Foul Odor after Cleansing No No -Bioengineered Tissue No No -Bleeding Controlled with Pressure Pressure -Offloading Yes Yes -Type of Offloading Camwalker Surgical Shoe -Treatment Response Procedure Procedure Tolerated Well Tolerated Well Pain Scale: 0-10 Numeric Is Patient Pain Free? Yes Yes Yes 06/21/19 14:50 Wound Center Nurse 2 #2- R 1ST METATARSAL JOINT -Time 14:51 -Correct Patient Yes -Correct Side, Site, Position Yes -Correct Procedure Yes -Procedure Performed Yes -Type of Procedure Debridement -Clinical Debridement Subcutaneous -Post Debridement Size (cm) - Length 1.6 -Post Debridement Size (cm) - Width 0.2 -Post Debridement Size (cm) - Depth 0.3 -Total Square Cm 0.32 -Wound/Ulcer Outcome Not Healed -Ulcer Cleansing Rinsed/ Irrigated with Saline -Foul Odor after Cleansing No -Bioengineered Tissue No -Bleeding Controlled with Pressure -Offloading No -Type of Offloading -Treatment Response Procedure Tolerated Well Pain Scale: 0-10 Numeric Is Patient Pain Free? Yes Wound debrided: medial forefoot Laterality: Right Wound Grade/Stage: grade 3 Type of Debridement: Excisional debridement Anesthesia Used: 5% Lidocaine Gel Depth: in the subcutaneous layer Percentage of wound debrided: 100 Instrument Used: #15 blade Tissue Removed: fibrous, devitalized subcutaneous, biofilm, slough Severity: Fat Layer Exposed Amount of bleeding with debridement: Mild Bleeding Controlled with: Pressure Patient tolerated procedure well Assessment/Plan Active Problems (Last Updated 04/07/19 @ 17:[address] 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 Infection right foot resolved. Diabetes with neuropathy. Delayed healing. Malnutrition suspected. Edema lower extremity Plan: I reviewed and discussed his case. The ulcer was debrided in a subcutaneous excisional manner as noted in the clinical panel. He is reassured no local signs of infection are noted. He was advised to continue cleaning with antimicrobial Rmaya-Hex soap. I do not recommend antibiotics today. He was advised to changes daily with [facility]. It is noted he does have a grade 3 ulcer and the indications and anticipated healing time management will be discussed to see if he is amendable to proceed forward with this and if lack of progress is noted. To keep pressure off of this healing ulcer site by wearing a surgical shoe and avoiding excessive activity. [place] offloading pads were applied to the plantar aspect of the shoe as well as the fabric strap to take pressure off of both ulcer sites. His diagnostic data from his last hospitalization were reviewed including CBC, CMP, and hemoglobin A1c of 7.3%. His noninvasive vascular studies were also reviewed from last month on April 10, 2019 with triphasic bilateral waveforms and adequate flow noted. The right ABIs were 1.28 and 1.12 in the left was 1.24 and 1.17. I recommend proper glyce rossana control and nutritional supplementation to optimize healing. It is imperative he monitors his blood glucose levels at home and he will try to resume this. We discussed his comprehensive wound healing plan and I recommend he follows up next week. He does have a Catalan grade 3 ulcer and he is currently [facility] facility. I answered all his questions. I also recommended continuation of smoking cessation and discussed the risks and complications associated with this including delayed healing, limb loss, and other systemic issues. He is doing well with this so far. To return to clinic in 1 week or call sooner if he has any questions or concerns.
== END 2019-06-27 23:59 ==
LOC: WC 14:30
PROVIDERS: PCP Family Medicine; Visit Provider Podiatrist
DX: E11.621 Type 2 diabetes mellitus with foot ulcer (principal); R60.0 Localized edema; E11.42 Type 2 diabetes mellitus with diabetic polyneuropathy; L97.512 Non-pressure chronic ulcer of other part of right foot with fat layer exposed; F17.210 Nicotine dependence, cigarettes, uncomplicated
CPT/HCPCS: 11042; 99213; G0463

== ENCOUNTER 2019-07-26 11:30 | Outpatient (RCR) | payer MEDICAID, SELFPAY ==
[2019-06-28 00:44] VITALS: BP 174/96; PULSE 84; RESP 20; TEMP 37.1
[2019-06-28 13:43] VITALS: BP 151/83; PULSE 95; RESP 18; TEMP 37; BMI 85.9
--- NOTE | 2019-06-28 23:08 | PN.PCM_ITS ---
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 Code(s): L97.513 - Non-pressure chronic ulcer of other part of right foot with necrosis of muscle Comment: grade 3 (2) Edema of right lower extremity Status: Chronic Code(s): R60.0 - Localized edema (3) Malnutrition Status: Chronic Code(s): E46 - Unspecified protein-calorie malnutrition (4) Delayed wound healing Status: Chronic Code(s): T14.8XXD - Other injury of unspecified body region, subsequent encounter (5) Type 2 diabetes mellitus with diabetic polyneuropathy Status: Chronic Code(s): E11.42 - Type 2 diabetes mellitus with diabetic polyneuropathy Type of Wound Date of Service: 06/28/19 Chief Complaint: Right foot ulcers History of Wound: This 59-year-old male was treated previously at [facility] for infected right foot. He underwent surgical incision and drainage with Dr. Gayle on April 08, 2019. He was treated with IV anti biotics for MRSA and MSSA growth. He has since stabilized and completed oral antibiotics. He has been diligently washing with antimicrobial medical grade Hibiclens soap with resolution of erythema and odor; the quality of the ulcer have also continued to improved. He denies odor or redness. He did get fitted with an offloading CAM Walker boot with pocket to take pressure off the ulcer site at the foot and ankle center. He denies pain. He has been changing the dressing with [employer]. He denies fever, chill, nausea, vomiting, redness or odor to the foot. He stopped smoking for weeks ago and has been very diligent with this. He expresses interest in returning to work soon and asked that this is possible. Progress of Wound: improving - Physical Exam Vital Signs Temp Pulse Resp BP 98.6 F 95 18 151/83 H 06/28/19 13:43 06/28/19 13:43 06/28/19 13:43 06/28/19 13:43 General: Alert, Oriented x3, Cooperative, No apparent distress HEENT: Atraumatic Extremities: No cyanosis, Capillary Refill Less than 3 Seconds, No Calf Tender ness, Diminished Peripheral Pulses, Edema Skin: Ulcer/ Wound - No purulence, erythema, streaking, odor, infection. Atrophic skin and hairless skin is noted Wound Measurements and Assessment WC - Nurse 1 - General Ulcer Measurement Start: 06/28/19 13:42 Freq: Status: Active Protocol: Activity Type Activity Date Activity User E-Sign Co-Sign Detail Recorded Client Recorded Date Recorded By Document 06/28/19 13:43 PL [id number] 06/28/19 13:52 PL 06/28/19 13:43 Wound Center Nurse 1 [Ulcer Assessment] #2- R 1ST METATARSAL JOINT -Combined with other wound No -Current Size (cm) - Length 1.3 -Current Size (cm) - Width 0.1 -Current Size (cm) - Depth 0.2 -Total Square Cm 0.13 -Photo Taken No -Epithelialization None Present -Tunneling No -Undermining/Tunneling No -Exudate Amt Small -Exudate Type Serosanguineous -Granulation Amt None Present (0 %) -Granulation Quality N/A -Necrosis Amt Large (67-100%) -Necrotic Tissue Type Adherent Slough -Texture (Barbara-wound Skin Appearance) Callus -Moisture (Barbara-wound Skin Appearance No Abnormality ) -Color (Barbara-wound Skin Appearance) No Abnormality -Temperature (Barbara-wound Skin No Abnormality Appearance) (Pt Warm) -Tenderness on Palpation (Barbara-wound No Skin Appearance) -Ulcer Cleansing Rinsed/ Irrigated with Saline WC - Nurse 2 - General Ulcer CM Notes Start: 06/28/19 13:42 Freq: Status: Active Protocol: Activity Type Activity Date Activity User E-Sign Co-Sign Detail Recorded Client Recorded Date Recorded By Document 06/28/19 13:58 [email or web address] [id number] 06/28/19 14:00 [email or web address] 06/28/19 13:58 Wound Center Nurse 2 [Procedure/Treatment] -Time 13:59 -Correct Patient Yes -Correct Side, Site, Position Yes -Correct Procedure Yes -Procedure Performed Yes -Type of Procedure Debridement -Clinical Debridement Subcutaneous -Post Debridement Size (cm) - Length 1.6 -Post Debridement Size (cm) - Width 0.3 -Post Debridement Size (cm) - Depth 0.4 -Total Square Cm 0.48 -Wound/Ulcer Outcome Not Healed -Ulcer Cleansing Rinsed/ Irrigated with Saline -Foul Odor after Cleansing No -Bioengineered Tissue No -Bleeding Controlled with Pressure -Offloading Yes -Type of Offloading Camwalker -Treatment Response Procedure Tolerated Well [See Physician Procedure note for Specifics] Pain Scale: 0-10 Numeric [Pain] -Is Patient Pain Free? Yes Musculoskeletal: No Tenderness to Palpation of Joints or Extremities, Muscle Wasting Neurological: - - Lack of normal epicritic sensation light touch is consistent with his neuropathy status Psych/Mental Status: Normal Affect, Appropriate Debridement Note Post-Debridement Measurements/Treatment WC - Nurse 2 - General Ulcer CM Notes Start: 06/28/19 13:42 Freq: Status: Active Protocol: Activity Type Activity Date Activity User E-Sign Co-Sign Detail Recorded Client Recorded Date Recorded By Document 06/28/19 13:58 [id number] 06/28/19 14:00 06/28/19 13:58 Wound Center Nurse 2 #2- R 1ST METATARSAL JOINT -Time 13:59 -Correct Patient Yes -Correct Side, Site, Position Yes -Correct Procedure Yes -Procedure Performed Yes -Type of Procedure Debridement -Clinical Debridement Subcutaneous -Post Debridement Size (cm) - Length 1.6 -Post Debridement Size (cm) - Width 0.3 -Post Debridement Size (cm) - Depth 0.4 -Total Square Cm 0.48 -Wound/Ulcer Outcome Not Healed -Ulcer Cleansing Rinsed/ Irrigated with Saline -Foul Odor after Cleansing No -Bioengineered Tissue No -Bleeding Controlled with Pressure -Offloading Yes -Type of Offloading Camwalker -Treatment Response Procedure Tolerated Well Pain Scale: 0-10 Numeric Is Patient Pain Free? Yes Wound debrided: medial forefoot Laterality: Right Wound Grade/Stage: grade 3 Type of Debridement: Excisional debridement Anesthesia Used: 5% Lidocaine Gel Depth: in the subcutaneous layer Percentage of wound debrided: 100 Instrument Used: #15 blade Tissue Removed: fibrous, devitalized subcutaneous, biofilm, slough Severity: Fat Layer Exposed Amount of bleeding with debridement: Mild Bleeding Controlled with: Pressure Patient tolerated procedure well Assessment/Plan Assessment: Ulcer right foot necrosis of capsule and muscle; grade catalan 3. Infection right foot resolved. Diabetes with neuropathy. Delayed healing. Malnutrition suspected. Edema lower extremity Plan: I reviewed and discussed his case. The ulcer was debrided in a subcutaneous excisional manner as noted in the clinical panel. He is reassured no local signs of infection are noted. He was advised to continue cleaning with antimicrobial Ramya-Hex soap. I do not recommend antibiotics today. He was advised to changes daily with [employer] It is noted he does have a grade 3 ulcer and the indications and anticipated healing time management will be discussed to see if he is amendable to proceed forward with this and if lack of progress is noted. To keep pressure off of this healing ulcer site by wearing a surgical shoe and avoiding excessive activity. [place] offloading pads were applied to the plantar aspect of the shoe as well as the fabric strap to take pressure off of both ulcer sites. His diagnostic data from his last hospitalization were reviewed including CBC, CMP, and hemoglobin A1c of 7.3%. His noninvasive vascular studies were also reviewed from last month on April 10, 2019 with triphasic bilateral waveforms and adequate flow noted. The right ABIs were 1.28 and 1.12 in the left was 1.24 and 1.17. I recommend proper glycemic control and nutritional supplementation to optimize healing. It is imperative he monitors his blood glucose levels at home and he will try to resum e this. We discussed his comprehensive wound healing plan and I recommend he follows up next week. He does have a Catalan grade 3 ulcer and he is currently [facility] from [facility] facility. I answered all his questions. I also recommended continuation of smoking cessation and discussed the risks and complications associated with this including delayed healing, limb loss, and other systemic issues. He is doing well with this so far. To return to clinic in 1 week or call sooner if he has any questions or concerns.
[2019-07-05 14:20] VITALS: BP 143/84; PULSE 87; RESP 18; TEMP 37; BMI 85.9
--- NOTE | 2019-07-05 14:43 | PCM.WC.PN ---
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 Current Visit: Yes Code(s): L97.513 - Non-pressure chronic ulcer of other part of right foot with necrosis of muscle Comment: grade 3 (2) Edema of right lower extremity Status: Chronic Current Visit: Yes Code(s): R60.0 - Localized edema (3) Malnutrition Status: Chronic Current Visit: Yes Code(s): E46 - Unspecified protein-calorie malnutrition (4) Delayed wound healing Status: Chronic Current Visit: Yes Code(s): T14.8XXD - Other injury of unspecified body region, subsequent encounter (5) Type 2 diabetes mellitus with diabetic polyneuropathy Status: Chronic Current Visit: Yes Code(s): E11.42 - Type 2 diabetes mellitus with diabetic polyneuropathy Type of Wound Date of Service: 07/05/19 Chief Complaint: Right foot ulcers History of Wound: This 59-year-old male was treated previously at [facility] for infected right foot. He underwent surgical incision and drainage with Dr. Gayle on April 08, 2019. He was treated with IV antibiotics for MRSA and MSSA growth. He has since stabilized and completed oral antibiotics. He has been diligently washing with antimicrobial medical grade Hibiclens soap with resolution of erythema and odor; the quality of the ulcer have also continued to improved. He denies odor or redness. He did get fitted with an offloading CAM Walker boot with pocket to take pressure off the ulcer site at the foot and ankle center. He denies pain. He has been [facility] the dressing [facility]. He denies fever, chill, nausea, vomiting, redness or odor to the foot. He stopped smoking for weeks ago and has been very diligent with this. He expresses interest in returning to work soon and asked that this is possible. It is noted he has a lot of stress from financial strain of not being at work and he is seeking some assistance programs. Progress of Wound: improving - Physical Exam Vital Signs Temp Pulse Resp BP 98.6 F 87 18 143/84 H 07/05/19 14:20 07/05/19 14:20 07/05/19 14:20 07/05/19 14:20 General: Alert, Oriented x3, Cooperative Extremities: No cyanosis, Capillary Refill Less than 3 Seconds, No Calf Tenderness, Diminished Peripheral Pulses, Edema, - Skin: Ulcer/ Wound - No purulence, erythema, streaking, odor, infection. The adjacent skin is hairless and atrophic. The ulcer bed is granular and healthy in appearance today Wound Measurements and Assessment WC - Nurse 1 - General Ulcer Measurement Start: 06/28/19 13:42 Freq: Status: Active Protocol: Activity Type Activity Date Activity User E-Sign Co-Sign Detail Recorded Client Recorded Date Recorded By Document 07/05/19 14:20 RB [id number] 07/05/19 14:21 RB 07/05/19 14:20 Wound Center Nurse 1 [Ulcer Assessment] #2- R 1ST METATARSAL JOINT -Combined with other wound No -Current Size (cm) - Length 1.5 -Current Size (cm) - Width 0.2 -Current Size (cm) - Depth 0.5 -Total Square Cm 0.30 -Tunneling No -Undermining/Tunneling No -Circular Undermining No -Exudate Amt Small -Exudate Type Serosanguineous -Wound Margin Thickened -Granulation Amt Medium (34-66%) -Granulation Quality [place] -Slough/Fibrin Yes -Necrosis Amt Large (67-100%) -Necrotic Tissue Type Adherent Slough -Structure Exposed N/A -Texture (Barbara-wound Skin Appearance) Scarring -Moisture (Barbara-wound Skin Appearance Dry/Scaly ) -Color (Barbara-wound Skin Appearance) Assessed -Temperature (Barbara-wound Skin No Abnormality Appearance) (Pt Warm) -Tenderness on Palpation (Barbara-wound No Skin Appearance) -Ulcer Cleansing Wound Cleanser -Foul Odor after Cleansing No -Anesthetic Used 4% Lidocaine Solution [Edema Assessment] -Lower Limb Edema Present Yes -Right Calf (cm) 44 -Right Ankle (cm) 23.2 - Nurse 2 - General Ulcer CM Notes Start: 06/28/19 13:42 Freq: Status: Active Protocol: Activity Type Activity Date Activity User E-Sign Co-Sign Detail Recorded Client Recorded Date Recorded By Document 07/05/19 14:38 [id number] 07/05/19 14:40 07/05/19 14:38 Wound Center Nurse 2 [Procedure/Treatment] #2- R 1ST METATARSAL JOINT -Time 14:38 -Correct Patient Yes -Correct Side, Site, Position Yes -Correct Procedure Yes -Procedure Performed Yes -Type of Procedure Debridement -Clinical Debridement Subcutaneous -Post Debridement Size (cm) - Length 1.3 -Post Debridement Size (cm) - Width 0.2 -Post Debridement Size (cm) - Depth 0.2 -Total Square Cm 0.26 -Wound/Ulcer Outcome Not Healed -Ulcer Cleansing Rinsed/ Irrigated with Saline -Bleeding Controlled with Pressure -Offloading Yes -Type of Offloading Camwalker -Treatment Response Procedure Tolerated Well [See Physician Procedure note for Specifics] Pain Scale: 0-10 Numeric [Pain] -Is Patient Pain Free? Yes Musculoskeletal: No Tenderness to Palpation of Joints or Extremities, Muscle Wasting Neurological: - - Lack of epicritic sensation light touch is consistent with neuropathy status Psych/Mental Status: Normal Affect, Appropriate Debridement Note Post-Debridement Measurements/Treatment WC - Nurse 2 - General Ulcer CM Notes Start: 06/28/19 13:42 Freq: Status: Active Protocol: Activity Type Activity Date Activity User E-Sign Co-Sign Detail Recorded Client Recorded Date Recorded By Document 06/28/19 13:58 [id number] 06/28/19 14:00 Document 07/05/19 14:38 [id number] 07/05/19 14:40 06/28/19 07/05/19 13:58 14:38 Wound Center Nurse 2 #2- R 1ST METATARSAL JOINT -Time 13:59 14:38 -Correct Patient Yes Yes -Correct Side, Site, Position Yes Yes -Correct Procedure Yes Yes -Procedure Performed Yes Yes -Type of Procedure Debridement Debridement -Clinical Debridement Subcutaneous Subcutaneous -Post Debridement Size (cm) - Length 1.6 1.3 -Post Debridement Size (cm) - Width 0.3 0.2 -Post Debridement Size (cm) - Depth 0.4 0.2 -Total Square Cm 0.48 0.26 -Wound/Ulcer Outcome Not Healed Not Healed -Ulcer Cleansing Rinsed/ Rinsed/ Irrigated with Irrigated with Saline Saline -Foul Odor after Cleansing No -Bioengineered Tissue No -Bleeding Controlled with Pressure Pressure -Offloading Yes Yes -Type of Offloading Camwalker Camwalker -Treatment Response Procedure Procedure Tolerated Well Tolerated Well Pain Scale: 0-10 Numeric Is Patient Pain Free? Yes Yes Wound debrided: medial forefoot Laterality: Right Wound Grade/Stage: grade 3 Type of Debridement: Excisional debridement Anesthesia Used: 5% Lidocaine Gel Depth: in the subcutaneous layer Percentage of wound debrided: 100 Instrument Used: #15 blade Tissue Removed: fibrous, devitalized subcutaneous, biofilm, slough Severity: Fat Layer Exposed Amount of bleeding with debridement: Mild Bleeding Controlled with: Pressure Patient tolerated procedure well Assessment/Plan Active Problems (Last Updated 04/07/19 @ 17:[address] 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 Infection right foot resolved. Diabetes with neuropathy. Delayed healing. Malnutrition suspected. Edema lower extremity Plan: I reviewed and discussed his case. The ulcer was debrided in a subcutaneous excisional manner as noted in the clinical panel. He is reassured no local signs of infection are noted. He was advised to continue cleaning with antimicrobial Ramya-Hex soap. I do not recommend antibiotics today. He was advised to changes daily with hydrogel and Adaptic. Noted he relates the ulcer is been very dry lately and therefore this dressing care plan was altered. It is noted he does have a grade 3 ulcer and the indications and anticipated healing time management will be discussed to see if he is amendable to proceed forward with this and if lack of progress is noted. To keep pressure off of this healing ulcer site by wearing a surgical shoe and avoiding excessive activity. [place] offloading pads were applied to the plantar aspect of the shoe as well as the fabric strap to take pressure off of both ulcer sites. His diagnostic data from his last hospitalization were reviewed including CBC, CMP, and hemoglobin A1c of 7.3%. His noninvasive vascular studies were also reviewed from last month on April 10, 2019 with triphasic bilateral waveforms and adequate flow noted. The right ABIs were 1.28 and 1.12 in the left was 1.24 and 1.17. I recommend proper glycemic control and nutritional supplementation to optimize healing. It is imperative he monitors his blood glucose levels at home and he will try to resume this. We discussed his comprehensive wound healing plan and I recommend he follows up next week. He does have a Catalan grade 3 ulcer and [facility] I answered all his questions. I also recommended continuation of smoking cessation and discussed the risks and complications associated with this including delayed healing, limb loss, and other systemic issues. He is doing well with this so far. To return to clinic in 1 week or call sooner if he has any questions or concerns. I did offer him intermittent telehealth visits to the coronavirus condemning and he elects to be seen in person and would benefit from continued serial debridements.
[2019-07-12 14:41] VITALS: BP 162/87; PULSE 84; RESP 18; TEMP 36.9; BMI 85.9
--- NOTE | 2019-07-12 15:46 | PN.PCM_ITS ---
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 Current Visit: Yes Code(s): L97.513 - Non-pressure chronic ulcer of other part of right foot with necrosis of muscle Comment: grade 3 (2) Edema of right lower extremity Status: Chronic Current Visit: Yes Code(s): R60.0 - Localized edema (3) Malnutrition Status: Chronic Current Visit: Yes Code(s): E46 - Unspecified protein- calorie malnutrition (4) Delayed wound healing Status: Chronic Current Visit: Yes Code(s): T14.8XXD - Other injury of unspecified body region, subsequent encounter (5) Type 2 diabetes mellitus with diabetic polyneuropathy Status: Chronic Current Visit: Yes Code(s): E11.42 - Type 2 diabetes nighat rosario with diabetic polyneuropathy Type of Wound Date of Service: 07/12/19 Chief Complaint: Right foot ulcer History of Wound: This 59-year-old male was treated previously at [facility] for infected right foot. He underwent surgical incision and drainage with Dr. Gayle on April 08, 2019. He was treated with IV antibiotics for MRSA and MSSA growth. He has since stabilized and completed oral antibiotics. He has been diligently washing with antimicrobial medical grade Hibiclens soap with resolution of erythema and odor; the quality of the ulcer have also continued to improved. He denies odor or redness. He did get fitted with an offloading CAM Walker boot with pocket to take pressure off the ulcer site at the foot and ankle center. He denies pain. He has been changing the dressing with aquacell ag. He denies fever, chill, nausea, vomiting, redness or odor to the foot. He stopped smoking for weeks ago and has been very diligent with this. He expresses interest in returning to work soon and asked that this is possible. He relates he had to discontinue his phone at this time. Progress of Wound: improving - Physical Exam Vital Signs Temp Pulse Resp BP 98.4 F 84 18 162/87 H 07/12/19 14:41 07/12/19 14:41 07/12/19 14:41 07/12/19 14:41 General: Alert, Oriented x3, Cooperative, No apparent distress HEENT: Atraumatic Extremities: No cyanosis, Capillary Refill Less than 3 Seconds, No Calf Tenderness, Diminished Peripheral Pulses, Edema Skin: Ulcer/ Wound - No purulence, erythema, streaking, odor, infection. Granular base is progressing well and the adjacent skin is hairless Wound Measurements and Assessment WC - Nurse 1 - General Ulcer Measurement Start: 06/28/19 13:42 Freq: Status: Active Protocol: Activity Type Activity Date Activity User E-Sign Co-Sign Detail Recorded Client Recorded Date Recorded By Document 07/12/19 14:41 RB [id number] 07/12/19 14:45 RB 07/12/19 14:41 Wound Center Nurse 1 [Ulcer Assessment] #2- R 1ST METATARSAL JOINT -Combined with other wound No -Current Size (cm) - Length 1.3 -Current Size (cm) - Width 0.2 -Current Size (cm) - Depth 0.3 -Total Square Cm 0.26 -Tunneling No -Undermining/Tunneling No -Circular Undermining No -Exudate Amt Small -Exudate Type Serosanguineous -Wound Margin Flat & Intact -Granulation Amt Medium (34-66%) -Granulation Quality [place] -Slough/Fibrin Yes -Necrosis Amt Small (1-33%) -Necrotic Tissue Type Adherent Slough -Structure Exposed N/A -Texture (Barbara-wound Skin Appearance) Assessed -Moisture (Barbara-wound Skin Appearance Assessed ) -Color ([place]-wound Skin Appearance) Assessed -Temperature (Barbara-wound Skin No Abnormality Appearance) (Pt Warm) -Tenderness on Palpation (Barbara-wound No Skin Appearance) -Ulcer Cleansing Wound Cleanser -Foul Odor after Cleansing No -Anesthetic Used 4% Lidocaine Solution [Edema Assessment] -Lower Limb Edema Present Yes -Right Calf (cm) 42.5 -Right Ankle (cm) 24 WC - Nurse 2 - General Ulcer CM Notes Start: 06/28/19 13:42 Freq: Status: Active Protocol: Activity Type Activity Date Activity User E-Sign Co-Sign Detail Recorded Client Recorded Date Recorded By Document 07/12/19 15:08 [id number] 07/12/19 15:10 07/12/19 15:08 Wound Center Nurse 2 [Procedure/Treatment] #2- R 1ST METATARSAL JOINT -Time 15:08 -Correct Patient Yes -Correct Side, Site, Position Yes -Correct Procedure Yes -Procedure Performed Yes -Type of Procedure Debridement -Clinical Debridement Subcutaneous -Post Debridement Size (cm) - Length 1.3 -Post Debridement Size (cm) - Width 0.2 -Post Debridement Size (cm) - Depth 0.2 -Total Square Cm 0.26 -Wound/Ulcer Outcome Not Healed -Ulcer Cleansing Rinsed/ Irrigated with Saline -Foul Odor after Cleansing No -Bioengineered Tissue No -Bleeding Controlled with Pressure -Offloading Yes -Type of Offloading Camwalker -Treatment Response Procedure Tolerated Well [See Physician Procedure note for Specifics] Pain Scale: 0-10 Numeric [Pain] -Is Patient Pain Free? Yes Musculoskeletal: No Tenderness to Palpation of Joints or Extremities, Muscle Wasting Neurological: - - Lack of normal epicritic sensation light touch is consistent with neuropathy status Psych/Mental Status: Normal Affect, Appropriate Debridement Note Post-Debridement Measurements/Treatment WC - Nurse 2 - General Ulcer CM Notes Start: 06/28/19 13:42 Freq: Status: Active Protocol: Activity Type Activity Date Activity User E-Sign Co-Sign Detail Recorded Client Recorded Date Recorded By Document 06/28/19 13:58 [id number] 06/28/19 14:00 Document 07/05/19 14:38 [id number] 07/05/19 14:40 Document 07/12/19 15:08 [id number] 07/12/19 15:10 06/28/19 07/05/19 07/12/19 13:58 14:38 15:08 Wound Center Nurse 2 #2- R 1ST METATARSAL JOINT -Time 13:59 14:38 15:08 -Correct Patient Yes Yes Yes -Correct Side, Site, Position Yes Yes Yes -Correct Procedure Yes Yes Yes -Procedure Performed Yes Yes Yes -Type of Procedure Debridement Debridement Debridement -Clinical Debridement Subcutaneous Subcutaneous Subcutaneous -Post Debridement Size (cm) - Length 1.6 1.3 1.3 -Post Debridement Size (cm) - Width 0.3 0.2 0.2 -Post Debridement Size (cm) - Depth 0.4 0.2 0.2 -Total Square Cm 0.48 0.26 0.26 -Wound/Ulcer Outcome Not Healed Not Healed Not Healed -Ulcer Cleansing Rinsed/ Rinsed/ Rinsed/ Irrigated with Irrigated with Irrigated with Saline Saline Saline -Foul Odor after Cleansing No No -Bioengineered Tissue No No -Bleeding Controlled with Pressure Pressure Pressure -Offloading Yes Yes Yes -Type of Offloading Camwalker Camwalker Camwalker -Treatment Response Procedure Procedure Procedure Tolerated Well Tolerated Well Tolerated Well Pain Scale: 0-10 Numeric Is Patient Pain Free? Yes Yes Yes Wound debrided: medial forefoot Laterality: Right Wound Grade/Stage: grade Type of Debridement: Excisional debridement Anesthesia Used: 5% Lidocaine Gel Depth: in the subcutaneous layer Percentage of wound debrided: 100 Instrument Used: #15 blade Tissue Removed: fibrous, devitalized subcutaneous, biofilm, slough Severity: Fat Layer Exposed Amount of bleeding with debridement: Mild Bleeding Controlled with: Pressure Patient tolerated procedure well Assessment/Plan Active Problems (Last Updated 04/07/19 @ 17:[address] 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 Infection right foot resolved. Diabetes with neuropathy. Delayed healing. Malnutrition suspected. Edema lower extremity. Tobacco use-he has recently quit Plan: I reviewed and discussed his case. The ulcer was debrided in a subcutaneous excisional manner as noted in the clinical panel. He is reassured no local signs of infection are noted. He was advised to continue cleaning with antimicrobial Ramya-Hex soap. I do not recommend antibiotics today. He was advised to changes daily with hydrogel and Adaptic. It is noted he does have a grade 3 ulcer and the indications and anticipated healing time management will be discussed to see if he is amendable to proceed forward with this and if lack of progress is noted. To keep pressure off of this healing ulcer site by wearing a surgical shoe and avoiding excessive activity. [place] offloading pads were applied to the plantar aspect of the shoe as well as the fabric strap to take pressure off of both ulcer sites. His diagnostic data from his last hospitalization were reviewed including CBC, CMP, and hemoglobin A1c of 7.3%. His noninvasive vascular studies were also reviewed from last month on April 10, 2019 with triphasic bilateral waveforms and adequate flow noted. The right ABIs were 1.28 and 1.12 in the left was 1.24 and 1.17. I recommend proper glycemic control and nutritional supplementation to optimize healing. It is imperative he monitors his blood glucose levels at home and he will try to resume this. We discussed his comprehensive wound healing plan and I recommend he follows up next week. He does have a Catalan grade 3 ulcer and he is currently discharged from the senior care facility. I answered all his questions. I also recommended continuation of smoking cessation and discussed the risks and complications associated with this including delayed healing, limb loss, and other systemic issues. He is doing well with this so far. To return to clinic in 1 week or call sooner if he has any questions or concerns. I did offer him intermittent telehealth visits to the coronavirus pandemic and he elects to be seen in person and would benefit from continued serial debridements.
[2019-07-19 11:27] VITALS: BP 184/98; PULSE 79; RESP 18; TEMP 36.7; BMI 85.9
--- NOTE | 2019-07-19 11:39 | PN.PCM_ITS ---
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 Current Visit: Yes Code(s): L97.513 - Non-pressure chronic ulcer of other part of right foot with necrosis of muscle Comment: grade 3 (2) Edema of right lower extremity Status: Chronic Current Visit: Yes Code(s): R60.0 - Localized edema (3) Malnutrition Status: Chronic Current Visit: Yes Code(s): E46 - Unspecified protein- calorie malnutrition (4) Delayed wound healing Status: Chronic Current Visit: Yes Code(s): T14.8XXD - Other injury of unspecified body region, subsequent encounter (5) Type 2 diabetes mellitus with diabetic polyneuropathy Status: Chronic Current Visit: Yes Code(s): E11.42 - Type 2 diabetes nighat rosario with diabetic polyneuropathy Type of Wound Date of Service: 07/19/19 Chief Complaint: Right foot ulcer History of Wound: This 59-year-old male was treated previously at [facility] for infected right foot. He underwent surgical incision and drainage with Dr. Gayle on April 08, 2019. He was treated with IV antibiotics for MRSA and MSSA growth. He has since stabilized and completed oral antibiotics. He has been diligently washing with antimicrobial medical grade Hibiclens soap with resolution of erythema and odor; the quality of the ulcer have also continued to improved. He denies odor or redness. He did get fitted with an offloading CAM Walker boot with pocket to take pressure off the ulcer site at the foot and ankle center. He denies pain. He has been changing the dressing with aquacell ag. He denies fever, chill, nausea, vomiting, redness or odor to the foot. He stopped smoking for weeks ago and has been very diligent with this. He expresses interest in returning to work soon and asked that this is possible. He relates he had to discontinue his phone at this time. He is set that is appropriate for him to do various short walks to the mailbox to help with constipation issues. Progress of Wound: improving - Physical Exam Vital Signs Temp Pulse Resp BP 98.1 F 79 18 184/98 H 07/19/19 11:27 07/19/19 11:27 07/19/19 11:27 07/19/19 11:27 General: Alert, Oriented x3, Cooperative, No apparent distress Extremities: No cyanosis, Capillary Refill Less than 3 Seconds, No Calf Tenderness, Diminished Peripheral Pulses, Edema Skin: Ulcer/ Wound - No purulence, erythema, string, odor, infection. The adjacent skin is hairless and atrophic. There is significant peripheral epithelialization noted Wound Measurements and Assessment WC - Nurse 1 - General Ulcer Measurement Start: 06/28/19 13:42 Freq: Status: Active Protocol: Activity Type Activity Date Activity User E-Sign Co-Sign Detail Recorded Client Recorded Date Recorded By Document 07/19/19 11:27 [id number] 07/19/19 11:31 07/19/19 11:27 Wound Center Nurse 1 [Ulcer Assessment] #2- R 1ST METATARSAL JOINT -Combined with other wound No -Current Size (cm) - Length 0.1 -Current Size (cm) - Width 0.1 -Current Size (cm) - Depth 0.1 -Total Square Cm 0.01 -Photo Taken No -Epithelialization Large 67-100% -Tunneling No -Undermining/Tunneling No -Circular Undermining No -Exudate Amt None Present -Texture (Barbara-wound Skin Appearance) Callus -Temperature (Barbara-wound Skin No Abnormality Appearance) (Pt Warm) -Tenderness on Palpation (Barbara-wound No Skin Appearance) -Ulcer Cleansing Rinsed/ Irrigated with Saline -Foul Odor after Cleansing No -Anesthetic Used 4% Lidocaine Solution [Edema Assessment] -Lower Limb Edema Present No -Right Calf (cm) 43 -Right Ankle (cm) 23.5 Musculoskeletal: No Tenderness to Palpation of Joints or Extremities, Muscle Wasting Neurological: - - Lack of normal epicritic sensation light touch is consistent with neuropathy status Psych/Mental Status: Normal Affect, Appropriate Debridement Note Post-Debridement Measurements/Treatment WC - Nurse 2 - General Ulcer CM Notes Start: 06/28/19 13:42 Freq: Status: Active Protocol: Activity Type Activity Date Activity User E-Sign Co-Sign Detail Recorded Client Recorded Date Recorded By Document 06/28/19 13:58 [id number] 06/28/19 14:00 Document 07/05/19 14:38 [id number] 07/05/19 14:40 Document 07/12/19 15:08 [id number] 07/12/19 15:10 06/28/19 07/05/19 07/12/19 13:58 14:38 15:08 Wound Center Nurse 2 #2- R 1ST METATARSAL JOINT -Time 13:59 14:38 15:08 -Correct Patient Yes Yes Yes -Correct Side, Site, Position Yes Yes Yes -Correct Procedure Yes Yes Yes -Procedure Performed Yes Yes Yes -Type of Procedure Debridement Debridement Debridement -Clinical Debridement Subcutaneous Subcutaneous Subcutaneous -Post Debridement Size (cm) - Length 1.6 1.3 1.3 -Post Debridement Size (cm) - Width 0.3 0.2 0.2 -Post Debridement Size (cm) - Depth 0.4 0.2 0.2 -Total Square Cm 0.48 0.26 0.26 -Wound/Ulcer Outcome Not Healed Not Healed Not Healed -Ulcer Cleansing Rinsed/ Rinsed/ Rinsed/ Irrigated with Irrigated with Irrigated with Saline Saline Saline -Foul Odor after Cleansing No No -Bioengineered Tissue No No -Bleeding Controlled with Pressure Pressure Pressure -Offloading Yes Yes Yes -Type of Offloading Camwalker Camwalker Camwalker -Treatment Response Procedure Procedure Procedure Tolerated Well Tolerated Well Tolerated Well Pain Scale: 0-10 Numeric Is Patient Pain Free? Yes Yes Yes Wound debrided: medial foot Laterality: Right Wound Grade/Stage: grade 3 Type of Debridement: Excisional debridement Anesthesia Used: 5% Lidocaine Gel Depth: in the subcutaneous layer Percentage of wound debrided: 100 Instrument Used: #15 blade Tissue Removed: fibrous, devitalized subcutaneous, biofilm, slough Severity: Fat Layer Exposed Amount of bleeding with debridement: Mild Bleeding Controlled with: Pressure Patient tolerated procedure well Assessment/Plan Active Problems (Last Updated 04/07/19 @ 17:[address] 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 Infection right foot resolved. Diabetes with neuropathy. Delayed healing. Malnutrition suspected. Edema lower extremity. Tobacco use-he has recently quit Plan: I reviewed and discussed his case. The ulcer was debrided in a subcutaneous excisional manner as noted in the clinical panel. He is reassured no local signs of infection are noted. He was advised to continue cleaning with antimicrobial Ramya-Hex soap. I do not recommend antibiotics today. He was advised to changes daily with hydrogel and Adaptic. It is noted he does have a grade 3 ulcer and the indications and anticipated healing time management will be discussed to see if he is amendable to proceed forward with this and if lack of progress is noted. To keep pressure off of this healing ulcer site by wearing a surgical shoe and avoiding excessive activity. [place] offloading pads were applied to the plantar aspect of the shoe as well as the fabric strap to take pressure off of both ulcer sites. His diagnostic data from his last hospitalization were reviewed including CBC, CMP, and hemoglobin A1c of 7.3%. His noninvasive vascular studies were also reviewed from last month on April 10, 2019 with triphasic bilateral waveforms and adequate flow noted. The right ABIs were 1.28 and 1.12 in the left was 1.24 and 1.17. I recommend proper glycemic control and nutritional supplementation to optimize healing. It is imperative he monitors his blood glucose levels at home and he will try to resume this. We discussed his comprehensive wound healing plan and I recommend he follows up next week. He does have a Catalan grade 3 ulcer and he is currently discharged from the [facility]-way facility. I answered all his questions. I also recommended continuation of smoking cessation and discussed the risks and complications associated with this including delayed healing, limb loss, and other systemic issues. He is doing well with this so far. It is okay for him to proceed with a walk out to the mailbox for at home constipation management. I also recommended he stay hydrated and eat fresh fruits and vegetables. To return to clinic in 1 week or call sooner if he has any que stions or concerns. I did offer him intermittent telehealth visits to the coronavirus pandemic and he elects to be seen in person and would benefit from continued serial debridements.
[2019-07-26 11:42] VITALS: BP 160/89; PULSE 81; RESP 18; TEMP 36.8; BMI 85.9
--- NOTE | 2019-07-26 11:59 | PCM.WC.PN ---
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 Current Visit: Yes Code(s): L97.513 - Non-pressure chronic ulcer of other part of right foot with necrosis of muscle Comment: grade 3 (2) Edema of right lower extremity Status: Chronic Current Visit: Yes Code(s): R60.0 - Localized edema (3) Malnutrition Status: Chronic Current Visit: Yes Code(s): E46 - Unspecified protein-calorie malnutrition (4) Delayed wound healing Status: Chronic Current Visit: Yes Code(s): T14.8XXD - Other injury of unspecified body region, subsequent encounter (5) Type 2 diabetes mellitus with diabetic polyneuropathy Status: Chronic Current Visit: Yes Code(s): E11.42 - Type 2 diabetes mellitus with diabetic polyneuropathy Type of Wound Date of Service: 07/26/19 Chief Complaint: Right foot ulcer History of Wound: This 59-year-old male was treated previously at [facility] for infected right foot. He underwent surgical incision and drainage with Dr. Gayle on April 08, 2019. He was treated with IV antibiotics for MRSA and MSSA growth. He has since stabilized and completed oral antibiotics. He has been diligently washing with antimicrobial medical grade Hibiclens soap with resolution of erythema and odor; the quality of the ulcer have also continued to improved. He denies odor or redness. He did get fitted with an offloading CAM Walker boot with pocket to take pressure off the ulcer site at the foot and ankle center. He denies pain. He has been changing the dressing with [place]ulizeell ag. He denies fever, chill, nausea, vomiting, redness or odor to the foot. He stopped smoking for weeks ago and has been very diligent with this. Progress of Wound: improving - Physical Exam Vital Signs Temp Pulse Resp BP 98.2 F 81 18 160/89 H 07/26/19 11:42 07/26/19 11:42 07/26/19 11:42 07/26/19 11:42 General: Alert, Oriented x3, Cooperative HEENT: Atraumatic Extremities: No cyanosis, Capillary Refill Less than 3 Seconds, No Calf Tenderness, Diminished Peripheral Pulses, Edema Skin: Ulcer/ Wound - Peripheral epithelialization continues. There is no purulence, erythema, string, odor, infection. The adjacent skin is hairless and atrophic Wound Measurements and Assessment WC - Nurse 1 - General Ulcer Measurement Start: 06/28/19 13:42 Freq: Status: Active Protocol: Activity Type Activity Date Activity User E-Sign Co-Sign Detail Recorded Client Recorded Date Recorded By Document 07/26/19 11:42 [id number] [id number] 07/26/19 11:45 DV 07/26/19 11:42 Wound Center Nurse 1 [Ulcer Assessment] #2- R 1ST METATARSAL JOINT -Combined with other wound No -Current Size (cm) - Length 0.2 -Current Size (cm) - Width 0.1 -Current Size (cm) - Depth 0.1 -Total Square Cm 0.02 -Photo Taken No -Epithelialization None Present -Tunneling No -Undermining/Tunneling No -Circular Undermining No -Classification - Thickness Full Thickness without Exposed Support Structure -Wound Margin Thickened -Granulation Amt None Present (0 %) -Granulation Quality N/A -Slough/Fibrin Yes -Necrosis Amt Small (1-33%) -Necrotic Tissue Type Adherent Slough -Structure Exposed None/Limited to Skin Breakdown -Texture (Barbara-wound Skin Appearance) Assessed, Scarring -Moisture (Barbara-wound Skin Appearance No Abnormality, ) Dry/Scaly -Color (Barbara-wound Skin Appearance) No Abnormality, Assessed -Temperature (Barbara-wound Skin No Abnormality Appearance) (Pt Warm) -Tenderness on Palpation (Barbara-wound No Skin Appearance) -Foul Odor after Cleansing No -Anesthetic Used 4% Lidocaine Solution [Edema Assessment] -Lower Limb Edema Present No -Right Calf (cm) 43.5 -Right Ankle (cm) 23.0 - Nurse 2 - General Ulcer CM Notes Start: 06/28/19 13:42 Freq: Status: Active Protocol: Activity Type Activity Date Activity User E-Sign Co-Sign Detail Recorded Client Recorded Date Recorded By Document 07/26/19 11:58 [email or web address] [id number] 07/26/19 11:59 [email or web address] 07/26/19 11:58 Wound Center Nurse 2 [Procedure/Treatment] #2- R 1ST METATARSAL JOINT -Time 11:59 -Correct Patient Yes -Correct Side, Site, Position Yes -Correct Procedure Yes -Procedure Performed Yes -Type of Procedure Debridement -Clinical Debridement Subcutaneous -Post Debridement Size (cm) - Length 0.3 -Post Debridement Size (cm) - Width 0.1 -Post Debridement Size (cm) - Depth 0.1 -Total Square Cm 0.03 -Wound/Ulcer Outcome Not Healed -Ulcer Cleansing Rinsed/ Irrigated with Saline -Foul Odor after Cleansing No -Bioengineered Tissue No -Bleeding Controlled with Pressure -Offloading Yes -Type of Offloading Camwalker -Treatment Response Procedure Tolerated Well [See Physician Procedure note for Specifics] Pain Scale: 0-10 Numeric [Pain] -Is Patient Pain Free? Yes Musculoskeletal: No Tenderness to Palpation of Joints or Extremities, Muscle Wasting Neurological: - - Lack of epicritic sensation light touch is consistent with neuropathy status Psych/Mental Status: Normal Affect, Appropriate Debridement Note Post-Debridement Measurements/Treatment WC - Nurse 2 - General Ulcer CM Notes Start: 06/28/19 13:42 Freq: Status: Active Protocol: Activity Type Activity Date Activity User E-Sign Co-Sign Detail Recorded Client Recorded Date Recorded By Document 06/28/19 13:58 [id number] 06/28/19 14:00 Document 07/05/19 14:38 [id number] 07/05/19 14:40 Document 07/12/19 15:08 [id number] 07/12/19 15:10 Document 07/19/19 11:38 [id number] 07/19/19 11:43 Document 07/26/19 11:58 [id number] 07/26/19 11:59 06/28/19 07/05/19 07/12/19 13:58 14:38 15:08 Wound Center Nurse 2 #2- R 1ST METATARSAL JOINT -Time 13:59 14:38 15:08 -Correct Patient Yes Yes Yes -Correct Side, Site, Position Yes Yes Yes -Correct Procedure Yes Yes Yes -Procedure Performed Yes Yes Yes -Type of Procedure Debridement Debridement Debridement -Clinical Debridement Subcutaneous Subcutaneous Subcutaneous -Post Debridement Size (cm) - Length 1.6 1.3 1.3 -Post Debridement Size (cm) - Width 0.3 0.2 0.2 -Post Debridement Size (cm) - Depth 0.4 0.2 0.2 -Total Square Cm 0.48 0.26 0.26 -Wound/Ulcer Outcome Not Healed Not Healed Not Healed -Ulcer Cleansing Rinsed/ Rinsed/ Rinsed/ Irrigated with Irrigated with Irrigated with Saline Saline Saline -Foul Odor after Cleansing No No -Bioengineered Tissue No No -Bleeding Controlled with Pressure Pressure Pressure -Offloading Yes Yes Yes -Type of Offloading Camwalker Camwalker Camwalker -Treatment Response Procedure Procedure Procedure Tolerated Well Tolerated Well Tolerated Well Pain Scale: 0-10 Numeric Is Patient Pain Free? Yes Yes Yes 07/19/19 07/26/19 11:38 11:58 Wound Center Nurse 2 #2- R 1ST METATARSAL JOINT -Time 11:43 11:59 -Correct Patient Yes Yes -Correct Side, Site, Position Yes Yes -Correct Procedure Yes Yes -Procedure Performed Yes Yes -Type of Procedure Debridement Debridement -Clinical Debridement Subcutaneous Subcutaneous -Post Debridement Size (cm) - Length 0.8 0.3 -Post Debridement Size (cm) - Width 0.1 0.1 -Post Debridement Size (cm) - Depth 0.1 0.1 -Total Square Cm 0.08 0.03 -Wound/Ulcer Outcome Not Healed Not Healed -Ulcer Cleansing Rinsed/ Rinsed/ Irrigated with Irrigated with Saline Saline -Foul Odor after Cleansing No No -Bioengineered Tissue No No -Bleeding Controlled with Pressure Pressure -Offloading Yes Yes -Type of Offloading Camwalker Camwalker -Treatment Response Procedure Procedure Tolerated Well Tolerated Well Pain Scale: 0-10 Numeric Is Patient Pain Free? Yes Yes Wound debrided: medial forefoot Laterality: Right Wound Grade/Stage: grade 3 Type of Debridement: Excisional debridement Anesthesia Used: 5% Lidocaine Gel Depth: in the subcutaneous layer Percentage of wound debrided: 100 Instrument Used: #15 blade Tissue Removed: fibrous, devitalized subcutaneous, biofilm, slough Severity: Fat Layer Exposed Amount of bleeding with debridement: Mild Bleeding Controlled with: Pressure Patient tolerated procedure well Assessment/Plan Active Problems (Last Updated 04/07/19 @ 17:[address] 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 Infection right foot resolved. Diabetes with neuropathy. Delayed healing. Malnutrition suspected. Edema lower extremity. Tobacco use-he has recently quit Plan: I reviewed and discussed his case. The ulcer was debrided in a subcutaneous excisional manner as noted in the clinical panel. He is reassured no local signs of infection are noted. He was advised to continue cleaning with antimicrobial Ramya-Hex soap. I do not recommend antibiotics today. He was advised to changes daily with hydrogel and Adaptic. It is noted he does have a grade 3 ulcer and the indications and anticipated healing time management will be discussed to see if he is amendable to proceed forward with this and if lack of progress is noted. To keep pressure off of this healing ulcer site by wearing a surgical shoe and avoiding excessive activity. [place] offloading pads were applied to the plantar aspect of the shoe as well as the fabric strap to take pressure off of both ulcer sites. This adjustment has gone well. His diagnostic data from his last hospitalization were reviewed including CBC, CMP, and hemoglobin A1c of 7.3%. His noninvasive vascular studies were also reviewed from last month on April 10, 2019 with triphasic bilateral waveforms and adequate flow noted. The right ABIs were 1.28 and 1.12 in the left was 1.24 and 1.17. I recommend proper glycemic control and nutritional supplementation to optimize healing. It is imperative he monitors his blood glucose levels at home and he will try to resume this. We discussed his comprehensive wound healing plan and I recommend he follows up next week. He does have a Catalan grade 3 ulcer and [facility]. I answered all his questions. I also recommended continuation of smoking cessation and discussed the risks and complications associated with this including delayed healing, limb loss, and other systemic issues. He is doing well with this so far. To return to clinic in 1 week or call sooner if he has any questions or concerns. I did offer him intermittent telehealth visits to the coronavirus pandemic and he elects to be seen in person and would benefit from continued serial debridements.
== END 2019-07-27 23:59 ==
LOC: WC 11:30
PROVIDERS: PCP Family Medicine; Visit Provider Podiatrist
DX: E11.621 Type 2 diabetes mellitus with foot ulcer (principal); L97.513 Non-pressure chronic ulcer of other part of right foot with necrosis of muscle; R60.0 Localized edema; T14.8XXD Other injury of unspecified body region, subsequent encounter; E11.42 Type 2 diabetes mellitus with diabetic polyneuropathy; Z87.891 Personal history of nicotine dependence; K59.00 Constipation, unspecified; Z86.14 Personal history of Methicillin resistant Staphylococcus aureus infection
CPT/HCPCS: 11042; 11045

== ENCOUNTER 2019-08-16 14:30 | Outpatient (RCR) | payer MEDICAID, SELFPAY ==
[2019-07-28 00:15] VITALS: BP 160/89; PULSE 81; RESP 18; TEMP 36.8
[2019-08-02 11:38] VITALS: BP 162/77; PULSE 88; RESP 18; TEMP 37.1; O2SAT 100; BMI 85.9
--- NOTE | 2019-08-02 12:23 | PCM.WC.PN ---
(1) Chronic ulcer of left foot with fat layer exposed Status: Chronic Current Visit: Yes Code(s): L97.522 - Non-pressure chronic ulcer of other part of left foot with fat layer exposed (2) Malnutrition Status: Chronic Current Visit: Yes Code(s): E46 - Unspecified protein-calorie malnutrition (3) Delayed wound healing Status: Chronic Current Visit: Yes Code(s): T14.8XXD - Other injury of unspecified body region, subsequent encounter (4) Type 2 diabetes mellitus with diabetic polyneuropathy Status: Chronic Current Visit: Yes Code(s): E11.42 - Type 2 diabetes mellitus with diabetic polyneuropathy (5) Ulcer of right foot with necrosis of muscle Status: Chronic Current Visit: Yes Code(s): L97.513 - Non-pressure chronic ulcer of other part of right foot with necrosis of muscle Comment: grade 3 Type of Wound Date of Service: 08/02/19 Chief Complaint: Right foot ulcer History of Wound: This 59-year-old male was treated previously at [facility] for infected right foot. He underwent surgical incision and drainage with Dr. Gayle on April 08, 2019. He was treated with IV antibiotics for MRSA and MSSA growth. He has since stabilized and completed oral antibiotics. He has been diligently washing with antimicrobial medical grade Hibiclens soap with resolution of erythema and odor; the quality of the ulcer have also continued to improved. He denies odor or redness. He did get fitted with an offloading CAM Walker boot with pocket to take pressure off the ulcer site at the foot and ankle center. He denies pain. He has been changing the dressing with [employer]. He denies fever, chill, nausea, vomiting, redness or odor to the foot. He relates he has successfully quit smoking. He is been a lot more active this past week he is helping some family moved. He thinks this may have compromised his right foot and now he has an open draining wound on his left foot that he would like evaluated today. Progress of Wound: Stable right. New left - Physical Exam Vital Signs Temp Pulse Resp BP Pulse Ox 98.7 F 88 18 162/77 H 100 08/02/19 11:38 08/02/19 11:38 08/02/19 11:38 08/02/19 11:38 08/02/19 11:38 General: Alert, Oriented x3, Cooperative, No apparent distress Extremities: No cyanosis, Capillary Refill Less than 3 Seconds, No Calf Tenderness, Diminished Peripheral Pulses, Edema - Mild bilateral lower extremities, - - Decreased limited first metatarsophalangeal joint range of motion bilateral Skin: Ulcer/ Wound - No purulence, erythema, streaking, odor, infection. Some mild ecchymosis around the right ulcer site consistent with increased friction and pressure. There is no deep tissue exposed or eschar. There is a new skin discontinuity to the left foot to the dorsal hallux and also the plantar hallux at the crease of the hallux interphalangeal joint sulcus. These are granular base and also no infection. His peripheral skin is hairless and atrophic bilateral Wound Measurements and Assessment WC - Nurse 1 - General Ulcer Measurement Start: 08/02/19 11:37 Freq: Status: Active Protocol: Activity Type Activity Date Activity User E-Sign Co-Sign Detail Recorded Client Recorded Date Recorded By Document 08/02/19 11:38 IA [id number] 08/02/19 11:42 IA 08/02/19 11:38 Wound Center Nurse 1 [Ulcer Assessment] #2- R 1ST METATARSAL JOINT -Current Size (cm) - Length 0.1 -Current Size (cm) - Width 0.1 -Current Size (cm) - Depth 0.1 -Total Square Cm 0.01 -Wound Margin Thickened & Rolled Under -Granulation Amt Large (67-100%) -Granulation Quality Pale,Crest -Slough/Fibrin Yes -Necrosis Amt None Present (0 %) -Necrotic Tissue Type Adherent Slough -Texture (Barbara-wound Skin Appearance) Assessed,Callus -Moisture (Barbara-wound Skin Appearance Assessed ) -Color (Barbara-wound Skin Appearance) Assessed -Temperature (Barbara-wound Skin No Abnormality Appearance) (Pt Warm) -Tenderness on Palpation (Barbara-wound No Skin Appearance) -Ulcer Cleansing Rinsed/ Irrigated with Saline -Foul Odor after Cleansing No -Anesthetic Used 4% Lidocaine Solution [Edema Assessment] -Lower Limb Edema Present NA WC - Nurse 2 - General Ulcer CM Notes Start: 08/02/19 11:37 Freq: Status: Active Protocol: Activity Type Activity Date Activity User E-Sign Co-Sign Detail Recorded Client Recorded Date Recorded By Document 08/02/19 12:12 [id number] 08/02/19 12:18 JF 08/02/19 12:12 Wound Center Nurse 2 [Procedure/Treatment] 4-left plantar hallux -Time 12:16 -Correct Patient Yes -Correct Side, Site, Position Yes -Correct Procedure Yes -Procedure Performed Yes -Type of Procedure Debridement -Clinical Debridement Subcutaneous -Post Debridement Size (cm) - Length 1.3 -Post Debridement Size (cm) - Width 0.1 -Post Debridement Size (cm) - Depth 0.1 -Total Square Cm 0.13 -Wound/Ulcer Outcome Not Healed -Ulcer Cleansing Rinsed/ Irrigated with Saline -Foul Odor after Cleansing No -Bioengineered Tissue No -Bleeding Controlled with Pressure -Offloading Yes -Type of Offloading Surgical Shoe -Treatment Response Procedure Tolerated Well 3-left dorsal hallux -Time 12:16 -Correct Patient Yes -Correct Side, Site, Position Yes -Correct Procedure Yes -Procedure Performed Yes -Type of Procedure Debridement -Clinical Debridement Subcutaneous -Post Debridement Size (cm) - Length 0.4 -Post Debridement Size (cm) - Width 0.4 -Post Debridement Size (cm) - Depth 0.1 -Total Square Cm 0.16 -Wound/Ulcer Outcome Not Healed -Ulcer Cleansing Rinsed/ Irrigated with Saline -Foul Odor after Cleansing No -Bioengineered Tissue No -Bleeding Controlled with Pressure -Offloading Yes -Type of Offloading Surgical Shoe -Treatment Response Procedure Tolerated Well #2- R 1ST METATARSAL JOINT -Time 12:13 -Correct Patient Yes -Correct Side, Site, Position Yes -Correct Procedure Yes -Procedure Performed Yes -Type of Procedure Debridement -Clinical Debridement Subcutaneous -Post Debridement Size (cm) - Length 1.0 -Post Debridement Size (cm) - Width 0.3 -Post Debridement Size (cm) - Depth 0.2 -Total Square Cm 0.30 -Wound/Ulcer Outcome Not Healed -Ulcer Cleansing Rinsed/ Irrigated with Saline -Foul Odor after Cleansing No -Bioengineered Tissue No -Bleeding Controlled with Pressure -Offloading Yes -Type of Offloading Camwalker -Treatment Response Procedure Tolerated Well [See Physician Procedure note for Specifics] Pain Scale: 0-10 Numeric [Pain] -Is Patient Pain Free? Yes Musculoskeletal: No Tenderness to Palpation of Joints or Extremities, Muscle Wasting Neurological: - - Lack of epicritic sensation light touch is consistent with neuropathy status Psych/Mental Status: Normal Affect, Appropriate Debridement Note Post-Debridement Measurements/Treatment WC - Nurse 2 - General Ulcer CM Notes Start: 08/02/19 11:37 Freq: Status: Active Protocol: Activity Type Activity Date Activity User E-Sign Co-Sign Detail Recorded Client Recorded Date Recorded By Document 08/02/19 12:12 [email or web address] [id number] 08/02/19 12:18 EUFEMIA 08/02/19 12:12 Wound Center Nurse 2 4-left plantar hallux -Time 12:16 -Correct Patient Yes -Correct Side, Site, Position Yes -Correct Procedure Yes -Procedure Performed Yes -Type of Procedure Debridement -Clinical Debridement Subcutaneous -Post Debridement Size (cm) - Length 1.3 -Post Debridement Size (cm) - Width 0.1 -Post Debridement Size (cm) - Depth 0.1 -Total Square Cm 0.13 -Wound/Ulcer Outcome Not Healed -Ulcer Cleansing Rinsed/ Irrigated with Saline -Foul Odor after Cleansing No -Bioengineered Tissue No -Bleeding Controlled with Pressure -Offloading Yes -Type of Offloading Surgical Shoe -Treatment Response Procedure Tolerated Well 3-left dorsal hallux -Time 12:16 -Correct Patient Yes -Correct Side, Site, Position Yes -Correct Procedure Yes -Procedure Performed Yes -Type of Procedure Debridement -Clinical Debridement Subcutaneous -Post Debridement Size (cm) - Length 0.4 -Post Debridement Size (cm) - Width 0.4 -Post Debridement Size (cm) - Depth 0.1 -Total Square Cm 0.16 -Wound/Ulcer Outcome Not Healed -Ulcer Cleansing Rinsed/ Irrigated with Saline -Foul Odor after Cleansing No -Bioengineered Tissue No -Bleeding Controlled with Pressure -Offloading Yes -Type of Offloading Surgical Shoe -Treatment Response Procedure Tolerated Well #2- R 1ST METATARSAL JOINT -Time 12:13 -Correct Patient Yes -Correct Side, Site, Position Yes -Correct Procedure Yes -Procedure Performed Yes -Type of Procedure Debridement -Clinical Debridement Subcutaneous -Post Debridement Size (cm) - Length 1.0 -Post Debridement Size (cm) - Width 0.3 -Post Debridement Size (cm) - Depth 0.2 -Total Square Cm 0.30 -Wound/Ulcer Outcome Not Healed -Ulcer Cleansing Rinsed/ Irrigated with Saline -Foul Odor after Cleansing No -Bioengineered Tissue No -Bleeding Controlled with Pressure -Offloading Yes -Type of Offloading Camwalker -Treatment Response Procedure Tolerated Well Pain Scale: 0-10 Numeric Is Patient Pain Free? Yes Wound debrided: medial forefoot Laterality: Right Wound Grade/Stage: grade 3 Type of Debridement: Excisional debridement Anesthesia Used: 5% Lidocaine Gel Depth: in the subcutaneous layer Percentage of wound debrided: 100 Instrument Used: #15 blade Tissue Removed: fibrous, devitalized subcutaneous, biofilm, slough Severity: Fat Layer Exposed Amount of bleeding with debridement: Mild Bleeding Controlled with: Pressure Patient tolerated procedure well - Additional Wound Wound debrided: dorsal hallux, plantar hallux Laterality: Left Wound Grade/Stage: grade 1 Type of Debridement: Excisional debridement Anesthesia Used: 5% Lidocaine Gel Depth: in the subcutaneous layer Percentage of wound debrided: 100 Instrument Used: #15 blade Tissue Removed: fibrous, devitalized subcutaneous, biofilm, slough Severity: Fat Layer Exposed Amount of bleeding with debridement: Mild Bleeding Controlled with: Pressure Patient tolerated procedure: Patient tolerated procedure well Assessment/Plan Active Problems (Last Updated 04/07/19 @ 17:[address] 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 Infection right foot resolved. New left dorsal hallux ulcer and plantar hallux ulcer, grade 3 Catalan, no infection. Diabetes with neuropathy. Delayed healing. Malnutrition suspected. Edema lower extremity. Tobacco use-he has recently quit Plan: I reviewed and discussed his case. The ulcer was debrided in a subcutaneous excisional manner as noted in the clinical panel. The new ulcer site is noted and this was also debrided. He is reassured no local signs of infection are noted. I do not recommend antibiotics today. He was advised to changes daily with [facility]. It is noted he does have a grade 3 ulcer and the indications and anticipated healing time management will be discussed to see if he is amendable to proceed forward with this and if lack of progress is noted. To keep pressure off of this healing ulcer site by wearing a surgical shoe and avoiding excessive activity. [place] offloading pads were applied to the plantar aspect of the shoe as well as the fabric strap to take pressure off of both ulcer sites. This adjustment has gone well. His diagnostic data from his last hospitalization were reviewed including CBC, CMP, and hemoglobin A1c of 7.3%. His noninvasive vascular studies were also reviewed from last month on April 10, 2019 with triphasic bilateral waveforms and adequate flow noted. The right ABIs were 1.28 and 1.12 in the left was 1.24 and 1.17. I recommend proper glycemic control and nutritional supplementation to optimize healing. It is imperative he monitors his blood glucose levels at home and he will try to resume this. We discussed his comprehensive wound healing plan and I recommend he follows up next week. He does have a Catalan grade 3 ulcer and [facility] I answered all his questions. I also recommended continuation of smoking cessation and discussed the risks and complications associated with this including delayed healing, limb loss, and other systemic issues. He is doing well with this so far. Recommend strict continuation of offloading to the right foot with a cam walker and he has a previous surgical shoe that he can offload his left foot site at home. I recommend he returns to this device and to remove the liner that was previously placed for his contralateral foot. He will bring this in next week for evaluation of potential adjustment as well. He was encouraged to avoid moving activities. This is not appropriate for him at this time given his open ulcer status. A work note was provided. To return to clinic in 1 week or call sooner if he has any questions or concerns. I did offer him intermittent telehealth visits to the coronavirus pandemic and he elects to be seen in person and would benefit from continued serial debridements.
[2019-08-09 13:57] VITALS: BP 163/80; PULSE 91; RESP 20; TEMP 36.6; BMI 85.9
--- NOTE | 2019-08-09 23:54 | PN.PCM_ITS ---
(1) Chronic ulcer of left foot with fat layer exposed Status: Chronic Current Visit: Yes Code(s): L97.522 - Non-pressure chronic ulcer of other part of left foot with fat layer exposed (2) Malnutrition Status: Chronic Current Visit: Yes Code(s): E46 - Unspecified protein- calorie malnutrition (3) Delayed wound healing Status: Chronic Current Visit: Yes Code(s): T14.8XXD - Other injury of unspecified body region, subsequent encounter (4) Type 2 diabetes mellitus with diabetic polyneuropathy Status: Chronic Current Visit: Yes Code(s): E11.42 - Type 2 diabetes mellitus with diabetic polyneuropathy (5) Ulcer of right foot with necrosis of muscle Status: Chronic Current Visit: Yes Code(s): L97.513 - Non-pressure chronic ulcer of other part of right foot with necrosis of muscle Comment: grade 3 Type of Wound Date of Service: 08/09/19 Chief Complaint: Right foot ulcer History of Wound: This 59-year-old male was treated previously at [facility] for infected right foot. He underwent surgical incision and drainage with Dr. Gayle on April 08, 2019. He was treated with IV antibiotics for MRSA and MSSA growth. He has since stabilized and completed oral antibiotics. He has been diligently washing with antimicrobial medical grade Hibiclens soap with resolution of erythema and odor; the quality of the ulcer have also continued to improved. He denies odor or redness. He did get fitted with an offloading CAM Walker boot with pocket to take pressure off the ulcer site at the foot and ankle center. He denies pain. He has been changing the dressing with [employer] ag. He denies fever, chill, nausea, vomiting, redness or odor to the foot. He relates he has successfully quit smoking. Last week, it is noted that he had a new ulcer on the contralateral foot and he has been performing dressing changes as advised. He denies drainage and thinks this may have healed. Progress of Wound: Stable right. Healed left - Physical Exam Vital Signs Temp Pulse Resp BP Pulse Ox 97.8 F 91 20 H 163/80 H 100 08/09/19 13:57 08/09/19 13:57 08/09/19 13:57 08/09/19 13:57 08/02/19 11:38 General: Alert, Oriented x3, Cooperative, No apparent distress HEENT: Atraumatic Extremities: No cyanosis, Capillary Refill Less than 3 Seconds, No Calf Tenderness, Diminished Peripheral Pulses, Edema Skin: Ulcer/ Wound - Left foot has full epithelialization and his ulcer site is healed to the plantar and dorsal aspects. The right foot does not have any purulence, erythema, streaking, odor, infection. The ulcer is significantly reduced in size and only had exposed foot hemorrhagic tissue. Adjacent skin is hairless and atrophic. Wound Measurements and Assessment WC - Nurse 1 - General Ulcer Measurement Start: 08/02/19 11:37 Freq: Status: Active Protocol: Activity Type Activity Date Activity User E-Sign Co-Sign Detail Recorded Client Recorded Date Recorded By Document 08/09/19 13:57 DL [id number] 08/09/19 14:06 DL 08/09/19 13:57 Wound Center Nurse 1 [Ulcer Assessment] 4-left plantar hallux -Current Size (cm) - Length 0.1 -Current Size (cm) - Width 0.1 -Current Size (cm) - Depth 0.1 -Total Square Cm 0.01 -Photo Taken Yes -Exudate Amt None Present -Wound Margin Thickened -Granulation Amt Large (67-100%) -Granulation [place] -Necrosis Amt None Present (0 %) -Structure Exposed N/A -Texture (Barbara-wound Skin Appearance) Scarring -Moisture (Barbara-wound Skin Appearance Dry/Scaly ) -Color (Barbara-wound Skin Appearance) No Abnormality -Temperature (Barbara-wound Skin No Abnormality Appearance) (Pt Warm) -Tenderness on Palpation (Barbara-wound No Skin Appearance) -Ulcer Cleansing Wound Cleanser -Foul Odor after Cleansing No 3-left dorsal hallux -Current Size (cm) - Length 0.1 -Current Size (cm) - Width 0.1 -Current Size (cm) - Depth 0.1 -Total Square Cm 0.01 -Photo Taken Yes -Exudate Amt None Present -Wound Margin Thickened -Granulation Amt Large (67-100%) -Granulation Quality Pale -Necrosis Amt Small (1-33%) -Necrotic Tissue Type Adherent Slough -Structure Exposed N/A -Texture (Barbara-wound Skin Appearance) Scarring -Moisture (Barbara-wound Skin Appearance Dry/Scaly ) -Color (Barbara-wound Skin Appearance) No Abnormality -Temperature (Barbara-wound Skin No Abnormality Appearance) (Pt Warm) -Tenderness on Palpation (Barbara-wound No Skin Appearance) -Ulcer Cleansing Wound Cleanser -Foul Odor after Cleansing No -Anesthetic Used 4% Lidocaine Solution #2- R 1ST METATARSAL JOINT -Current Size (cm) - Length 1.5 -Current Size (cm) - Width 0.4 -Current Size (cm) - Depth 0.1 -Total Square Cm 0.60 -Photo Taken No -Exudate Amt None Present -Granulation Amt None Present (0 %) -Necrosis Amt Large (67-100%) -Necrotic Tissue Type Eschar -Structure Exposed N/A -Texture (Barbara-wound Skin Appearance) Scarring -Moisture (Barbara-wound Skin Appearance Dry/Scaly ) -Color (Barbara-wound Skin Appearance) No Abnormality -Temperature (Barbara-wound Skin No Abnormality Appearance) (Pt Warm) -Tenderness on Palpation (Barbara-wound No Skin Appearance) -Ulcer Cleansing Wound Cleanser -Foul Odor after Cleansing No -Anesthetic Used 4% Lidocaine Solution [Edema Assessment] -Right Calf (cm) 41 -Right Ankle (cm) 22.5 -Left Calf (cm) 41.5 -Left Ankle (cm) 22.8 WC - Nurse 2 - General Ulcer CM Notes Start: 08/02/19 11:37 Freq: Status: Active Protocol: Activity Type Activity Date Activity User E-Sign Co-Sign Detail Recorded Client Recorded Date Recorded By Document 08/09/19 14:34 [email or web address] [id number] 08/09/19 14:38 [email or web address] 08/09/19 14:34 Wound Center Nurse 2 [Procedure/Treatment] 4-left plantar hallux -Correct Patient No -Correct Side, Site, Position No -Correct Procedure No -Procedure Performed No -Post Debridement Size (cm) - Length 0 -Post Debridement Size (cm) - Width 0 -Post Debridement Size (cm) - Depth 0 -Total Square Cm 0 -Wound/Ulcer Outcome Healed- Epithelialized 3-left dorsal hallux -Correct Patient No -Correct Side, Site, Position No -Correct Procedure No -Procedure Performed No -Post Debridement Size (cm) - Length 0 -Post Debridement Size (cm) - Width 0 -Post Debridement Size (cm) - Depth 0 -Total Square Cm 0 -Wound/Ulcer Outcome Healed- Epithelialized #2- R 1ST METATARSAL JOINT -Time 14:35 -Correct Patient Yes -Correct Side, Site, Position Yes -Correct Procedure Yes -Procedure Performed Yes -Type of Procedure Debridement -Clinical Debridement Selective -Post Debridement Size (cm) - Length 0.1 -Post Debridement Size (cm) - Width 0.1 -Post Debridement Size (cm) - Depth 0.1 -Total Square Cm 0.01 -Wound/Ulcer Outcome Not Healed -Ulcer Cleansing Rinsed/ Irrigated with Saline -Foul Odor after Cleansing No -Bioengineered Tissue No -Bleeding Controlled with Pressure -Offloading Yes -Type of Offloading Camwalker -Treatment Response Procedure Tolerated Well [See Physician Procedure note for Specifics] Pain Scale: 0-10 Numeric [Pain] -Is Patient Pain Free? Yes Musculoskeletal: No Tenderness to Palpation of Joints or Extremities, Muscle Wasting Neurological: - - Lack of normal epicritic sensation light touch is consistent with neuropathy status Psych/Mental Status: Normal Affect, Appropriate Debridement Note Post-Debridement Measurements/Treatment WC - Nurse 2 - General Ulcer CM Notes Start: 08/02/19 11:37 Freq: Status: Active Protocol: Activity Type Activity Date Activity User E-Sign Co-Sign Detail Recorded Client Recorded Date Recorded By Document 08/02/19 12:12 [id number] 08/02/19 12:18 Document 08/09/19 14:34 [id number] 08/09/19 14:38 08/02/19 08/09/19 12:12 14:34 Wound Center Nurse 2 4-left plantar hallux -Time 12:16 -Correct Patient Yes No -Correct Side, Site, Position Yes No -Correct Procedure Yes No -Procedure Performed Yes No -Type of Procedure Debridement -Clinical Debridement Subcutaneous -Post Debridement Size (cm) - Length 1.3 0 -Post Debridement Size (cm) - Width 0.1 0 -Post Debridement Size (cm) - Depth 0.1 0 -Total Square Cm 0.13 0 -Wound/Ulcer Outcome Not Healed Healed- Epithelialized -Ulcer Cleansing Rinsed/ Irrigated with Saline -Foul Odor after Cleansing No -Bioengineered Tissue No -Bleeding Controlled with Pressure -Offloading Yes -Type of Offloading Surgical Shoe -Treatment Response Procedure Tolerated Well 3-left dorsal hallux -Time 12:16 -Correct Patient Yes No -Correct Side, Site, Position Yes No -Correct Procedure Yes No -Procedure Performed Yes No -Type of Procedure Debridement -Clinical Debridement Subcutaneous -Post Debridement Size (cm) - Length 0.4 0 -Post Debridement Size (cm) - Width 0.4 0 -Post Debridement Size (cm) - Depth 0.1 0 -Total Square Cm 0.16 0 -Wound/Ulcer Outcome Not Healed Healed- Epithelialized -Ulcer Cleansing Rinsed/ Irrigated with Saline -Foul Odor after Cleansing No -Bioengineered Tissue No -Bleeding Controlled with Pressure -Offloading Yes -Type of Offloading Surgical Shoe -Treatment Response Procedure Tolerated Well #2- R 1ST METATARSAL JOINT -Time 12:13 14:35 -Correct Patient Yes Yes -Correct Side, Site, Position Yes Yes -Correct Procedure Yes Yes -Procedure Performed Yes Yes -Type of Procedure Debridement Debridement -Clinical Debridement Subcutaneous Selective -Post Debridement Size (cm) - Length 1.0 0.1 -Post Debridement Size (cm) - Width 0.3 0.1 -Post Debridement Size (cm) - Depth 0.2 0.1 -Total Square Cm 0.30 0.01 -Wound/Ulcer Outcome Not Healed Not Healed -Ulcer Cleansing Rinsed/ Rinsed/ Irrigated with Irrigated with Saline Saline -Foul Odor after Cleansing No No -Bioengineered Tissue No No -Bleeding Controlled with Pressure Pressure -Offloading Yes Yes -Type of Offloading Camwalker Camwalker -Treatment Response Procedure Procedure Tolerated Well Tolerated Well Pain Scale: 0-10 Numeric Is Patient Pain Free? Yes Yes Wound debrided: Medial forefoot Laterality: Right Wound Grade/Stage: grade 3 Type of Debridement: Selective debridement Anesthesia Used: 5% Lidocaine Gel Depth: in the subcutaneous layer Percentage of wound debrided: 100 Instrument Used: #15 blade Tissue Removed: fibrous, devitalized subcutaneous, biofilm, slough Severity: Limited To Skin Breakdown Amount of bleeding with debridement: Mild Bleeding Controlled with: Pressure Patient tolerated procedure well Assessment/Plan Active Problems (Last Updated 04/07/19 @ 17:[address] 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 Infection right foot resolved. New left dorsal hallux ulcer and plantar hallux ulcer, no infection-healed today. Diabetes with neuropathy. Delayed healing. Malnutrition suspected. Edema lower extremity. Tobacco use-he has recently quit Plan: I reviewed and discussed his case. The ulcer was debrided in a selective manner as noted in the clinical panel. The new ulcer site is now healed today making this continue dressing her at this site. He was advised to changes daily with hydrogel to the right foot. It is noted he does have a grade 3 ulcer and the indications and anticipated healing time management will be discussed to see if he is amendable to proceed forward with this and if lack of progress is noted. To keep pressure off of this healing ulcer site by wearing a surgical shoe and avoiding excessive activity. [place] offloading pads were applied to the plantar aspect of the shoe as well as the fabric strap to take pressure off of both ulcer sites. This adjustment has gone well. His diagnostic data from his last hospitalization were reviewed including CBC, CMP, and hemoglobin A1c of 7.3%. His noninvasive vascular studies were also reviewed from last month on April 10, 2019 with triphasic bilateral waveforms and adequate flow noted. The right ABIs were 1.28 and 1.12 in the left was 1.24 and 1.17. I recommend proper glycemic control and nutritional supplementation to optimize healing. It is imperative he monitors his blood glucose levels at home and he will try to resume this. We discussed his comprehensive wound healing plan and I recommend he follows up next week. He does have a Catalan grade 3 ulcer and he is currently discharged from the custodial facility. I answered all his questions. I also recommended continuation of smoking cessation and discussed the risks and complications associated with this including delayed healing, limb loss, and other systemic issues. He is doing well with this so far. Recommend strict continuation of offloading to the right foot with a cam walker. He was encouraged to avoid moving activities. This is not appropriate for him at this time given his open ulcer status. A work note was provided previously. To return to clinic in 1 week or call sooner if he has any questions or concerns. I did offer him intermittent telehealth visits to the coronavirus pandemic and he elects to be seen in person and would benefit from continued serial debri dements.
[2019-08-16 14:40] VITALS: BP 159/85; PULSE 101; RESP 16; TEMP 36.6; BMI 85.9
--- NOTE | 2019-08-16 15:40 | PN.PCM_ITS ---
(1) Chronic ulcer of left foot with fat layer exposed Status: Resolved Code(s): L97.522 - Non-pressure chronic ulcer of other part of left foot with fat layer exposed (2) Malnutrition Status: Chronic Code(s): E46 - Unspecified protein-calorie malnutrition (3) Delayed wound healing Status: Chronic Code(s): T14.8XXD - Other injury of unspecified body region, subsequent encounter (4) Type 2 diabetes mellitus with diabetic polyneuropathy Status: Chronic Code(s): E11.42 - Type 2 diabetes mellitus with diabetic poly neuropathy Type of Wound Date of Service: 08/16/19 Chief Complaint: Right foot ulcer History of Wound: This 59-year-old male was treated previously at [facility] for infected right foot. He underwent surgical incision and drainage with Dr. Gayle on April 08, 2019. He was treated with IV antibiotics for MRSA and MSSA growth. He has since stabilized and completed oral antibiotics. He has been diligently washing with antimicrobial medical grade Hibiclens soap with resolution of erythema and odor. There is an offloading CAM Walker boot. He denies fever, chill, nausea, vomiting. He denies drainage the past 5 days to his right foot and thinks that this ulcer site has healed. He relates he needs to wear steel toe shoes when he returns to work. Progress of Wound: Healed right. Healed left - Physical Exam Vital Signs Temp Pulse Resp BP Pulse Ox 97.8 F 101 H 16 159/85 H 100 08/16/19 14:40 08/16/19 14:40 08/16/19 14:40 08/16/19 14:40 08/02/19 11:38 General: Alert, Oriented x3, Cooperative, No apparent distress Extremities: No cyanosis, Capillary Refill Less than 3 Seconds, No Calf Tenderness, Diminished Peripheral Pulses, Edema Skin: Ulcer/ Wound - No purulence, erythema, streaking, odor, infection. The skin is hairless and atrophic. There is full epithelialization to bilateral foot and the ulcer sites have healed. Wound Measurements and Assessment WC - Nurse 1 - General Ulcer Measurement Start: 08/02/19 11:37 Freq: Status: Active Protocol: Activity Type Activity Date Activity User E-Sign Co-Sign Detail Recorded Client Recorded Date Recorded By Document 08/16/19 14:40 [id number] 08/16/19 14:48 PL 08/16/19 14:40 Wound Center Nurse 1 [Ulcer Assessment] #2- R 1ST METATARSAL JOINT -Combined with other wound No -Current Size (cm) - Length 0 -Current Size (cm) - Width 0 -Current Size (cm) - Depth 0 -Total Square Cm 0 -Photo Taken No -Epithelialization Large 67-100% -Tunneling No -Undermining/Tunneling No -Exudate Amt None Present -Ulcer Cleansing Rinsed/ Irrigated with Saline -Foul Odor after Cleansing No WC - Nurse 2 - General Ulcer CM Notes Start: 08/02/19 11:37 Freq: Status: Active Protocol: Activity Type Activity Date Activity User E-Sign Co-Sign Detail Recorded Client Recorded Date Recorded By Document 08/16/19 14:59 [id number] 08/16/19 15:01 08/16/19 14:59 Wound Center Nurse 2 [Procedure/Treatment] -Correct Patient No -Correct Side, Site, Position No -Correct Procedure No -Procedure Performed No -Post Debridement Size (cm) - Length 0 -Post Debridement Size (cm) - Width 0 -Post Debridement Size (cm) - Depth 0 -Total Square Cm 0 -Wound/Ulcer Outcome Healed- Epithelialized [See Physician Procedure note for Specifics] Pain Scale: 0-10 Numeric [Pain] -Is Patient Pain Free? Yes Musculoskeletal: No Tenderness to Palpation of Joints or Extremities, Muscle Wasting Neurological: - - Lack of normal epicritic sensation Psych/Mental Status: Normal Affect, Appropriate Debridement Note Post-Debridement Measurements/Treatment WC - Nurse 2 - General Ulcer CM Notes Start: 08/02/19 11:37 Freq: Status: Active Protocol: Activity Type Activity Date Activity User E-Sign Co-Sign Detail Recorded Client Recorded Date Recorded By Document 08/02/19 12:12 [id number] 08/02/19 12:18 Document 08/09/19 14:34 [id number] 08/09/19 14:38 Document 08/16/19 14:59 [id number] 08/16/19 15:01 08/02/19 08/09/19 08/16/19 12:12 14:34 14:59 Wound Center Nurse 2 4-left plantar hallux -Time 12:16 -Correct Patient Yes No -Correct Side, Site, Position Yes No -Correct Procedure Yes No -Procedure Performed Yes No -Type of Procedure Debridement -Clinical Debridement Subcutaneous -Post Debridement Size (cm) - Length 1.3 0 -Post Debridement Size (cm) - Width 0.1 0 -Post Debridement Size (cm) - Depth 0.1 0 -Total Square Cm 0.13 0 -Wound/Ulcer Outcome Not Healed Healed- Epithelialized -Ulcer Cleansing Rinsed/ Irrigated with Saline -Foul Odor after Cleansing No -Bioengineered Tissue No -Bleeding Controlled with Pressure -Offloading Yes -Type of Offloading Surgical Shoe -Treatment Response Procedure Tolerated Well 3-left dorsal hallux -Time 12:16 -Correct Patient Yes No -Correct Side, Site, Position Yes No -Correct Procedure Yes No -Procedure Performed Yes No -Type of Procedure Debridement -Clinical Debridement Subcutaneous -Post Debridement Size (cm) - Length 0.4 0 -Post Debridement Size (cm) - Width 0.4 0 -Post Debridement Size (cm) - Depth 0.1 0 -Total Square Cm 0.16 0 -Wound/Ulcer Outcome Not Healed Healed- Epithelialized -Ulcer Cleansing Rinsed/ Irrigated with Saline -Foul Odor after Cleansing No -Bioengineered Tissue No -Bleeding Controlled with Pressure -Offloading Yes -Type of Offloading Surgical Shoe -Treatment Response Procedure Tolerated Well #2- R 1ST METATARSAL JOINT -Time 12:13 14:35 -Correct Patient Yes Yes No -Correct Side, Site, Position Yes Yes No -Correct Procedure Yes Yes No -Procedure Performed Yes Yes No -Type of Procedure Debridement Debridement -Clinical Debridement Subcutaneous Selective -Post Debridement Size (cm) - Length 1.0 0.1 0 -Post Debridement Size (cm) - Width 0.3 0.1 0 -Post Debridement Size (cm) - Depth 0.2 0.1 0 -Total Square Cm 0.30 0.01 0 -Wound/Ulcer Outcome Not Healed Not Healed Healed- Epithelialized -Ulcer Cleansing Rinsed/ Rinsed/ Irrigated with Irrigated with Saline Saline -Foul Odor after Cleansing No No -Bioengineered Tissue No No -Bleeding Controlled with Pressure Pressure -Offloading Yes Yes -Type of Offloading Camwalker Camwalker -Treatment Response Procedure Procedure Tolerated Well Tolerated Well Pain Scale: 0-10 Numeric Is Patient Pain Free? Yes Yes Yes Laterality: Right No debridement was completed today - The ulcer is healed Assessment/Plan Assessment: Ulcer right foot necrosis of capsule and muscle-healed today. Infection right foot resolved. Left foot ulcer site remains healed. Diabetes with neuropathy. Delayed healing. Malnutrition suspected. Edema lower extremity. Tobacco use-he has recently quit Plan: I reviewed and discussed his case. There is no debridement today because the ulcer sites have healed. He understands the skin is friable and he is at risk for new ulceration or infection return. He will monitor for this very closely. He was advised to discontinue dressing care and to continue to keep his skin integrity intact. He will do this by washing his foot gently with soap and water daily and applying moisturizing lotion. He will check his feet daily as well. He will continue to wear the offloading CAM Walker boot and slowly progressed into extra-depth shoe with the. He was advised to continue to avoid smoking activities and to maintain proper health including glycemic control. He will return to the wound healing center in 2 weeks for reassessment of his heel ulcer site or call sooner if he has any questions or concerns.
== END 2019-08-27 23:59 ==
LOC: WC 14:30
PROVIDERS: PCP Family Medicine; Visit Provider Podiatrist
DX: E11.621 Type 2 diabetes mellitus with foot ulcer (principal); L97.522 Non-pressure chronic ulcer of other part of left foot with fat layer exposed; L97.513 Non-pressure chronic ulcer of other part of right foot with necrosis of muscle; T14.8XXD Other injury of unspecified body region, subsequent encounter; E11.42 Type 2 diabetes mellitus with diabetic polyneuropathy; R60.0 Localized edema; Z87.891 Personal history of nicotine dependence; Z86.14 Personal history of Methicillin resistant Staphylococcus aureus infection
CPT/HCPCS: 11042; 97597; 99212; G0463

== ENCOUNTER 2019-08-30 13:25 | Outpatient (RCR) | payer MEDICAID, SELFPAY ==
[2019-08-28 00:26] VITALS: BP 159/85; PULSE 101; RESP 16; TEMP 36.6; O2SAT 100
[2019-08-30 13:26] VITALS: BP 167/83; PULSE 99; RESP 18; TEMP 37.7; BMI 85.9
--- NOTE | 2019-08-30 14:52 | PCM.WC.PN ---
(1) Type 2 diabetes mellitus with diabetic polyneuropathy Status: Chronic Code(s): E11.42 - Type 2 diabetes mellitus with diabetic polyneuropathy (2) Ulcer of right foot with necrosis of muscle Status: Resolved Code(s): L97.513 - Non-pressure chronic ulcer of other part of right foot with necrosis of muscle Comment: grade 3 Type of Wound Date of Service: 08/30/19 Chief Complaint: Right foot ulcer History of Wound: This 59-year-old male was treated previously at [facility] for infected right foot. His ulcer site has healed and he is continue to offload to allow skin remodeling. He denies drainage or redness. He is here for healed ulcer check. Progress of Wound: Healed still - Physical Exam Vital Signs Temp Pulse Resp BP Pulse Ox 99.8 F H 99 18 167/83 H 100 08/30/19 13:26 08/30/19 13:26 08/30/19 13:26 08/30/19 13:26 08/28/19 00:26 General: Alert, Oriented x3, Cooperative, No apparent distress Extremities: No cyanosis, Capillary Refill Less than 3 Seconds, No Calf Tenderness, Diminished Peripheral Pulses, Edema - Mild Skin: Ulcer/ Wound - Full epithelialization is noted to bilateral lower extremities. There is no ulcer, erythema, streaking, odor, infection or necrosis. His skin is hairless and atrophic. Musculoskeletal: No Tenderness to Palpation of Joints or Extremities, Muscle Wasting Neurological: - Psych/Mental Status: Normal Affect, Appropriate Debridement Note Laterality: Right No debridement was completed today - healed today Assessment/Plan Assessment: Ulcer right foot necrosis of capsule and muscle-remains healed today. Infection right foot resolved. Left foot ulcer site remains healed. Diabetes with neuropathy. Delayed healing. Malnutrition suspected. Edema lower extremity. Tobacco use-he has quit Plan: I reviewed and discussed his case. There is no debridement today because the ulcer sites have healed. He understands the skin is friable and he is at risk for new ulceration or infection return. He will monitor for this very closely. No dressing care is recommended. To keep skin integrity intact with daily foot checks and moisturizing. To wear protective and supportive shoes. I offered him participate in the extra-depth shoe program with insoles to reduce friction and pressure. He will be discharged from the wound healing center at this time and will follow-up at the foot and ankle center for his other lower extremity needs. I answered all of his questions.
== END 2019-09-26 23:59 ==
LOC: WC 13:25
PROVIDERS: PCP Family Medicine; Visit Provider Podiatrist
DX: Z09 Encounter for follow-up examination after completed treatment for conditions other than malignant neoplasm (principal); E11.40 Type 2 diabetes mellitus with diabetic neuropathy, unspecified
CPT/HCPCS: 99212; G0463

== ENCOUNTER 2021-02-18 12:35 | Outpatient (RCR) | payer MEDICAID, SELFPAY ==
--- NOTE | 2021-03-03 10:01 | HP.OTFCE_ITS ---
Floor (Occasional 1-33% of Day): 50# Floor (Frequent 34-66% of Day): 25# Floor (Constant 67-100% of Day): 10# Floor PDL: Medium Knee (Occasional 1-33% of Day): 50# Knee (Frequent 34-66% of Day): 25# Knee (Constant 67-100% of Day): 10# Knee PDL: Medium Waist (Occasional 1-33% of Day): 35# Waist (Frequent 34-66% of Day): 18# Waist (Constant 67-100% of Day): 7# Waist PDL: Light-Medium Shoulder (Occasional 1-33% of Day): 35# Shoulder (Frequent 34-66% of Day): 18# Shoulder (Constant 67-100% of Day): 7# Shoulder PDL: Light-Medium Overhead (Occasional 1-33% of Day): 15# Overhead (Frequent 34-66% of Day): 8# Overhead (Constant 67-100% of Day): NA Overhead PDL: Sedentary-Light Bending: Occasional Ability (1-33% of day) Comments: with external support Squatting: Occasional Ability (1-33% of day) Comments: low occasional ability with external support Kneeling: Occasional Ability (1-33% of day) Comments: low occasional ability with external support Reaching out: Frequent Ability (34-66% of day) Comments: while sitting Reaching up: Frequent Ability (34-66% of day) Comments: while sitting Sitting: Frequent Ability (34-66% of day) Walking: Occasional Ability (1-33% of day) Standing: Occasional Ability (1-33% of day) Duration Sedentary Sedentary Light Light Light Medium Medium Medium Heavy Very Heavy Heavy Occasional (0-33% of day) Frequent (34-66% of day) Constant (67-100% of day) 10 # Negligible Negligible 15 # 8 # Negligible 20 # 10# Negli. 35 # 18 # 7 # 50 # 25 # 10 # 75 # 100 # >100 # 38 # 50 # >50 # 15 # 20 # >20 # Weight:: 117.934 kg Hand Dominance: right Medical History Including Restrictions: pt states he was in fair health until 2017 he developed a infection on left groin region that also needed irrigated and debridement. pt states took about 4 months to heal and recover. pt states in 2019 when he developed ulcer on his right foot- pt did have sx and spent about two months in a skilled therapy center. pt states he has lost 30lbs in the last three months- pt states he is feeling better but continues to have back pain and worries about his sugar levels. pt states he has not seen physical therapy or a specialist field engineer for his back. pt states he has back pain after standing for about 1-2 hours. pt states sitting alleviates his back pain. pt states he has safety concerns with the inability to feel his feet. Diagnoses: Depression controlled with medication. Neuropathy dx 2001. DM dx in 2001 controlled by diet and medication. high blood pressure. heart burn Symptoms: low back pain. right leg pain. right leg tingling. dizziness. left foot pain due to neuropathy. nausea with medication. Leg weakness. bilateral hand tremor Pain: pt states back pain Work History: [employer] pt states he has worked for this [employer] for about three years. 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 pt states job includes standing, sitting and observation. pt states standing for long periods does increase back pain and his right leg falls asleep. 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 Behavioral: pt was cooperative throughout session. ADLS: pt states he lives in a mobile home. pt states he does have 4 entry steps and one hand rail. pt lives alone with his rescue dog. pt states he does perform his bathing and dressing at a APOORVA level. pt does drive and do his own grocery shopping. pt does do his laundry and does do cleaning. pt state he does have a straight cane to use when tired. Physical Examination: resting heart rate 90 ROM: pt demo ROM WNL Strength: MMT BUE 4/5. bilateral hip flex 4/5. hamstrings bilateral 5/5 Right Patient Experience Coordinator Strength Average: 46.66 Right Patient Experience Coordinator Strength Percentile: <4% Left Patient Experience Coordinator Strength Average: 41.66 Left Patient Experience Coordinator Strength Percentile: <7% Right Lateral Pinch Average: 8.66 Right Lateral Pinch Percentile: <10% Left Lateral Pinch Average: 6.00 Left Lateral Pinch Percentile: <10% Right Tripod Pinch Average: 4.66 Right Tripod Pinch Percentile: <10% Left Tripod Pinch Average: 7.33 Left Tripod Pinch Percentile: <10% Sensation: semmes-Kings[employer] Monofil[employer] sensory testing. right 3.61 all digits = diminished light touch. left fingers 3.22 = diminished light touch. left thumb 3.61= diminished light touch. right/left above ankle 4.08. bilateral foot 4.93. bilateral toes 5.46 Fine Motor: 9 hole peg test. right 27.86 =10%. left 29.96=10% Balance: pt demo with fair+ balance. noted LOBx3 with the ability to correct self Bending: pt demo the ability to bend forward 3/3, 10/10x with use of external support. pts heart rate 107. pt attempted 10x rapidly and was able to completed 7/10 rapidly with external support. pt reported feeling light headed and sat for 2 min. pt can bend forward on a occasional ability- Squatting: pt demonstrated the ability to squat 3/3x with external support. pt completed 10/10x with external support and slowed pace as he got to last 4. pt reported pain in bilateral kneels. pt unable to perform 10/10 rapidly. pt can squat with use of external support on a low occasional ability. Kneeling: pt demonstrated the ability to kneel 3/3x with use of external support- pt relied on heavily on external support to assist with returning to standing. pt heart rate 110 . pt reported headache and weakness in LE. pt can kneel on low occasional ability with external support Reaching out/up: pt demonstrated the ability to reach out/up 3/3, 10/10x and 10/10x rapidly. pt completed while sitting. pt heart rate was 99. pt did hold his breath during task of 10x rapidly.pt can reach up/out on a frequent ability while sitting. Walking: pt ambulates with antalgic step pattern slow pace for 5 min pt demo SOB. heart rate 102. pt can ambulate on occasional ability Standing: pt demo the ability to stand for 6 min with shifting body wt. pt can stand on occasional ability Sitting: pt demo the ability to sit for 50 min with no expressed discomfort. pt can sit on a frequent ability Climbing Stairs: pt demo the ability to ascend and descend 10 steps with a reciprocal step pattern and use of bilateral hand rails. pt demo good ability Floor Lift: pt demonstrated the ability to lift 50# maximally from this level with good lifting mechanics. Knee Lift: pt demonstrated the ability to lift 50# maximally from this level with good lifting mechanics. Waist Lift: pt demonstrated the ability to lift 35# maximally from this level with good lifting mechanics. Shoulder Lift: pt demonstrated the ability to lift 35# maximally from this level with good lifting mechanics. Overhead Lift: pt demonstrated the ability to lift 15# maximally from this level with good lifting mechanics. Carrying: pt demonstrated the ability to carry 35# for 15 feet.
--- NOTE | 2021-03-03 10:02 | HP.OTFCE.D ---
FCE D/C Summary - Discharge DAISHAGREG ARTEAGA was seen for a one time visit for an FCE on 02/18/21 and is discharged.
== END 2021-02-18 19:00 | disposition home or self-care (01) ==
LOC: OT 12:35
PROVIDERS: PCP Family Medicine; Referring Provider Family Medicine; Visit Provider Family Medicine
DX: E11.40 Type 2 diabetes mellitus with diabetic neuropathy, unspecified (principal)
CPT/HCPCS: 97750

== ENCOUNTER 2023-04-19 14:44 | Emergency (ER) | payer MEDICAID, OTHER, SELFPAY ==
[2023-04-19 14:45] VITALS: BP 185/105; PULSE 92; RESP 18; TEMP 36.4; O2SAT 96; BMI 39.7
--- NOTE | 2023-04-19 15:14 | RAD_ITS ---
STUDY: X-RAY - RIGHT SHOULDER REASON FOR EXAM: Male, 63 years old. Right shoulder pain following a fall. TECHNIQUE: 4 view(s) of the shoulder. COMPARISON: None. FINDINGS: Normal glenohumeral articulation. Normal acromioclavicular joint. Normal acromion. Nondisplaced fracture of the greater tuberosity of the proximal right humerus. The soft tissue structures are unremarkable. Normal visualized pulmonary apex. RAD/Shoulder min 2 Views IMPRESSION: Nondisplaced fracture of the greater tuberosity of the proximal right humerus. Electronically Signed: Gael Duran MD at 15:33 EST ,
--- NOTE | 2023-04-19 15:16 | EX.ED.UPPERE ---
HPI History of Present Illness Chief Complaint: Upper Extremity Injury Informant: patient Narrative Narrative: [id number] 63-year-old male states he stepped up onto a curb, his foot slipped on the curb causing him to fall down to his right shoulder injuring it. He denies any other injury except for a minor scrape on his left cheek he denies a headache, vision trouble, or passing out. He states the pain radiates down toward his elbow. He is having a little bit of tingling in his fingers. [facility] Medical History Abscess of groin, left Cellulitis of groin, left Diabetes Diabetes type 2, uncontrolled Diabetic neuropathy Hypertension Hyponatremia Home Medications bupropion HCl 150 mg 24 hr tablet, extended release 150 mg PO DAILY depression 04/07/19 [History Last Taken 04/07/19] glyburide 5 mg tablet 10 mg PO DAILY dm 04/07/19 [History Last Taken 04/07/19] hydrochlorothiazide 12.5 mg capsule 12.5 mg PO DAILY water 04/07/19 [History Last Taken 04/07/19] lisinopril 20 mg-hydrochlorothiazide 25 mg tablet 2 tab PO DAILY 04/07/19 [History Last Taken 04/07/19] metformin 1,000 mg tablet 1,000 mg PO BID dm 04/07/19 [History Last Taken 04/07/19] mupirocin 2 % topical ointment 1 applicatio TP TID skin 04/07/19 [History Last Taken 04/07/19] hydrocodone-acetaminophen 5-325mg 5mg-325mg 1 tab PO Q6H PRN PRN Pain 3 days #10 TABLETS 04/19/23 [Rx Last Taken Unknown] Allergy/AdvReac Type Severity Reaction Status Date / Time No Known Allergies Allergy Verified 04/19/23 14:47 Surgical History History of incision and drainage Social History Smoking Status: Former smoker ROS ROS ED Constitutional Constitutional ED: Denies chills or fever(s) Musculoskeletal Musculoskeletal: Reports extremity pain; Denies neck pain Integumentary Denies Abrasions, rash or wounds Neurologic Neurologic: Reports paresthesias RUE; Denies weakness EXAM Physical Exam Const Vital Signs: 04/19/23 14:45 Temperature 97.6 F L Temperature Source Temporal Pulse Rate 92 Respiratory Rate 18 Blood Pressure 185/105 H Blood Pressure Mean 131 Pulse Ox 96 Oxygen Delivery Method Room Air Positive well nourished, well developed and obese General Appearance ED: well developed and NAD Nutritional Appearance: obese Neck full ROM and supple Back/Spine normal ROM and normal to inspection Extremity normal to inspection Extremity Narrative: Limited range of motion of the right shoulder due to pain, the only area where there is tenderness is the posterior aspect of the proximal humerus, in the subacromial area but there are no areas of bony tenderness otherwise. Nontender at acromion, acromioclavicular joint, clavicle, rest of the humerus. Gentle internal and external rotation is painless but extreme of external rotation he does have discomfort. He can move the elbow and wrist without any difficulty. He has a 2+/4 radial pulse, he has hyperemia of the hand with brisk cap refill, there is no focal neurologic deficit, his hand is cold as it was cold outside, and this may be why he is experiencing some tingling. Painless supination and pronation. Neuro oriented x3, no focal motor deficits and no sensory deficits noted Sensorium / Orientation: alert Psych mental status grossly normal and thought process normal Skin no wounds Rashes: no rashes MDM MDM MDM Narrative Medical decision making narrative: 4 view x-ray series including scapular Y shows no dislocation but possible nondisplaced fracture of the greater tuberosity on my interpretation. Radiology interpretation reviewed. Will place him in a sling offer pain medication and given referral to orthopedics. He is okay going home, and states he will manage with a sling which is able to be safely removed temporarily. Radiography Diagnostic Testing: Clinical Impression(s) from Imaging Studies Shoulder X-Ray 04/19/23 15:14 IMPRESSION: Nondisplaced fracture of the greater tuberosity of the proximal right humerus. Electronically Signed: Gael Duran MD at 15:33 EST , Discharge Plan Triage Chief Complaint: Upper Extremity Injury ED Provider: Elijah Sutton Dx/Rx/DC Orders Clinical Impression: Fracture of greater tuberosity of right humerus Instructions: ED Fracture, Shoulder, ED Sling Prescriptions: New hydrocodone-acetaminophen [hydrocodone-acetaminophen] 5-325 mg tablet 1 tab PO Q6H PRN PRN (Reason: Pain) 3 Days Qty: 10 0RF Continued glyburide 5 MG tablet 10 mg PO DAILY metformin 1,000 MG tablet 1,000 mg PO BID hydrochlorothiazide 12.5 MG capsule 12.5 mg PO DAILY lisinopril-hydrochlorothiazide 1 EACH tablet 2 tab PO DAILY bupropion HCl 150 MG tablet extended release 24 hr 150 mg PO DAILY mupirocin 22 GM ointment 1 applicatio TP TID Patient Comments: apply to affected area three times a day for 10 days Discontinued doxycycline monohydrate 100 MG capsule 100 mg PO BID Qty: 14 0RF acetaminophen 325 MG tablet 650 mg PO Q6H PRN PRN (Reason: Pain Score 1-5/Temp > 100.7 F) 0RF Primary Care Provider: Onofre Augustine Referrals: Dario Pham DO [Med Staff - Active Staff] - As soon as possible (call for appt) Onofre Augustine MD [Primary Care Provider] - Activity Restrictions/Additional Instructions: Use the sling as needed for discomfort. Disposition Disposition: Home, Self Care
== END 2023-04-19 16:10 | disposition home or self-care (01) ==
PROVIDERS: Emergency Provider Emergency Medicine; PCP Family Medicine; Visit Provider Emergency Medicine
DX: S42.254A Nondisplaced fracture of greater tuberosity of right humerus, initial encounter for closed fracture (principal); E11.40 Type 2 diabetes mellitus with diabetic neuropathy, unspecified; I10 Essential (primary) hypertension; W10.1XXA Fall (on)(from) sidewalk curb, initial encounter; E66.9 Obesity, unspecified; Z79.84 Long term (current) use of oral hypoglycemic drugs; Z79.899 Other long term (current) drug therapy; Z87.891 Personal history of nicotine dependence
CPT/HCPCS: 73030; 99283

== ENCOUNTER 2023-04-21 16:04 | Emergency (ER) | payer MEDICAID, SELFPAY ==
[2023-04-21 16:04] VITALS: BP 178/90; PULSE 87; RESP 16; TEMP 36.6; O2SAT 97; BMI 40.9
--- NOTE | 2023-04-21 19:27 | EDS_ITS ---
HPI History of Present Illness Chief Complaint: Eye Problem Detail of Chief Complaint: Left eye foreign body sensation. Informant: patient Onset/Context/Timing Location: Left Eye Onset: Today Context: Gradual Onset Timing: Continuous Current Severity: Mild Maximum Severity: Mild Associated Symptoms Associated Symptoms - Eyes: Foreign body sensation and Redness; Negative for Burning, Crusting, Drainage, Eyelid swelling, Itching, Matting, Pain or Photophobia History of injury: No and - (Status post retinal injection today at the [facility].) Visual correction: Glasses, Corrective contact lenses, Cosmetic contact lenses and - (No prior left eye surgeries.) Narrative Narrative: 63-year-old male history of diabetic retinopathy. [facility] Is [facility] eye injected. He had been previously around November of his right eye had no problems. He said his left eye has become somewhat red today and feels like there is a foreign body sensation. He denies any significant visual change. He is on no blood thinners. He wears glasses but no contacts or prior eye surgery. Prior similar symptoms: No Recent Illness/Hospitalization: No [facility] Medical History Abscess of groin, left Cellulitis of groin, left Diabetes Diabetes type 2, uncontrolled Diabetic neuropathy Hypertension Hyponatremia Home Medications bupropion HCl 150 mg 24 hr tablet, extended release 150 mg PO DAILY depression 04/07/19 [History Last Taken 04/07/19] glyburide 5 mg tablet 10 mg PO DAILY dm 04/07/19 [History Last Taken 04/07/19] hydrochlorothiazide 12.5 mg capsule 12.5 mg PO DAILY water 04/07/19 [History Last Taken 04/07/19] lisinopril 20 mg-hydrochlorothiazide 25 mg tablet 2 tab PO DAILY 04/07/19 [History Last Taken 04/07/19] metformin 1,000 mg tablet 1,000 mg PO BID dm 04/07/19 [History Last Taken 04/07/19] mupirocin 2 % topical ointment 1 applicatio TP TID skin 04/07/19 [History Last Taken 04/07/19] hydrocodone-acetaminophen 5-325mg 5mg-325mg 1 tab PO Q6H PRN PRN Pain 3 days #10 TABLETS 04/19/23 [Rx Last Taken Unknown] Allergy/AdvReac Type Severity Reaction Status Date / Time No Known Allergies Allergy Verified 04/21/23 16:05 Surgical History History of incision and drainage Social History Smoking Status: Former smoker ROS ROS ED ROS Narrative No recent illness. Review of Systems ROS Unobtainable: Denies due to encephalopathy Constitutional Constitutional ED: Denies chills or fever(s) Eyes Eyes: Denies blurry vision ENT ENT ED: Denies ear pain Cardiovascular Cardiovascular: Denies chest pain Respiratory/Chest Respiratory/Chest: Denies cough or dyspnea Gastrointestinal Gastrointestinal: Denies abdominal pain Genitourinary Genitourinary ED: Denies dysuria or hematuria Musculoskeletal Musculoskeletal: Denies arthralgias Integumentary Denies abscess Neurologic Neurologic: Denies headache(s) or paresthesias Psychiatric Psychiatric: Denies anxiety or depression Endocrine Endocrinology: Denies polydipsia or polyphagia Hematologic/Lymphatic Hematologic/Lymphatic: Denies easy bleeding or easy bruising Allergic/Immunologic Allergic/Immunologic ED: Denies mouth swelling EXAM Physical Exam Narrative Exam Narrative: 63-year-old male vital signs stable afebrile. H EENT exam pupils round reactive light about 2 to 3 mm bilaterally. Extraocular motions are intact. Mild exophthalmos bilaterally. No proptosis. Upper and lower lids unremarkable. Everted. No obvious foreign body. Left eye is definitely injected globally. Right eye normal. There is watering of the left eye. No discharge. No swelling of the periorbital region. No preauricular lymphadenopathy. No orbital or periorbital cellulitis. No pain with range of motion. Lungs clear. Heart regular rhythm. Abdomen soft. Moving all 4 extremities. Right upper extremity in a sling for recent fall and fracture. Patient is awake and alert. Const Vital Signs: 04/21/23 16:04 Temperature 97.9 F Temperature Source Temporal Pulse Rate 87 Respiratory Rate 16 Blood Pressure 178/90 H Blood Pressure Mean 119 Pulse Ox 97 Oxygen Delivery Method Room Air Positive well nourished and well developed; Negative for cachectic, contractures or unkempt General Appearance ED: well developed and NAD; Negative for unkempt, cachectic or contractures Nutritional Appearance: Negative for cachectic HEENT HEENT Narrative: Right eye injected. atraumatic; Negative for trauma or tenderness Eyes Eyes Narrative: Right eye injected. Watering. Neck no lymphadenopathy, supple and no JVD General: Negative for tenderness Resp normal respiratory effort, no retractions, no use of accessory muscles and clear to auscultation bilaterally Cardio regular rate, regular rhythm, S1 normal heart sound, S2 normal heart sound and no murmurs GI non-distended and no masses Inspection: Negative for other Palpation: Negative for soft Back/Spine no CVA tenderness General Back: Negative for CVA tenderness Extremity normal to inspection General Extremety ED: Negative for edema or other findings General Extremity: Negative for edema or other findings Neuro oriented x3, CN's II-XII intact bilaterally and moves all extremities Sensorium / Orientation: alert, oriented to person, oriented to place and oriented to time; Negative for orientation impaired Motor Exam: strength 5/5 throughout Psych Appearance: Negative for unkempt Attitude: No agitated Mood & Affect: Negative for depressed, anxious or tearful Skin no wounds Lesions: no lesions Rashes: no rashes Trauma: Negative for abrasion or laceration MDM MDM MDM Narrative Medical decision making narrative: 63-year-old male status post left eye diabetic retinopathy injection today. Now is red is a foreign body sensation. Fluorescein stain, tetracaine slit-lamp exam will be done. He can see out of the eye. Extra motions are intact. There is no signs of any type of bacterial infection. History & Record Review Discussion w/independent historian: Patient Discharge Plan Triage Chief Complaint: Eye Problem ED Provider: Juan Alberto Alvarez Dx/Rx/DC Orders Prescriptions: No Action glyburide 5 MG tablet 10 mg PO DAILY metformin 1,000 MG tablet 1,000 mg PO BID hydrochlorothiazide 12.5 MG capsule 12.5 mg PO DAILY lisinopril-hydrochlorothiazide 1 EACH tablet 2 tab PO DAILY bupropion HCl 150 MG tablet extended release 24 hr 150 mg PO DAILY mupirocin 22 GM ointment 1 applicatio TP TID Patient Comments: apply to affected area three times a day for 10 days hydrocodone-acetaminophen [hydrocodone-acetaminophen] 5-325 mg tablet 1 tab PO Q6H PRN PRN (Reason: Pain) 3 Days Qty: 10 0RF Primary Care Provider: Onofre Augustine Referrals: Onofre Augustine MD [Primary Care Provider] -
--- OUTSIDE RECORDS SUMMARY | 2023-04-21 19:30 | XMS RPT_ITS | CCD ---
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 Name Role Phone Gene Augustine MD Primary Care Provider [facility], Keti Unavailable GENE AUGUSTINE Referring Unavailable DAVIDE, GENE Ortiz Primary Care Unavailable DAVIDE, GENE Ortiz Referring Unavailable GENE AUGUSTINE Primary Care Unavailable Davide Gene SCHNEIDER Primary Care Provider [facility], Keti Unavailable [facility], Page Unavailable GENE AUGUSTINE Attending Unavailable DAVIDE, GENE Primary Care Unavailable DAVIDE, GENE Primary Care Unavailable DAVIDE, GENE Referring Unavailable DAVIDE, GENE Primary Care Unavailable DAVIDE, GENE Referring Unavailable DAVIDE, GENE Primary Care Unavailable DAVIDE, GENE Attending Unavailable SCOTT MILLARD Attending Unavailable DAVIDE, GENE Primary Care Unavailable DAVIDE, GENE Referring Unavailable DAVIDE, GENE Primary Care Unavailable BERNA DIXON Referring Unavailable BERNA DIXON Attending Unavailable DAVIDE, GENE Primary Care Unavailable DAVIDE, GENE Primary Care Unavailable DAVIDE, GENE Referring Unavailable BERNA DIXON Attending Unavailable KAREN CABALLERO Referring Unavailable DAVIDE, GENE Primary Care Unavailable DAVIDE, GENE Primary Care Unavailable DAVIDE, GENE Referring Unavailable DAVIDE, GENE Primary Care Unavailable DAVIDE, GENE Referring Unavailable DAVIDE, GENE Attending Unavailable DAVIDE, GENE Primary Care Unavailable Medications Current Medications Medication Drug Class(es) Dates Sig (Normalized) Sig (Original) amLODIPine 5 mg oral tablet (14 sources) Dihydropyridine Calcium Channel Graham Start: 05-08-2022 End: 03-27-2023 take 1 tablet by mouth once daily amLODIPine (NORVASC) 5 mg tablet Indications: Primary hypertension Take 1 tablet by mouth once daily. 30 tablet 5 09/28/2022 03/27/2023 Active Completed/Discontinued Medications Medication Drug Class(es) Dates Sig (Normalized) Sig (Original) atorvastatin 40 mg oral tablet (20 sources) HMG-CoA Reductase Inhibitor Start: 11-03-2021 End: 05-06-2022 take 1 tablet by mouth at bedtime for hyperlipidemia atorvastatin (LIPITOR) 40 mg tablet Indications: Mixed hyperlipidemia take 1 tablet by mouth at bedtime for cholesterol 180 tablet 3 05/06/2022 Active Problems Active Problems Problem Classification Problem Date Documented Date Episodic/Chronic Adjustment disorders (20 sources) Adjustment disorder with mixed anxiety and depressed mood; Translations: [Adjustment disorder with mixed anxiety and depressed mood] Onset: 01-26-2019 01-26-2019 Chronic Aortic; peripheral; and visceral artery aneurysms (1 source) Dilatation of aorta; Translations: [Aortic ectasia, unspecified site] Chronic Blindness and vision defects (3 sources) Bilateral myopia of eyes; Translations: [Myopia, bilateral] Episodic Cataract (2 sources) Nuclear sclerosis; Translations: [Age-related nuclear cataract, bilateral] Chronic Chronic kidney disease (1 source) Chronic kidney disease stage 3; Translations: [Stage 3 chronic kidney disease, unspecified whether stage 3a or 3b CKD (HCC)] Chronic Diabetes mellitus with complications (20 sources) Hyperglycemia due to type 2 diabetes mellitus; Translations: [Type 2 diabetes mellitus with hyperglycemia] Onset: 04-12-2019 04-10-2022 Chronic Diabetes mellitus without complication (15 sources) Type 2 diabetes mellitus; Translations: [Type 2 diabetes mellitus without complications] Onset: 05-09-2015 07-03-2020 Chronic Disorders of lipid metabolism (20 sources) Hyperlipidemia; Translations: [Hyperlipidemia, unspecified] Onset: 09-03-2010 09-03-2010 Chronic Essential hypertension (20 sources) Hypertensive disorder; Translations: [Essential (primary) hypertension] Onset: 08-08-2009 08-08-2009 Chronic Mood disorders (20 sources) Recurrent major depression; Translations: [Major depressive disorder, recurrent, unspecified] Onset: 04-12-2019 Chronic Mycoses (2 sources) Onychomycosis; Translations: [Tinea unguium] Episodic Osteoarthritis (18 sources) Osteoarthritis of joint of right ankle and/or foot; Translations: [Primary osteoarthritis, right ankle and foot] Onset: 04-12-2019 04-10-2022 Chronic Other aftercare (1 source) Patient encounter status; Translations: [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] 02-22-2023 Episodic Other aftercare (1 source) Other intermediate (current) drug therapy; Translations: [Medication management] Onset: 02-22-2023 Episodic Other connective tissue disease (2 sources) Pain of toe of left foot; Translations: [Pain in left toe(s)] Episodic Other connective tissue disease (2 sources) Pain of toe of right foot; Translations: [Pain in right toe(s)] Episodic Other diseases of kidney and ureters (1 source) Renal impairment; Translations: [Disorder of kidney and ureter, unspecified] Episodic Other endocrine disorders (1 source) Neuropathy associated with endocrine disorder; Translations: [Endocrine disorder, unspecified] Episodic Other liver diseases (20 sources) Steatosis of liver; Translations: [Fatty (change of) liver, not elsewhere classified] Onset: 03-13-2009 03-13-2009 Chronic Other lower respiratory disease (2 sources) Dyspnea; Translations: [Shortness of breath] Episodic Other nervous system disorders (1 source) Polyneuropathy in diseases classified elsewhere; Translations: [Neuropathy associated with endocrine disorder (HCC)] Onset: 04-28-2022 Chronic Other non-traumatic joint disorders (1 source) Chronic pain of right upper limb; Translations: [Pain in right shoulder] Episodic Other nutritional; endocrine; and metabolic disorders (5 sources) Body mass index 40+ - severely obese; Translations: [Morbid (severe) obesity due to excess calories] Onset: 08-11-2017 08-11-2017 Chronic Other nutritional; endocrine; and metabolic disorders (1 source) Hypercalcemia; Translations: [Hypercalcemia] Chronic Other nutritional; endocrine; and metabolic disorders (8 sources) Morbid obesity; Translations: [Morbid (severe) obesity due to excess calories] Onset: 04-12-2019 Chronic Other nutritional; endocrine; and metabolic disorders (1 source) Obesity; Translations: [Obesity, unspecified] Chronic Other nutritional; endocrine; and metabolic disorders (11 sources) Obesity caused by energy imbalance; Translations: [Morbid (severe) obesity due to excess calories] Onset: 04-12-2019 04-10-2022 Chronic Other skin disorders (1 source) Asteatosis cutis; Translations: [Xerosis cutis] Episodic Other skin disorders (1 source) Plantar callosity; Translations: [Corns and callosities] Episodic Past or Other Problems Problem Classification Problem Date Documented Date Episodic/Chronic Administrative/social admission (18 sources) Housing problem; Translations: [Other problems related to housing and economic circumstances] Onset: 04-10-2022 04-10-2022 Episodic Fluid and electrolyte disorders (20 sources) Hyponatremia; Translations: [Hypo-osmolality and hyponatremia] Onset: 04-12-2019 04-10-2022 Episodic Genitourinary symptoms and ill-defined conditions (20 sources) Blood in urine; Translations: [Hematuria, unspecified] Onset: 04-27-2008 04-27-2008 Episodic Nonspecific chest pain (2 sources) Chest wall pain; Translations: [Other chest pain] Onset: 05-08-2022 05-08-2022 Episodic Other aftercare (1 source) prison (current) use of insulin; Translations: [Type 2 diabetes mellitus with hyperglycemia, with long-term current use of insulin (HCC)] Onset: 04-10-2022 Episodic Other diseases of veins and lymphatics (20 sources) Peripheral venous insufficiency; Translations: [Venous insufficiency (chronic) (peripheral)] Onset: 06-24-2015 06-24-2015 Episodic Other endocrine disorders (1 source) Endocrine disorder, unspecified; Translations: [Neuropathy associated with endocrine disorder (HCC)] Onset: 04-28-2022 Episodic Other lower respiratory disease (1 source) Shortness of breath; Translations: [SOB (shortness of breath)] Onset: 09-28-2022 Episodic Other skin disorders (19 sources) History of skin ulcer; Translations: [Personal history of diseases of the skin and subcutaneous tissue] Onset: 04-10-2022 Episodic Residual codes; unclassified (18 sources) Edema of lower extremity; Translations: [Localized edema] Onset: 04-10-2022 04-10-2022 Episodic Results Test Name Value Interpretation Reference Range Facil ity Vital Signs Date Time Vital Sign Value Performing Clinician Jaclyn hedrick 09-28-2022 10:49-0400 Diastolic blood pressure 88 mm[Hg] Gene Augustine MD Work Phone: [facility] 09-28-2022 10:49-0400 Systolic blood pressure 138 mm[Hg] Gene Augustine MD Work Phone: [facility] 09-28-2022 10:25-0400 Body height 175.3 cm Gene Augustine MD Work Phone: [facility] 09-28-2022 10:25-0400 Body weight 121.56 kg Gene Augustine MD Work Phone: [facility] 09-28-2022 10:25-0400 Heart rate 82 /min Gene Augustine MD Work Phone: [facility] 09-28-2022 10:25-0400 SaO2% (BldA) [Mass fraction] 97 % Gene Augustine MD Work Phone: [facility] 05-30-2022 09:53-0500 Body weight 118.84 kg Gene Augustine MD Work Phone: [facility] 05-30-2022 09:53-0500 Diastolic blood pressure 82 mm[Hg] Gene Augustine MD Work Phone: [facility] 05-30-2022 09:53-0500 Heart rate 82 /min Gene Augustine MD Work Phone: [facility] 05-30-2022 09:53-0500 SaO2% (BldA) [Mass fraction] 100 % Gene Augustine MD Work Phone: [facility] 05-30-2022 09:53-0500 Systolic blood pressure 134 mm[Hg] Gene Augustine MD Work Phone: [facility] 04-10-2022 11:12-0500 SaO2% (BldA) [Mass fraction] 99 % Gene Augustine MD Work Phone: [facility] 04-10-2022 10:34-0500 Body height 175.3 cm Gene Augustine MD Work Phone: [facility] 04-10-2022 10:34-0500 Body weight 121.56 kg Gene Augustine MD Work Phone: [facility] 10-31-2021 10:35-0400 Body height 175.3 cm Vincent Morse PA-C Work Phone: [facility] 10-31-2021 10:35-0400 Body temperature 97.81 [degF] Vincent Morse PA-C Work Phone: [facility] 10-31-2021 10:35-0400 Body weight 121.56 kg Vincent Morse PA-C Work Phone: [facility] 10-31-2021 10:35-0400 Diastolic blood pressure 90 mm[Hg] Vincent Morse PA-C Work Phone: [facility] 10-31-2021 10:35-0400 Heart rate 84 /min Vincent Morse PA-C Work Phone: [facility] 10-31-2021 10:35-0400 Respiratory rate 12 /min Vincent Morse PA-C Work Phone: [facility] 10-31-2021 10:35-0400 SaO2% (BldA) [Mass fraction] 99 % Vincent Morse PA-C Work Phone: [facility] 10-31-2021 10:35-0400 Systolic blood pressure 122 mm[Hg] Vincent Morse PA-C Work Phone: [facility] 10-08-2021 10:16-0400 Body weight 119.3 kg Gene Augustine MD Work Phone: [facility] 10-08-2021 10:16-0400 Diastolic blood pressure 80 mm[Hg] Gene Augustine MD Work Phone: [facility] 10-08-2021 10:16-0400 Heart rate 86 /min Gene Augustine MD Work Phone: [facility] 10-08-2021 10:16-0400 Respiratory rate 20 /min Gene Augustine MD Work Phone: [facility] 10-08-2021 10:16-0400 SaO2% (BldA) [Mass fraction] 98 % Gene Augustine MD Work Phone: [facility] 10-08-2021 10:16-0400 Systolic blood pressure 132 mm[Hg] Gene Augustine MD Work Phone: [facility] Encounters Encounter Date Encounter Type Care Provider Facility Start: 04-14-2023 End: 04-15-2023 ambulatory GENE AUGUSTINE Facility:[facility] Start: 02-25-2023 End: 02-25-2023 ambulatory BERNA DIXON Facility:[facility] Start: 02-25-2023 End: 02-25-2023 Patient encounter procedure Berna Dixon MD, PhD Work Phone: Ophthalmology Procedures Date Procedure Procedure Detail Performing Clinician Start: 02-25-2023 Computerized ophthal rossana imaging retina Berna Dixon MD, PhD Work Phone: Start: 10-08-2022 Myocardial spect mul tiple studies Gene Augustine MD Work Phone: Start: 05-08-2022 Radiologic exam ches t 2 views Gene Augustine MD Work Phone: Start: 04-17-2022 Computerized ophthal rossana imaging retina Karen Caballero OD Work Phone: Start: 10-31-2021 Urnls dip stick/tabl et rgnt auto w/o microscopy Vincent Morse PA-C Work Phone: Start: 10-24-2021 Us retroperitoneal r eal time w/image complete Gene Augustine MD Work Phone: Start: 10-08-2021 Ecg routine ecg w/le ast 12 lds w/i&r [facility] Provider Start: 04-04-2021 Adult depression scr eening assessment Scott Millard Work Phone: Start: 08-03-2013 Colonoscopy Scott Mj vallesjacy Work Phone: Plan of Treatment Date Care Activity Detail Author Start: 12-28-2028 Urine microalbumin profile [facility] Start: 04-10-2025 PROSTATE CANCER SCRE ENING DISCUSSION PROSTATE CANCER SCREENING DISCUSSION [facility] Start: 02-26-2024 Hepatitis C antibody , confirmatory test Dilated Retinal Exam [facility] Start: 10-16-2023 Hepatitis C antibody , confirmatory test Dilated Retinal Exam [facility] Start: 07-03-2024 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 LUIS EDUARDO DISEASE VISIT ANNUAL PCP TEAM CHRONIC DISEASE VISIT [facility] Start: 09-29-2023 COVID-19 VACCINE (3 - Booster for Pfizer series) COVID-19 VACCINE (3 - Booster for Pfizer series) [facility] Immunizations Immunization Date Immunization Notes Care Provider Jaimie palacios 05-14-2022 Influenza, injectabl e, Madin Heather Canine Kidney, preservative free, quadrivalent Gene Augustine MD Work Phone: [facility] 05-14-2022 influenza virus vaccine, unspecified formulation Page Garcia [facility] Work Phone: [facility] 11-05-2020 COVID-19 vaccine, ag e 12+ yr (PFIZER-BIONTECH - PURPLE TOP) Scott Stemnion Work Phone: [facility] Work Phone: 10-07-2020 COVID-19 vaccine, ag e 12+ yr (PFIZER-BIONTECH - PURPLE TOP) Scott [employer] Work Phone: [facility] 12-28-2018 tetanus toxoid, redu chasity diphtheria toxoid, and acellular pertussis vaccine, adsorbed Scott [employer] Work Phone: [facility] 09-08-2006 tetanus toxoid, adsorbed Scott [employer] Work Phone: [facility] Work Phone: Payers Date Payer Category Payer Medicaid [id number] 2017 Medicaid [facility] MEDICAID [facility] [employer] MEDICAID [id number] 2017-Present [phone] [address] [place] [address] Medicaid [id number] 2017 Medicaid [id number] 2017 Medicaid [id number] Social History Date Type Detail Facility Start: 04-10-2020 End: 04-10-2022 Tobacco smoking status NHIS Ex-smoker [facility] History of tobacco use Cigarette Smoker C [facility] Start: 04-10-2020 End: 07-30-2022 Cigarettes smoked current (pack per day) - Reported 2 [facility] Start: 04-10-2020 End: 04-10-2022 Tobacco use and exposure Smokeless tobacco non-user [facility] Start: 07-23-2021 End: 02-25-2023 Alcohol intake Current non-drinker of alcohol (finding) [facility] Start: 04-09-2020 End: 04-05-2021 History SDOH Alcohol Frequency 1 [facility] Start: 04-09-2020 History SDOH Alcohol Std Drinks 98 [facility] Start: 04-09-2020 End: 04-05-2021 History SDOH Social Connections Phone 2 [facility] Start: 04-09-2020 History SDOH Social Connections Living 7 [facility] Start: 04-09-2020 History SDOH Physica l Activity DPW 0 [facility] Start: 04-09-2020 History SDOH Stress 5 [facility] Start: 04-09-2020 History SDOH Food Worry 3 [facility] Start: 04-08-2020 Education 12 [facility] Start: 1960 Sex Assigned At Male [facility] Start: 07-13-2021 End: 10-31-2021 Exposure to SARS-CoV-2 (event) Not sure [facility] Work Phone: History of tobacco use Current smoker [facility] Start: 04-08-2020 End: 07-30-2022 Social connection and isolation panel [facility] Do you belong to any clubs or organizations such as quaker groups, unions, fraternal or athletic groups, or school groups? No [facility] Are you now , , , , never or living with a partner? Never [facility] How often to you hav e a drink containing alcohol? Never [facility] How many standard dr inks containing alcohol do you have on a typical day? Patient refused [facility] How hard is it for y ou to pay for the very basics like food, housing, medical care, and heating Very hard [facility] Do you feel stress - tense, restless, nervous, or anxious, or unable to sleep at night because your mind is troubled all the time - these days [OSQ] Very much [facility] (I/We) worried wheth er (my/our) food would run out before (I/we) got money to buy more. Often true [facility] The food that (I/we) bought just didn't last, and (I/we) didn't have money to get more. Sometimes true [facility] In the past 12 month s, was there a time when you were not able to pay the mortgage or rent on time? Yes [facility] Start: 06-03-2020 Gender identity Identifies as male gender (finding) [facility] Medical Equipment Procedure Code Equipment Code Equipment Origin al Text Equipment Identifier Dates Test One time a day. Insulin Dep? No E11.9 DM 2 Start: 04-17-2020 End: 01-07-2023 Goals Date Patient Goal Desired Activity /State Personal health goal Clinical Notes 01-15-2009 to 04-14-2023 Berna Dixon MD, PhD - 02/25/2023 3:31 PM ESTTelephone Encounter - Page Garcia [facility] - 02/22/2023 3:26 PM Page Mays [facility] - 02/22/2023 2:00 PM Page Mays [facility] - 12/28/2022 1:27 PM EDT Note Date & Type Note Facility 04-14-2023 Note HNO ID: [id number] Author: PAGE GARCIA rylan Service: ? Author Type: Pharmacist Type: Progress Notes Filed: 04/14/2023 15:20 Note Text: Primary Care Pharmacy Visit CC (Reason for Consult): Diabetes Goal: A1c < 7% Last Collaborating Provider Visit: 09/28/22 Daisha Arteaga is a 63 year old male presenting for follow up visit telephone call. Patient consents to pharmacy collaborative practice agreement. Interim Events: 12/28: Patient identified through panel [id number] for PharmD DM referral 02/22: Initial PharmD visit; glyburide was discontinued and Trulicity was increased HPI: Got some assistance from [place], has suggestions for switching medication to Ozempic instead of Trulicity. No GI issues with Trulicity. 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 Has tolerated dose increase fine. Current DM Medications: Metformin ER 500mg tabs - 1000mg BID Glipizide ER 10mg daily Empagliflozin (Jardiance) 25mg daily Dulaglutide (Trulicity) 4.5mg weekly SMBGS (Fingersticks) FBG several days ago was 128 mg/dL; hasn't checked in 2 days; states readings are usually 170s-190s; no issues with low BGs Preventative Medications: On JUANITO/ARB: Yes On Statin: Yes DIET/EXERCISE/SOCIAL Hx: No changes Less activity with cold weather MEDICATIONS: Pill bottles are not present. Adherence: denies missed doses. Pharmacy: [facility] [id number] [place] [address] - [id number] [phone] Rx coverage: Payor: [facility] MEDICAID / Plan: [facility] COMMUNITY PLAN MEDICAID [facility] / Product Type: Medicaid / Medications affordable? Yes Diabetes Supplies: Yes Organization system: ACTIVE PROBLEM LIST Hematuria, Unspecified Fatty Liver Hypertension Hyperlipidemia Venous Insufficiency (Chronic) (Peripheral) Adjustment Reaction With Anxiety and Depression Edema of Lower Extremity Hyponatremia Hypo-Osmolality and Hyponatremia Major Depressive Disorder, Recurrent, Unspecified (Hcc) Morbid (Severe) Obesity Due to Excess Calories (Hcc) Other Problems Related to Housing and Economic Circumstances Primary Osteoarthritis, Right Ankle and Foot Type 2 Diabetes Mellitus With Hyperglycemia (Hcc) History of Foot Ulcer PAST MEDICAL HISTORY Diagnosis Date Diabetes mellitus (HCC) Dysthymic disorder Depression (non-psychotic) Essential hypertension Past medical history reviewed. ALLERGIES No Known Allergies Medication List Medication Directions Comments Action/Plan amLODIPine (NORVASC) 5 mg tablet Take 1 tablet by mouth once daily. atorvastatin (LIPITOR) 40 mg tablet take 1 tablet by mouth at bedtime for cholesterol blood sugar diagnostic (BLOOD GLUCOSE TEST) test strip Test One time a day. Insulin Dep? No E11.9 DM 2 Blood-Glucose Meter Test One time a day. Insulin Dep? No E11.9 DM 2 buPROPion XL (WELLBUTRIN XL) 150 mg 24 hr tablet take 1 tablet by mouth once daily clotrimazole-betamethasone (LOTRISONE) cream apply 1 APPLICATION to affected area twice a day dulaglutide (TRULICITY) 4.5 mg/0.5 mL pen injector Inject 4.5 mg subcutaneously one time a week. empagliflozin (JARDIANCE) 25 mg tablet Take 1 tablet by mouth daily with breakfast. FLUoxetine (PROZAC) 20 mg capsule Take 1 capsule by mouth once daily. In addition to 40 mg a day. FLUoxetine (PROZAC) 40 mg capsule Take 1 capsule by mouth once daily. glipiZIDE (GLUCOTROL XL) 10mg 24 hr tablet Take 1 tablet by mouth daily with breakfast. Lancets lancets Test One time a day. Insulin Dep? No E11.9 DM 2 lisinopril-hydroCHLOROthiazide (PRINZIDE,ZESTORETIC) 20-12.5 mg per tablet Take 1 tablet by mouth every morning. metFORMIN ER (GLUCOPHAGE XR) 500 mg 24 hr tablet Take 2 tablets by mouth twice daily. miconazole 2 % powder APPLY A SUFFICIENT AMOUNT EXTERNALLY TWICE A DAY TO AFFECTED AREA DIRECTED Exam: There were no vitals taken for this visit. Last 3 Encounter BP Readings: Date: BP: 09/28/2022 138/88 05/30/2022 134/82 05/08/2022 160/90 Wt: 121.6 kg (268 lb) BMI: 39.58 kg/(m2) LABS: Reviewed Reported A1c from [place] in December 2022 - 7.5% Lab Results Component Value Date HBA1C 9.4 09/28/2022 HBA1C 8.0 04/10/2022 HBA1C 7.6 10/08/2021 HBA1C 7.5 04/07/2021 HBA1C 7.7 10/02/2020 HBA1C 9.2 06/19/2020 CMP: Glucose 299 09/28/2022 BUN 22 09/28/2022 Creatinine 1.14 09/28/2022 Sodium 133 09/28/2022 Potassium 4.9 09/28/2022 Chloride 99 09/28/2022 CO2 21 09/28/2022 Protein, Total 7.9 04/10/2022 Albumin 4.9 04/10/2022 Calcium 10.2 09/28/2022 Alkaline Phosphatase 109 04/10/2022 Bilirubin, Total 0.4 04/10/2022 AST 16 04/10/2022 ALT 21 04/10/2022 eGFR 74 Lab Results Component Value Date CHOL 130 04/10/2022 CHOL 199 04/07/2021 LDL 52 04/10/2022 LDL 93 04/07/2021 HDL 43 04/10/2022 HDL 41 04/07/2021 TG 175 04/10/2022 TG 327 04/07/2021 The 10-year ASCVD risk score (Lucas ANGEL, et al., 2019) is: 17.5% Values used to calculate the score: Age: 63 years Sex: Male Is N (more content not included)... [facility] 02-25-2023 Note HNO ID: [id number] Author: Berna Dixon MD, PhD Service: ? Author Type: Physician Type: Progress Notes Filed: 02/25/2023 4:40 PM Note Text: Referred by Dr. 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 Myopia -Retinal detachment precautions reviewed 3. Ocular hypertension both eyes -monitor for now 4. Nuclear sclerosis cataracts both eyes -monitor Plan: [facility] I have confirmed and edited as necessary the relevant ophthalmic history, ROS, and the neuro exam findings as obtained by others. I have seen and examined this patient. I have discussed the case and the management of this patient's care with the Resident/Fellow, if applicable. I also have reviewed and agree with the assessment and plan as stated above and agree with all of its relevant components. Berna Dixon MD [facility] 02-25-2023 History of Presen t illness Narrative Referred by Dr. 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 Myopia -Retinal detachment precautions reviewed 3. Ocular hypertension both eyes -monitor for now 4. Nuclear sclerosis cataracts both eyes -monitor Plan: [facility] I have confirmed and edited as necessary the relevant ophthalmic history, ROS, and the neuro exam findings as obtained by others. I have seen and examined this patient. I have discussed the case and the management of this patient's care with the Resident/Fellow, if applicable. I also have reviewed and agree with the assessment and plan as stated above and agree with all of its relevant components. Berna Dixon MD documented in this encounter [facility] 02-22-2023 Note HNO ID: [id number] Author: Page Garcia RPh Service: ? Author Type: Pharmacist Type: Progress Notes Filed: 02/22/2023 3:26 PM Note Text: Primary Care Pharmacy Visit CC (Reason for Consult): Diabetes (E11.65) Type 2 diabetes mellitus with hyperglycemia, unspecified whether intermediate insulin use (HCC) (primary encounter diagnosis) Goal: A1c < 7% Last Collaborating Provider Visit: 09/28/22 Daisha Arteaga is a 63 year old male presenting for initial visit: This initial consult was conducted telephone call with the patient where the consult agreement was explained. The patient may decline or cancel the agreement at any time. After consideration, the patient consented to the pharmacy consult agreement and agreed to allow medications be collaboratively managed by a pharmacist. Interim Events: 12/28: Patient identified through panel mngt for PharmD DM referral HPI: States he is out of fluoxetine, bupropion, and Jardiance, requesting refills. States he is out, he went to pharmacy last week and they told him they need to contact PCP to get new refills. Feels DM control is doing a little better over the past month. Hasn't noticed any change to energy level. No change in frequency of urination. States Bgs usually in the 170s-180s. About 1 mo ago he was at [facility] in [place], A1c was 7.5%. Participating in a program at [facility] when he is getting more advice on diet. Current DM Medications: Metformin ER 500mg tabs - 1000mg BID Glyburide 5mg tabs - 10mg daily with breakfast Empagliflozin (Jardiance) 25mg daily Dulaglutide (Trulicity) 3mg weekly Glipizide ER 10mg daily - [facility] Past DM medications: None that he recalls SMBGS (Fingersticks) FBGs usually 170s-180s No lows Preventative Medications: On JUANITO/ARB: Yes On Statin: Yes ROS: Patient denies CP, SOB, BOYD, blurred vision, dizziness or lightheadedness Patient denies symptoms of hypoglycemia (sweating, anxiety, palpitations, hunger, and tremor) Patient denies symptoms of hyperglycemia (polyuria, polydipsia, polyphagia) Patient denies potential medication adverse effects DIET/EXERCISE/SOCIAL Hx: Trying to be more careful with eating Stopped snacking late at night, no longer snacking after 9 PM Cutting back on pasta, incorporate more fruits and veggies Eating more homemade soup and less pasta Breakfast: often skips; omlet 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 Adherence: denies missed doses. [id number] [place] [address] [facility] [id number] [facility] [phone] [id number] Rx coverage: Payor: [facility] MEDICAID / Plan: [facility] COMMUNITY PLAN MEDICAID [facility] / Product Type: Medicaid / Medications affordable? Yes Diabetes Supplies: Yes Organization system: keeps in original bottles ACTIVE PROBLEM LIST Hematuria, Unspecified Fatty Liver Hypertension Hyperlipidemia Venous Insufficiency (Chronic) (Peripheral) Adjustment Reaction With Anxiety and Depression Edema of Lower Extremity Hyponatremia Hypo-Osmolality and Hyponatremia Major Depressive Disorder, Recurrent, Unspecified (Hcc) Morbid (Severe) Obesity Due to Excess Calories (Hcc) Other Problems Related to Housing and Economic Circumstances Primary Osteoarthritis, Right Ankle and Foot Type 2 Diabetes Mellitus With Hyperglycemia (Hcc) History of Foot Ulcer PAST MEDICAL HISTORY Diagnosis Date Diabetes mellitus (HCC) Dysthymic disorder Depression (non-psychotic) Essential hypertension Past medical history reviewed. ALLERGIES No Known Allergies Medication List Medication Directions Comments Action/Plan amLODIPine (NORVASC) 5 mg tablet Take 1 tablet by mouth once daily. taking atorvastatin (LIPITOR) 40 mg tablet take 1 tablet by mouth at bedtime for cholesterol taking blood sugar diagnostic (BLOOD GLUCOSE TEST) test strip Test One time a day. Insulin Dep? No E11.9 DM 2 supplies Blood-Glucose Meter Test One time a day. Insulin Dep? No E11.9 DM 2 supplies buPROPion XL (WELLBUTRIN XL) 150 mg 24 hr tablet take 1 tablet by mouth once daily taking clotrimazole-betamethasone (LOTRISONE) cream apply 1 APPLICATION to affected area twice a day using dulaglutide (TRULICITY) 3 mg/0.5 mL pen injector Inject 3 mg subcutaneously one time a week. Taking on Mondays FLUoxetine (PROZAC) 20 mg capsule Take 1 capsule by mouth once daily. In addition to 40 mg a day. taking FLUoxetine (PROZAC) 40 mg capsule Take 1 capsule by mouth once daily. taking glyBURIDE (DIABETA) 5 mg tablet take 2 tablets by mouth daily WITH BREAK (more content not included)... [facility] 02-22-2023 Miscellaneous Notes During PharmD visit today, patient requested refill of both fluoxetine doses, states he ran out of medication last week. Orders pended for PCP's signature if appropriate. Requested Prescriptions Pending Prescriptions Disp Refills FLUoxetine (PROZAC) 20 mg capsule 30 capsule 5 Sig: Take 1 capsule by mouth once daily. In addition to 40 mg a day. FLUoxetine (PROZAC) 40 mg capsule 30 capsule 5 Sig: Take 1 capsule by mouth once daily. PharmD also advised patient to call PCP office to schedule f/up visit - due for a 6 mo f/up in March. Page Garcia PharmD, [facility] Primary Care Clinical Pharmacist documented in this encounter [facility] 02-22-2023 History of Presen t illness Narrative Primary Care Pharmacy Visit CC (Reason for Consult): Diabetes (E11.65) Type 2 diabetes mellitus with hyperglycemia, unspecified whether intermediate insulin use (HCC) (primary encounter diagnosis) Goal: A1c < 7% Last Collaborating Provider Visit: 09/28/22 Daisha Arteaga is a 63 year old male presenting for initial visit: This initial consult was conducted telephone call with the patient where the consult agreement was explained. The patient may decline or cancel the agreement at any time. After consideration, the patient consented to the pharmacy consult agreement and agreed to allow medications be collaboratively managed by a pharmacist. Interim Events: 12/28: Patient identified through panel mngt for PharmD DM referral HPI: States he is out of fluoxetine, bupropion, and Jardiance, requesting refills. States he is out, he went to pharmacy last week and they told him they need to contact PCP to get new refills. Feels DM control is doing a little better over the past month. Hasn't noticed any change to energy level. No change in frequency of urination. States Bgs usually in the 170s-180s. About 1 mo ago he was at [facility] in [place], A1c was 7.5%. Participating in a program [facility] when he is getting more advice on diet. Current DM Medications: Metformin ER 500mg tabs - 1000mg BID Glyburide 5mg tabs - 10mg daily with breakfast Empagliflozin (Jardiance) 25mg daily Dulaglutide (Trulicity) 3mg weekly Glipizide ER 10mg daily - recently started by [facility] doctor Past DM medications: None that he recalls SMBGS (Fingersticks) FBGs usually 170s-180s No lows Preventative Medications: On JUANITO/ARB: Yes On Statin: Yes ROS: Patient denies CP, SOB, BOYD, blurred vision, dizziness or lightheadedness Patient denies symptoms of hypoglycemia (sweating, anxiety, palpitations, hunger, and tremor) Patient denies symptoms of hyperglycemia (polyuria, polydipsia, polyphagia) Patient denies potential medication adverse effects DIET/EXERCISE/SOCIAL Hx: Trying to be more careful with eating Stopped snacking late at night, no longer snacking after 9 PM Cutting back on pasta, incorporate more fruits and veggies Eating more homemade soup and less pasta Breakfast: often skips; omlet 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 Adherence: denies missed doses. Pharmacy: [facility] #[id number] [place] [address] - [address] [phone] [id number] Rx coverage: Payor: [facility] MEDICAID / Plan: [facility] COMMUNITY PLAN MEDICAID [facility] / Product Type: Medicaid / Medications affordable? Yes Diabetes Supplies: Yes Organization system: keeps in original bottles ACTIVE PROBLEM LIST Hematuria, Unspecified Fatty Liver Hypertension Hyperlipidemia Venous Insufficiency (Chronic) (Peripheral) Adjustment Reaction With Anxiety and Depression Edema of Lower Extremity Hyponatremia Hypo-Osmolality and Hyponatremia Major Depressive Disorder, Recurrent, Unspecified (Hcc) Morbid (Severe) Obesity Due to Excess Calories (Hcc) Other Problems Related to Housing and Economic Circumstances Primary Osteoarthritis, Right Ankle and Foot Type 2 Diabetes Mellitus With Hyperglycemia (Hcc) History of Foot Ulcer PAST MEDICAL HISTORY Diagnosis Date Diabetes mellitus (HCC) Dysthymic disorder Depression (non-psychotic) Essential hypertension Past medical history reviewed. ALLERGIES No Known Allergies Medication List Medication Directions Comments Action/Plan amLODIPine (NORVASC) 5 mg tablet Take 1 tablet by mouth once daily. taking atorvastatin (LIPITOR) 40 mg tablet take 1 tablet by mouth at bedtime for cholesterol taking blood sugar diagnostic (BLOOD GLUCOSE TEST) test strip Test One time a day. Insulin Dep? No E11.9 DM 2 supplies Blood-Glucose Meter Test One time a day. Insulin Dep? No E11.9 DM 2 supplies buPROPion XL (WELLBUTRIN XL) 150 mg 24 hr tablet take 1 tablet by mouth once daily taking clotrimazole-betamethasone (LOTRISONE) cream apply 1 APPLICATION to affected area twice a day using dulaglutide (TRULICITY) 3 mg/0.5 mL pen injector Inject 3 mg subcutaneously one time a week. Taking on Mondays FLUoxetine (PROZAC) 20 mg capsule Take 1 capsule by mouth once daily. In addition to 40 mg a day. taking FLUoxetine (PROZAC) 40 mg capsule Take 1 capsule by mouth once daily. taking glyBURIDE (DIABETA) 5 mg tablet take 2 tablets by mouth daily WITH BREAKFAST FOR DIABETES taking JARDIANCE 25 mg tablet take 1 tablet by mouth once daily WITH BREAKFAST Taking QAM Lancets lancets Test One time a day. Insulin Dep? No E11.9 DM 2 supplies lisinopril-hydroCHLOROthiazide (PRINZIDE,ZESTORETIC) 20-12.5 mg per tablet Take 1 tablet by mouth every morning. taking metFORMIN ER (GLUCOPHAGE XR) 500 mg 24 hr tablet Take 2 tablets by mouth twice daily. Taking BID Rx meds not listed in EPIC: glipizide ER 10mg daily (prescribed by [facility]) - started last week; miconazole topical powder for feet OTCs: none Herbals: none Exam: There were no vitals taken for this visit. Last 3 Encounter BP Readings: Date: BP: 09/28/2022 138/88 05/30/2022 134/82 05/08/2022 160/90 Wt: 121.6 kg (268 lb) BMI: 39.58 kg/(m^2) LABS: Reviewed Reported A1c from [facility] in December 2022 - 7.5% Lab Results Component Value Date HBA1C 9.4 09/28/2022 HBA1C 8.0 04/10/2022 HBA1C 7.6 10/08/2021 HBA1C 7.5 04/07/2021 HBA1C 7.7 10/02/2020 HBA1C 9.2 06/19/2020 CMP: Glucose 299 09/28/2022 BUN 22 09/28/2022 Creatinine 1.14 09/28/2022 Sodium 133 09/28/2022 Potassium 4.9 09/28/2022 Chloride 99 09/28/2022 CO2 21 09/28/2022 Protein, Total 7.9 04/10/2022 Albumin 4.9 04/10/2022 Calcium 10.2 09/28/2022 Alkaline Phosphatase 109 04/10/2022 Bilirubin, Total 0.4 04/10/2022 AST 16 04/10/2022 ALT 21 04/10/2022 eGFR 74 CrCl cannot be calculated (Unknown ideal weight.). Lab Results Component Value Date CHOL 130 04/10/2022 CHOL 199 04/07/2021 LDL 52 04/10/2022 LDL 93 04/07/2021 HDL 43 04/10/2022 HDL 41 04/07/2021 TG 175 04/10/2022 TG 327 04/07/2021 The 10-year ASCVD risk score (Lucas ANGEL, et al., 2019) is: 17.5% Values used to calculate the score: Age: 63 years Sex: Male Is Non- : No Diabetic: Yes Tobacco smoker: No Systolic Blood Pressure: 138 mmHg Is BP treated: Yes HDL Cholesterol: 43 mg/dL Total Cholesterol: 130 mg/dL Albumin/Creat Ratio (mg/g) Date Value 04/10/2022 29 PHARMACOTHERAPY ASSESSMENT/PLAN: 1. Type 2 diabetes mellitus with hyperglycemia, unspecified whether predatory animal exterminator insulin use (HCC) - ICD9: 250.00, ICD10: E11.65 (primary diagnosis) A1c goal < 7%; uncontrolled (last A1c 9.4%); reported A1c from last month at [facility] is improved at 7.5%; reported FBGs elevated above goal; no sx of hyper or hypoglycemia; tolerating regimen well; eats fast food most days for lunch; working on dietary mods; discovered today patient is taking both glipizide and glyburide so will stop glyburide today; will increase Trulicity and f/up in ~6 weeks DISCONTINUE glyburide INCREASE Trulicity to 4.5mg weekly Counseled on possible GI ADEs with dose adjustment. Discussed risk of gall bladder issues or pancreatitis, advised to contact office if sx of sharp stabbing abdominal pain, CONTINUE metformin ER 1000mg BID, Jardiance 25mg daily, and glipizide ER 10mg daily Refilled Jardiance at patient's request Encouraged doing meal planning and packing own lunches rather than doing fast food. Encouraged eating lower carb snacks at night. HbA1c: due now 2. Medication management - ICD9: V58.69, ICD10: Z79.899 Reviewed all medications, indications, dosing, frequency, administration with patient. Medication list updated as described above. Patient requesting refill of fluoxetine --> will send refill request to PCP Follow-up Patient is not scheduled to see PCP team - strongly encouraged to schedule a 6 mo f/up with PCP team (due in Feb/Mar). Patient to have f/up with PharmD team on 02/12. Patient verbalized understanding of instructions. Page Garcia PharmD, [facility] Primary Care Clinical Pharmacist The majority of the pharmacy visit (> 50%) was spent counseling and/or coordinating care for the patient. interaction: telephonic time was 60 minutes. documented in this encounter [facility] 02-05-2023 Miscellaneous Notes Called and spoke to patient to reschedule missed 02/03/2023 Primary Care Pharmacy consult on 02/22/2023. Primary Care Pharmacy Rescheduling Outreach Call center, please contact patient and reschedule in person, telephone, and virtual visit for Diabetes management within ~4 week(s). (Visit length: 60 minutes - NEW VISIT) [place] patient Thank you, Mabel Jalloh PharmD Primary Care Clinical Dedenter 02/05/2023 10:27 AM documented in this encounter [facility] 01-07-2023 Miscellaneous Notes Patient has been identified by name and date of : Yes Requested Prescriptions Pending Prescriptions Disp Refills blood sugar diagnostic (BLOOD GLUCOSE TEST) test strip 200 Each 4 Sig: Test One time a day. Insulin Dep? No E11.9 DM 2 RX INSTRUCTIONS: Patient aware RX will be sent to pharmacy. No need to notify patient. Roxy Sánchez documented in this encounter [facility] 12-28-2022 Note HNO ID: [id number] Author: Page Garcia RPh Service: ? Author Type: Pharmacist Type: Progress Notes Filed: 12/28/2022 1:29 PM Note Text: Primary Care Pharmacy Panel Management This patient has been identified through panel management efforts by the primary care pharmacy team. Please contact patient and schedule a pharmacy phone or virtual visit for diabetes management. Please use New Pharmacy, New Pharmacy Phone call, or Video Primary New visit types. Page Garcia [facility] 12-28-2022 Note Patient Outreach (PH MEWO) DAISHA ARTEAGA ([id number]) 1960 Date Time Provider Department 12/28/22 PAGE GARCIA PHMEWO During your visit today, we recorded the following information about you: Page Garcia RPh 12/28/2022 1:29 PM Signed Primary Care Pharmacy Panel Management This patient has been identified through panel management efforts by the primary care pharmacy team. Please contact patient and schedule a pharmacy phone or virtual visit for diabetes management. Please use New Pharmacy, New Pharmacy Phone call, or Video Primary New visit types. Page Garcia [facility] Allergies As of Date: 12/28/2022 (No Known Allergies) Date Reviewed: 10/15/2022 Reviewed by: Berna Dixon MD, PhD - Fully Assessed Primary Visit Diagnosis:Type 2 diabetes mellitus with hyperglycemia, unspecified whether predatory animal exterminator insulin use (HCC) [E11.65] Order(s):CONSULT TO PHARMACY [[id number]] Order #: [id number]: 1 Prescriptions as of 12/28/2022 - FLUoxetine (PROZAC) 20 mg capsule Take 1 capsule by mouth once daily. In addition to 40 mg a day. - FLUoxetine (PROZAC) 40 mg capsule Take 1 capsule by mouth once daily. - dulaglutide (TRULICITY) 3 mg/0.5 mL pen injector Inject 3 mg subcutaneously one time a week. - amLODIPine (NORVASC) 5 mg tablet Take 1 tablet by mouth once daily. - JARDIANCE 25 mg tablet take 1 tablet by mouth once daily WITH BREAKFAST - glyBURIDE (DIABETA) 5 mg tablet take 2 tablets by mouth daily WITH BREAKFAST FOR DIABETES - atorvastatin (LIPITOR) 40 mg tablet take 1 tablet by mouth at bedtime for cholesterol - buPROPion XL (WELLBUTRIN XL) 150 mg 24 hr tablet take 1 tablet by mouth once daily - clotrimazole-betamethasone (LOTRISONE) cream apply 1 APPLICATION to affected area twice a day - lisinopril-hydroCHLOROthiazide (PRINZIDE,ZESTORETIC) 20-12.5 mg per tablet Take 1 tablet by mouth every morning. - blood sugar diagnostic (BLOOD GLUCOSE TEST) test strip Test One time a day. Insulin Dep? No E11.9 DM 2 - metFORMIN ER (GLUCOPHAGE XR) 500 mg 24 hr tablet Take 2 tablets by mouth twice daily. - Lancets lancets Test One time a day. Insulin Dep? No E11.9 DM 2 - Blood-Glucose Meter Test One time a day. Insulin Dep? No E11.9 DM 2 Facility-Administered Medications as of 12/28/2022 - perflutren lipid microspheres 1.3 mL in NaCl (PF) 0.9% 10 mL injection (DEFINITY) - sodium chloride 0.9 % (flush) 10 mL (BD POSIFLUSH) Problem List As Of Date 12/28/2022 Noted Resolved Dysmetabolic syndrome X [E88.810] 04/27/2008 12/31/2017 HEMATURIA NOS [R31.9] 04/27/2008 Type II or unspecified type diabetes mellitus w*01/15/2009 12/31/2017 Fatty Liver [K76.0] 03/13/2009 Hypertension [I10] 08/08/2009 Hyperlipidemia [E78.5] 09/03/2010 Type 2 diabetes mellitus, without long-term cur*05/09/2015 04/10/2022 Venous insufficiency (chronic) (peripheral) [I8*06/24/2015 Obesity, Class III, BMI 40-49.9 (morbid obesity*08/11/2017 04/10/2022 Adjustment reaction with anxiety and depression*01/26/2019 Abscess of groin [L02.214] 04/10/2022 04/10/2022 Counseling, unspecified [Z71.9] 04/10/2022 04/10/2022 Current smoker [F17.200] 04/10/2022 04/10/2022 Edema of lower extremity [R60.0] 04/10/2022 Encounter for surgical aftercare following surg*04/13/2019 04/10/2022 Hypertensive heart disease without heart failur*04/12/2019 04/10/2022 Hyponatremia [E87.1] 04/10/2022 Hypo-osmolality and hyponatremia [E87.1] 04/12/2019 Impaired wound healing [KZY1582] 04/10/2022 04/10/2022 Major depressive disorder, recurrent, unspecifi*04/12/2019 Methicillin resistant Staphylococcus aureus inf*04/12/2019 04/10/2022 Morbid (severe) obesity due to excess calories *04/12/2019 Other problems related to housing and economic *04/10/2022 Persons encountering health services in other s*04/10/2022 04/10/2022 Primary osteoarthritis, right ankle and foot [M*04/12/2019 Sepsis, unspecified organism (HCC) [A41.9] 04/12/2019 04/10/2022 Tobacco use [Z72.0] 04/12/2019 04/10/2022 Type 2 diabetes mellitus with hyperglycemia (HC*04/12/2019 Ulcer of foot (HCC) [L97.509] 04/10/2022 04/10/2022 Mild protein-calorie malnutrition (HCC) [E44.1] 04/12/2019 04/10/2022 Unspecified disturbances of skin sensation [R20*04/12/2019 04/10/2022 History of foot ulcer [Z87.2] 04/10/2022 Encounter Status:Closed by PAGE GARCIA on 12/28/22 [facility] 12-28-2022 History of Presen t illness Narrative Primary Care Pharmacy Panel Management This patient has been identified through panel management efforts by the primary care pharmacy team. Please contact patient and schedule a pharmacy phone or virtual visit for diabetes management. Please use New Pharmacy, New Pharmacy Phone call, or Video Primary New visit types. Page Garcia RPh documented in this encounter [facility] 10-15-2022 Note HNO ID: [id number] Author: Berna Dixon MD, PhD Service: ? Author Type: Physician Type: Progress Notes Filed: 10/15/2022 9:09 AM Note Text: Referred by Dr. Caballero for diabetic retinopathy eval Patient is not having any visual complaints NON INSULIN DEPENDENT type 2 diabetes -Recommend good blood pressure/sugar control - Hemoglobin A1C (%) Date Value 09/28/2022 9.4 04/07/2021 7.5 -on dialysis: No RIGHT EYE: Non-Proliferative Diabetic Retinopathy Moderate and Clinically Significant Macular Edema LEFT EYE: Non-Proliferative Diabetic Retinopathy Moderate and Clinically Significant Macular Edema 2. Myopia -Retinal detachment precautions reviewed 3. Ocular hypertension both eyes -monitor for now 4. Nuclear sclerosis cataracts both eyes -monitor Plan: Rec observation Return in 3 mo I have confirmed and edited as necessary the relevant ophthalmic history, ROS, and the neuro exam findings as obtained by others. I have seen and examined this patient. I have discussed the case and the management of this patient's care with the Resident/Fellow, if applicable. I also have reviewed and agree with the assessment and plan as stated above and agree with all of its relevant components. Berna Dixon MD [facility] 10-08-2022 Note HNO ID: [id number] Author: GRACIA Rodarte Service: Nuclear Medicine Author Type: Technologist Type: Progress Notes Filed: 10/08/2022 9:59 AM Note Text: RADIOLOGY SERVICE PROGRESS NOTE SERVICE DATE: 10/08/2022 SERVICE TIME: 9:57 AM PATIENT IDENTITY VERIFICATION COMPLETED USING TWO (2) STANDARD IDENTIFIERS: Name and Date of confirmed by patient verbally and Name and Date of confirmed by identification band FALL SCREENING: Has the patient had 2 falls in the last year or 1 fall with injury or currently using an Ambulatory Assistive Device (Walker, Cane, Wheelchair, Crutches, etc.)? No PATIENT GENDER DATA: .male ALLERGIES: Reviewed and unchanged MEDICATIONS REVIEWED: Not applicable PATIENT RELEVANT IMPLANT DATA REVIEWED: Not Applicable CREATININE: Creatinine Date Value Ref Range Status 09/28/2022 1.14 0.73 - 1.22 mg/dL Final 04/10/2022 1.30 (H) 0.73 - 1.22 mg/dL Final 10/08/2021 1.40 (H) 0.73 - 1.22 mg/dL Final Estimated Glomerular Filtration Rate Date Value Ref Range Status 09/28/2022 74 >=60 mL/min/1.73m? Final Comment: Estimated Glomerular Filtration Rate (eGFR) is calculated using the 2020 CKD-EPI creatinine equation. This equation utilizes serum creatinine, sex, and age as parameters. The creatinine assay has traceable calibration to isotope dilution-mass spectrometry. Refer to KDIGO guidelines for clinical interpretation. In patients with unstable renal function, e.g. those with acute kidney injury, the eGFR may not accurately reflect actual GFR. eGFR- Date Value Ref Range Status 04/07/2021 55 Final P.O.C.T. RESULTS: N/A October 08, [address] PERFORMED: No IV SITE: Ambulatory: A peripheral IV was started in the Left hand with a Angio cath: 22 gauge. POST EXAM PIV STATUS: Discontinued PROCEDURE TYPE: NM Stress: 13.3 mCi [id number] was administered IV for Rest Imaging at 08:43 by . 46.3 mCi [id number] was administered IV for Stress Imaging at 09:41 by . PATIENT DISCHARGED TO: Ambulatory patient, left IN department area. A Diagnostic radioactive procedure has taken place, with no further precautions necessary other than routine body substance precautions. More information regarding radiation safety can be found using this link: [email or web address]%20Me [email or web address] SIGNATURE: GRACIA Rodarte PATIENT NAME: Daisha Arteaga DATE: October 08, 2022 TIME: 9:57 AM PAGER/CONTACT #: [facility] 10-08-2022 History of Presen t illness Narrative RADIOLOGY SERVICE PROGRESS NOTE SERVICE DATE: 10/08/2022 SERVICE TIME: 9:57 AM PATIENT IDENTITY VERIFICATION COMPLETED USING TWO (2) STANDARD IDENTIFIERS: Name and Date of confirmed by patient verbally and Name and Date of confirmed by identification band FALL SCREENING: Has the patient had 2 falls in the last year or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 rashes or lesions Head: Normocephalic, no masses, lesions, tenderness or abnormalities Lungs: Lungs clear to auscultation. No wheezing, rhonchi, rales Heart: RRR without murmur, gallop, or rubs. No ectopy Abdomen: Normal abdominal exam, Abdomen soft, non-tender. Bowel sounds normal. No masses, organomegaly Extremities: No deformities, edema, skin discoloration, clubbing or cyanosis. Good capillary refill. Musculoskeletal: No joint swelling, deformity, or tenderness ASSESSMENT/PLAN: 1. Primary hypertension - ICD9: 401.9, ICD10: I10 (primary diagnosis) - bp is stable. 2. Type 2 diabetes mellitus with hyperglycemia, unspecified whether intermediate insulin use (HCC) - ICD9: 250.00, ICD10: E11.65 - [facility]. - HGB A1C 3. Recurrent major depressive disorder, remission status unspecified (HCC) - ICD9: 296.30, ICD10: F33.9 - doing better. Continue meds Gene Augustine documented in this encounter [facility] 05-13-2022 Miscellaneous Notes Left message to call office. 05/13/2022 9:56 AM Please call patient and let him know his chest xray was normal. Meri Mares APRN.CNP documented in this encounter [facility] 05-08-2022 Note HNO ID: [id number] Author: Callie Foster RT(R) Service: Radiology Author Type: Technologist Type: Progress Notes Filed: 05/08/2022 11:53 AM Note Text: Radiology Service Progress Note PATIENT NAME: Daisha Arteaga DATE OF SERVICE: May 08, 2022 TIME: 11:46 AM PATIENT IDENTITY VERIFICATION COMPLETED USING TWO (2) IDENTIFIERS: Name and Date of confirmed by patient verbally. FALL SCREENING: Has the patient had 2 falls in the last year or 1 fall with injury or currently using an Ambulatory Assistive Device (Walker, Cane, Wheelchair, Crutches, etc.)? No PATIENT GENDER DATA: Male PATIENT RELEVANT IMPLANT DATA REVIEWED: Yes RADIOLOGY DEPARTMENT: General X-ray: Exam(s) Completed: Chest X-Ray PERIPHERAL IV DATA: Not applicable SIGNED BY: RT Chemo(R) May 08, 2022 11:46 AM [facility] 05-08-2022 Note HNO ID: [id number] Author: Gene Augustine MD Service: ? Author Type: Physician Type: Progress Notes Filed: 05/08/2022 11:04 AM Note Text: Patient presents with: Follow Up HPI: Patient presents today for office visit for follow up. Was coming back in for recheck on his prozac. He is still on feeling it is working as well. Is worried about PTSD. Remains on wellbutrin. Discussed counseling. No suicidal ideation. DM: Sugars have been in the 300's. Has not been able to receive Trulicity due to nationwide shortage. Still with numbness and pain in B/L feet. Saw Ophthalmology on 04/17/22 and Podiatry on 04/28/22. He fell outside a couple weeks ago during to winter. Landed on his right side. Having discomfort in sternum and in between shoulder blades since fall. Did not go to ER. No X-rays done. Landed on his side and did not hit his head. No loc. No shortness of breath. No cough or sneeze. MEDICATIONS: Current Outpatient Medications Medication Sig glyBURIDE (DIABETA) 5 mg tablet take 2 tablets by mouth daily WITH BREAKFAST FOR DIABETES atorvastatin (LIPITOR) 40 mg tablet take 1 tablet by mouth at bedtime for cholesterol buPROPion XL (WELLBUTRIN XL) 150 mg 24 hr tablet take 1 tablet by mouth once daily dulaglutide (TRULICITY) 3 mg/0.5 mL pen injector Inject 3 mg subcutaneously one time a week. FLUoxetine (PROZAC) 40 mg capsule Take 1 capsule by mouth once daily. empagliflozin (JARDIANCE) 25 mg tablet Take 1 tablet by mouth daily with breakfast. clotrimazole-betamethasone (LOTRISONE) cream apply 1 APPLICATION to affected area twice a day lisinopril-hydroCHLOROthiazide (PRINZIDE,ZESTORETIC) 20-12.5 mg per tablet Take 1 tablet by mouth every morning. blood sugar diagnostic (BLOOD GLUCOSE TEST) test strip Test One time a day. Insulin Dep? No E11.9 DM 2 metFORMIN ER (GLUCOPHAGE XR) 500 mg 24 hr tablet Take 2 tablets by mouth twice daily. Lancets lancets Test One time a day. Insulin Dep? No E11.9 DM 2 Blood-Glucose Meter Test One time a day. Insulin Dep? No E11.9 DM 2 Current Facility-Administered Medications Medication Dose Route Frequency perflutren lipid microspheres 1.3 mL in NaCl (PF) 0.9% 10 mL injection (DEFINITY) INTRAVENOUS DIRECTED PRN sodium chloride 0.9 % (flush) 10 mL (BD POSIFLUSH) 10 mL INTRAVENOUS DIRECTED PRN ALLERGIES: ALLERGIES No Known Allergies PAST MEDICAL HISTORY Diagnosis Date Diabetes mellitus (HCC) Dysthymic disorder Depression (non-psychotic) Essential hypertension PAST SURGICAL HISTORY Procedure Laterality Date NONE PAST SURGICAL HISTORY OF 09/2017 [place] - groin abscess FAMILY HISTORY Problem Relation Age of Onset Coronary Artery Disease Father Fatal [place] age 45 Hypertension Mother other (mentally handicap) Sister Hypertension Sister Glaucoma Paternal Grandmother Diabetes Paternal Grandmother Cataract Paternal Grandmother Diabetes Paternal Grandfather Detached Retina No Family History Macular Degen No Family History Social History Tobacco Use Smoking status: Former Packs/day: 2.00 Years: 2.00 Pack years: 4.00 Types: Cigarettes Smokeless tobacco: Never Vaping Use Vaping Use: Never used Substance Use Topics Alcohol use: No Drug use: No Reviewed current medications, allergies, past medical history, surgical history, family history and social history today. REVIEW OF SYSTEMS Bp remains up. All other reviewed and negative other than HPI. VITALS: BP 160/90 Pulse 80 Ht 175.3 cm (5' 9 ) Wt 120.2 kg (265 lb) SpO2 99% BMI 39.13 kg/m? Last 4 Encounter Wt Readings: Date: Wt: 04/10/2022 121.6 kg (268 lb) 10/31/2021 121.6 kg (268 lb) 10/08/2021 119.3 kg (263 lb) 04/07/2021 120.2 kg (265 lb) PHYSICAL EXAMINATION: General appearance: Well appearing, alert, in no acute distress, well-hydrated, well nourished. Skin: Skin color, texture, turgor normal, no suspicious rashes or lesions Head: Normocephalic, no masses, lesions, tenderness or abnormalities Chest wall tender over anterior and posterior chest wall. No deformity. Lungs: Lungs clear to auscultation. No wheezing, rhonchi, rales Heart: RRR without murmur, gallop, or rubs. No ectopy Abdomen: Normal abdominal exam, Abdomen soft, non-tender. Bowel sounds normal. No masses, organomegaly Extremities: No deformities, edema, skin discoloration, clubbing or cyanosis. Good capillary refill. Musculoskeletal: No joint swelling, deformity, or tenderness Peripheral pulses: Normal Neuro: Negative. ASSESSMENT/PLAN: 1. Type 2 diabetes mellitus with hyperglycemia, with long-term current use of insulin (HCC) - ICD9: 250.00, 790.29, V58.67, ICD10: E11.65, Z79.4 (primary diagnosis) - use lower dose while higher dose is unavailable. - TRULICITY 1.5 MG/0.5 ML SUBCUTANEOUS PEN INJECTOR 2. Primary hypertension - ICD9: 401.9, ICD10: I10 - suboptimal control - add amlodipine. Discussed risks and benefi (more content not included)... [facility] 05-06-2022 Miscellaneous Notes Patient has been identified by name and date of : Yes Patient phones for refill(s): Requested Prescriptions Pending Prescriptions Disp Refills glyBURIDE (MICRONASE, DIABETA) 5 mg tablet [Pharmacy Med Name: GLYBURIDE 5 MG TABLET] 360 tablet Sig: take 2 tablets by mouth daily WITH BREAKFAST FOR DIABETES atorvastatin (LIPITOR) 40 mg tablet [Pharmacy Med Name: ATORVASTATIN 40 MG TABLET] 180 tablet Sig: take 1 tablet by mouth at bedtime for cholesterol Date of last office visit in primary care: 04/10/22 Please advise. Thank you. Thalia Reyes LPN documented in this encounter [facility] 05-04-2022 Miscellaneous Notes Patient phones requesting refills as follows: Requested Prescriptions Pending Prescriptions Disp Refills buPROPion XL (WELLBUTRIN XL) 150 mg 24 hr tablet [Pharmacy Med Name: BUPROPION HCL XL 150 MG TABLET] 180 tablet Sig: take 1 tablet by mouth once daily BRI 04/10/22 NOV 05/08/22 Please review and advise. Malcolm Valentin LPN documented in this encounter [facility] 04-28-2022 Note HNO ID: [id number] Author: Scott Millard Service: ? Author Type: Physician Type: Progress Notes Filed: 04/28/2022 9:03 AM Note Text: Subjective: This 62 year old male presents to clinic for diabetic foot check. Patient admits to being diabetic for 20+ years now. Patient +B/T/N in feet at this time. Patient -pain in legs when walking. No other pedal complaints at this time. No change in medications or medical history since last visit. PAIN EVALUATION 04/28/2022 0835 Pain Level: 5 Pain Location: Other: See Comment B/L feet Description: Numbness;Stabbing Duration Amount of Time: -- several years Duration Units: Years Frequency: Intermittent Intervention/Comfort measure: Reposition;Relaxation Hemoglobin A1C (%) Date Value 04/10/2022 8.0 10/08/2021 7.6 04/07/2021 7.5 10/02/2020 7.7 06/19/2020 9.2 04/09/2020 12.5 04/05/2019 7.2 PCP: Gene Augustien MD PAST MEDICAL HISTORY Diagnosis Date Diabetes mellitus (HCC) Dysthymic disorder Depression (non-psychotic) Essential hypertension Current Outpatient Medications Medication Sig dulaglutide (TRULICITY) 3 mg/0.5 mL pen injector Inject 3 mg subcutaneously one time a week. FLUoxetine (PROZAC) 40 mg capsule Take 1 capsule by mouth once daily. buPROPion XL (WELLBUTRIN XL) 150 mg 24 hr tablet Take 1 tablet by mouth once daily. glyBURIDE (DIABETA) 5 mg tablet Take 2 tablets by mouth daily with breakfast. for diabetes empagliflozin (JARDIANCE) 25 mg tablet Take 1 tablet by mouth daily with breakfast. atorvastatin (LIPITOR) 40 mg tablet Take 1 tablet by mouth daily at bedtime. For cholesterol. clotrimazole-betamethasone (LOTRISONE) cream apply 1 APPLICATION to affected area twice a day lisinopril-hydroCHLOROthiazide (PRINZIDE,ZESTORETIC) 20-12.5 mg per tablet Take 1 tablet by mouth every morning. blood sugar diagnostic (BLOOD GLUCOSE TEST) test strip Test One time a day. Insulin Dep? No E11.9 DM 2 metFORMIN ER (GLUCOPHAGE XR) 500 mg 24 hr tablet Take 2 tablets by mouth twice daily. Lancets lancets Test One time a day. Insulin Dep? No E11.9 DM 2 Blood-Glucose Meter Test One time a day. Insulin Dep? No E11.9 DM 2 ondansetron orally disintegrating (ZOFRAN ODT) 4 mg disintegrating tablet Take 1 tablet by mouth every 6 hours as needed for nausea/vomiting. (Patient not taking: Reported on 04/28/2022) Current Facility-Administered Medications Medication Dose Route Frequency perflutren lipid microspheres 1.3 mL in NaCl (PF) 0.9% 10 mL injection (DEFINITY) INTRAVENOUS DIRECTED PRN sodium chloride 0.9 % (flush) 10 mL (BD POSIFLUSH) 10 mL INTRAVENOUS DIRECTED PRN ALLERGIES No Known Allergies PAST SURGICAL HISTORY Procedure Laterality Date NONE PAST SURGICAL HISTORY OF 09/2017 [place] - groin abscess FAMILY HISTORY Problem Relation Age of Onset Coronary Artery Disease Father Fatal [place] age 45 Hypertension Mother other (mentally handicap) Sister Hypertension Sister Glaucoma Paternal Grandmother Diabetes Paternal Grandmother Cataract Paternal Grandmother Diabetes Paternal Grandfather Detached Retina No Family History Macular Degen No Family History Social History Tobacco Use Smoking status: Former Packs/day: 2.00 Years: 2.00 Pack years: 4.00 Types: Cigarettes Smokeless tobacco: Never Vaping Use Vaping Use: Never used Substance Use Topics Alcohol use: No Drug use: No REVIEW OF SYSTEMS GENERAL: Negative for Malaise, significant weight loss, fever RESPIRATORY: Negative for cough, wheezing and shortness of breath CARDIOVASCULAR: Negative for chest pain, leg swelling and palpitations GI: Negative for abdominal discomfort, blood in stools or black stools and change in bowel habits : Negative for dysuria, frequency and incontinence MUSCULOSKELETAL: Negative for joint pain or swelling, back pain, and muscle pain. SKIN: Negative for lesions, rash, and itching. HEMATOLOGY/LYMPHOLOGY Negative for prolonged bleeding, bruising easily, and swollen nodes. ENDOCRINE: Negative for cold or heat intolerance, polyuria, polydipsia and goiter. NEURO: negative The remainder of the review of systems is noncontributory. Objective: Patient presents to clinic ambulating in diabetic shoes Constitutional: Pt is a well developed 62 year old male who is alert, oriented, cooperative and in no apparent distress. Eyes: Following during examination. No redness or drainage. Respiratory: RR normal and nonlabored. Even breathing. No evidence of distress. Psychology: Patient is engaged during conversation. Normal affect and mood. Does not appear depressed or anxious. Vasc: DP and PT pulses are palpable bilateral. CFT is less than 5 seconds bilateral. Skin temperature is warm to cool proximal to distal bilateral. There is moderate edema or varicosities noted. Hair growth absent. Neuro: Protective sensation is absent to the foot and toes when tested with the 5.07 S (more content not included)... [facility] 04-28-2022 Note HNO ID: [id number] Author: Carrie Ohara RN Service: ? Author Type: ? Type: Progress Notes Filed: 04/28/2022 9:03 AM Note Text: AMB ROOMING INTAKE FLOWSHEET DATA Pain Pain Level: 5 Pain Location: Other: See Comment (B/L feet) Description: Numbness, Stabbing Duration Amount of Time: (several years) Duration Units: Years Frequency: Intermittent Intervention/Comfort measure: Reposition, Relaxation Patient presents with: Left Foot - New Patient, Diabetic Foot Check Right Foot - New Patient, Diabetic Foot Check [facility] 04-17-2022 History of Presen t illness Narrative 1. Moderate nonproliferative diabetic retinopathy of both eyes with macular edema associated with type 2 diabetes mellitus (HCC) Risk of diabetic changes and vision loss can be minimized by tight control of blood sugar, blood pressure, and cholesterol levels. Educated patient to continue care with primary care doctor and/or boatswain's mate to maintain optimum levels as they are important to avoid ocular complications. Encouraged patient to call the office immediately with any changes to vision or visual concerns. Advised to not wait until the next scheduled exam. Educated pt on macular edema left eye (pinpoint area right eye) Recommended evaluation with Dr. Dixon 2. Myopia, bilateral 3. Regular astigmatism of both eyes 4. Presbyopia Finalized spec rx 5. Nuclear sclerosis of both eyes 6. Cortical age-related cataract, bilateral Mild- monitor Follow-up in 2-[address] Dixon or sooner with any new or worsening vision Karen Caballero, OD April 17, 2022 3:34 PM documented in this encounter [facility] documented as of this encounter (statuses as of 04/10/2022) [facility] History of Past illness Narrative* Problem Noted Date Resolved Date Abscess of groin 04/10/2022 04/10/2022 Counseling, unspecified 04/10/2022 04/10/19 23 Current smoker 04/10/2022 04/10/2022 Impaired wound healing 04/10/2022 3 Persons encountering health services in other specified circumstances 04/10/2022 04/10/2022 Ulcer of foot 04/10/2022 04/10/2022 Encounter for surgical after care following surgery on the skin and subcutaneous tissue 04/13/2019 04/10/2022 Hypertensive heart disease without heart failure 04/12/2019 04/10/2022 Methicillin resistant Staphy lococcus aureus infection as the cause of diseases classified elsewhere 04/12/2019 04/10/2022 Sepsis, unspecified organism 04/12/2019 Tobacco use 04/12/2019 04/10/2022 Mild protein-calorie malnutrition 04/12/2019 04/10/2022 Unspecified disturbances of skin sensation 04/1204/10/2022 Obesity, Class III, BMI 40-49.9 (morbid obesity) 08/11/2017 04/10/2022 Type 2 diabetes mellitus, wi thout long-term current use of insulin 05/09/2015 04/10/2022 Type II or unspecified type diabetes mellitus without mention of complication, not stated as uncontrolled 01/15/2009 Dysmetabolic syndrome X 04/27/2008 01/01/20 18 documented as of this encounter (statuses as of 04/17/2022) [facility] History of Past illness Narrative* Problem Noted Date Resolved Date Abscess of groin 04/10/2022 04/10/2022 Counseling, unspecified 04/10/2022 04/10/19 23 Current smoker 04/10/2022 04/10/2022 Impaired wound healing 04/10/2022 3 Persons encountering health services in other specified circumstances 04/10/2022 04/10/2022 Ulcer of foot 04/10/2022 04/10/2022 Encounter for surgical after care following surgery on the skin and subcutaneous tissue 04/13/2019 04/10/2022 Hypertensive heart disease without heart failure 04/12/2019 04/10/2022 Methicillin resistant Staphy lococcus aureus infection as the cause of diseases classified elsewhere 04/12/2019 04/10/2022 Sepsis, unspecified organism 04/12/2019 Tobacco use 04/12/2019 04/10/2022 Mild protein-calorie malnutrition 04/12/2019 04/10/2022 Unspecified disturbances of skin sensation 04/1204/10/2022 Obesity, Class III, BMI 40-49.9 (morbid obesity) 08/11/2017 04/10/2022 Type 2 diabetes mellitus, wi thout long-term current use of insulin 05/09/2015 04/10/2022 Type II or unspecified type diabetes mellitus without mention of complication, not stated as uncontrolled 01/15/2009 Dysmetabolic syndrome X 04/27/2008 01/01/20 18 documented as of this encounter (statuses as of 05/04/2022) [facility] History of Past illness Narrative* Problem Noted Date Resolved Date Abscess of groin 04/10/2022 04/10/2022 Counseling, unspecified 04/10/2022 04/10/19 23 Current smoker 04/10/2022 04/10/2022 Impaired wound healing 04/10/2022 3 Persons encountering health services in other specified circumstances 04/10/2022 04/10/2022 Ulcer of foot 04/10/2022 04/10/2022 Encounter for surgical after care following surgery on the skin and subcutaneous tissue 04/13/2019 04/10/2022 Hypertensive heart disease without heart failure 04/12/2019 04/10/2022 Methicillin resistant Staphy lococcus aureus infection as the cause of diseases classified elsewhere 04/12/2019 04/10/2022 Sepsis, unspecified organism 04/12/2019 Tobacco use 04/12/2019 04/10/2022 Mild protein-calorie malnutrition 04/12/2019 04/10/2022 Unspecified disturbances of skin sensation 04/1204/10/2022 Obesity, Class III, BMI 40-49.9 (morbid obesity) 08/11/2017 04/10/2022 Type 2 diabetes mellitus, wi thout long-term current use of insulin 05/09/2015 04/10/2022 Type II or unspecified type diabetes mellitus without mention of complication, not stated as uncontrolled 01/15/2009 Dysmetabolic syndrome X 04/27/2008 01/01/20 18 documented as of this encounter (statuses as of 05/06/2022) [facility] History of Past illness Narrative* Problem Noted Date Resolved Date Abscess of groin 04/10/2022 04/10/2022 Counseling, unspecified 04/10/2022 04/10/19 23 Current smoker 04/10/2022 04/10/2022 Impaired wound healing 04/10/2022 3 Persons encountering health services in other specified circumstances 04/10/2022 04/10/2022 Ulcer of foot 04/10/2022 04/10/2022 Encounter for surgical after care following surgery on the skin and subcutaneous tissue 04/13/2019 04/10/2022 Hypertensive heart disease without heart failure 04/12/2019 04/10/2022 Methicillin resistant Staphy lococcus aureus infection as the cause of diseases classified elsewhere 04/12/2019 04/10/2022 Sepsis, unspecified organism 04/12/2019 Tobacco use 04/12/2019 04/10/2022 Mild protein-calorie malnutrition 04/12/2019 04/10/2022 Unspecified disturbances of skin sensation 04/1204/10/2022 Obesity, Class III, BMI 40-49.9 (morbid obesity) 08/11/2017 04/10/2022 Type 2 diabetes mellitus, wi thout long-term current use of insulin 05/09/2015 04/10/2022 Type II or unspecified type diabetes mellitus without mention of complication, not stated as uncontrolled 01/15/2009 Dysmetabolic syndrome X 04/27/2008 01/01/20 18 documented as of this encounter (statuses as of 05/13/2022) [facility] History of Past illness Narrative* Problem Noted Date Resolved Date Abscess of groin 04/10/2022 04/10/2022 Counseling, unspecified 04/10/2022 04/10/19 23 Current smoker 04/10/2022 04/10/2022 Impaired wound healing 04/10/2022 Persons encountering health services in other specified circumstances 04/10/2022 04/10/2022 Ulcer of foot 04/10/2022 04/10/2022 Encounter for surgical after care following surgery on the skin and subcutaneous tissue 04/13/2019 04/10/2022 Hypertensive heart disease without heart failure 04/12/2019 04/10/2022 Methicillin resistant Staphy lococcus aureus infection as the cause of diseases classified elsewhere 04/12/2019 04/10/2022 Sepsis, unspecified organism 04/12/2019 Tobacco use 04/12/2019 04/10/2022 Mild protein-calorie malnutrition 04/12/2019 04/10/2022 Unspecified disturbances of skin sensation 04/1204/10/2022 Obesity, Class III, BMI 40-49.9 (morbid obesity) 08/11/2017 04/10/2022 Type 2 diabetes mellitus, wi thout long-term current use of insulin 05/09/2015 04/10/2022 Type II or unspecified type diabetes mellitus without mention of complication, not stated as uncontrolled 01/15/2009 Dysmetabolic syndrome X 04/27/2008 01/01/20 18 documented as of this encounter (statuses as of 05/30/2022) [facility] History of Past illness Narrative* Problem Noted Date Resolved Date Abscess of groin 04/10/2022 04/10/2022 Counseling, unspecified 04/10/2022 04/10/19 23 Current smoker 04/10/2022 04/10/2022 Impaired wound healing 04/10/2022 3 Persons encountering health services in other specified circumstances 04/10/2022 04/10/2022 Ulcer of foot 04/10/2022 04/10/2022 Encounter for surgical after care following surgery on the skin and subcutaneous tissue 04/13/2019 04/10/2022 Hypertensive heart disease without heart failure 04/12/2019 04/10/2022 Methicillin resistant Staphy lococcus aureus infection as the cause of diseases classified elsewhere 04/12/2019 04/10/2022 Sepsis, unspecified organism 04/12/2019 Tobacco use 04/12/2019 04/10/2022 Mild protein-calorie malnutrition 04/12/2019 04/10/2022 Unspecified disturbances of skin sensation 04/1204/10/2022 Obesity, Class III, BMI 40-49.9 (morbid obesity) 08/11/2017 04/10/2022 Type 2 diabetes mellitus, wi thout long-term current use of insulin 05/09/2015 04/10/2022 Type II or unspecified type diabetes mellitus without mention of complication, not stated as uncontrolled 01/15/2009 Dysmetabolic syndrome X 04/27/2008 01/01/20 18 documented as of this encounter (statuses as of 06/30/2022) [facility] History of Past illness Narrative* Problem Noted Date Resolved Date Abscess of groin 04/10/2022 04/10/2022 Counseling, unspecified 04/10/2022 04/10/19 23 Current smoker 04/10/2022 04/10/2022 Impaired wound healing 04/10/2022 3 Persons encountering health services in other specified circumstances 04/10/2022 04/10/2022 Ulcer of foot 04/10/2022 04/10/2022 Encounter for surgical after care following surgery on the skin and subcutaneous tissue 04/13/2019 04/10/2022 Hypertensive heart disease without heart failure 04/12/2019 04/10/2022 Methicillin resistant Staphy lococcus aureus infection as the cause of diseases classified elsewhere 04/12/2019 04/10/2022 Sepsis, unspecified organism 04/12/2019 Tobacco use 04/12/2019 04/10/2022 Mild protein-calorie malnutrition 04/12/2019 04/10/2022 Unspecified disturbances of skin sensation 04/1204/10/2022 Obesity, Class III, BMI 40-49.9 (morbid obesity) 08/11/2017 04/10/2022 Type 2 diabetes mellitus, wi thout long-term current use of insulin 05/09/2015 04/10/2022 Type II or unspecified type diabetes mellitus without mention of complication, not stated as uncontrolled 01/15/2009 Dysmetabolic syndrome X 04/27/2008 01/01/20 documented as of this encounter (statuses as of 09/28/2022) [facility] History of Past illness Narrative* Problem Noted Date Diagnosed Date Resolved Date Abscess of groin 04/10/2022 04/10/2022 Counseling, unspecified 04/10/202203/29 Current smoker 04/10/2022 04/10/2022 Impaired wound healing 04/10/202204/10 Persons encountering health services in other specified circumstances 04/10/2022 04/10/2022 Ulcer of foot 04/10/2022 04/10/2022 Encounter for surgical after care following surgery on the skin and subcutaneous tissue 04/13/2019 04/10/2022 Hypertensive heart disease w ithout heart failure 04/12/2019 04/10/2022 Methicillin resistant Staphy lococcus aureus infection as the cause of diseases classified elsewhere 04/12/2019 04/10/2022 Sepsis, unspecified organism 04/12/2019 04/10/2022 Tobacco use 04/12/2019 04/10/2022 Mild protein-calorie malnutrition 04/12/2019 04/10/2022 Unspecified disturbances of skin sensation 04/12/2019 04/10/2022 Obesity, Class III, BMI 40-4 9.9 (morbid obesity) 08/11/2017 04/10/2022 Type 2 diabetes mellitus, wi thout long-term current use of insulin 05/09/2015 04/10/2022 Type II or unspecified type diabetes mellitus without mention of complication, not stated as uncontrolled 01/15/2009 12/31/2017 Dysmetabolic syndrome X 04/27/200807/2017 documented as of this encounter (statuses as of 10/08/2022) [facility] History of Past illness Narrative* Problem Noted Date Diagnosed Date Resolved Date Abscess of groin 04/10/2022 04/10/2022 Counseling, unspecified 04/10/202203/29 Current smoker 04/10/2022 04/10/2022 Impaired wound healing 04/10/202204/10 Persons encountering health services in other specified circumstances 04/10/2022 04/10/2022 Ulcer of foot 04/10/2022 04/10/2022 Encounter for surgical after care following surgery on the skin and subcutaneous tissue 04/13/2019 04/10/2022 Hypertensive heart disease w [facility] heart failure 04/12/2019 04/10/2022 Methicillin resistant Staphy lococcus aureus infection as the cause of diseases classified elsewhere 04/12/2019 04/10/2022 Sepsis, unspecified organism 04/12/2019 04/10/2022 Tobacco use 04/12/2019 04/10/2022 Mild protein-calorie malnutrition 04/12/2019 04/10/2022 Unspecified disturbances of skin sensation 04/12/2019 04/10/2022 Obesity, Class III, BMI 40-4 9.9 (morbid obesity) 08/11/2017 04/10/2022 Type 2 diabetes mellitus, [facility] long-term current use of insulin 05/09/2015 04/10/2022 Type II or unspecified type diabetes mellitus without mention of complication, not stated as uncontrolled 01/15/2009 12/31/2017 Dysmetabolic syndrome X 04/27/200807/2017 documented as of this encounter (statuses as of 10/09/2022) [facility] History of Past illness Narrative* Problem Noted Date Diagnosed Date Resolved Date Abscess of groin 04/10/2022 04/10/2022 Counseling, unspecified 04/10/202203/29 Current smoker 04/10/2022 04/10/2022 Impaired wound healing 04/10/202204/10 Persons encountering health services in other specified circumstances 04/10/2022 04/10/2022 Ulcer of foot 04/10/2022 04/10/2022 Encounter for surgical after care following surgery on the skin and subcutaneous tissue 04/13/2019 04/10/2022 Hypertensive heart disease w [facility] heart failure 04/12/2019 04/10/2022 Methicillin resistant Staphy lococcus aureus infection as the cause of diseases classified elsewhere 04/12/2019 04/10/2022 Sepsis, unspecified organism 04/12/2019 04/10/2022 Tobacco use 04/12/2019 04/10/2022 Mild protein-calorie malnutrition 04/12/2019 04/10/2022 Unspecified disturbances of skin sensation 04/12/2019 04/10/2022 Obesity, Class III, BMI 40-4 9.9 (morbid obesity) 08/11/2017 04/10/2022 Type 2 diabetes mellitus, [place] [facility] long-term current use of insulin 05/09/2015 04/10/2022 Type II or unspecified type diabetes mellitus without mention of complication, not stated as uncontrolled 01/15/2009 12/31/2017 Dysmetabolic syndrome X 04/27/200807/2017 documented as of this encounter (statuses as of 12/29/2022) [facility] History of Past illness Narrative* Problem Noted Date Diagnosed Date Resolved Date Abscess of groin 04/10/2022 04/10/2022 Counseling, unspecified 04/10/202203/29 Current smoker 04/10/2022 04/10/2022 Impaired wound healing 04/10/202204/10 Persons encountering health services in other specified circumstances 04/10/2022 04/10/2022 Ulcer of foot 04/10/2022 04/10/2022 Encounter for surgical after care following surgery on the skin and subcutaneous tissue 04/13/2019 04/10/2022 Hypertensive heart disease w [facility] heart failure 04/12/2019 04/10/2022 Methicillin resistant Staphy lococcus aureus infection as the cause of diseases classified elsewhere 04/12/2019 04/10/2022 Sepsis, unspecified organism 04/12/2019 04/10/2022 Tobacco use 04/12/2019 04/10/2022 Mild protein-calorie malnutrition 04/12/2019 04/10/2022 Unspecified disturbances of skin sensation 04/12/2019 04/10/2022 Obesity, Class III, BMI 40-4 9.9 (morbid obesity) 08/11/2017 04/10/2022 Type 2 diabetes mellitus, wi thout long-term current use of insulin 05/09/2015 04/10/2022 Type II or unspecified type diabetes mellitus without mention of complication, not stated as uncontrolled 01/15/2009 12/31/2017 Dysmetabolic syndrome X 04/27/200807/2017 documented as of this encounter (statuses as of 01/07/2023) [facility] History of Past illness Narrative* Problem Noted Date Diagnosed Date Resolved Date Abscess of groin 04/10/2022 04/10/2022 Counseling, unspecified 04/10/202203/29 Current smoker 04/10/2022 04/10/2022 Impaired wound healing 04/10/202204/10 Persons encountering health services in other specified circumstances 04/10/2022 04/10/2022 Ulcer of foot 04/10/2022 04/10/2022 Encounter for surgical after care following surgery on the skin and subcutaneous tissue 04/13/2019 04/10/2022 Hypertensive heart disease w [facility] heart failure 04/12/2019 04/10/2022 Methicillin resistant Staphy lococcus aureus infection as the cause of diseases classified elsewhere 04/12/2019 04/10/2022 Sepsis, unspecified organism 04/12/2019 04/10/2022 Tobacco use 04/12/2019 04/10/2022 Mild protein-calorie malnutrition 04/12/2019 04/10/2022 Unspecified disturbances of skin sensation 04/12/2019 04/10/2022 Obesity, Class III, BMI 40-4 9.9 (morbid obesity) 08/11/2017 04/10/2022 Type 2 diabetes mellitus, wi thout long-term current use of insulin 05/09/2015 04/10/2022 Type II or unspecified type diabetes mellitus without mention of complication, not stated as uncontrolled 01/15/2009 12/31/2017 Dysmetabolic syndrome X 04/27/200807/2017 documented as of this encounter (statuses as of 01/31/2023) [facility] History of Past illness Narrative* Problem Noted Date Diagnosed Date Resolved Date Abscess of groin 04/10/2022 04/10/2022 Counseling, unspecified 04/10/202203/29 Current smoker 04/10/2022 04/10/2022 Impaired wound healing 04/10/202204/10 Persons encountering health services in other specified circumstances 04/10/2022 04/10/2022 Ulcer of foot 04/10/2022 04/10/2022 Encounter for surgical after care following surgery on the skin and subcutaneous tissue 04/13/2019 04/10/2022 Hypertensive heart disease w [facility] heart failure 04/12/2019 04/10/2022 Methicillin resistant Staphy lococcus aureus infection as the cause of diseases classified elsewhere 04/12/2019 04/10/2022 Sepsis, unspecified organism 04/12/2019 04/10/2022 Tobacco use 04/12/2019 04/10/2022 Mild protein-calorie malnutrition 04/12/2019 04/10/2022 Unspecified disturbances of skin sensation 04/12/2019 04/10/2022 Obesity, Class III, BMI 40-4 9.9 (morbid obesity) 08/11/2017 04/10/2022 Type 2 diabetes mellitus, [facility] long-term current use of insulin 05/09/2015 04/10/2022 Type II or unspecified type diabetes mellitus without mention of complication, not stated as uncontrolled 01/15/2009 12/31/2017 Dysmetabolic syndrome X 04/27/200807/2017 documented as of this encounter (statuses as of 02/05/2023) [facility] History of Past illness Narrative* Problem Noted Date Diagnosed Date Resolved Date Abscess of groin 04/10/2022 04/10/2022 Counseling, unspecified 04/10/202203/29 Current smoker 04/10/2022 04/10/2022 Impaired wound healing 04/10/202204/10 Persons encountering health services in other specified circumstances 04/10/2022 04/10/2022 Ulcer of foot 04/10/2022 04/10/2022 Encounter for surgical after care following surgery on the skin and subcutaneous tissue 04/13/2019 04/10/2022 Hypertensive heart disease w [facility] heart failure 04/12/2019 04/10/2022 Methicillin resistant Staphy lococcus aureus infection as the cause of diseases classified elsewhere 04/12/2019 04/10/2022 Sepsis, unspecified organism 04/12/2019 04/10/2022 Tobacco use 04/12/2019 04/10/2022 Mild protein-calorie malnutrition 04/12/2019 04/10/2022 Unspecified disturbances of skin sensation 04/12/2019 04/10/2022 Obesity, Class III, BMI 40-4 9.9 (morbid obesity) 08/11/2017 04/10/2022 Type 2 diabetes mellitus, wi thout long-term current use of insulin 05/09/2015 04/10/2022 Type II or unspecified type diabetes mellitus without mention of complication, not stated as uncontrolled 01/15/2009 12/31/2017 Dysmetabolic syndrome X 04/27/200807/2017 documented as of this encounter (statuses as of 02/23/2023) [facility] History of Past illness Narrative* Problem Noted Date Diagnosed Date Resolved Date Abscess of groin 04/10/2022 04/10/2022 Counseling, unspecified 04/10/202203/29 Current smoker 04/10/2022 04/10/2022 Impaired wound healing 04/10/202204/10 Persons encountering health services in other specified circumstances 04/10/2022 04/10/2022 Ulcer of foot 04/10/2022 04/10/2022 Encounter for surgical after care following surgery on the skin and subcutaneous tissue 04/13/2019 04/10/2022 Hypertensive heart disease w ithout heart failure 04/12/2019 04/10/2022 Methicillin resistant Staphy lococcus aureus infection as the cause of diseases classified elsewhere 04/12/2019 04/10/2022 Sepsis, unspecified organism 04/12/2019 04/10/2022 Tobacco use 04/12/2019 04/10/2022 Mild protein-calorie malnutrition 04/12/2019 04/10/2022 Unspecified disturbances of skin sensation 04/12/2019 04/10/2022 Obesity, Class III, BMI 40-4 9.9 (morbid obesity) 08/11/2017 04/10/2022 Type 2 diabetes mellitus, wi thout long-term current use of insulin 05/09/2015 04/10/2022 Type II or unspecified type diabetes mellitus without mention of complication, not stated as uncontrolled 01/15/2009 12/31/2017 Dysmetabolic syndrome X 04/27/200807/2017 documented as of this encounter (statuses as of 02/23/2023) [facility] History of Past illness Narrative* Problem Noted Date Diagnosed Date Resolved Date Abscess of groin 04/10/2022 04/10/2022 Counseling, unspecified 04/10/202203/29 Current smoker 04/10/2022 04/10/2022 Impaired wound healing 04/10/202204/10 Persons encountering health services in other specified circumstances 04/10/2022 04/10/2022 Ulcer of foot 04/10/2022 04/10/2022 Encounter for surgical after care following surgery on the skin and subcutaneous tissue 04/13/2019 04/10/2022 Hypertensive heart disease w [facility] heart failure 04/12/2019 04/10/2022 Methicillin resistant Staphy lococcus aureus infection as the cause of diseases classified elsewhere 04/12/2019 04/10/2022 Sepsis, unspecified organism 04/12/2019 04/10/2022 Tobacco use 04/12/2019 04/10/2022 Mild protein-calorie malnutrition 04/12/2019 04/10/2022 Unspecified disturbances of skin sensation 04/12/2019 04/10/2022 Obesity, Class III, BMI 40-4 9.9 (morbid obesity) 08/11/2017 04/10/2022 Type 2 diabetes mellitus, [facility] long-term current use of insulin 05/09/2015 04/10/2022 Type II or unspecified type diabetes mellitus without mention of complication, not stated as uncontrolled 01/15/2009 12/31/2017 Dysmetabolic syndrome X 04/27/200807/2017 documented as of this encounter (statuses as of 02/26/2023) [facility] History of Present illness Narrative* Gene Augustine MD - 04/10/2022 10:34 AM EST Patient presents with: 6 Month Exam HPI: Patient presents today for office visit for follow up. HTN: Does not monitor BP at home Denies chest pain Has some shortness of breath with exertion No headache Some dizziness upon standing DM: Has not checked sugars recently Does not watch diet or exercise Numbness and pain in B/L feet, more so in left foot Due for eye exam. Saw urology for nocturia. Getting up to urinate about every two hours. Not emptying. Rx'd Flomax. Is not taking for fear of drowsiness. Multiple falls in last 6 months. States at least 6 or more falls. No feeling in feet which makes itdifficult to maintain balance. Has been there for years. Also has some lightheadedness. Falls more when going inside door to home. States step is higher up than normal. May be worse since off of the fluoxetine. PSYCH: Overall very depressed. Having financial troubles. Currently being evicted. Not currently working. Concerned about going back to work due to stability. [facility]. Offered to have social service technician at [facility] help if needed. Has been out of fluoxetine. Is hopeless but not suicidal. Has had chronic issues with his right shoulder since . Injuried it remotely. Decreased range of motion and pain. MEDICATIONS: Current Outpatient Medications Medication Sig buPROPion XL (WELLBUTRIN XL) 150 mg 24 hr tablet Take 1 tablet by mouth once daily. glyBURIDE (DIABETA) 5 mg tablet Take 2 tablets by mouth daily with breakfast. for diabetes empagliflozin (JARDIANCE) 25 mg tablet Take 1 tablet by mouth daily with breakfast. atorvastatin (LIPITOR) 40 mg tablet Take 1 tablet by mouth daily at bedtime. For cholesterol. tamsulosin (FLOMAX) 0.4 mg Take 1 capsule by mouth daily at bedtime. dulaglutide (TRULICITY) 3 mg/0.5 mL pen injector Inject 3 mg subcutaneously one time a week. clotrimazole-betamethasone (LOTRISONE) cream apply 1 APPLICATION to affected area twice a day FLUoxetine (PROZAC) 40 mg capsule Take 1 capsule by mouth once daily. lisinopril-hydroCHLOROthiazide (PRINZIDE,ZESTORETIC) 20-12.5 mg per tablet Take 1 tablet by mouth every morning. blood sugar diagnostic (BLOOD GLUCOSE TEST) test strip Test One time a day. Insulin Dep? No E11.9 DM 2 ondansetron orally disintegrating (ZOFRAN ODT) 4 mg disintegrating tablet Take 1 tablet by mouth every 6 hours as needed for nausea/vomiting. metFORMIN ER (GLUCOPHAGE XR) 500 mg 24 hr tablet Take 2 tablets by mouth twice daily. Lancets lancets Test One time a day. Insulin Dep? No E11.9 DM 2 Blood-Glucose Meter Test One time a day. Insulin Dep? No E11.9 DM 2 Current Facility-Administered Medications Medication Dose Route Frequency perflutren lipid microspheres 1.3 mL in NaCl (PF) 0.9% 10 mL injection (DEFINITY) INTRAVENOUS DIRECTED PRN sodium chloride 0.9 % (flush) 10 mL (BD POSIFLUSH) 10 mL INTRAVENOUS DIRECTED PRN ALLERGIES: ALLERGIES No Known Allergies PAST MEDICAL HISTORY Diagnosis Date Diabetes mellitus (HCC) Dysthymic disorder Depression (non-psychotic) Essential hypertension PAST SURGICAL HISTORY Procedure Laterality Date NONE PAST SURGICAL HISTORY OF 09/2017 [place] - groin abscess FAMILY HISTORY Problem Relation Age of Onset Hypertension Mother Coronary Artery Disease Father Fatal [place] age 45 other (mentally handicap) Sister Hypertension Sister Diabetes Paternal Grandmother Cataract Paternal Grandmother Diabetes Paternal Grandfather Social History Tobacco Use Smoking status: Former Packs/day: 2.00 Years: 2.00 Pack years: 4.00 Types: Cigarettes Smokeless tobacco: Never Vaping Use Vaping Use: Never used Substance Use Topics Alcohol use: No Drug use: No Reviewed current medications, allergies, past medical history, surgical history, family history andsocial history today. REVIEW OF SYSTEMS All other reviewed and negative other than HPI. HEALTH MAINTENANCE: Reviewed health maintenance issues today and recommended the following in detail. Declines vaccines. PNEUMOCOCCAL(1 - PCV) Never done BP CONTROLLED (<130/80) Never done SHINGRIX VACCINE(1 of 2) Never done COVID-19 VACCINE(3 - Booster for Pfizer series) due on 12/31/2020 DILATED RETINAL EXAM due on 07/08/2021 INFLUENZA(1) declines HBA1C due on 04/10/2022 URINE ALBUMIN:CREATININE RATIO due on 04/07/2022 LDL CHOLESTEROL due on 04/07/2022 DIABETIC FOOT EXAM due on 04/07/2022 VITALS: BP 142/88 Pulse 85 Ht 175.3 cm (5' 9 ) Wt 121.6 kg (268 lb) SpO2 99% BMI 39.58 kg/m BP w/Orthostatic Vitals Date and Time Orthostatic BP Orthostatic Pulse BP Pulse BP Position BP Site BP Cuff Size 04/10/22 1112 160/90 91 -- -- Standing Left Arm Large Adult 04/10/22 1110 168/90 83 -- -- Supine Left Arm Large Adult 04/10/22 1034 142/88 85 -- -- Sitting Left Arm Large Adult Last 4 Encounter Wt Readings: Date: Wt: 10/31/2021 121.6 kg (268 lb) 10/08/2021 119.3 kg (263 lb) 04/07/2021 120.2 kg (265 lb) 01/15/2021 118.4 kg (261 lb) PHYSICAL EXAMINATION: General appearance: Well appearing, alert, in no acute distress, well-hydrated, well nourished. Skin: Skin color, texture, turgor normal, no suspicious rashes or lesions Head: Normocephalic, no masses, lesions, tenderness or abnormalities Eyes: Anicteric sclera. Pupils are equally round and reactive to light. Extraocular movements are intact. No nystagmus Neck: Supple, no adenopathy; thyroid symmetric, normal size, no bruits Lungs: Lungs clear to auscultation. No wheezing, rhonchi, rales Heart: RRR without murmur, gallop, or rubs. No ectopy Abdomen: Normal abdominal exam, Abdomen soft, non-tender. Bowel sounds normal. No masses, organomegaly Extremities: No deformities, edema, skin discoloration, clubbing or cyanosis. Good capillary refill. Feet:Shoes and socks removed, normal distal pulses, not sensitive to monofilament bilaterally, and calluses noted bilaterally Shoulder shows normal range of motion. ASSESSMENT/PLAN: 1. Type 2 diabetes mellitus without complication, without long-term current use of insulin (HCC) - ICD9: 250.00, ICD10: E11.9 (primary diagnosis) - check labs. - TRULICITY 3 MG/0.5 ML SUBCUTANEOUS PEN INJECTOR - LIPID PANEL BASIC - ALBUMIN/CREAT RATIO RND UR - HGB A1C - CONSULT TO PODIATRY - CONSULT TO OPHTHALMOLOGY 2. Neuropathy associated with endocrine disorder (HCC) - ICD9: 355.9, 259.9, ICD10: E34.9, G63 - likely contributing to his ataxia. - VITAMIN B12 BLOOD - FOLATE SERUM - PROTEIN ELECTROPHORESIS SERUM W/INTERP - CONSULT TO PODIATRY 3. Primary hypertension - ICD9: 401.9, ICD10: I10 - suboptimal control - recheck next month - Goal of BP <130/80 - CBC + DIFF - COMP METABOLIC PANEL 4. Mixed hyperlipidemia - ICD9: 272.2, ICD10: E78.2 - will follow 5. Fatty liver - ICD9: 571.8, ICD10: K76.0 Will follow 6. History of foot ulcer - ICD9: V13.3, ICD10: Z87.2 - stable. See podiatry 7. Morbid (severe) obesity due to excess calories (HCC) - ICD9: 278.01, ICD10: E66.01 - watch diet. 8. Recurrent major depressive disorder, remission status unspecified (HCC) - ICD9: 296.30, ICD10: F33.9 - get back on prozac. Call if any worsening. Recheck on month - DEPRESSION SCREENING/ASSESSMENT - FLUOXETINE 40 MG CAPSULE 9. Chronic right shoulder pain - ICD9: 719.41, 338.29, ICD10: M25.511, G89.29 - XR SHOULDER GENERAL 3V OR MORE AP/TRUE AP/OTHER RIGHT 10. Plantar callus - ICD9: 700, ICD10: L84 - podiatry Gene Augustine RTO in and prn. [facility] History of Present illness Narrative* Vincent Morse PA-C - 10/31/2021 11:09 AM EDT Images from the original note were not included. PATIENT INFO: Daisha Arteaga 61 year old ( ) REFERRING PROVIDER: Gene Augustine PCP: Gene Augustine MD October 31, 2021 HPI: Daisha Arteaga 61 year old male is here today for discussion and evaluation of recent problem with slow stream and urinary retention He has not been on any medication for prostate, So will recommend starting with Flomax discuss SE'sand retrograde ejaculation sarah trial for 1 month and have a PVR with nurse in 1 mo If < 100 ml then will keep on Flomax for next 6 moth and followup LUTS: Obstructive - weak stream: yes, hesitancy: yes, Intermittency: yes, Double voiding no post-void dribbling: yes incomplete emptying: yes Irritative - NTF yes Urgency no Frequency no Dysuria no Incontinence no Gross Hematuria no Microscopic Hematuria no Other symptoms: LABS: No results found for: TESTOST No results found for: TESTFREE No results found for: PSA Hematocrit (%) Date Value 10/08/2021 48.7 04/07/2021 47.3 04/09/2020 41.3 04/05/2019 38.2 MEDICATIONS: dulaglutide (TRULICITY) 3 mg/0.5 mL pen injector Inject 3 mg subcutaneously one time a week. clotrimazole-betamethasone (LOTRISONE) cream apply 1 APPLICATION to affected area twice a day FLUoxetine (PROZAC) 40 mg capsule Take 1 capsule by mouth once daily. empagliflozin (JARDIANCE) 25 mg tablet Take 1 tablet by mouth daily with breakfast. glyBURIDE (DIABETA) 5 mg tablet Take 2 tablets by mouth daily with breakfast. for diabetes buPROPion XL (WELLBUTRIN XL) 150 mg 24 hr tablet Take 1 tablet by mouth once daily. atorvastatin (LIPITOR) 40 mg tablet Take 1 tablet by mouth daily at bedtime. For cholesterol. lisinopril-hydroCHLOROthiazide (PRINZIDE,ZESTORETIC) 20-12.5 mg per tablet Take 1 tablet by mouth every morning. blood sugar diagnostic (BLOOD GLUCOSE TEST) test strip Test One time a day. Insulin Dep? No E11.9 DM 2 ondansetron orally disintegrating (ZOFRAN ODT) 4 mg disintegrating tablet Take 1 tablet by mouth every 6 hours as needed for nausea/vomiting. metFORMIN ER (GLUCOPHAGE XR) 500 mg 24 hr tablet Take 2 tablets by mouth twice daily. Lancets lancets Test One time a day. Insulin Dep? No E11.9 DM 2 Blood-Glucose Meter Test One time a day. Insulin Dep? No E11.9 DM 2 PAST MEDICAL HISTORY: PAST MEDICAL HISTORY Diagnosis Date Diabetes mellitus (HCC) Dysthymic disorder Depression (non-psychotic) Essential hypertension PAST SURGICAL HISTORY: PAST SURGICAL HISTORY Procedure Laterality Date NONE PAST SURGICAL HISTORY OF 09/2017 [place] - groin abscess FAMILY HISTORY: FAMILY HISTORY Problem Relation Age of Onset Hypertension Mother Coronary Artery Disease Father Fatal [place] age 45 other (mentally handicap) Sister Hypertension Sister Diabetes Paternal Grandmother Cataract Paternal Grandmother Diabetes Paternal Grandfather SOCIAL HISTORY: Social Connections: Not on file REVIEW OF SYSTEMS: GENERAL: No fever, chills, weight loss, or fatigue. ENMT: Negative CARDIOVASCULAR:NO CHEST PAIN, PALPITATIONS, ANKLE EDEMA RESPIRATORY: No chronic cough, wheezing, dyspnea, hemoptysis. GENITOURINARY: SEE HPI MUSCULOSKELETAL:NO CHRONIC BACK PAIN, ARTHRITIS, CHRONIC NECK PAIN SKIN: NO VARICOSE VEINS, RASH, ABNORMAL ITCHING HEME/LYMPH/IMMUNE:Negative for prolonged bleeding, bruising easily or swollen nodes NEUROLOGICAL: NO HEADACHES, NUMBNESS, SEIZURES, STROKE DIABETES: No All other systems reviewed and are negative PHYSICAL EXAMINATION: Blood pressure 122/90, pulse 84, temperature 36.6 C (97.8 F), temperature source Temporal, resp. rate 12, height 175.3 cm (5' 9 ), weight 121.6 kg (268 lb), SpO2 99 %. GENERAL: WNL nutrition, no deformities, healthy appearing NEURO: Awake, alert and oriented x 3 and Normal gait PSYCH: No signs of depression, anxiety, or agitation ENMT (Ear, Nose, Mouth, Throat): No masses, adenopathy, icterus. Thyroid nonpalpable RESP: NL effort, no retractions or purse-lip breathing. CV: No extremity swelling, varices, edema, pallor, erythema GASTROINTESTINAL: Soft, nontender, nondistended, no masses. HERNIAS: None SKIN: No rash, lesions No palpable lymphadenopathy MUSCULOSKELETAL: Extremities normal. No deformities, edema, clubbing or skin discoloration. GENITOURINARY: MALE EXAM: Rectal Exam Next visit with PSA PROBLEM LIST REVIEW: Yes LABS: Results for orders placed or performed in visit on 10/31/21 UA DIP, URINE (POC) Result Value Ref Range GLUCOSE UA (POCT) 500 (A) Negative mg/dL BILIRUBIN UA (POCT) Negative Negative KETONE UA (POCT) Negative Negative mg/dL SPECIFIC GRAVITY UA (POCT) 1.015 1.005 - 1.030 HEMOGLOBIN/BLOOD UA (POCT) Negative Negative PH UA (POCT) 5.5 4.5 - 8.0 PROTEIN UA (POCT) Negative Negative mg/dL UROBILINOGEN UA (POCT) 0.2 Normal E.U./dL NITRITE UA (POCT) Negative Negative LEUKOCYTES UA (POCT) Negative Negative COLOR UA (POCT) Yellow CLARITY UA (POCT) Clear PROCEDURES: PVR:246 ml IMAGING: Renal US IMPRESSION: Negative renal ultrasound. No focal lesions or hydronephrosis Bladder wall trabeculation with large post void residual. IMPRESSION/PLAN: 1. Urinary retention > PVR - CONSULT TO UROLOGY - UA DIP, URINE (POC) > Start Flomax and PVR in 1 month with RN > IF PVR is < 100 ml will continue for 1 yr Once PVR is lower we will do PSA and SAMUEL for CaP screening 3-6 months I spent a total of 30 minutes on the date of the service which included preparing to see the patient, face to face patient care, completing clinical documentation, obtaining and/or reviewing separately obtained history, performing a medically appropriate examination, counseling and educating the pat ient/family/caregiver, ordering medications, tests, or procedures, and care coordination. LA NENA Rg MT, PA-C * Leonila Johnson LPN - 10/31/2021 10:35 AM EDT CC Post Void Residual HPI: Daisha Arteaga is a 61 year old male. The patient is here now for an appointment with LA NENA Rg MT, PA-COV. Procedure: Explained procedure to patient and verbalizes understanding. Performed a PVR. Patient urinated and instructed to empty bladder as much as possible just prior to having PVR done using bladder ultrasound scanner. Results of scan: 246 mL The patient tolerated the procedure well. Plan: Appointment with Vincent. documented in this encounterOhio[facility]22 History of Present illness Narrative* Scott Millard - 10/28/2021 10:07 AM EDT Last saw Dr. Augustine: 10/08/21 Subjective: Patient presents to clinic c/o painful toenails. They state that the nails are especially painful with shoe gear and pressure. Patient states that nails 1-5 b/l are painful. Patient admits to being diabetic No other pedal complaints at this time. Patient states no change in medications or medical history since last visit. Objective: Patient presents to clinic ambulating in diabetic shoes Vasc: DP and PT pulses are palpable bilateral. CFT is less than 5 seconds bilateral. Skin temperature is warm to cool proximal to distal bilateral. There is no edema or varicosities noted. Neuro: Protective sensation is absent to the foot and toes when tested with the 5.07 SWM bilateral.Vibratory sensation is absent at the hallux IPJ bilateral. The hallux is downgoing bilateral. Derm: Nails 1-5 b/l are painful, discolored-yellow, thick, crumbly, dystrophic and with subungal debris. Skin is dry and scaly bilateral. There are no hyperkeratosis, ulcerations, scars, verruca or other lesions noted. Bleeding present to left foot from severe dryness Ortho: Muscle strength is 5/5 for all pedal groups tested. Ankle joint DF is decresaed with the knee extended with no pain or crepitus noted. 1st MPJ ROM is decreased bilateral. Assessment: (E11.40) Type 2 diabetes mellitus with diabetic neuropathy, without long-term current use of insulin ([facility]) (primary encounter diagnosis) (B35.1) Onychomycosis (M79.675) Pain in toe of left foot (M79.674) Pain in toe of right foot (L85.3) Xerosis cutis Plan: Patient was seen and evaluated. Nails 1-5 bilateral were debrided in length and thickness. Recommend matthew healthy feet bid for severe dryness. He has bleeding from severe dryness. If this fails to heal, call for immediate appointment Patient was instructed on the continued importance of diabetic foot care along with proper diet andkeeping their blood sugar under control to prevent complications. Patient is to RTC in 3-4 months. Scott Millard DPM * Alyssa Garcia LPN - 10/28/2021 10:01 AM EDT AMB ROOMING INTAKE FLOWSHEET DATA Risk Screening Do you have concerns about personal safety or safety in the home?: No Patient presents with: Left Foot - Established Patient, Follow Up, nail care Right Foot - Established Patient, Follow Up, nail care Alyssa Garcia LPN documented in this encounterOhiohealth [facility]08-02-2022 Instructions* Patient Instructions* Scott Millard - 10/28/2021 10:07 AM EDT Diabetes Foot Care Instructions When you have diabetes, proper foot care is very important. Poor foot care may lead to amputation of a foot or leg. As a person with diabetes, you are more vulnerable to foot problems, because diabetes can damage your nerves and reduce blood flow to your feet. Here are some diabetes foot care tips to follow: Wash and Dry Your Feet Daily Use mild soaps Use warm water Pat your skin dry; do not rub. Thoroughly dry your feet. After washing, use lotion on your feet to prevent cracking. Do not put lotion between your toes. Examine Your Feet Each Day Check the tops and bottoms of your feet. Have someone else look at your feet if you cannot see them. Check for dry, cracked skin. Look for blisters, cuts, scratches, or other sores. Check for redness, increased warmth, or tenderness when touching any area of your feet. Check for ingrown toenails, corns, and calluses. If you get a blister or sore from your shoes, do not pop it. Apply a bandage and wear a differentpair of shoes. Take Care of Your Toenails Cut toenails after bathing, when they are soft. Cut toenails straight across and smooth with a nail file. Avoid cutting into the corners of toes. Do not cut cuticles. If you have neuropathy (or decreased sensation in your feet) a financial investigator should always cut your toenails. Be Careful When Exercising Walk and exercise in comfortable shoes. Do not exercise when you have open sores on your feet. Protect Your Feet With Shoes and Socks Never go barefoot. Always protect your feet by wearing shoes or hard-soled slippers or footwear. Avoid shoes with high heels and pointed toes. Avoid shoes that expose your toes or heels (such as open-toed shoes or sandals). These types of shoes increase your risk for injury and potential infections. Try on new footwear with the type of socks you usually wear. Do not wear new shoes for more than an hour at a time. Change your socks daily. Look and feel inside your shoes before putting them on to make sure there are no foreign objects orrough areas. Avoid tight socks. Wear natural-fiber socks (cotton, wool, or a cotton-wool blend). Wear special shoes if your health care provider recommends them. Wear shoes/boots that will protect your feet from various weather conditions (cold, moisture, etc.). Make sure your shoes fit properly. If you have neuropathy (nerve damage), you may not notice that your shoes are too tight. Perform the footwear test described below. Footwear Test Use this simple test to see if your shoes fit correctly: Stand on a piece of paper. (Make sure you are standing and not sitting, because your foot changes shape when you stand.) Trace the outline of your foot. Trace the outline of your shoe. Compare the tracings: Is the shoe too narrow? Is your foot crammed into the shoe? The shoe should be at least 1/2 inch longer than your longest toe and as wide as your foot. Proper Shoe Choices The following types of shoes are best for people with diabetes Closed toes and heels Leather uppers without a seam inside At least 1/2 inch extra space at the end of your longest toe Inside of shoe should be soft with no rough areas Outer sole should be made of stiff material Shoes should be at least as wide as your feet Tips for Foot Care in Diabetes Don't wait to treat a minor foot problem if you have diabetes. Follow your health care provider's guidelines and first aid guidelines. Report foot injuries and infections to your health care provider immediately. Check water temperature with your elbow, not your foot. Do not use a heating pad on your feet. Do not cross your legs. Do not self-treat your corns, calluses, or other foot problems. Go to your health care provider or financial investigator to treat these conditions. Recommend matthew's healthy feet applied twice daily Small area of bleeding on left foot. If this does not heal, call immediately documented in this encounterOhio[facility]07-30-2022 Evaluation note* Diagnosis Stage 3 chronic kidney disease, unspecified whether stage 3a or 3b CKD (HCC) documented in this encounter [facility] Reason for referral (narrative)* Diagnostic Procedure Only (Routine) - Closed Specialty Diagnoses / Procedures Referred By Tina t Referred To Contact US IMAGING Diagnoses Stage 3 chronic kidney disease, unspecified whether stage 3a or 3b CKD (HCC) Procedures US KIDNEY/BLADDER US RETROPERITONEAL REAL TIME W/IMAGE COMPLETE Gene Augustine MD [address] [place] [address] Us Imaging Referral ID Status Reason Start Date Expiration Date V isits Requested Visits Authorized [id number] Closed Auto-Generate d Referral 10/09/2021 11/08/2022 1 1 [facility] History of Present illness Narrative* RT Todd(R) - 10/24/2021 10:45 AM EDT Radiology Service Progress Note PATIENT NAME: Daisha Arteaga DATE OF SERVICE: October 24, 2021 TIME: 11:12 AM PATIENT IDENTITY VERIFICATION COMPLETED USING TWO (2) IDENTIFIERS: Name and Date of confirmedby patient verbally. FALL SCREENING: Has the patient had 2 falls in the last year or 1 fall with injury or currently using an Ambulatory Assistive Device (Walker, Cane, Wheelchair, Crutches, etc.)? No PATIENT GENDER DATA: Male PATIENT RELEVANT IMPLANT DATA REVIEWED: Not Applicable RADIOLOGY DEPARTMENT: Ultrasound PERIPHERAL IV DATA: Not applicable SIGNED BY: RT Todd(R) October 24, 2021 11:12 AM documented in this encounterOhio[facility]07-13-2022 Miscellaneous Notes* Addendum Note - Gene Augustine MD - 10/08/2021 11:45 AM EDT Addended by: GENE AUGUSTINE on: 10/08/2021 11:45 AM Modules accepted: Orders * Addendum Note - Gene Augustine MD - 10/08/2021 11:41 AM EDT Addended by: GENE AUGUSTINE on: 10/08/2021 11:41 AM Modules accepted: Orders, SmartSet documented in this encounterOhio[facility]07-13-2022 History of Present illness Narrative* Gene Augustine MD - 10/08/2021 10:27 AM EDT Patient presents with: Follow Up: 6 month HPI: Patient presents today for office visit for follow up. HTN: Patient is compliant with meds Yes Monitors bp at home: No. Denies side effects: Yes. Chest pain: No. Dyspnea: Yes. With exertion starting last year. No cough or wheeze. Happens when mowing lawn etc Edema: No. Palpitations: No. Syncope: No. Headache: No. Dizziness: No. PSYCH: Patient notes major improvement. Still taking prozac and wellbutrin. Recently got a dog. Good appetite and fluid intake. Chronic insomnia. Averages 2-5 hours per night. PTSD from service. DM: Reports overall feeling well. Medication side effects: No. Home sugar check frequency/results: 2-3 times per month. Avgs 17-210. Hypoglycemic spells: No. Watching diet: Yes. Diet education reviewed. Unexpected weight loss: No. Polyuria, polydipsia: No. Vision Changes: Yes. Patient mentions becoming more near sighted - Due for eye appt. Foot lesions or numbness or pain: Yes. HYPERLIPIDEMIA: Patient is taking medications: Yes. Patient is watching diet: Yes. Patient denies myalgias: Yes. Patient denies gi upset: No. Patient notes nausea every morning with morning medication. Often does not take metformin with food. Red flags for re-assessment reviewed with patient in detail. Subsides after lunch. Patient voices no abdo pain. Currently not treating nausea. Normal BMs. No black or bloody stools. Did not come back for repeat renal labs or calcium labs as ordered after labs visit. MEDICATIONS: Current Outpatient Medications Medication Sig clotrimazole-betamethasone (LOTRISONE) cream apply 1 APPLICATION to affected area twice a day FLUoxetine (PROZAC) 40 mg capsule Take 1 capsule by mouth once daily. empagliflozin (JARDIANCE) 25 mg tablet Take 1 tablet by mouth daily with breakfast. glyBURIDE (DIABETA) 5 mg tablet Take 2 tablets by mouth daily with breakfast. for diabetes dulaglutide (TRULICITY) 1.5 mg/0.5 mL pen injector Inject 1.5 mg subcutaneously one time a week. atorvastatin (LIPITOR) 40 mg tablet Take 1 tablet by mouth daily at bedtime. For cholesterol. lisinopril-hydroCHLOROthiazide (PRINZIDE,ZESTORETIC) 20-12.5 mg per tablet Take 1 tablet by mouth every morning. blood sugar diagnostic (BLOOD GLUCOSE TEST) test strip Test One time a day. Insulin Dep? No E11.9 DM 2 ondansetron orally disintegrating (ZOFRAN ODT) 4 mg disintegrating tablet Take 1 tablet by mouth every 6 hours as needed for nausea/vomiting. metFORMIN ER (GLUCOPHAGE XR) 500 mg 24 hr tablet Take 2 tablets by mouth twice daily. Lancets lancets Test One time a day. Insulin Dep? No E11.9 DM 2 Blood-Glucose Meter Test One time a day. Insulin Dep? No E11.9 DM 2 buPROPion XL (WELLBUTRIN XL) 150 mg 24 hr tablet Take 1 tablet by mouth once daily. No current facility-administered medications for this visit. ALLERGIES: ALLERGIES No Known Allergies PAST MEDICAL HISTORY Diagnosis Date Diabetes mellitus (HCC) Dysthymic disorder Depression (non-psychotic) Essential hypertension PAST SURGICAL HISTORY Procedure Laterality Date NONE PAST SURGICAL HISTORY OF 09/2017 Renee - groin abscess FAMILY HISTORY Problem Relation Age of Onset Hypertension Mother Coronary Artery Disease Father Fatal MT age 45 other (mentally handicap) Sister Hypertension Sister Diabetes Paternal Grandmother Cataract Paternal Grandmother Diabetes Paternal Grandfather Social History Tobacco Use Smoking status: Former Smoker Packs/day: 2.00 Years: 2.00 Pack years: 4.00 Types: Cigarettes Smokeless tobacco: Never Used Vaping Use Vaping Use: Never used Substance Use Topics Alcohol use: No Drug use: No Reviewed current medications, allergies, past medical history, surgical history, family history andsocial history today. REVIEW OF SYSTEMS All other reviewed and negative other than HPI. HEALTH MAINTENANCE: Reviewed health maintenance issues today and recommended the following in detail. PNEUMOCOCCAL(1 - PCV) Never done HIV SCREENING Patient refused. SHINGRIX VACCINE(1 of 2). Discussed with patient. COVID-19 VACCINE(3 - Booster for Pfizer series) due on 04/07/2021 DILATED RETINAL EXAM due on 07/08/2021 HBA1C due on 10/05/2021 VITALS: BP 132/80 Pulse 86 Resp 20 Wt 119.3 kg (263 lb) SpO2 98% BMI 38.84 kg/m Last 4 Encounter Wt Readings: Date: Wt: 10/08/2021 119.3 kg (263 lb) 04/07/2021 120.2 kg (265 lb) 01/15/2021 118.4 kg (261 lb) 10/07/2020 127 kg (280 lb) PHYSICAL EXAMINATION: General appearance: Well appearing, alert, in no acute distress, well-hydrated, well nourished. Skin: Skin color, texture, turgor normal, no suspicious rashes or lesions Head: Normocephalic, no masses, lesions, tenderness or abnormalities Eyes: Anicteric sclera. Pupils are equally round and reactive to light. Extraocular movements are intact. Gradually increase in blurriness. Ears: Decreased hearing in both ears. Neck: Supple, no adenopathy; thyroid symmetric, normal size, no bruits Lungs: Lungs clear to auscultation. No wheezing, rhonchi, rales Heart: RRR without murmur, gallop, or rubs. No ectopy Abdomen: Normal abdominal exam, Abdomen soft, non-tender. Bowel sounds normal. No masses, organomegaly Extremities: No deformities, edema, skin discoloration, clubbing or cyanosis. Good capillary refill. Musculoskeletal: No joint swelling, deformity, or tenderness Peripheral pulses: Normal Neuro: Gait normal. Reflexes normal and symmetric. Sensation grossly intact. ASSESSMENT/PLAN: 1. Hypercalcemia - ICD9: 275.42, ICD10: E83.52 (primary diagnosis) - check labs. - VITAMIN D 25 HYDROXY - PTH INTACT BLD - CALCIUM IONIZED BLOOD - BASIC METABOLIC PNL 2. Renal insufficiency - ICD9: 593.9, ICD10: N28.9 - get labs. - BASIC METABOLIC PNL - URINALYSIS, WITH MICROSCOPIC 3. Type 2 diabetes mellitus without complication, without long-term current use of insulin (HCC) - ICD9: 250.00, ICD10: E11.9 - has overall been better. - HGB A1C 4. Primary hypertension - ICD9: 401.9, ICD10: I10 - good control - Continue current medication(s) - Goal of BP <130/80 5. Mixed hyperlipidemia - ICD9: 272.2, ICD10: E78.2 - good control - Encouraged following a low fat, low cholesterol diet. 6. Fatty liver - ICD9: 571.8, ICD10: K76.0 - will follow. 7. Venous insufficiency (chronic) (peripheral) - ICD9: 459.81, ICD10: I87.2 - stable. 8. Adjustment reaction with anxiety and depression - ICD9: 309.28, ICD10: F43.23 - doing better. 9. SOB (shortness of breath) - ICD9: 786.05, ICD10: R06.02 - check labs. Could be pulmonary related, however, rule out cardiac and other causes. - CBC + DIFF - ECG COMPLETE-nsr. Some baseline artifact. Mild inferior changes. He does have a hx of previously borderline dilated aortic root on previous echo. Recommend stress echo. Red flags for re-assessment reviewed with patient in detail. - XR CHEST 2V FRONTAL/LAT Gene Augustine RTO in six months and prn. documented in this encounterOhio[facility]04-27-2022 History of Present illness Narrative* Scott Millard - 07/23/2021 10:03 AM EDT Last saw Dr. Augustine: 04/07/21 Subjective: Patient presents to clinic c/o painful toenails. They state that the nails are especially painful with shoe gear and pressure. Patient admits to being diabetic. No other pedal complaints at this time. Patient states no change in medications or medical history since last visit. Objective: Patient presents to clinic ambulating in diabetic shoe. Vasc: DP pulses palpable bilateral. Posterior tibial pulses nonpalpable right. CFT is less than 5 seconds bilateral. Skin temperature is warm to cool proximal to distal bilateral. There is mild edemaor varicosities noted. Neuro: Protective sensation is absent to the foot and toes when tested with the 5.07 SWM bilateral.Vibratory sensation is absent at the hallux IPJ bilateral. The hallux is downgoing bilateral. Derm: Nails 1-5 b/l are discolored-yellow, thick, crumbly, dystrophic and with subungal debris. Skin is of severely dry, thin, scaly and hair growth is absent bilateral. There is superficial bleedingof right 3rd itnerspace. There are no hyperkeratosis, ulcerations, scars, verruca or other lesions noted. Ortho: Muscle strength is 5/5 for all pedal groups tested. Ankle joint DF is decreased with the knee extended with no pain or crepitus noted. 1st MPJ ROM is decreased bilateral. Assessment: (E11.40) Type 2 diabetes mellitus with diabetic neuropathy, without long-term current use of insulin ([facility]) (primary encounter diagnosis) (B35.1) Onychomycosis (M79.675) Pain in toe of left foot (M79.674) Pain in toe of right foot Xerosis pad Plan: Patient was seen and evaluated. Nails 1-5 bilateral were debrided in length and thickness. Patient was instructed on the continued importance of diabetic foot care along with proper diet and keeping their blood sugar under control to prevent complications. Patient is to RTC in 3-4 months. Betadine placed in right 2nd interspace due to superficial bleeding due to dryness Recommend lotion to feet daily Scott Millard DPM documented in this encounterOhio[facility]10-[facility]-2009 History of Past illness Narrative* Problem Noted Date Resolved Date Type II or unspecified type diabetes mellitus without mention of complication, not stated as uncontrolled 01/15/2009 Dysmetabolic syndrome X 04/27/2008 01/01/20 18 documented as of this encounter (statuses as of 07/23/2021) [facility] of Past illness Narrative* Problem Noted Date Resolved Date Type II or unspecified type diabetes mellitus without mention of complication, not stated as uncontrolled 01/15/2009 Dysmetabolic syndrome X 04/27/2008 01/01/20 18 documented as of this encounter (statuses as of 10/08/2021) [facility] of Past illness Narrative* Problem Noted Date Resolved Date Type II or unspecified type diabetes mellitus without mention of complication, not stated as uncontrolled 01/15/2009 Dysmetabolic syndrome X 04/27/2008 01/01/20 18 documented as of this encounter (statuses as of 10/25/2021) [facility] of Past illness Narrative* Problem Noted Date Resolved Date Type II or unspecified type diabetes mellitus without mention of complication, not stated as uncontrolled 01/15/2009 Dysmetabolic syndrome X 04/27/2008 01/01/20 18 documented as of this encounter (statuses as of 10/28/2021) [facility] of Past illness Narrative* Problem Noted Date Resolved Date Type II or unspecified type diabetes mellitus without mention of complication, not stated as uncontrolled 01/15/2009 Dysmetabolic syndrome X 04/27/2008 01/01/20 18 documented as of this encounter (statuses as of 10/31/2021) [facility]* Diagnosis Type 2 diabetes mellitus with diabetic neuropathy, without long-term current use of insulin ([facility])- Primary Onychomycosis Dermatophytosis of nail Pain in toe of left foot Pain in limb Pain in toe of right foot Pain in limb documented [facility] this encounter [facility]* Diagnosis Hypercalcemia- Primary Renal insufficiency Unspecified disorder of kidney and ureter Type 2 diabetes mellitus without complication, without long-term current use of insulin (HCC) Primary hypertension Unspecified essential hypertension Mixed hyperlipidemia Fatty liver Other chronic nonalcoholic liver disease Venous insufficiency (chronic) (peripheral) Unspecified venous (peripheral) insufficiency Adjustment reaction with anxiety and depression Adjustment disorder with mixed anxiety and depressed mood SOB (shortness of breath) Shortness of breath Aortic dilatation (HCC) Aortic ectasia, unspecified site documented [facility] this encounter [facility]* Diagnosis Type 2 diabetes mellitus with diabetic neuropathy, without long-term current use of insulin ([facility])- Primary Onychomycosis Dermatophytosis of nail Pain in toe of left foot Pain in limb Pain in toe of right foot Pain in limb Xerosis cutis Other specified disease of sebaceous glands documented [facility] this encounter [facility]* Diagnosis Urinary retention Retention of urine, unspecified documented in this encounter [facility]* Diagnosis Type 2 diabetes mellitus without complication, without long-term current use of insulin (HCC)- Primary Neuropathy associated with endocrine disorder (HCC) Mononeuritis of unspecified site Primary hypertension Unspecified essential hypertension Mixed hyperlipidemia Fatty liver Other chronic nonalcoholic liver disease History of foot ulcer Personal history of diseases of skin and subcutaneous tissue Morbid (severe) obesity due to excess calories (HCC) Recurrent major depressive disorder, remission status unspecified (HCC) Chronic right shoulder pain Pain in joint, shoulder region Plantar callus [facility] Diagnosis Moderate nonproliferative diabetic retinopathy of both eyes with macular edema associated with type 2 diabetes mellitus (HCC)- Primary Myopia, bilateral Myopia Regular astigmatism of both eyes Regular astigmatism Presbyopia Nuclear sclerosis of both eyes Cortical age-related cataract, bilateral documented [facility] this encounter [facility]* Diagnosis Essential hypertension Unspecified essential hypertension documented [facility] this encounter [facility]* Diagnosis Type 2 diabetes mellitus with diabetic neuropathy, without long-term current use of insulin ([facility]) Mixed hyperlipidemia documented in this encounter [facility]* Diagnosis Primary hypertension- Primary Unspecified essential hypertension Type 2 diabetes mellitus with hyperglycemia, unspecified whether intermediate insulin use (HCC) Recurrent major depressive disorder, remission status unspecified (HCC) documented in this encounter [facility] note* Diagnosis SOB (shortness of breath)- Primary Shortness of breath Type 2 diabetes mellitus with hyperglycemia, with long-term current use of insulin (HCC) Recurrent major depressive disorder, remission status unspecified (HCC) Type 2 diabetes mellitus without complication, without long-term current use of insulin (HCC) Primary hypertension Unspecified essential hypertension Class 2 obesity with body mass index (BMI) of 39.0 to 39.9 in adult, unspecified obesity type, unspecified whether serious comorbidity present documented in this encounter [facility] note* Diagnosis Type 2 diabetes mellitus with hyperglycemia, unspecified whether intermediate insulin use (HCC)- Primary documented [facility] this encounter [facility]* Diagnosis Type 2 diabetes mellitus with diabetic neuropathy, without long-term current use of insulin (HCC) documented in this encounter [facility] note* Diagnosis Chest wall pain Painful respiration documented in this encounter [facility] note* Diagnosis Type 2 diabetes mellitus with hyperglycemia, unspecified whether predatory animal exterminator insulin use (HCC)- Primary Type 2 diabetes mellitus with diabetic neuropathy, without long-term current use of insulin ([facility]) Medication management Encounter for long-term (current) use of other medications documented [facility] this encounter [facility]* Diagnosis Recurrent major depressive disorder, remission status unspecified (HCC) documented [facility] this encounter [facility]* Diagnosis Moderate nonproliferative diabetic retinopathy of both eyes with macular edema associated with type 2 diabetes mellitus (HCC) documented in this encounter [facility] for referral (narrative)* Outpatient Procedure (Routine) - Authorized Specialty Diagnoses / Procedures Referred By Tina Referred To Contact [facility] Diagnoses SOB (shortness of breath) Aortic dilatation (HCC) Procedures STRESS ECHO TREADMILL ECHO TTHRC R-T 2D W/WO M-MODE COMPLETE REST&[place] [address] [place] [address] [address] Referral ID Status Reason Start Date Expiration Date Visits Requested Visits Authorized [id number] Authorized Auto-Generat ed Referral 10/08/2021 10/08/2022 1 1 * Outpatient Procedure (Routine) - Closed Specialty Diagnoses / Procedures Referred By Tina new Referred To Contact [facility] Diagnoses SOB (shortness of breath) Procedures ECG COMPLETE ECG ROUTINE ECG W/LEAST 12 LDS W/I&[place] [address] [place] [address] [address] Referral ID Status Reason Start Date Expiration Date V isits Requested Visits Authorized [id number] Closed Auto-Generate d Referral 10/08/2021 10/08/2022 1 1 [facility] for referral (narrative)* Diagnostic Procedure Only (Routine) - Pending Review Specialty Diagnoses / Procedures Referred By Tina new Referred To Contact [facility] Diagnoses SOB (shortness of breath) Procedures NM CARDIAC PERF STRESS/PHARM MYOCARDIAL SPECT MULTIPLE STUDIES Gene Augustine MD [address] [place] [address] [facility] [address] [place] [id number] Referral ID Status Reason Start Date Expiration Date Visits Requested Visits Authorized [id number] Pending Review Auto-Generat ed Referral 09/28/2022 10/28/2023 2 2 * Outpatient Procedure (Routine) - Authorized Specialty Diagnoses / Procedures Referred By Tina new Referred [facility] Diagnoses SOB (shortness of breath) Procedures ECG COMPLETE ECG ROUTINE ECG W/LEAST 12 LDS W/I&R Gene Augustine MD [address] [place] [address] [facility] [place] [address] [place] [address] Referral ID Status Reason Start Date Expiration Date Visits Requested Visits Authorized [id number] Authorized Auto-Generat ed Referral 09/28/2022 09/28/2023 1 1 [facility]* Diagnostic Procedure Only (Routine) - Closed Specialty Diagnoses / Procedures Referred By Tina new Referred To Contact [facility] Diagnoses SOB (shortness of breath) Procedures NM CARDIAC PERF STRESS/PHARM MYOCARDIAL SPECT MULTIPLE STUDIES Gene Augustine MD [facility] [place] [address] Molecular & Functional Imaging [address] [place] [address] Referral ID Status Reason Start Date Expiration Date V isits Requested Visits Authorized [id number] Closed Auto-Generate d Referral 09/30/2022 11/14/2022 2 2 [facility] Reason for Referral Specialty Diagnoses / Procedures Referred By Tina new Referred To Contact Ophthalmology Diagnoses Type 2 diabetes mellitus without complication, without long-term current use of insulin (HCC) Procedures CONSULT TO OPHTHALMOLOGY OFFICE/OUTPATIENT NEW HIGH MDM 60-74 MINUTES Gene Augustine MD [address] [place] [address] Referral ID Status Reason Start Date Expiration Date Visits Requested Visits Authorized [id number] Authorized PCP Requested Referral 04/10/2022 04/10/2023 1 1 Specialty Diagnoses / Procedures Referred By Contac t Referred To Contact Podiatry Diagnoses Type 2 diabetes mellitus without complication, without long-term current use of insulin (HCC) Neuropathy associated with endocrine disorder (HCC) Procedures CONSULT TO PODIATRY OFFICE/OUTPATIENT NEW HIGH MDM 60-74 MINUTES Gene Augustine MD [address] [place] [address] Referral ID Status Reason Start Date Expiration Date Visits Requested Visits Authorized [id number] Authorized PCP Requested Referral 04/10/2022 04/10/2023 1 1 Specialty Diagnoses / Procedures Referred By Tina new Referred To Contact XR IMAGING Diagnoses Chronic right shoulder pain Procedures XR SHOULDER GENERAL 3V OR MORE AP/TRUE AP/OTHER RIGHT RADEX SHOULDER COMPLETE MINIMUM 2 VIEWS Gene Augustine MD [address] [place] [address] Xr Imaging Referral ID Status Reason Start Date Expiration Date V isits Requested Visits Authorized [id number] Closed Auto-Generate d Referral 04/10/2022 05/10/2023 1 1 Medications Administered Section Administered Medications Medication Order MAR Action Action Date Dose Rate Site Tuberculin Skin Test, unspecified Given 04/12/2019 0.1 ml Active Administered Medications - up to 3 most recent administrations Medication Order MAR Action Action Date Dose Rate Site PHENYLephrine 2.5 % 1 Drop (AK-DILATE, ANGELA-SYNEPHRINE) 1 Drop, BOTH EYES, DIRECTED, Starting on Wed04/17/22 at 1500, Until 04/18/22 at 0259, Administer for dilation PROTECT FROM LIGHT Given 04/17/2022 3:00 PM EST 1 Drop proparacaine 0.5 % 1 Drop (ALCAINE) 1 Drop, BOTH EYES, DIRECTED, Starting on Wed04/17/22 at 1500, Until 04/18/22 at 0259, Administer for pneumo tonometry, tonopen tonometry, or pachymetry. In the event of a proparacaine shortage, administer tetracaine 0.5% ophthalmic drops 1 drop in both eyes as directed for pneumo tonometry, tonopen tonometry, or pachymetry Given 04/17/2022 3:00 PM EST 1 Drop tropicamide 1 % 1 Drop (MYDRIACYL) 1 Drop, BOTH EYES, DIRECTED, Starting on Wed04/17/22 at 1500, Until Wed04/18/22 at 0259, Administer for dilation Given 04/17/2022 3:00 PM EST 1 Drop Active Administered Medications - up to 3 most recent administrations Medication Order MAR Action Action Date Dose Rate Site fluorescein-benoxinate 0.25-0.4 % 1 Drop (FLURESS) 1 Drop, BOTH EYES, DIRECTED, Starting on [place] 02/25/23 at 1500, Until Wed02/26/23 at 0259, Administer for applanation tonometry. In the event of a Fluress shortage, administer 1 drop of Helper-Fluor into both eyes as directed for applanation tonometry., [facility] MED ORDERS Given 02/25/2023 3:00 PM EST 1 Drop PHENYLephrine 2.5 % 1 Drop (AK-DILATE, ANGELA-SYNEPHRINE) 1 Drop, BOTH EYES, DIRECTED, Starting on [place] 02/25/23 at 1500, Until Wed02/26/23 at 0259, Administer for dilation PROTECT FROM LIGHT, OPHT CLINIC MED ORDERS Given 02/25/2023 3:00 PM EST 1 Drop proparacaine 0.5 % 1 Drop (ALCAINE) 1 Drop, BOTH EYES, DIRECTED, Starting on [place] 02/25/23 at 1500, Until Wed02/26/23 at 0259, Administer for pneumo tonometry, tonopen tonometry, or pachymetry. In the event of a proparacaine shortage, administer 1 drop of tetracaine 0.5% ophthalmic drops into both eyes as directed for pneumo tonometry, tonopen tonometry, or pachymetry, [facility] MED ORDERS Given 02/25/2023 3:00 PM EST 1 Drop tropicamide 1 % 1 Drop (MYDRIACYL) 1 Drop, BOTH EYES, DIRECTED, Starting on [place] 02/25/23 at 1500, Until Wed02/26/23 at 0259, Administer for dilation, [facility]IC MED ORDERS Given 02/25/2023 3:00 PM EST 1 Drop Summary Purpose Family History No Family History Records FoundNo Family History Records Found Advance Directives No Advanced Directives Records FoundNo Advanced Directives Records Found Additional Source Comments Source Comments (unrecognize d section and content) In the event this informatio n is protected by the Federal Confidentiality of Alcohol and Drug Abuse Patient Records regulations: The Federal rules restrict any use of the information to criminally investigate or prosecute any alcohol or drug abuse patient.[facility] Hospital[facility] the event this information is protected by the Federal Confidentiality of Alcohol and Drug Abuse Patient Records regulations: The Federal rules restrict any use of the information to criminally investigate or prosecute any alcohol or drug abuse patient.[facility] HospitalIn the event this information is protected by the Federal Confidentiality of Alcohol and Drug Abuse Patient Records regulations: The Federal rules restrict any use of the information to criminally investigate or prosecute any alcohol or drug abuse patient.[facility] HospitalIn the event this information is protected by the Federal Confidentiality of Alcohol and Drug Abuse Patient Records regulations: The Federal rules restrict any use of the information to criminally investigate or prosecute any alcohol or drug abuse patient.[facility] HospitalIn the event this information is protected by the Federal Confidentiality of Alcohol and Drug Abuse Patient Records regulations: The Federal rules restrict any use of the information to criminally investigate or prosecute any alcohol or drug abuse patient.[facility] HospitalIn the event this information is protected by the Federal Confidentiality of Alcohol and Drug Abuse Patient Records regulations: The Federal rules restrict any use of the information to criminally investigate or prosecute any alcohol or drug abuse patient.[facility] HospitalIn the event this information is protected by the Federal Confidentiality of Alcohol and Drug Abuse Patient Records regulations: The Federal rules restrict any use of the information to criminally investigate or prosecute any alcohol or drug abuse patient.[facility] HospitalIn the event this information is protected by the Federal Confidentiality of Alcohol and Drug Abuse Patient Records regulations: The Federal rules restrict any use of the information to criminally investigate or prosecute any alcohol or drug abuse patient.[facility] HospitalIn the event this information is protected by the Federal Confidentiality of Alcohol and Drug Abuse Patient Records regulations: The Federal rules restrict any use of the information to criminally investigate or prosecute any alcohol or drug abuse patient.[facility] HospitalIn the event this information is protected by the Federal Confidentiality of Alcohol and Drug Abuse Patient Records regulations: The Federal rules restrict any use of the information to criminally investigate or prosecute any alcohol or drug abuse patient.[facility] HospitalIn the event this information is protected by the Federal Confidentiality of Alcohol and Drug Abuse Patient Records regulations: The Federal rules restrict any use of the information to criminally investigate or prosecute any alcohol or drug abuse patient.[facility] HospitalIn the event this information is protected by the Federal Confidentiality of Alcohol and Drug Abuse Patient Records regulations: The Federal rules restrict any use of the information to criminally investigate or prosecute any alcohol or drug abuse patient.[facility] HospitalIn the event this information is protected by the Federal Confidentiality of Alcohol and Drug Abuse Patient Records regulations: The Federal rules restrict any use of the information to criminally investigate or prosecute any alcohol or drug abuse patient.[facility] HospitalIn the event this information is protected by the Federal Confidentiality of Alcohol and Drug Abuse Patient Records regulations: The Federal rules restrict any use of the information to criminally investigate or prosecute any alcohol or drug abuse patient.[facility] HospitalIn the event this information is protected by the Federal Confidentiality of Alcohol and Drug Abuse Patient Records regulations: The Federal rules restrict any use of the information to criminally investigate or prosecute any alcohol or drug abuse patient.[facility] HospitalIn the event this information is protected by the Federal Confidentiality of Alcohol and Drug Abuse Patient Records regulations: The Federal rules restrict any use of the information to criminally investigate or prosecute any alcohol or drug abuse patient.[facility] HospitalIn the event this information is protected by the Federal Confidentiality of Alcohol and Drug Abuse Patient Records regulations: The Federal rules restrict any use of the information to criminally investigate or prosecute any alcohol or drug abuse patient.[facility] HospitalIn the event this information is protected by the Federal Confidentiality of Alcohol and Drug Abuse Patient Records regulations: The Federal rules restrict any use of the information to criminally investigate or prosecute any alcohol or drug abuse patient.[facility] HospitalIn the event this information is protected by the Federal Confidentiality of Alcohol and Drug Abuse Patient Records regulations: The Federal rules restrict any use of the information to criminally investigate or prosecute any alcohol or drug abuse patient.[facility] the event this information is protected by the Federal Confidentiality of Alcohol and Drug Abuse Patient Records regulations: The Federal rules restrict any use of the information to criminally investigate or prosecute any alcohol or drug abuse patient.[facility] HospitalIn the event this information is protected by the Federal Confidentiality of Alcohol and Drug Abuse Patient Records regulations: The Federal rules restrict any use of the information to criminally investigate or prosecute any alcohol or drug abuse patient.[facility] HospitalIn the event this information is protected by the Federal Confidentiality of Alcohol and Drug Abuse Patient Records regulations: The Federal rules restrict any use of the information to criminally investigate or prosecute any alcohol or drug abuse patient.[facility] HospitalIn the event this information is protected by the Federal Confidentiality of Alcohol and Drug Abuse Patient Records regulations: The Federal rules restrict any use of the information to criminally investigate or prosecute any alcohol or drug abuse patient.[facility] Reason for Visit (unrecogniz ed section and content) Reason Comments Follow Up 6 month Reason Comments Radiology US Specialty Diagnoses / Procedures Referred By Tina t Referred To Contact US IMAGING Diagnoses Stage 3 chronic kidney disease, unspecified whether stage 3a or 3b CKD (HCC) Procedures US KIDNEY/BLADDER US RETROPERITONEAL REAL TIME W/IMAGE COMPLETE Gene Augustine MD [address] [place] [address] Us Imaging Referral ID Status Reason Start Date Expiration Date V isits Requested Visits Authorized [id number] Closed Auto-Generate d Referral 10/09/2021 11/08/2022 1 1 Reason Comments Established Patient Follow Up nail care Reason Comments New Patient Specialty Diagnoses / Procedures Referred By Tina t Referred To Contact Urology Diagnoses Urinary retention Procedures CONSULT TO UROLOGY OFFICE/OUTPATIENT NEW HIGH MDM 60-74 MINUTES Gene Augustine MD [address] [place] [address] Referral ID Status Reason Start Date Expiration Date V isits Requested Visits Authorized [id number] Closed PCP Requested Referral 10/24/2021 10/24/2022 1 1 Reason Comments 6 Month Exam Reason Comments Diabetes Specialty Diagnoses / Procedures Referred By Tina new Referred To Contact Ophthalmology Diagnoses Type 2 diabetes mellitus without complication, without long-term current use of insulin (HCC) Procedures CONSULT TO OPHTHALMOLOGY OFFICE/OUTPATIENT NEW HIGH MDM 60-74 MINUTES Gene Augustine MD [address] [place] [address] Referral ID Status Reason Start Date Expiration Date V isits Requested Visits Authorized [id number] Closed PCP Requested Referral 04/10/2022 04/10/2023 1 1 Reason Comments Refill Request Reason Comments Results Reason Comments Follow Up Reason Comments Results, Lab Reason Comments Follow Up Reason Comments Reminder Call Reason Onset Date Comments Refill Request 01/07/2023 Reason Comments Missed Appointment Pharmacy Visit Ann-Marie eduling Reason Onset Date Comments Refill Request 02/22/2023 Reason Comments Mild Nonproliferative Diabetic Retinopat hy Blood sugar 187 Care Teams (unrecognized sec tion and content) Paint Roller Covermaker Relationship Specialty Start Date End Date Gene Augustine MD [address] [facility] [place] [address] PCP - General Family Practice 08/07/15 Mary Pereira, [facility] [address] [facility] [address] Pharmacist Pharmacy 04/24/20 Paint Roller Covermaker Relationship Specialty Start Date End Date Gene Augustine MD [address] [facility] [place] [address] PCP - General Family Practice 08/07/15 Mary Pereira, [facility] [address] [facility] [place] [address] Pharmacist Pharmacy 04/24/20 Paint Roller Covermaker Relationship Specialty Start Date End Date Gene Augustine MD [address] [facility] [place] [address] PCP - General Family Practice 08/07/15 Mary Pereira, [facility] [address] [facility] [place] [address] Pharmacist Pharmacy 04/24/20 Paint Roller Covermaker Relationship Specialty Start Date End Date Gene Augustine MD [address] [facility] [place] [address] PCP - General Family Practice 08/07/15 Mary Pereira, [facility] [address] [facility] [place] [address] Pharmacist Pharmacy 04/24/20 Paint Roller Covermaker Relationship Specialty Start Date End Date Gene Augustine MD [address] [facility] [place] [address] PCP - General Family Medicine 08/07/15 Mary Pereira, [facility] [address] [facility] [place] [address] Pharmacist Pharmacy 04/24/20 Paint Roller Covermaker Relationship Specialty Start Date End Date Gene Augustine MD [address] [facility] [place] [address] PCP - General Family Medicine 08/07/15 Mary Pereira, [facility] [address] [facility] [address] Pharmacist Pharmacy 04/24/20 Paint Roller Covermaker Relationship Specialty Start Date End Date Gene Augustine MD [address] [facility] [place] [address] PCP - General Family Medicine 08/07/15 Mary Pereira, [facility] [address] [facility] [address] Pharmacist Pharmacy 04/24/20 Paint Roller Covermaker Relationship Specialty Start Date End Date Gene Augustine MD [address] [facility] [place] [address] PCP - General Family Medicine 08/07/15 Mary Pereira, [facility] [address] [facility] [place] [address] Pharmacist Pharmacy 04/24/20 Paint Roller Covermaker Relationship Specialty Start Date End Date Gene Augustine MD [address] [facility] [place] [address] PCP - General Family Medicine 08/07/15 Mary Pereira, [facility] [address] [facility] [address] Pharmacist Pharmacy 04/24/20 Paint Roller Covermaker Relationship Specialty Start Date End Date Gene Augustine MD [address] [facility] [place] [address] PCP - General Family Medicine 08/07/15 Mary Pereira, [facility] [address] [facility] [place] [address] Pharmacist Pharmacy 04/24/20 Paint Roller Covermaker Relationship Specialty Start Date End Date Gene Augustine MD [address] [facility] [place] [address] PCP - General Family Medicine 08/07/15 Mary Pereira, [facility] [address] [place] [address] Pharmacist Pharmacy 04/24/20 Paint Roller Covermaker Relationship Specialty Start Date End Date Gene Augustine MD [address] [facility] [place] [address] PCP - General Family Medicine 08/07/15 Mary Pereira, [facility] [address] [place] [address] Pharmacist Pharmacy 04/24/20 Paint Roller Covermaker Relationship Specialty Start Date End Date Gene Augustine MD [address] [facility] [place] [address] PCP - General Family Medicine 08/07/15 Mary Pereira, [facility] [address] [place] [address] Pharmacist Pharmacy 04/24/20 Paint Roller Covermaker Relationship Specialty Start Date End Date Gene Augustine MD [address] [facility] [place] [address] PCP - General Family Medicine 08/07/15 Mary Pereira, [facility] [address] [place] [address] Pharmacist Pharmacy 04/24/20 Paint Roller Covermaker Relationship Specialty Start Date End Date Gene Augustine MD [address] [facility] [place] [address] PCP - General Family Medicine 08/07/15 [facility] [address] [facility] [place] [address] Pharmacist Pharmacy 04/24/20 Paint Roller Covermaker Relationship Specialty Start Date End Date Gene Augustine MD [address] [place] [address] PCP - General Family Medicine 08/07/15 Paint Roller Covermaker Relationship Specialty Start Date End Date Gene Augustine MD [address] [place], [place] [id number] PCP - General Family Medicine 08/07/15 Paint Roller Covermaker Relationship Specialty Start Date End Date Gene Augustine MD [address] [place], [place] [id number] PCP - General Family Medicine 08/07/15 [facility] [address] [place] [address] Pharmacist Pharmacy 04/24/20 12/27/22 Paint Roller Covermaker Relationship Specialty Start Date End Date Gene Augustine MD [address] [place] [address] PCP - General Family Medicine 08/07/15 Paint Roller Covermaker Relationship Specialty Start Date End Date Gene Augustine MD [address] [place] [address] PCP - General Family Medicine 08/07/15 Page Garcia, [facility] [address] [place] [phone] Pharmacist Pharmacy 02/22/23 02/22/23 Paint Roller Covermaker Relationship Specialty Start Date End Date Gene Augustine MD [address] [place] [address] PCP - General Family Medicine 08/07/15 Page Garcia, [facility] [address] [place] [phone] Pharmacist Pharmacy 02/22/23 02/22/23 Paint Roller Covermaker Relationship Specialty Start Date End Date Gene Augustine MD [address] [place] [address] PCP - General Family Medicine 08/07/15 (unrecognized sect ion and content) No Status Records FoundNo Status Records Found INFORMATION SOURCE (unrecogn ized section and content) DATE CREATED AUTHOR AUTHOR'S ORGANIZ ATION 04/18/2023 [facility] FOR RECORDS PERTAINING TO PATIENTS WHO ARE OR HAVE BEEN ENROLLED IN A CHEMICAL DEPENDENCY/SUBSTANCEABUSE PROGRAM, SOME INFORMATION MAY BE OMITTED. This clinical summary was aggregated from multiple sources. Caution should be exercised in using it in the provision of clinical care. This summary normalizes information from multiple sources, and as a consequence, information in this document may materially change the coding, format and clinical context of patient data. In addition, data may be omitted in some cases. CLINICAL DECISIONS SHOULD BE BASED ON THE PRIMARY CLINICAL RECORDS. [email or web address] [facility]. provides no warranty or guarantee of the accuracy or completeness of information in this document.
--- NOTE | 2023-04-21 19:40 | EDS_ITS ---
HPI History of Present Illness Chief Complaint: Eye Problem Informant: patient Onset/Context/Timing Location: Left Eye Onset: Today Timing: Continuous Current Severity: Mild Maximum Severity: Mild Associated Symptoms History of injury: No Visual correction: Glasses, Corrective contact lenses and Cosmetic contact lenses Narrative Narrative: 63-year-old male has diabetes and diabetic retinopathy [facility] now is foreign body sensation, redness and watering. No prior eye surgery. Wears glasses no contacts. Prior similar symptoms: No Recent [facility] Medical History Abscess of groin, left Cellulitis of groin, left Diabetes Diabetes type 2, uncontrolled Diabetic neuropathy Hypertension Hyponatremia Home Medications bupropion HCl 150 mg 24 hr tablet, extended release 150 mg PO DAILY depression 04/07/19 [History Last Taken 04/07/19] glyburide 5 mg tablet 10 mg PO DAILY dm 04/07/19 [History Last Taken 04/07/19] hydrochlorothiazide 12.5 mg capsule 12.5 mg PO DAILY water 04/07/19 [History Last Taken 04/07/19] lisinopril 20 mg-hydrochlorothiazide 25 mg tablet 2 tab PO DAILY 04/07/19 [History Last Taken 04/07/19] metformin 1,000 mg tablet 1,000 mg PO BID dm 04/07/19 [History Last Taken 04/07/19] mupirocin 2 % topical ointment 1 applicatio TP TID skin 04/07/19 [History Last Taken 04/07/19] hydrocodone-acetaminophen 5-325mg 5mg-325mg 1 tab PO Q6H PRN PRN Pain 3 days #10 TABLETS 04/19/23 [Rx Last Taken Unknown] Allergy/AdvReac Type Severity Reaction Status Date / Time No Known Allergies Allergy Verified 04/21/23 16:05 Surgical History History of incision and drainage Social History Smoking Status: Former smoker ROS ROS ED ROS Narrative Denies recent illness. Review of Systems ROS Unobtainable: Denies due to encephalopathy Constitutional Constitutional ED: Denies chills or fever(s) Eyes Eyes: Denies blurry vision, change in vision or diplopia ENT ENT ED: Denies ear pain or rhinorrhea Cardiovascular Cardiovascular: Denies chest pain or palpitations Respiratory/Chest Respiratory/Chest: Denies cough or dyspnea Gastrointestinal Gastrointestinal: Denies abdominal pain, constipation or diarrhea Genitourinary Genitourinary ED: Denies dysuria or hematuria Musculoskeletal Musculoskeletal: Denies arthralgias Integumentary Denies abscess Neurologic Neurologic: Denies headache(s) Psychiatric Psychiatric: Denies anxiety or depression Endocrine Endocrinology: Denies polydipsia Hematologic/Lymphatic Hematologic/Lymphatic: Denies easy bleeding or easy bruising Allergic/Immunologic Allergic/Immunologic ED: Denies mouth swelling EXAM Physical Exam Const Vital Signs: 04/21/23 16:04 Temperature 97.9 F Temperature Source Temporal Pulse Rate 87 Respiratory Rate 16 Blood Pressure 178/90 H Blood Pressure Mean 119 Pulse Ox 97 Oxygen Delivery Method Room Air MDM MDM MDM Narrative Medical decision making narrative: 63-year-old male status post [facility] redness and foreign body sensation. Tetracaine, fluorescein and slit-lamp exam will be obtained. On visual acuity with his glasses on. Discharge Plan Triage Chief Complaint: Eye Problem ED Provider: Juan Alberto Alvarez Dx/Rx/DC Orders Prescriptions: No Action glyburide 5 MG tablet 10 mg PO DAILY metformin 1,000 MG tablet 1,000 mg PO BID hydrochlorothiazide 12.5 MG capsule 12.5 mg PO DAILY lisinopril-hydrochlorothiazide 1 EACH tablet 2 tab PO DAILY bupropion HCl 150 MG tablet extended release 24 hr 150 mg PO DAILY mupirocin 22 GM ointment 1 applicatio TP TID Patient Comments: apply to affected area three times a day for 10 days hydrocodone-acetaminophen [hydrocodone-acetaminophen] 5-325 mg tablet 1 tab PO Q6H PRN PRN (Reason: Pain) 3 Days Qty: 10 0RF Primary Care Provider: Onofre Augustine Referrals: Onofre Augustine MD [Primary Care Provider] -
--- NOTE | 2023-04-21 19:44 | EDS_ITS ---
HPI History of Present Illness Chief Complaint: Eye Problem Detail of Chief Complaint: Left eye foreign body sensation. Informant: patient Onset/Context/Timing Location: Left Eye Context: Sudden Onset Timing: Continuous Current Severity: Mild Maximum Severity: Mild Associated Symptoms Associated Symptoms - Eyes: Foreign body sensation History of injury: No Visual correction: Glasses, Corrective contact lenses and Cosmetic contact lenses Narrative Narrative: 63-year-old male history of diabetes and diabetic retinopathy. Today he was at the [facility] and left eye injected like he had done previously to the right eye. But he said hours later he felt like he was having a foreign body sens ation, mild discomfort his eye got red and started watering. No significant visual change. No discharge. On his injection from his right eye several months ago he never had any problems. He wears glasses. No contacts. No prior eye surgery. Prior similar symptoms: No Recent [facility] Medical History Abscess of groin, left Cellulitis of groin, left Diabetes Diabetes type 2, uncontrolled Diabetic neuropathy Hypertension Hyponatremia Home Medications bupropion HCl 150 mg 24 hr tablet, extended release 150 mg PO DAILY depression 04/07/19 [History Last Taken 04/07/19] glyburide 5 mg tablet 10 mg PO DAILY dm 04/07/19 [History Last Taken 04/07/19] hydrochlorothiazide 12.5 mg capsule 12.5 mg PO DAILY water 04/07/19 [History Last Taken 04/07/19] lisinopril 20 mg-hydrochlorothiazide 25 mg tablet 2 tab PO DAILY 04/07/19 [History Last Taken 04/07/19] metformin 1,000 mg tablet 1,000 mg PO BID dm 04/07/19 [History Last Taken 04/07/19] mupirocin 2 % topical ointment 1 applicatio TP TID skin 04/07/19 [History Last Taken 04/07/19] hydrocodone-acetaminophen 5-325mg 5mg-325mg 1 tab PO Q6H PRN PRN Pain 3 days #10 TABLETS 04/19/23 [Rx Last Taken Unknown] Allergy/AdvReac Type Severity Reaction Status Date / Time No Known Allergies Allergy Verified 04/21/23 16:05 Surgical History History of incision and drainage Social History Smoking Status: Former smoker ROS ROS ED ROS Narrative Denies recent illness. Review of Systems ROS Unobtainable: Denies due to encephalopathy Constitutional Constitutional ED: Denies chills or fever(s) Eyes Eyes: Denies blurry vision, change in vision or diplopia ENT ENT ED: Denies ear pain, rhinorrhea or sore throat Cardiovascular Cardiovascular: Denies chest pain, palpitations or racing heartbeat Respiratory/Chest Respiratory/Chest: Denies cough or dyspnea Gastrointestinal Gastrointestinal: Denies abdominal pain, constipation, diarrhea, melena or vomiting Genitourinary Genitourinary ED: Denies dysuria or hematuria Musculoskeletal Musculoskeletal: Denies arthralgias, back pain or myalgias Integumentary Denies abscess, Abrasions or rash Neurologic Neurologic: Denies headache(s) Psychiatric Psychiatric: Denies anxiety Endocrine Endocrinology: Denies polydipsia Hematologic/Lymphatic Hematologic/Lymphatic: Denies easy bleeding Allergic/Immunologic Allergic/Immunologic ED: Denies mouth swelling EXAM Physical Exam Narrative Exam Narrative: 63-year-old male vital signs stable afebrile. HEENT exam pupils round reactive light his motions are intact. Left eye injected and watering. No discharge. Upper and lower lids everted were unremarkable. He has exophthalmos bilaterally no proptosis. No periorbital or orbital cellulitis no preauricular lymphadenopathy. No facial swelling. Lungs clear. Heart regular rhythm. Abdomen soft. Moving all 4 extremities. No distress. Const Vital Signs: 04/21/23 16:04 Temperature 97.9 F Temperature Source Temporal Pulse Rate 87 Respiratory Rate 16 Blood Pressure 178/90 H Blood Pressure Mean 119 Pulse Ox 97 Oxygen Delivery Method Room Air Positive well nourished and well developed; Negative for cachectic, contractures or unkempt General Appearance ED: well developed and NAD; Negative for unkempt, cachectic or contractures Nutritional Appearance: Negative for cachectic HEENT Denies other atraumatic; Negative for trauma, tenderness or other Nose: external nose normal Eyes Eyes Narrative: Left eye injected red diffusely. Watering. No obvious foreign body. Exophthalmos bilaterally. Upper and lower lids unremarkable you close bilaterally. Neck no lymphadenopathy, supple and no JVD General: Negative for tenderness Resp normal respiratory effort, no retractions, no use of accessory muscles and clear to auscultation bilaterally Cardio regular rate, regular rhythm, S1 normal heart sound, S2 normal heart sound and no murmurs Jugular Venous Distention: Negative for other GI non-tender, non-distended and no masses Inspection: Negative for other Auscultation: normoactive bowel sounds Palpation: soft Back/Spine no CVA tenderness General Back: Negative for CVA tenderness Extremity normal to inspection General Extremety ED: Negative for edema or other findings General Extremity: Negative for edema or other findings Neuro oriented x3, CN's II-XII intact bilaterally and moves all extremities Sensorium / Orientation: alert, oriented to person, oriented to place and oriented to time; Negative for orientation impaired Motor Exam: strength 5/5 throughout; Negative for general weakness or strength abnormal Psych Appearance: Negative for unkempt Attitude: No agitated Mood & Affect: Negative for depressed, anxious or tearful Skin no wounds Lesions: no lesions Rashes: no rashes Image ED - Eye Diagram: 1. Left eye injected, red, watering. No discharge. No foreign body noted. Upper and lower lids unremarkable. MDM MDM MDM Narrative Medical decision making narrative: 63-year-old diabetic male status post left eye injected earlier today around 10 AM. Hours later has developed foreign body sensation redness and watering. No visual change. Visual acuity is 20/50 the affected eye, 20/30 the right eye and 20/30 bilaterally. That is with his glasses on. Slit-lamp examination he had relief of his discomfort after the tetracaine. There is mild uptake between 4:00 and 8:00 along the inferior aspect of the iris possibly a small corneal abrasion but was very fine. Otherwise there is no si gnificant abnormality on the slit-lamp examination. [facility] and be reevaluated by their battery wrecker operator. [facility] the [facility] to see if I can speak to someone to ensure close follow-up. Discharge Plan Triage Chief Complaint: Eye Problem ED Provider: Juan Alberto Alvarez Dx/Rx/DC Orders Clinical Impression: History of diabetic retinopathy, Abrasion, corneal, History of diabetes mellitus Instructions: ED Corneal Abrasion Prescriptions: No Action glyburide 5 MG tablet 10 mg PO DAILY metformin 1,000 MG tablet 1,000 mg PO BID hydrochlorothiazide 12.5 MG capsule 12.5 mg PO DAILY lisinopril-hydrochlorothiazide 1 EACH tablet 2 tab PO DAILY bupropion HCl 150 MG tablet extended release 24 hr 150 mg PO DAILY mupirocin 22 GM ointment 1 applicatio TP TID Patient Comments: apply to affected area three times a day for 10 days hydrocodone-acetaminophen [hydrocodone-acetaminophen] 5-325 mg tablet 1 tab PO Q6H PRN PRN (Reason: Pain) 3 Days Qty: 10 0RF Primary Care Provider: Onofre Augustine Referrals: Onofre Augustine MD [Primary Care Provider] - Activity Restrictions/Additional Instructions: I am trying to contact the [facility]. You call them first thing in the morning after 8 AM. Tell them you were seen yesterday and I injected. It became red and there is a foreign body sensation and they need to reevaluate you. There is a small corneal abrasion but I do not know if that is the whole cause here. You can use the eyedrops for the next 24 hours to help you with pain but stop using them around 6 PM tomorrow night. Very important to be reevaluated by the ophtha lmologist . Disposition Disposition: Home, Self Care
[2023-04-21 20:43] VITALS: BP 164/99; PULSE 78; RESP 16; O2SAT 97
[2023-04-21 20:51] VITALS: BP 168/99; PULSE 78; RESP 16; O2SAT 97
[2023-04-21] MEDS: Fluorescein 1 MG STRIP 1 STRIP LEFT EYE (20:53)
[2023-04-21] MEDS: Tetracaine 0.5% Ophthalmic Bottle 1 DRP LEFT EYE (20:53)
== END 2023-04-21 20:54 | disposition home or self-care (01) ==
PROVIDERS: Emergency Provider Emergency Medicine; PCP Family Medicine; Visit Provider Emergency Medicine
DX: S05.02XA Injury of conjunctiva and corneal abrasion without foreign body, left eye, initial encounter (principal); E11.40 Type 2 diabetes mellitus with diabetic neuropathy, unspecified; X58.XXXA Exposure to other specified factors, initial encounter; H05.20 Unspecified exophthalmos; I10 Essential (primary) hypertension; Z79.84 Long term (current) use of oral hypoglycemic drugs; Z79.899 Other long term (current) drug therapy; Z87.891 Personal history of nicotine dependence
CPT/HCPCS: 99282

== ENCOUNTER 2023-10-25 14:53 | Emergency (ER) | payer OTHER, MEDICAID, SELFPAY ==
[2023-10-25 14:54] VITALS: BP 152/97; PULSE 98; RESP 18; TEMP 36.7; O2SAT 100; BMI 38.7
--- NOTE | 2023-10-25 15:00 | ED.RN ---
Lory from [facility] called in for drug screen
--- NOTE | 2023-10-25 15:02 | EX.ED.GENINJ ---
HPI History of Present Illness Chief Complaint: Fall Detail of Chief Complaint: Bleeding from right forearm and right palm due to broken glass Informant: patient Onset/Context/Timing Onset: Hours Mechanism/Context: Fall (Tripped forward into a glass coffee table that broke) Location of pain/injuries: Right forearm and Left hand Quality of Pain: - (None) Location: Right forearm and left hand Current Severity: Gone Maximum Severity: 0/10 Worsened by: Nothing Relieved by: Pressure dressing Associated Symptoms Associated Symptoms: Negative for Parasthesias, Weakness, Loss of function, Inability to ambulate, Loss of consciousness or Amnesia Narrative Narrative: Patient is 63-year-old [id number] male who presents after mechanical fall. He tripped. He fell forward into a glass coffee table. He sustained laceration palmar surface of his left hand and right forearm. He denies paresthesia, anesthesia or motor weakness. Wounds were dressed by EMS. He denies head trauma. Nuys visual, ocular auditory symptoms. Denies cardiac respiratory symptoms. Prior similar symptoms: No Recent [facility] Medical History Diabetic neuropathy Diabetes type 2, uncontrolled Hyponatremia Diabetes Hypertension Cellulitis of groin, left Abscess of groin, left Home Medications ?Medication ?Instructions ?Recorded ?Last Taken ?Type bupropion HCl 150 mg 24 hr tablet, 150 mg PO DAILY depression 04/07/19 04/07/19 History extended release glyburide 5 mg tablet 10 mg PO DAILY dm 04/07/19 04/07/19 History hydrochlorothiazide 12.5 mg capsule 12.5 mg PO DAILY water 04/07/19 04/07/19 History lisinopril 20 2 tab PO DAILY 04/07/19 04/07/19 History mg-hydrochlorothiazide 25 mg tablet metformin 1,000 mg tablet 1,000 mg PO BID dm 04/07/19 04/07/19 History mupirocin 2 % topical ointment 1 applicatio TP TID skin 04/07/19 04/07/19 History hydrocodone-acetaminophen 5-325mg 1 tab PO Q6H PRN PRN Pain 3 days 04/19/23 Unknown Rx 5mg-325mg #10 TABLETS Allergy/AdvReac Type Severity Reaction Status Date / Time No Known Allergies Allergy Verified 10/25/23 14:54 Surgical History History of incision and drainage Social History Smoking Status: Former smoker ROS ROS ED Constitutional Constitutional ED: Denies chills, fever(s), subjective, sweats or weight loss Eyes Eyes: Denies blurry vision or change in vision ENT ENT ED: Denies ear pain, rhinorrhea or sore throat Cardiovascular Cardiovascular: Denies chest pain or palpitations Respiratory/Chest Respiratory/Chest: Denies cough or dyspnea Gastrointestinal Gastrointestinal: Denies nausea or vomiting Integumentary Reports other Details: Multiple abrasions and superficial lacerations and small lacerations Neurologic Neurologic: Denies headache(s), paresthesias or weakness Hematologic/Lymphatic Hematologic/Lymphatic: Denies easy bleeding or easy bruising EXAM Physical Exam Const Vital Signs: 10/25/23 14:54 Temperature 98.1 F Temperature Source Temporal Pulse Rate 98 Respiratory Rate 18 Blood Pressure 152/97 H Blood Pressure Mean 115 Pulse Ox 100 Oxygen Delivery Method Room Air Positive well nourished and well developed Constitutional Narrative: BMI is 38.8. General Appearance ED: well developed HEENT HEENT Narrative: Ears are normal. atraumatic; Negative for tenderness Nose: Negative for septum abnormal Eyes PERRL and EOMs intact bilaterally Chest Wall inspection of chest normal and palpation of chest normal Resp normal respiratory effort and clear to auscultation bilaterally Cardio regular rhythm, S1 normal heart sound, S2 normal heart sound and no murmurs Rate: regular rate Rhythm: abnormal rhythm Extremity full ROM; Negative for normal to inspection Extremity Narrative: Axillary, median, radial and ulnar function intact. Radial pulses 2+. Patient has superficial lacerations abrasion to palm of left hand. The flexor digitorum superficialis and flexor digitorum profundus is intact for the index, long, ring and little finger. He has full active range of motion of his thumb. Capillary refill of his thumb and fingers is normal. Sensation is normal. Patient has multiple superficial abrasions and lacerations as well as small lacerations measuring 2 to 3 mm predominantly dorsal side of his right forearm. The axillary, median, radial and ulnar function are intact. Capillary refill of his thumb and fingers is intact. Flexor and extensor mechanism intact. General Extremety ED: Negative for deformity, edema or tenderness General Extremity: Negative for deformity or edema Neuro oriented x3, CN's II-XII intact bilaterally, moves all extremities, no focal motor deficits and no sensory deficits noted Fabrice Coma Scale: document GCS findings Spontaneous Obeys Commands Oriented 15 Sensorium / Orientation: alert Psych mental status grossly normal and thought process normal Skin No no rashes or lesions noted, No no wounds, skin turgor normal and no jaundice Skin Narrative: Noted under the extremity portion of the exam. MDM MDM MDM Narrative Medical decision making narrative: Will obtain x-ray of the hand to evaluate for foreign body. If there is a foreign body will explained risk benefits of attempt to remove unless it is superficial. Also x-ray of the forearm was obtained to evaluate for glass foreign body. Again we will discuss risk benefits if any glass is noted. Nurse was instructed to clean his wounds and dressed them after x-rays. Radiography Chest X-Ray - ED: 2 View (2 view x-ray of the right forearm reveals no evidence of foreign body or fracture. This is apparently reviewed interpreted by me) and Read by ED Physician (3 view of the left hand independently interpreted by me reveals no evidence of foreign body or any bony abnormality.) Diagnostic Testing: Clinical Impression(s) from Imaging Studies Forearm X-Ray 10/25/23 15:10 IMPRESSION: Normal x-ray examination of the radius and ulna. Electronically Signed: Gael Duran MD at 15:24 EDT , Hand X-Ray 10/25/23 15:10 IMPRESSION: Normal x-ray examination of the hand. Electronically Signed: Gael Duran MD at 15:24 EDT , Discharge Plan Triage Chief Complaint: Fall ED Provider: Chencho Travis Dx/Rx/DC Orders Clinical Impression: Abrasion of multiple sites of left hand and wrist, Type 2 diabetes mellitus with diabetic polyneuropathy, Smoker, Hypertension, Laceration of superficial palmar arch of left hand, initial encounter, Abrasion of right forearm, initial encounter, Laceration of forearm, right Instructions: ED Abrasion, ED Laceration Superficial No Stitch Prescriptions: No Action glyburide 5 MG tablet 10 mg PO DAILY metformin 1,000 MG tablet 1,000 mg PO BID hydrochlorothiazide 12.5 MG capsule 12.5 mg PO DAILY lisinopril-hydrochlorothiazide 1 EACH tablet 2 tab PO DAILY bupropion HCl 150 MG tablet extended release 24 hr 150 mg PO DAILY mupirocin 22 GM ointment 1 applicatio TP TID Patient Comments: apply to affected area three times a day for 10 days hydrocodone-acetaminophen [hydrocodone-acetaminophen] 5-325 mg tablet 1 tab PO Q6H PRN PRN (Reason: Pain) 3 Days Qty: 10 0RF Primary Care Provider: Onofre Augustine Referrals: Onofre Augustine MD [Primary Care Provider] - As Needed Print Language: Georgian Disposition Disposition: Home, Self Care
--- NOTE | 2023-10-25 15:10 | RAD_ITS ---
STUDY: X-RAY - RIGHT RADIUS AND ULNA REASON FOR EXAM: Male, 63 years old. Injury/Pain -- Multiple small lacerations due to broken glass TECHNIQUE: 2 view(s) of the forearm. COMPARISON: None. FINDINGS: No radiopaque foreign object is seen. Normal visualized radius. Normal visualized ulna. RAD/Forearm 2 Views IMPRESSION: Normal x-ray examination of the radius and ulna. Electronically Signed: Gael Duran MD at 15:24 EDT ,
--- NOTE | 2023-10-25 15:10 | RAD_ITS ---
STUDY: X-RAY - LEFT HAND REASON FOR EXAM: Male, 63 years old. Injury/Pain -- Multiple small lacerations due to broken glass TECHNIQUE: 3 view(s) of the hand. COMPARISON: None. FINDINGS: Normal radiocarpal articulation. Normal distal radioulnar joint. Normal visualized carpal bones. Normal carpal articulations Normal carpometacarpal articulation of the thumb. Normal second through fifth carpometacarpal joints. Normal metacarpi. Normal metacarpophalangeal joint of the thumb. Normal interphalangeal joint of the thumb. Normal proximal and distal phalanges of the thumb. Normal metacarpophalangeal joints of the second through fifth fingers. Normal proximal and distal interphalangeal joints of the second through fifth fingers. Normal phalanges of the second through fifth fingers. No radiopaque foreign body is seen. RAD/Hand Min 3 Views IMPRESSION: Normal x-ray examination of the hand. Electronically Signed: Gael Duran MD at 15:24 EDT ,
== END 2023-10-25 16:11 | disposition home or self-care (01) ==
LOC: ED 15:34
PROVIDERS: Emergency Provider Emergency Medicine; PCP Family Medicine; Visit Provider Emergency Medicine
DX: S51.811A Laceration without foreign body of right forearm, initial encounter (principal); E11.42 Type 2 diabetes mellitus with diabetic polyneuropathy; W01.110A Fall on same level from slipping, tripping and stumbling with subsequent striking against sharp glass, initial encounter; S60.512A Abrasion of left hand, initial encounter; S60.812A Abrasion of left wrist, initial encounter; I10 Essential (primary) hypertension; Z79.84 Long term (current) use of oral hypoglycemic drugs; Z79.899 Other long term (current) drug therapy; Z87.891 Personal history of nicotine dependence
CPT/HCPCS: 73090; 73130; 99282

== ENCOUNTER 2024-03-02 18:31 | Emergency (ER) | payer OTHER, MEDICAID, SELFPAY ==
[2024-03-02 18:34] VITALS: BP 157/89; PULSE 80; RESP 18; TEMP 35.9; O2SAT 100; BMI 39.4
--- NOTE | 2024-03-02 18:35 | RAD_ITS ---
STUDY: X-RAY - RIGHT SHOULDER REASON FOR EXAM: Male, 64 years old. pain, fall TECHNIQUE: 5 view(s) of the shoulder. COMPARISON: April 19, 2023 FINDINGS: Mildly narrowed glenohumeral articulation and narrowing of the subacromial space which may be due to rotator cuff tendon pathology or artifactual related to positioning.. If concern for rotator cuff tendon disease MRI recommended. Normal acromioclavicular joint. Normal acromion. Normal humeral head and visualized proximal humerus. The soft tissue structures are unremarkable. Normal visualized pulmonary apex. RAD/Shoulder min 2 Views IMPRESSION: Degenerative changes. No acute fracture or dislocation. Electronically Signed: Jorge Zendejas MD at 20:23 EST ,
--- NOTE | 2024-03-02 18:55 | CT_ITS ---
STUDY: CT BRAIN WITHOUT CONTRAST REASON FOR EXAM: Male, 64 years old. head injury RADIATION DOSAGE (If Supplied By Facility): CTDIvol = ( 44.99 ) mGy, DLP = ( 846.73 ) mGycm TECHNIQUE: Transaxial CT imaging of the brain was performed without administration of intravenous contrast material. Individualized dose optimization techniques were used for this CT. COMPARISON: No relevant priors. FINDINGS: Normal soft tissue structures. Normal calvarium. Minor calcific plaquing of the cavernous carotids Normal size ventricles and extra-axial spaces for the patient''s age. Mild periventricular white matter ischemic changes. Normal basal ganglia and thalami. Normal brainstem. Normal cerebellum. There is no intracranial hemorrhage. There are no findings of an acute ischemic infarction. Mild mucosal thickening in the mastoid air cells bilaterally Small mucous retention cyst in right maxillary sinus CT/Brain/Head without Contrast IMPRESSION: Mild periventricular white matter ischemic change. No evidence for acute intracranial hemorrhage. Electronically Signed: Jorge Zendejas MD at 20:14 EST Reading Location ID and State: [facility] / [place] Tel , Service support ,
--- NOTE | 2024-03-02 18:55 | CT_ITS ---
STUDY: CT CERVICAL SPINE WITHOUT CONTRAST REASON FOR EXAM: Male, 64 years old. neck pain, head injury RADIATION DOSAGE (If Supplied By Facility): CTDIvol = ( 23.66 ) mGy, DLP = ( 503.69 ) mGycm TECHNIQUE: High resolution transaxial imaging was performed without contrast material. Sagittal and coronal images were reconstructed. Individualized dose optimization techniques were used for this CT. COMPARISON: None FINDINGS: Normal craniovertebral junction. Normal anterior atlantoaxial articulation. Normal odontoid process. Straightening of normal lordotic curvature likely due to positioning Normal vertebral bodies and posterior osseous elements. C2-3: Normal endplates. Normal disc height and morphology. Normal central canal and intervertebral neuroforamina. C3-4: Narrowed disc space and minor endplate spurring. Normal central canal and intervertebral neuroforamina. C4-5: Mild endplate spurring. Normal disc height and morphology. Normal central canal and intervertebral neuroforamina. C5-6: Narrowed disc space and minor endplate spurring. Normal central canal and intervertebral neuroforamina. C6-7: Normal endplates. Normal disc height and morphology. Normal central canal and intervertebral neuroforamina. C7-T1: Normal endplates. Normal disc height and morphology. Normal central canal and intervertebral neuroforamina. Normal visualized soft tissue structures. CT/Spine Cervical without Contras IMPRESSION: Loss of normal lordotic curvature and mild to moderate spondylotic changes.. No evidence for acute fracture or other significant abnormality Electronically Signed: Jorge Zendejas MD at 20:17 EST Reading Location ID and State: [facility] / [place] Tel , Service support ,
--- NOTE | 2024-03-02 18:57 | EDS_ITS ---
<Statement entered by Bala Ruiz DO - 03/02/24 22:22> Patient was seen and examined with physician recreation assistant Ivelisse All components of the history and physical confirmed and agreed. History of present illness and physical exam: Patient is a 64-year-old male with past medical history of type 2 diabetes, neuropathy, hypertension and, hyponatremia, hyponatremia who presented to the emergency department with chief complaint of slipping falling on ice falling backwards and hitting his head on the ground. He states that he believes he lost consciousness but states that it was very brief period time. He states that he is not on any blood thinning medications. Patient states that he is a chronic injury to his right shoulder and states that this pain feels slightly w orse after the fall. Patient reports minimal neck pain. He states that he is supposed have an MRI of the shoulder next week. Review of systems: Agree with above Physical exam: Agree with above MDM Patient is a 64-year-old male who presents to the emerged department after slipping and falling on ice. Patient will have a workup performed here on the differential diagnose includes Melamin to intracranial hemorrhage, cervical spine fracture, concussion, proximal humerus fracture. Once workup is obtained reviewed he will be reevaluated. Patient CBC reviewed and showed no evidence leukocytosis white blood count normal at 10.4, hemoglobin 16.1, platelet count normal at 215. Patient's sodium was noted to be 134, potassium normal at 4.8, creatinine was 1.41. Patient AST and ALT were 43 and 29 respectively, lipase normal at 61. Patient's Interesting case earlier this lady came and notes that she would like x-ray of shoulder reviewed by myself and by radiology showed no acute fracture or dislocation. Patient CT head and brain showed mild periventricular white matter ischemic change no evidence of acute intracranial hemorrhage. Patient CT cervical spine reviewed and showed loss of normal lordotic curve and mild to moderate spondylitic changes no evidence for fracture or other significant abnormality. On reevaluation the patient he is feeling better he would like to go home at this point time. Patient was encouraged to rotate Tylenol and ibuprofen [id number]. He is encouraged to follow-up with his primary care physician outpatient setting. Once again the patient did not have any chest pain shortness of breath, lightheadedness, dizziness prior to the fall he slipped on the ice causing him to fall. All question concerns answered he is discharged home in stable condition. Final impression: Mechanical fall secondary to slipping on ice Right shoulder pain Disposition: Patient will be discharged home in stable condition Supervising attending attestation: Bala Ruiz D.O. [facility] HPI - Fall History of Present Illness Chief Complaint: Fall Narrative Narrative: Patient presents today due to a head injury that occurred this afternoon. He slipped on ice and fell backwards, striking his head on the ground. He is unsure if he lost consciousness or not but reports it would have been brief. He reports minimal pain to the back of his head, nausea, and intermittent dizziness. He is not on any blood thinners. He he is able to ambulate and denies any pain to his hips or lower extremities. He does report minimal neck pain and pain to his right shoulder. He does have a known right shoulder fracture and is scheduled to have an MRI on it next week. He has a PMH of HTN, T2DM. [facility] Medical History Diabetic neuropathy Diabetes type 2, uncontrolled Hyponatremia Diabetes Hypertension Cellulitis of groin, left Abscess of groin, left Home Medications ?Medication ?Instructions ?Recorded ?Last Taken ?Type bupropion HCl 150 mg 24 hr tablet, 150 mg PO DAILY depression 04/07/19 04/07/19 History extended release glyburide 5 mg tablet 10 mg PO DAILY dm 04/07/19 04/07/19 History hydrochlorothiazide 12.5 mg capsule 12.5 mg PO DAILY water 04/07/19 04/07/19 History lisinopril 20 2 tab PO DAILY 04/07/19 04/07/19 History mg-hydrochlorothiazide 25 mg tablet metformin 1,000 mg tablet 1,000 mg PO BID dm 04/07/19 04/07/19 History mupirocin 2 % topical ointment 1 applicatio TP TID skin 04/07/19 04/07/19 History hydrocodone-acetaminophen 5-325mg 1 tab PO Q6H PRN PRN Pain 3 days 04/19/23 Unknown Rx 5mg-325mg #10 TABLETS amlodipine 5 mg tablet 5 mg PO DAILY 03/02/24 Unknown History duloxetine 30 mg capsule,delayed mg PO 03/02/24 Unknown History release gabapentin 300 mg capsule 300 mg PO BID 03/02/24 Unknown History methocarbamol 500 mg tablet 500 mg PO Q8H PRN pain 5 days #15 03/02/24 Unknown Rx tabs ondansetron 4 mg disintegrating 4 mg PO Q8H PRN PRN Nausea #10 tabs 03/02/24 Unknown Rx tablet semaglutide 1 mg/dose (4 mg/3 mL) 1 mg subcut QWEEK 03/02/24 Unknown History subcutaneous pen injector (Ozempic) semaglutide 2 mg/dose (8 mg/3 mL) 2 mg subcut QWEEK 03/02/24 Unknown History subcutaneous pen injector (Ozempic) Allergy/AdvReac Type Severity Reaction Status Date / Time No Known Allergies Allergy Verified 03/02/24 18:33 Surgical History History of incision and drainage Social History Smoking Status: Former smoker ROS ROS ED Constitutional Constitutional ED: Denies chills or fever(s) Eyes Eyes: Denies change in vision Cardiovascular Cardiovascular: Denies chest pain Respiratory/Chest Respiratory/Chest: Denies dyspnea Gastrointestinal Gastrointestinal: Reports nausea; Denies abdominal pain or vomiting Musculoskeletal Musculoskeletal: Reports arthralgias and neck pain; Denies back pain or myalgias Integumentary Denies Abrasions Neurologic Neurologic: Reports dizziness and headache(s); Denies paresthesias EXAM Physical Exam Const Vital Signs: 03/02/24 18:34 03/02/24 18:39 03/02/24 20:33 Temperature 96.7 F L Temperature Source Temporal Pulse Rate 80 86 Respiratory Rate 18 18 Respiratory Effort Normal Non-Labored Respiratory Depth Normal Respiratory Pattern Normal Blood Pressure 157/89 H 146/87 H Blood Pressure Mean 111 106 Pulse Ox 100 99 Oxygen Delivery Method Room Air Room Air Room Air 03/02/24 20:39 Temperature 97.7 F L Temperature Source Pulse Rate 88 Respiratory Rate 18 Respiratory Effort Respiratory Depth Respiratory Pattern Blood Pressure 146/87 H Blood Pressure Mean 106 Pulse Ox 96 Oxygen Delivery Method Positive well nourished, well developed and no apparent distress General Appearance ED: well developed HEENT Reports normocephalic and head/scalp atraumatic Mouth ED: Yes moist mucous membranes normal Eyes PERRL and EOMs intact bilaterally Neck full ROM and supple Neck Narrative: Minimal midline tenderness to the lower cervical spine, bilateral paracervical tenderness. Chest Wall inspection of chest normal and palpation of chest normal Resp normal respiratory effort and clear to auscultation bilaterally Cardio regular rate and regular rhythm GI soft to palpation, non-tender, non-distended and no masses Back/Spine normal ROM and normal to inspection Extremity normal to inspection and full ROM Neuro oriented x3, CN's II-XII intact bilaterally, moves all extremities, no focal motor deficits and no sensory deficits noted Sensorium / Orientation: awake and alert Psych mental status grossly normal and thought process normal Skin no rashes or lesions noted and no wounds MDM MDM MDM Narrative Medical decision making narrative: Patient presenting today due to head injury that occurred this afternoon from a mechanical fall. He has felt intermittently nauseous and dizzy since hitting his head. He is nontoxic-appearing. Given his head injury and nausea, CT scan of the head will be obtained to rule out intracranial bleed, cervical spine CT to rule out neck fracture. These are negative for acute findings. He did endorse right shoulder pain with a history of right humeral fracture, this was negative for acute findings. Given his nausea, labs obtained, his CBC is unremarkable, he has a sodium of 134, creatinine of 1.41 and a BUN of 21. No previous labs to compare to but I did recommend that he have his kidney function rechecked by his PCP. He was medicated here with Tylenol and Zofran. On reexamination he does report some improvement of his symptoms, he was ambulated by the nurse and did well. He feels comfortable going home and will be discharged in stable condition, concussion precautions were discussed with him, encouraged that he follow-up with his PCP. Patient discharged home in stable condition. Lab Data Attestation: I reviewed the patient's lab results. Labs: Laboratory Results - last 24 hr 03/02/24 03/02/24 03/02/24 19:20 19:20 19:55 WBC Cancelled 10.4 Corrected WBC Cancelled RBC Cancelled 5.38 Hgb Cancelled 16.1 Hct Cancelled 46.3 MCV Cancelled 86.1 MCH Cancelled 29.9 MCHC Cancelled 34.8 RDW Std Deviation Cancelled 41.2 RDW Coeff of Hodan Cancelled 13.5 Plt Count Cancelled 215 MPV Cancelled 10.1 Immature Gran % (Auto) Cancelled 0.800 Neut % (Auto) Cancelled 77.3 H Lymph % (Auto) Cancelled 13.0 L Winn % (Auto) Cancelled 7.8 Eos % (Auto) Cancelled 0.5 Baso % (Auto) Cancelled 0.6 Absolute Neuts (auto) Cancelled 8.0 H Absolute Lymphs (auto) Cancelled 1.35 Total Counted Cancelled Neutrophils % (Manual) Cancelled Band Neutrophils % Cancelled Lymphocytes % (Manual) Cancelled Monocytes % (Manual) Cancelled Eosinophils % (Manual) Cancelled Basophils % (Manual) Cancelled Metamyelocytes % Cancelled Myelocytes % Cancelled Promyelocytes % Cancelled Blast Cells % Cancelled Plasma Cell % (Manual) Cancelled Other Cells % Cancelled Nucleated RBC % Cancelled 0 Nucleated RBCs/100 WBC Cancelled Differential Comment Cancelled Diff Path Review Cancelled Hypersegmented Neuts Cancelled Atypical Lymphocytes Cancelled Reactive Lymphocytes Cancelled Smudge Cells Cancelled Toxic Granulation Cancelled Toxic Vacuolation Cancelled Dohle Bodies Cancelled Chloé Rods Cancelled Platelet Estimate Cancelled Plt Morphology Comment Cancelled RBC Morphology Cancelled Cancelled Polychromasia Cancelled Hypochromasia Cancelled Basophilic Stippling Cancelled Anisocytosis Cancelled Microcytosis Cancelled Macrocytosis Cancelled Spherocytes Cancelled Sickle Cells Cancelled Target Cells Cancelled Tear Drop Cells Cancelled Ovalocytes Cancelled Stomatocytes Cancelled [place] Bodies Cancelled Wilfrid Cells Cancelled Bite Cells Cancelled Crenated Cell Cancelled Acanthocytes (Spur) Cancelled Rouleaux Cancelled Schistocytes Cancelled Sodium 134 L Potassium 4.8 Chloride 103 Carbon Dioxide 23.0 Anion Gap 8 BUN 21 H Creatinine 1.41 H Estim Creat Clear Calc 69.84 Est GFR (MDRD) Af Amer 66 Est GFR (MDRD) Non-Af 54 L BUN/Creatinine Ratio 14.9 Glucose 135 H Calcium 9.6 Total Bilirubin 0.50 AST 43 H ALT 29 Alkaline Phosphatase 74 Total Protein 7.7 Albumin 3.7 Globulin 4.0 Albumin/Globulin Ratio 0.9 Lipase 61 Radiography X-Ray: Read by ED Physician Diagnostic Testing: Clinical Impression(s) from Imaging Studies Shoulder X-Ray 03/02/24 18:35 IMPRESSION: Degenerative changes. No acute fracture or dislocation. Electronically Signed: Jorge Zendejas MD at 20:23 EST , Brain CT 03/02/24 18:55 IMPRESSION: Mild periventricular white matter ischemic change. No evidence for acute intracranial hemorrhage. Electronically Signed: Jorge Zendejas MD at 20:14 EST , Cervical Spine CT 03/02/24 18:55 IMPRESSION: Loss of normal lordotic curvature and mild to moderate spondylotic changes.. No evidence for acute fracture or other significant abnormality Electronically Signed: Jorge Zendejas MD at 20:17 EST Reading Location ID and State: [facility] / [place] Tel [phone], Service support , Discharge Plan Triage Chief Complaint: Fall ED Midlevel Provider: Deya Kurtz ED Provider: Bala Ruiz Dx/Rx/DC Orders Clinical Impression: Head injury, Cervical strain, Contusion of shoulder, Nausea Instructions: Concussion Dc, ED Contusion, Upper Extremity, ED Neck Sprain or Strain Prescriptions: New methocarbamol 500 mg tablet 500 mg PO Q8H PRN (Reason: pain) 5 Days Qty: 15 0RF ondansetron 4 mg tablet,disintegrating 4 mg PO Q8H PRN PRN (Reason: Nausea) Qty: 10 0RF No Action glyburide 5 MG tablet 10 mg PO DAILY metformin 1,000 MG tablet 1,000 mg PO BID hydrochlorothiazide 12.5 MG capsule 12.5 mg PO DAILY lisinopril-hydrochlorothiazide 1 EACH tablet 2 tab PO DAILY bupropion HCl 150 MG tablet extended release 24 hr 150 mg PO DAILY mupirocin 22 GM ointment 1 applicatio TP TID Patient Comments: apply to affected area three times a day for 10 days hydrocodone-acetaminophen [hydrocodone-acetaminophen] 5-325 mg tablet 1 tab PO Q6H PRN PRN (Reason: Pain) 3 Days Qty: 10 0RF amlodipine 5 mg tablet 5 mg PO DAILY gabapentin 300 mg capsule 300 mg PO BID duloxetine 30 mg capsule,delayed release(DR/EC) PO Ozempic 1 mg/dose (4 mg/3 mL) pen injector 1 mg subcut QWEEK Ozempic 2 mg/dose (8 mg/3 mL) pen injector 2 mg subcut QWEEK Primary Care Provider: Onofre Augustine Referrals: Onofre Augustine MD [Primary Care Provider] - 5-7 Days Activity Restrictions/Additional Instructions: Follow-up with your PCP. Have your kidney labs rechecked as your creatinine was slightly elevated here at 1.41. Take Tylenol for pain as needed. Print Language: Citizen Of [place] Disposition Disposition: Home, Self Care Discharge Date/Time: 03/02/24 20:47
[2024-03-02] MEDS: Ondansetron ODT 4 MG Tablet PO (19:43)
[2024-03-02 20:04] LABS: ALB/GLOB Ratio 0.9 RATIO (0.9-2.4); AST(SGOT) 43 U/L (15-37); Alanine Aminotransfer ALT/SGPT 29 U/L (16-61); Albumin, Serum 3.7 g/dL (3.2-5.0); Alkaline Phosphatase 74 U/L (45-117); Anion Gap 8 (5-15); BUN 21 mg/dL (7-18); BUN/Creat Ratio 14.9 RATIO (10-20); Calcium,Total 9.6 mg/dL (8.5-10.1); Chloride 103 mmol/L (98-107); Creatinine, Serum 1.41 mg/dL (0.70-1.30); EST Glomerular Filtration Rate 54 mL/min (>60); Est Glom Filt Rate - Afr Amer 66 mL/min (>60); Estimated Creatinine Clearance 69.84 ml/min; Glucose 135 mg/dL (74-106); Lipase 61 U/L (13-75); Potassium 4.8 mmol/L (3.5-5.1); Protein, Total 7.7 g/dL (6.4-8.2); Sodium Level 134 mmol/L (136-145)
[2024-03-02 20:04] LABS: Absolute Lymphocyte Count 1.35 X10^3/uL (0.83-4.51); Basophil# 0.06 X10^3/uL; Basophil% 0.6 % (0-1); Eosinophil# 0.05 X10^3/uL; Eosinophils% 0.5 % (0-5); Hematocrit 46.3 % (40-54); Hemoglobin 16.1 g/dL (13.0-16.5); Lymphocyte # 1.35 X10^3/ul (0.83-4.51); Mean Corp Hgb Conc 34.8 g/dL (32-36); Mean Corpuscular Hgb 29.9 pg (27.0-32.0); Mean Corpuscular Volume 86.1 fL (80-94); Mean Platelet Vol. 10.1 fl (6.2-12.0); Monocyte# 0.81 X10^3/uL; Monocyte% 7.8 % (0-10); NRBC Flagged by Analyzer 0 % (0-5); Neutrophil # 8.01 X10^3/uL (2.7-7.7); Neutrophil % 77.3 % (47-70); Platelet Count 215 K/mm3 (150-450); RBC Distribution Width CV 13.5 % (11.6-14.6); RBC Distribution Width SD 41.2 fl (35.1-43.9); Red Blood Count 5.38 M/mm3 (4.6-6.2); White Blood Count 10.4 K/mm3 (4.4-11.0)
[2024-03-02 20:33] VITALS: BP 146/87; PULSE 86; RESP 18; O2SAT 99
[2024-03-02] MEDS: Acetaminophen 500 MG Tablet 1000 MG PO (20:38)
[2024-03-02 20:39] VITALS: BP 146/87; PULSE 88; RESP 18; TEMP 36.5; O2SAT 96
== END 2024-03-02 20:47 | disposition home or self-care (01) ==
PROVIDERS: Physician Assistant; Emergency Provider Emergency Medicine; PCP Family Medicine; Referring Provider Emergency Medicine; Visit Provider Emergency Medicine
DX: S09.90XA Unspecified injury of head, initial encounter (principal); S16.1XXA Strain of muscle, fascia and tendon at neck level, initial encounter; S40.011A Contusion of right shoulder, initial encounter; W00.0XXA Fall on same level due to ice and snow, initial encounter; E11.40 Type 2 diabetes mellitus with diabetic neuropathy, unspecified; I10 Essential (primary) hypertension; Z79.84 Long term (current) use of oral hypoglycemic drugs; Z79.85 Long-term (current) use of injectable non-insulin antidiabetic drugs; Z79.899 Other long term (current) drug therapy; Z87.891 Personal history of nicotine dependence
CPT/HCPCS: 70450; 72125; 73030; 80053; 83690; 85025; 99285; J2405